=== PATIENT | female | born 1990 | race Caucasian/White ===

== ENCOUNTER 2018-02-09 19:15 | Emergency (ER) | payer OTHER ==
[2018-02-09] MEDS ORDERED: KETOROLAC 30 MG/ML INJ ONE (20:04)
[2018-02-09 20:18] LABS: Urine Specific Gravity 1.015 (1.005-1.030)
[2018-02-09 20:19] LABS: Urine Blood NEGATIVE (NEG); Urine Glucose 2+ (NEG); Urine Protein NEGATIVE (NEG); Urine Specific Gravity 1.015 (1.005-1.030)
--- NOTE | 2018-02-09 20:31 | ER ---
Nurse's Notes [facility] Name: Laureen Schmidt Age: 28 yrs Sex: Female : 1990 Arrival Date: 02/09/2018 Time: 19:16 Bed 15 Private MD: ARLET ALEXANDER Diagnosis: Neck Pain;Urinary tract infection, site not specified Presentation: 02/09 19:29 Presenting complaint: Patient states: She has been having upper neck pain for the past aj1 week, when it gets bad it makes her vision blurry and she feels dizzy. Patient denies any falls or injury to her neck. Reports the pain as a "shooting pressure" that radiates to the right eye and the right upper back. She has been taking tramadol and Motrin at home with no relief. Transition of care: patient was not received from another setting of care. Onset of symptoms was February 02, 2018. Risk Assessment: Do you want to hurt yourself or someone else? Patient reports no desire to harm self or others. Initial Sepsis Screen: Does the patient meet any 2 criteria? No. Patient's initial sepsis screen is negative. Does the patient have a suspected source of infection? No. Patient's initial sepsis screen is negative. Care prior to arrival: None. 19:29 Method Of Arrival: Ambulatory aj1 19:29 Acuity: ELKE 4 aj1 Triage Assessment: 19:34 General: Appears in no apparent distress. uncomfortable, Behavior is calm, cooperative, aj1 appropriate for age. Pain: Complains of pain in right posterior aspect of neck Pain radiates to right eye and thoracic area Pain currently is 7 out of 10 on a pain scale. Quality of pain is described as sharp, shooting, Pain began one week ago Is continuous, Aggravated by repositioning. Neuro: Level of Consciousness is awake, alert, obeys commands, Oriented to person, place, time, situation, Moves all extremities. Full function Gait is steady, Speech is normal. Cardiovascular: Patient's skin is warm and dry. Respiratory: Airway is patent Respiratory effort is even, unlabored, Respiratory pattern is regular, symmetrical. GI: No signs and/or symptoms were reported involving the gastrointestinal system. : No signs and/or symptoms were reported regarding the genitourinary system. Derm: No signs and/or symptoms reported regarding the dermatologic system. Musculoskeletal: Range of motion: limited in neck, patient complains of pain when she moves her neck. 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 - Social history:: Smoking status: Patient/guardian denies using tobacco. - Ebola Screening: : Patient denies travel to an Ebola-affected area in the 21 days before illness onset. Screenin:40 Abuse screen: Denies threats or abuse. Nutritional screening: No deficits noted. jd3 Tuberculosis screening: No symptoms or risk factors identified. Fall Risk Ambulatory Aid- None/Bed Rest/Nurse Assist (0 pts). Gait- Normal/Bed Rest/Wheelchair (0 pts) Mental Status- Oriented to own ability (0 pts). Total Austin Fall Scale indicates No Risk (0-24 pts). Assessment: 19:38 General: see triage assessment. jd3 19:39 Neuro: Level of Consciousness is awake, alert, obeys commands, Oriented to person, jd3 place, time, situation, Appropriate for age Gait is steady, Speech is normal, Pupils are PERRLA, Reports dizziness. 20:45 Reassessment: Patient appears in no apparent distress at this time. Patient and/or jd3 family updated on plan of care and expected duration. Pain level reassessed. Patient is alert, oriented x 3, equal unlabored respirations, skin warm/dry/pink. pt report understanding of discharge instructions, even and steady gait upon discharge. Patient states feeling better. Vital Signs: 19:34 BP 134 / 64; Pulse 85; Resp 18; Temp 98.3(O); Pulse Ox 98% on R/A; Weight 99.79 kg (R); aj1 Height 5 ft. 3 in. (160.02 cm) (R); Pain 7/10; 19:34 Body Mass Index 38.97 (99.79 kg, 160.02 cm) aj1 ED Course: 19:16 Patient arrived in ED. ds1 19:16 ARLET ALEXANDER is Private Physician. ds1 19:31 Triage completed. aj1 19:32 Matt Hamilton PA is PHCP. cp 19:32 Quique Vazquez MD is Attending Physician. cp 19:34 Arm band placed on Patient placed in an exam room. aj1 19:37 Carmine Tsai, OMAR is Primary Nurse. jd3 19:40 Patient has correct armband on for positive identification. Bed in low position. Call jd3 light in reach. Side rails up X 1. 20:44 No provider procedures requiring assistance completed. Patient did not have IV access jd3 during this emergency room visit. Administered Medications: 20:05 Drug: TORadol 60 mg Route: IM; Site: right deltoid; jd3 20:45 Follow up: Response: No adverse reaction jd3 Outcome: 20:30 Discharge ordered by MD. cp 20:44 Discharged to home ambulatory, with family. jd3 20:44 Condition: stable 20:44 Discharge instructions given to patient, family, Instructed on discharge instructions, follow up and referral plans. medication usage, Demonstrated understanding of instructions, follow-up care, medications, Prescriptions given X 3. 20:47 Patient left the ED. jd3 Addendum: 02/12/2018 13:55 Addendum: Culture Results: Positive urine culture. No further action required. Bacteria s s sensitive to prescribed antibiotic. Signatures: Raquel Hudson RN RN aj1 Lilia Manning ds1 Zeny Castillo RN RN ss Page, Corey, PA PA cp Carmine Tsai RN RN jd3 Corrections: (The following items were deleted from the chart) 02/09 20:46 19:39 Neuro: Level of Consciousness is awake, alert, obeys commands, Oriented to jd3 person, place, time, situation, Appropriate for age Gait is steady, Speech is normal, Pupils are PERRLA, Reports dizziness, jd3
--- NOTE | 2018-02-09 20:31 | EDPHYS ---
Physician Documentation [facility] Name: Laureen Schmidt Age: 28 yrs Sex: Female : 1990 Arrival Date: 02/09/2018 Time: 19:16 Bed 15 Private MD: ARLET ALEXANDER ED Physician Quique Vazquez HPI: 02/09 19:39 This 28 yrs old Female presents to ER via Ambulatory with complaints of Neck cp Pain. 19:39 The patient or guardian complains of decreased range of motion, pain, that is acute. cp The symptoms are located at the C2 and C3. Onset: The symptoms/episode began/occurred 1 week(s) ago. Context: The neck injury/problem resulted from from unknown cause. Associated signs and symptoms: Pertinent positives: intermittent headache, Pertinent negatives: numbness, tingling, No neurological symptoms were experienced by the patient prior to arrival in the emergency department. 19:39 The pain does not radiate. Modifying factors: the symptoms are aggravated by movement. cp Severity of symptoms: in the emergency department the symptoms are unchanged, despite home interventions. 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 - Social history:: Smoking status: Patient/guardian denies using tobacco. - Ebola Screening: : Patient denies travel to an Ebola-affected area in the 21 days before illness onset. ROS: 19:45 Constitutional: Negative for body aches, chills, fever, poor PO intake. cp 19:45 Eyes: Negative for injury, pain, redness, and discharge. cp 19:45 ENT: Negative for drainage from ear(s), ear pain, sore throat, difficulty swallowing, difficulty handling secretions. 19:45 Neck: Positive for pain with movement, stiffness, tenderness, bony tenderness, Negative for injury or acute deformity. 19:45 Cardiovascular: Negative for chest pain, edema, palpitations. 19:45 Respiratory: Negative for cough, shortness of breath, wheezing. 19:45 Abdomen/GI: Negative for abdominal pain, nausea, vomiting, and diarrhea, constipation, black/tarry stool, rectal bleeding. 19:45 Back: Negative for injury or acute deformity, radiated pain. 19:45 : Negative for urinary symptoms. 19:45 Skin: Negative for cellulitis, rash. 19:45 Neuro: Negative for altered mental status, dizziness, headache, numbness, weakness. 19:45 All other systems are negative. Exam: 19:50 Constitutional: The patient appears in no acute distress, alert, awake, cp non-diaphoretic, non-toxic, well developed, well nourished, obese. 19:50 Head/Face: Normocephalic, atraumatic. cp 19:50 Eyes: Periorbital structures: appear normal, Pupils: equal, round, and reactive to light and accomodation, Extraocular movements: intact throughout, Conjunctiva: normal, no exudate, no injection, Sclera: no appreciated abnormality, Lids and lashes: appear normal, bilaterally. 19:50 ENT: External ear(s): are unremarkable, Ear canal(s): are normal, clear, TM's: dullness, bilaterally, Nose: is normal, Mouth: Lips: moist, Oral mucosa: pink and intact, moist, Posterior pharynx: is normal, airway is patent, no erythema, no exudate, Voice: is normal. 19:50 Neck: C-spine: vertebral tenderness, that is mild, appreciated at C2 and C3, crepitus, is not appreciated, ROM/movement: pain, that is mild, with rotation to the right, limited range of motion, that is mild, when rotating to the right, Meningeal signs: are not present, nuchal rigidity, is not appreciated, Lymph nodes: no appreciated lymphadenopathy. 19:50 Chest/axilla: Inspection: normal, Palpation: is normal, no crepitus, no tenderness. 19:50 Cardiovascular: Rate: normal, Rhythm: regular. 19:50 Respiratory: the patient does not display signs of respiratory distress, Respirations: normal, no use of accessory muscles, no retractions, no splinting, no tachypnea, Breath sounds: are clear throughout, no decreased breath sounds, no stridor, no wheezing. 19:50 Abdomen/GI: Exam negative for discomfort, distension, guarding, Inspection: obese 19:50 Back: ROM is normal, CVA tenderness, is absent. 19:50 Musculoskeletal/extremity: Exam is negative for bony tenderness, decreased range of motion, deformity, injury. 19:50 Skin: cellulitis, is not appreciated, no rash present. 19:50 Neuro: Orientation: to person, place \T\ time. Mentation: lucid, able to follow commands, Cerebellar function: is grossly normal, Motor: moves all fours, strength is normal, Sensation: is normal. Vital Signs: 19:34 BP 134 / 64; Pulse 85; Resp 18; Temp 98.3(O); Pulse Ox 98% on R/A; Weight 99.79 kg (R); aj1 Height 5 ft. 3 in. (160.02 cm) (R); Pain 7/10; 19:34 Body Mass Index 38.97 (99.79 kg, 160.02 cm) aj1 MDM: 19:32 Patient medically screened. cp 20:00 Differential diagnosis: Cervical Disc Herniation Cervical Raiculopathy Cervical cp Spondylosis cervical strain, Spinal Cord Compression torticollis. 20:28 Data reviewed: vital signs, nurses notes. cp 20:28 Counseling: I had a detailed discussion with the patient and/or guardian regarding: the cp historical points, exam findings, and any diagnostic results supporting the discharge/admit diagnosis, the need for outpatient follow up, a family practitioner, to return to the emergency department if symptoms worsen or persist or if there are any questions or concerns that arise at home. Response to treatment: the patient's symptoms have mildly improved after treatment, and as a result, I will discharge patient. 02/09 20:05 Order name: Urine Dipstick--Ancillary (enter results) [facility] 02/09 20:06 Order name: Urine --Ancillary (enter results) [facility] 02/09 19:39 Order name: Urine Dipstick-Ancillary (obtain specimen); Complete Time: 20:01 02/09 20:12 Order name: Urine Microscopic Only 02/09 20:13 Order name: Urine Culture 02/09 19:39 Order name: Urine Test (obtain specimen); Complete Time: 20:01 cp Administered Medications: 20:05 Drug: TORadol 60 mg Route: IM; Site: right deltoid; jd3 20:45 Follow up: Response: No adverse reaction jd3 Disposition: 02/09/18 20:30 Discharged to Home. Impression: Neck Pain, Urinary tract infection, site not specified. - Condition is Stable. - Discharge Instructions: Musculoskeletal Pain, Urinary Tract Infection, Adult, Neck Exercises. - Prescriptions for Cyclobenzaprine 10 mg Oral Tablet - take 1 tablet by ORAL route every 8 hours As needed no driving while taking medication; 15 tablet. Diclofenac Sodium 75 mg Oral Tablet, Delayed Release (E.C.) - take 1 tablet by ORAL route 2 times per day; 20 tablet. Macrobid 100 mg Oral Capsule - take 1 capsule by ORAL route every 12 hours for 7 days; 14 capsule. - Medication Reconciliation Form, Thank You Letter, Antibiotic Education, Prescription Opioid Use form. - Follow up: Private Physician; When: 2 - 3 days; Reason: Recheck today's complaints. - Problem is new. - Symptoms have improved. Addendum: 02/14/2018 20:21 Co-signature as Attending Physician, Quique Vazquez MD I agree with the assessment and w a plan of care. Signatures: Dispatcher [employer] Raquel Bauman RN RN aj1 Matt Hamilton PA PA cp Appiah, William, MD MD wa Davies, Jonathon, RN RN jd3 Corrections: (The following items were deleted from the chart) 02/09 20:47 20:30 02/09/2018 20:30 Discharged to Home. Impression: Neck Pain; Urinary tract jd3 infection, site not specified. Condition is Stable. Forms are Medication Reconciliation Form, Thank You Letter, Antibiotic Education, Prescription Opioid Use. Follow up: Private Physician; When: 2 - 3 days; Reason: Recheck today's complaints. Problem is new. Symptoms have improved. cp
[2018-02-09 20:51] VITALS: BP 134/64; TEMP 98.3; O2SAT 98
[2018-02-09 21:35] LABS: Urine Bacteria 20-50 /HPF (<20); Urine Culture Reflex Order NOT NEEDED; Urine RBC <5 /HPF (NONE SEEN)
== END 2018-02-09 20:47 | disposition home or self-care (01) ==
LOC: ER 19:15
DX: M54.2 Cervicalgia (principal); N39.0 Urinary tract infection, site not specified; E11.9 Type 2 diabetes mellitus without complications; Z79.4 Long term (current) use of insulin; Z88.6 Allergy status to analgesic agent
CPT/HCPCS: 81003; 81015; 81025; 87077; 87086; 87088; 87186; 96372; 99283

== ENCOUNTER 2019-03-16 16:44 | Emergency (ER) | payer OTHER ==
[2019-03-16] MEDS ORDERED: NA CHLORIDE 0.9% 3,000 ML ONE (17:08)
[2019-03-16] MEDS ORDERED: ACETAMINOPHEN 500 MG TAB ONE (17:14)
[2019-03-16 17:21] LABS: Absolute Lymphocytes (CBC) 2.4 K/uL (0.7-4.9); Basophils % 0.3 % (0-1.3); Hematocrit 44.9 % (36.0-45.0); Lymphocytes % 30.6 % (15.3-44.8); MPV 11.9 fL (7.6-11.3); RBC Red Blood Cell Count 4.95 M/uL (3.86-4.86)
[2019-03-16 17:25] LABS: Protime INR 1.04
[2019-03-16 17:33] LABS: Urine Blood TRACE (NEG); Urine Glucose 2+ (NEG); Urine Protein NEGATIVE (NEG); Urine pH 6.5 (5.0-7.0)
[2019-03-16 17:46] LABS: Urine Bacteria >50 /HPF (<20); Urine Culture Reflex Order REFLEXED; Urine RBC <5 /HPF (NONE SEEN)
[2019-03-16 17:47] LABS: ALT/SGPT 109 U/L (12-78); AST/SGOT 67 U/L (15-37); Albumin 4.1 g/dL (3.4-5.0); Alkaline Phosphatase 105 U/L (45-117); BUN Blood Urea Nitrogen 10 mg/dL (7-18); Bicarbonate 28 mmol/L (21-32); Bilirubin Direct 0.2 mg/dL (0-0.2); Bilirubin Total 0.6 mg/dL (0.2-1.0); Creatine Phosphokinase 52 U/L (26-192); Glucose Level 392 mg/dL (74-106); Lipase 227 U/L (73-393); Potassium 3.9 mmol/L (3.5-5.1); Protein, Total 8.9 g/dL (6.4-8.2); Sodium Level 138 mmol/L (136-145); Troponin (Emerg Dept Use Only) < 0.02 ng/mL (0.0-0.045)
--- NOTE | 2019-03-16 17:57 | RAD REPORT ---
EXAM DESCRIPTION: [place] Single View03/16/2019 5:23 pm CLINICAL HISTORY: Chest pain COMPARISON: 2016 FINDINGS: The lungs appear clear of acute infiltrate. The heart is normal size IMPRESSION: No acute abnormalities displayed
[2019-03-16] MEDS ORDERED: CEFTRIAXONE/SWI 2gm 2 GM/20 ML SYR IVP ONE (19:00)
[2019-03-16] MEDS ORDERED: METOCLOPRAMIDE 10 MG/2mL INJ ONE (19:36)
[2019-03-16] MEDS ORDERED: DIPHENHYDRAMINE 50 MG/ML VIAL ONE (19:36)
--- NOTE | 2019-03-16 19:37 | ER ---
Nurse's Notes [facility] Name: Laureen Schmidt Age: 29 yrs Sex: Female : 1990 Arrival Date: 03/16/2019 Time: 16:47 Bed 26 Private MD: Diagnosis: Acute cystitis;Fever, unspecified Presentation: 03/16 16:49 Presenting complaint: Patient states: left sided chest pain that radiates across the sv chest up into her right neck and right arm tingling started today with a migraine. "My BS have been going up and down and I"m having symptoms of a UTI but I can't see my Dr til next week.". Transition of care: patient was not received from another setting of care. Onset of symptoms was March 16, 2019. Care prior to arrival: None. 16:49 Method Of Arrival: Ambulatory sv 16:49 Acuity: ELKE 2 sv 17:19 Risk Assessment: Do you want to hurt yourself or someone else? Patient reports no ca1 desire to harm self or others. Initial Sepsis Screen: Does the patient meet any 2 criteria? RR > 20 per min. Temp <36.0*C (96.8*F)) or > 38.3*C (100.9*F). Does the patient have a suspected source of infection? Yes: Dysuria/Frequency/Urgency/UTI. 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 - Social history:: Smoking status: Patient/guardian denies using tobacco. - Ebola Screening: : Patient negative for fever greater than or equal to 101.5 degrees Fahrenheit, and additional compatible Ebola Virus Disease symptoms Patient denies exposure to infectious person Patient denies travel to an Ebola-affected area in the 21 days before illness onset No symptoms or risks identified at this time. Screenin:14 Abuse screen: Denies threats or abuse. Denies injuries from another. Nutritional ca1 screening: No deficits noted. Tuberculosis screening: No symptoms or risk factors identified. Fall Risk IV access (20 points). Assessment: 17:14 General: Appears in no apparent distress. comfortable, Behavior is calm, cooperative, ca1 appropriate for age. General: Reports fever for 12-24 hours. Pain: Complains of pain in left chest Pain radiates to back and right arm Pain currently is 7 out of 10 on a pain scale. Pain began 4 hours ago. Neuro: Level of Consciousness is awake, alert, obeys commands, Oriented to person, place, time, situation. Cardiovascular: Heart tones S1 S2 present Capillary refill < 3 seconds Patient's skin is warm and dry. Respiratory: Airway is patent Respiratory effort is even, unlabored, Respiratory pattern is regular, symmetrical, Breath sounds are clear bilaterally. GI: Abdomen is round non-distended, Bowel sounds present X 4 quads. Abd is soft and non tender X 4 quads. : Reports burning with urination, urgency, since a week ago urinary frequency. EENT: No deficits noted. No signs and/or symptoms were reported regarding the EENT system. Derm: Skin is intact, is healthy with good turgor, Skin is pink, warm \\T\\ dry. Musculoskeletal: Circulation, motion, and sensation intact. Capillary refill < 3 seconds, Range of motion: intact in all extremities. 18:00 Reassessment: Patient appears in no apparent distress at this time. Patient and/or ca1 family updated on plan of care and expected duration. Pain level reassessed. Patient is alert, oriented x 3, equal unlabored respirations, skin warm/dry/pink. 18:56 Reassessment: Patient appears in no apparent distress at this time. Patient and/or ca1 family updated on plan of care and expected duration. Pain level reassessed. Patient is alert, oriented x 3, equal unlabored respirations, skin warm/dry/pink. 19:55 Reassessment: Patient appears in no apparent distress at this time. Patient is alert, ca1 oriented x 3, equal unlabored respirations, skin warm/dry/pink. Patient states feeling better. Vital Signs: 16:50 BP 124 / 62; Pulse 128; Resp 22; Temp 100.1; Pulse Ox 97% ; Weight 96.16 kg; Height 5 sv ft. 3 in. (160.02 cm); 18:19 BP 114 / 61; Pulse 111; Resp 17 S; Temp 99.3(O); Pulse Ox 100% on R/A; ca1 18:37 Temp 99.3(O); ca1 18:56 BP 126 / 59; Pulse 102; Resp 17 S; Temp 99(O); Pulse Ox 100% ; ca1 19:55 BP 121 / 61; Pulse 96; Resp 17 S; Temp 99(O); Pulse Ox 98% on R/A; ca1 16:50 Body Mass Index 37.55 (96.16 kg, 160.02 cm) sv ED Course: 16:47 Patient arrived in ED. as 16:50 Triage completed. sv 16:51 Arm band placed on. sv 16:52 Prashant Ugalde PA is PHCP. jr8 16:52 Jw Bear MD is Attending Physician. jr8 16:54 Rupal Rivera, OMAR is Primary Nurse. ca1 17:06 No provider procedures requiring assistance completed. Inserted saline lock: 22 gauge ca1 in right antecubital area, using aseptic technique. Blood collected. 17:14 Patient has correct armband on for positive identification. Placed in gown. Bed in low ca1 position. Call light in reach. Side rails up X 1. bus driver/monitor on. Pulse ox on. NIBP on. 17:24 Chest Single View XRAY In Process Unspecified. EDMS 20:16 IV discontinued, intact, bleeding controlled, No redness/swelling at site. Pressure ca1 dressing applied. Administered Medications: 17:11 Drug: NS 0.9% (30 ml/kg) 30 ml/kg Route: IV; Rate: bolus; Site: right antecubital; ca1 19:00 Follow up: Urine output 300 ml; Response: No adverse reaction; IV Status: Completed ca1 infusion 17:14 Drug: Acetaminophen 1000 mg Route: PO; ca1 18:37 Follow up: Temp 99.3 Oral; Response: No adverse reaction; Temperature is decreased ca1 18:36 Drug: Rocephin 2 grams Route: IV; Rate: calculated rate; Site: right antecubital; ca1 19:00 Follow up: Response: No adverse reaction; IV Status: Completed infusion ca1 19:35 Drug: Reglan 10 mg Route: IVP; Site: right antecubital; ca1 20:15 Follow up: Response: No adverse reaction; Marked relief of symptoms ca1 19:38 Drug: Benadryl 25 mg Route: IVP; Site: right antecubital; ca1 20:15 Follow up: Response: No adverse reaction; Marked relief of symptoms ca1 Point of Care Testing: Blood Glucose: 17:21 Blood Glucose: 406 mg/dL; ca1 18:19 Blood Glucose: 336 mg/dL; ca1 Ranges: Output: 19:00 Urine: 300ml; Total: 300ml. ca1 Outcome: 19:34 Discharge ordered by MD. castorena 20:16 Discharged to home ambulatory, with friend. ca1 20:16 Condition: stable 20:16 Discharge instructions given to patient, Instructed on discharge instructions, follow up and referral plans. medication usage, Demonstrated understanding of instructions, follow-up care, medications, Prescriptions given X 2. 20:18 Patient left the ED. ca1 Addendum: 03/19/2019 08:17 Addendum: Culture Results: Positive urine culture. No further action required. Bacteria m s sensitive to prescribed antibiotic. Signatures: Dispatcher [employer] Viky Harris RN RN sv Martinez, Amelia as Solis, Maria ms Roszak, Josh, KATHRIN PINON jr8 Rupal Rivera RN RN ca1 Corrections: (The following items were deleted from the chart) 03/16 20:18 18:55 Reassessment: Patient appears in no apparent distress at this time. Patient is ca1 alert, oriented x 3, equal unlabored respirations, skin warm/dry/pink. ca1
--- NOTE | 2019-03-16 19:38 | EDPHYS ---
Physician Documentation [facility] Name: Laureen Schmidt Age: 29 yrs Sex: Female : 1990 Arrival Date: 03/16/2019 Time: 16:47 Bed 26 Private MD: ED Physician Jw Bear HPI: 03/16 19:16 This 29 yrs old Female presents to ER via Ambulatory with complaints of jr8 Dizziness, Headache, Nausea. 19:16 The patient presents with dizziness. Onset: The symptoms/episode began/occurred jr8 acutely, today. Context: occurred at home, occurred while the patient was at rest. Modifying factors: The symptoms are alleviated by nothing, the symptoms are aggravated by nothing. Associated signs and symptoms: Pertinent positives: headache, nausea. Severity of symptoms: At their worst the symptoms were moderate in the emergency department the symptoms are unchanged. Patient's baseline: Neuro: alert and fully oriented, Motor: no deficits, Ambulation: walks without assistance, Speech: normal. The patient has not experienced similar symptoms in the past. The patient has not recently seen a physician. 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 - Social history:: Smoking status: Patient/guardian denies using tobacco. - Ebola Screening: : Patient negative for fever greater than or equal to 101.5 degrees Fahrenheit, and additional compatible Ebola Virus Disease symptoms Patient denies exposure to infectious person Patient denies travel to an Ebola-affected area in the 21 days before illness onset No symptoms or risks identified at this time. ROS: 19:16 Eyes: Negative for injury, pain, redness, and discharge, ENT: Negative for injury, jr8 pain, and discharge, Cardiovascular: Negative for chest pain, palpitations, and edema, Respiratory: Negative for shortness of breath, cough, wheezing, and pleuritic chest pain, Back: Negative for injury and pain, MS/Extremity: Negative for injury and deformity, Skin: Negative for injury, rash, and discoloration. 19:16 Constitutional: Positive for fever. 19:16 Neck: Positive for pain with movement, pain at rest, Negative for tenderness. 19:16 Abdomen/GI: Positive for nausea. 19:16 Neuro: Positive for headache. Exam: 19:16 Eyes: Pupils equal round and reactive to light, extra-ocular motions intact. Lids and jr8 lashes normal. Conjunctiva and sclera are non-icteric and not injected. Cornea within normal limits. Periorbital areas with no swelling, redness, or edema. ENT: Nares patent. No nasal discharge, no septal abnormalities noted. Tympanic membranes are normal and external auditory canals are clear. Oropharynx with no redness, swelling, or masses, exudates, or evidence of obstruction, uvula midline. Mucous membranes moist. Neck: Trachea midline, no thyromegaly or masses palpated, and no cervical lymphadenopathy. Supple, full range of motion without nuchal rigidity, or vertebral point tenderness. No Meningismus. Respiratory: Lungs have equal breath sounds bilaterally, clear to auscultation and percussion. No rales, rhonchi or wheezes noted. No increased work of breathing, no retractions or nasal flaring. Abdomen/GI: Soft, non-tender, with normal bowel sounds. No distension or tympany. No guarding or rebound. No evidence of tenderness throughout. Back: No spinal tenderness. No costovertebral tenderness. Full range of motion. Skin: Warm, dry with normal turgor. Normal color with no rashes, no lesions, and no evidence of cellulitis. MS/ Extremity: Pulses equal, no cyanosis. Neurovascular intact. Full, normal range of motion. Neuro: Awake and alert, GCS 15, oriented to person, place, time, and situation. Cranial nerves II-XII grossly intact. Motor strength 5/5 in all extremities. Sensory grossly intact. Cerebellar exam normal. Normal gait. 19:16 Cardiovascular: Rate: tachycardic, Rhythm: regular, Pulses: Pulses are 2+ in bilateral radial, brachial, femoral, popliteal, posterior tibial and and dorsalis pedis arteries.. Heart sounds: normal, Edema: is not appreciated. Vital Signs: 16:50 BP 124 / 62; Pulse 128; Resp 22; Temp 100.1; Pulse Ox 97% ; Weight 96.16 kg; Height 5 sv ft. 3 in. (160.02 cm); 18:19 BP 114 / 61; Pulse 111; Resp 17 S; Temp 99.3(O); Pulse Ox 100% on R/A; ca1 18:37 Temp 99.3(O); ca1 18:56 BP 126 / 59; Pulse 102; Resp 17 S; Temp 99(O); Pulse Ox 100% ; ca1 19:55 BP 121 / 61; Pulse 96; Resp 17 S; Temp 99(O); Pulse Ox 98% on R/A; ca1 16:50 Body Mass Index 37.55 (96.16 kg, 160.02 cm) sv MDM: 16:53 Patient medically screened. 8 19:30 Data reviewed: vital signs, nurses notes, lab test result(s), EKG, radiologic studies, jr8 plain films. Data interpreted: Pulse oximetry: on room air is 100 %. Interpretation: normal. Counseling: I had a detailed discussion with the patient and/or guardian regarding: the historical points, exam findings, and any diagnostic results supporting the discharge/admit diagnosis, lab results, radiology results, the need for outpatient follow up, a family practitioner, to return to the emergency department if symptoms worsen or persist or if there are any questions or concerns that arise at home. Response to treatment: the patient's symptoms have markedly improved after treatment, patient is well hydrated. ED course: Patient feeling much better. UTI present and most likely cause of fever. Explained this to patient. Recommend rest and will continue on home abx. Otherwise no acute findings on labs except elevated glucose. No concern for sepsis at this point . 03/16 16:53 Order name: Urine Culture 03/16 16:53 Order name: Basic Metabolic Panel; Complete Time: 17:59 03/16 16:53 Order name: Blood Culture Adult (2) 03/16 16:53 Order name: CBC with Diff; Complete Time: 17:45 03/16 16:53 Order name: CPK; Complete Time: 17:59 03/16 16:53 Order name: Lactate; Complete Time: 17:45 03/16 16:53 Order name: LFT's; Complete Time: 17:59 03/16 16:53 Order name: Lipase; Complete Time: 17:59 03/16 16:53 Order name: Procalcitonin; Complete Time: 17:59 03/16 16:53 Order name: Protime (+inr); Complete Time: 17:45 03/16 16:53 Order name: Ptt, Activated; Complete Time: 17:45 03/16 16:53 Order name: Troponin (emerg Dept Use Only); Complete Time: 17:59 03/16 16:53 Order name: Urine Microscopic Only; Complete Time: 17:47 03/16 17:30 Order name: Urine Dipstick--Ancillary (enter results); Complete Time: 17:45 03/16 16:53 Order name: Chest Single View XRAY; Complete Time: 19:54 03/16 16:53 Order name: Accucheck; Complete Time: 17:04 03/16 16:53 Order name: Cardiac monitoring; Complete Time: 17:04 03/16 16:53 Order name: EKG - Nurse/Tech; Complete Time: 17:11 03/16 16:53 Order name: IV Saline Lock - Large Bore; Complete Time: 17:04 03/16 16:53 Order name: Labs collected and sent; Complete Time: 17:04 03/16 16:53 Order name: O2 Per Protocol; Complete Time: 17:05 03/16 17:39 Order name: EKG Electrocardiogram; Complete Time: 17:49 EDMS 03/16 18:20 Order name: Glucose, Ancillary Testing; Complete Time: 18:24 EDMS 03/16 18:21 Order name: Glucose, Ancillary Testing; Complete Time: 18:24 EDMS 03/16 16:53 Order name: O2 Sat Monitoring; Complete Time: 17:05 03/16 16:53 Order name: Urine Dipstick-Ancillary (obtain specimen); Complete Time: 17:53 03/16 16:53 Order name: Urine Test (obtain specimen); Complete Time: 17:35 jr8 Administered Medications: 17:11 Drug: NS 0.9% (30 ml/kg) 30 ml/kg Route: IV; Rate: bolus; Site: right antecubital; ca1 19:00 Follow up: Urine output 300 ml; Response: No adverse reaction; IV Status: Completed ca1 infusion 17:14 Drug: Acetaminophen 1000 mg Route: PO; ca1 18:37 Follow up: Temp 99.3 Oral; Response: No adverse reaction; Temperature is decreased ca1 18:36 Drug: Rocephin 2 grams Route: IV; Rate: calculated rate; Site: right antecubital; ca1 19:00 Follow up: Response: No adverse reaction; IV Status: Completed infusion ca1 19:35 Drug: Reglan 10 mg Route: IVP; Site: right antecubital; ca1 20:15 Follow up: Response: No adverse reaction; Marked relief of symptoms ca1 19:38 Drug: Benadryl 25 mg Route: IVP; Site: right antecubital; ca1 20:15 Follow up: Response: No adverse reaction; Marked relief of symptoms ca1 Point of Care Testing: Blood Glucose: 17:21 Blood Glucose: 406 mg/dL; ca1 18:19 Blood Glucose: 336 mg/dL; ca1 Ranges: Critical Glucose Levels:Adult <50 mg/dl or >400 mg/dl <40 mg/dl or >180 mg/dl Disposition: 03/16/19 19:34 Discharged to Home. Impression: Acute cystitis, Fever, unspecified. - Condition is Stable. - Discharge Instructions: Fever, Adult, Urinary Tract Infection, Adult. - Prescriptions for Levaquin 500 mg Oral Tablet - take 1 tablet by ORAL route once daily for 7 days; 7 tablet. promethazine 25 mg Oral Tablet - take 1 tablet by ORAL route every 6 hours As needed; 20 tablet. - Medication Reconciliation Form, Thank You Letter, Antibiotic Education, Prescription Opioid Use form. - Follow up: Private Physician; When: 2 - 3 days; Reason: Recheck today's complaints, Continuance of care, Re-evaluation by your physician. - Problem is new. - Symptoms have improved. Addendum: 03/19/2019 09:31 Co-signature as Attending Physician, Jw Bear MD I agree with the assessment and k dr plan of care. Signatures: Dispatcher [employer] Viky Harris, RN Jw Garcia MD MD kdr Roszak, Josh, PA PA jr8 Rupal Rivera RN RN ca1 Corrections: (The following items were deleted from the chart) 03/16 17:13 16:53 [place] ordered. jr8 ca1 20:18 19:34 03/16/2019 19:34 Discharged to Home. Impression: Acute cystitis; Fever, ca1 unspecified. Condition is Stable. Forms are Medication Reconciliation Form, Thank You Letter, Antibiotic Education, Prescription Opioid Use. Follow up: Private Physician; When: 2 - 3 days; Reason: Recheck today's complaints, Continuance of care, Re-evaluation by your physician. Problem is new. Symptoms have improved. jr8
[2019-03-16 20:36] VITALS: TEMP 99
[2019-03-16 20:37] VITALS: BP 121/61; O2SAT 98
--- NOTE | 2019-03-18 08:10 | EKG ---
Test Date: 2019-03-16 Test Time: 17:15:51 Mathematical Engineering Technician: NEGRA MEASUREMENT RESULTS: Intervals: Rate: 127 DC: 138 QRSD: 68 QT: 304 QTc: 441 [place]: P: 49 DC: 138 QRS: 23 T: 37 INTERPRETIVE STATEMENTS: Sinus tachycardia Otherwise normal ECG Compared to ECG 07/15/2017 02:10:10 Sinus rhythm no longer present Electronically Signed On 03-18-19 08:07:20 CDT by Steven Zaman
== END 2019-03-16 20:18 | disposition home or self-care (01) ==
LOC: ER 16:44
DX: N30.00 Acute cystitis without hematuria (principal); R50.9 Fever, unspecified; Z88.6 Allergy status to analgesic agent
CPT/HCPCS: 96365; 93005; 87040 ×2; 87088; 85025; 87086; 80048; 36415; 82550; 85610; 82962 ×2; 80076; 83605; 85730; 87077; 87186; 84484; 83690; 84145; 71045; 96375; 99284; J2765; J0696; J7030; 81003; 81015

== ENCOUNTER 2019-06-11 05:25 | Emergency (ER) | payer OTHER ==
--- OUTSIDE RECORDS SUMMARY | 2019-06-11 05:27 | XMS REPORT ---
:1990 [facility] [address] [place] [address] Dr. Frank [address] [place] [id number] Care Team Providers Name Role Phone Unavailable Unavailable Unavailable Problems This patient has no known problems. Allergies, Adverse Reactions, Alerts This patient has no known allergies or adverse reactions. Medications This patient has no known medications.
--- NOTE | 2019-06-11 06:40 | ER ---
Nurse's Notes [facility] Name: Laureen Schmidt Age: 29 yrs Sex: Female : 1990 Arrival Date: 06/11/2019 Time: 05:30 Bed 17 Private MD: Diagnosis: Dental caries Presentation: 06/11 05:35 Presenting complaint: Patient states: "I've been having this toothache since a month cc3 and a half now, I already have taken antibiotics like Amoxicillin and Cipro but it's not taking the pain away. Since 3 days now, the pain's not letting me sleep". Transition of care: patient was not received from another setting of care. Onset of symptoms is unknown. Risk Assessment: Do you want to hurt yourself or someone else? Patient reports no desire to harm self or others. Initial Sepsis Screen: Does the patient meet any 2 criteria? No. Patient's initial sepsis screen is negative. Does the patient have a suspected source of infection? No. Patient's initial sepsis screen is negative. Care prior to arrival: Medication(s) given: Ibuprofen 800 mg taken at home at 0400H this morning. 05:35 Method Of Arrival: Ambulatory cc3 05:35 Acuity: ELKE 5 cc3 Triage Assessment: 05:35 General: Appears in no apparent distress. uncomfortable, Behavior is calm, cooperative, cc3 appropriate for age. Pain: Complains of pain in right lower and upper teeth, wisdom tooth Pain currently is 10 out of 10 on a pain scale. Quality of pain is described as aching, Pain began since a month and a half. EENT: Reports pain in right upper and lower teeth, wisdom tooth since a month and a half. Neuro: Level of Consciousness is awake, alert, obeys commands, Oriented to person, place, time, situation, Appropriate for age. Cardiovascular: Denies chest pain, diaphoresis, fatigue, lightheadedness, nausea, palpitations, shortness of breath, syncope, vomiting, Capillary refill < 3 seconds in bilateral fingers Patient's skin is warm and dry. Respiratory: Airway is patent Respiratory effort is even, unlabored, Respiratory pattern is regular, symmetrical. GI: Abdomen is round non-distended, Abd is soft and non tender X 4 quads. : No signs and/or symptoms were reported regarding the genitourinary system. Derm: Skin is intact, is healthy with good turgor, Skin is pink, warm \\T\\ dry. normal. Musculoskeletal: Circulation, motion, and sensation intact. Range of motion: intact in all extremities. 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 - Social history:: Smoking status: Patient/guardian denies using tobacco, never smoked. - Ebola Screening: : No symptoms or risks identified at this time. Screenin:35 Abuse screen: Denies threats or abuse. Denies injuries from another. Nutritional cc3 screening: No deficits noted. Tuberculosis screening: No symptoms or risk factors identified. Fall Risk Ambulatory Aid- None/Bed Rest/Nurse Assist (0 pts). Gait- Normal/Bed Rest/Wheelchair (0 pts) Mental Status- Oriented to own ability (0 pts). Assessment: 05:35 General: see triage assessment. cc3 06:00 Reassessment: Patient appears in no apparent distress at this time. Patient and/or cc3 family updated on plan of care and expected duration. Pain level reassessed. Patient is alert, oriented x 3, equal unlabored respirations, skin warm/dry/pink. Dr. Luo came in to see the patient at bedside. Patient given ice compress to help ease her toothache. 06:40 Reassessment: Patient appears in no apparent distress at this time. Patient and/or cc3 family updated on plan of care and expected duration. Pain level reassessed. Patient is alert, oriented x 3, equal unlabored respirations, skin warm/dry/pink. Dr. Luo discharged the patient home with prescriptions given. No IV cannula in situ. Patient left ER vitally stable and ambulatory. No valuables left in the patient's room. Vital Signs: 05:35 BP 124 / 87; Pulse 80; Resp 17 S; Temp 98.2(O); Pulse Ox 98% on R/A; Weight 97.52 kg cc3 (R); Height 5 ft. 3 in. (160.02 cm) (R); Pain 10/10; 06:34 BP 129 / 80; Pulse 63; Resp 16 S; Pulse Ox 98% on R/A; cc3 05:35 Body Mass Index 38.09 (97.52 kg, 160.02 cm) cc3 ED Course: 05:30 Patient arrived in ED. jg7 05:35 Luana Devlin is Primary Nurse. cc3 05:35 Patient has correct armband on for positive identification. Bed in low position. Call cc3 light in reach. Side rails up X2. Pulse ox on. NIBP on. 05:35 Arm band placed on right wrist. Patient notified of wait time. cc3 05:50 Triage completed. cc3 06:09 Neno Luo MD is Attending Physician. tw4 06:40 No provider procedures requiring assistance completed. Patient did not have IV access cc3 during this emergency room visit. Administered Medications: No medications were administered Outcome: 06:39 Discharge ordered by . tw4 06:40 Discharged to home ambulatory. cc3 06:40 Condition: stable 06:40 Discharge instructions given to patient, Instructed on discharge instructions, follow up and referral plans. medication usage, Demonstrated understanding of instructions, follow-up care, medications, Prescriptions given X 2. 06:48 Patient left the ED. cc3 Signatures: Neno Luo MD MD tw4 Luana Devlin cc3 Alanna Bajwa jg7 Corrections: (The following items were deleted from the chart) 06:47 06:00 Reassessment: Patient appears in no apparent distress at this time. Patient cc3 and/or family updated on plan of care and expected duration. Pain level reassessed. Patient is alert, oriented x 3, equal unlabored respirations, skin warm/dry/pink. Dr. Luo came in to see the patient at bedside. cc3
--- NOTE | 2019-06-11 06:40 | EDPHYS ---
Physician Documentation [facility] Name: Laureen Schmidt Age: 29 yrs Sex: Female : 1990 Arrival Date: 06/11/2019 Time: 05:30 Bed 17 Private MD: ED Physician Neno Luo HPI: 06/11 06:13 This 29 yrs old Female presents to ER via Ambulatory with complaints of tw4 Toothache. 06:13 The patient presents with pain. The problem is located in the lower right third molar. tw4 Onset: The symptoms/episode began/occurred 2 month(s) ago. Duration: The symptoms are continuous, and are steadily getting worse. Modifying factors: The symptoms are alleviated by nothing, the symptoms are aggravated by chewing. Associated signs and symptoms: The patient has no apparent associated signs or symptoms. The patient has not experienced similar symptoms in the past. 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 - Social history:: Smoking status: Patient/guardian denies using tobacco, never smoked. - Ebola Screening: : No symptoms or risks identified at this time. ROS: 06:13 Constitutional: Negative for fever, chills, and weight loss. tw4 06:13 Neck: Negative for injury, pain, and swelling, Cardiovascular: Negative for chest pain, palpitations, and edema, Respiratory: Negative for shortness of breath, cough, wheezing, and pleuritic chest pain, Abdomen/GI: Negative for abdominal pain, nausea, vomiting, diarrhea, and constipation, Back: Negative for injury and pain. 06:13 ENT: Positive for dental pain. Exam: 06:13 Constitutional: This is a well developed, well nourished patient who is awake, alert, tw4 and in no acute distress. Head/Face: Normocephalic, atraumatic. Chest/axilla: Normal chest wall appearance and motion. Nontender with no deformity. No lesions are appreciated. Cardiovascular: Regular rate and rhythm with a normal S1 and S2. No gallops, murmurs, or rubs. Normal PMI, no JVD. No pulse deficits. 06:13 ENT: Dental exam: dental caries, specifically in the upper right third molar (#1), upper right second molar (#2) and lower right third molar (#32). Vital Signs: 05:35 BP 124 / 87; Pulse 80; Resp 17 S; Temp 98.2(O); Pulse Ox 98% on R/A; Weight 97.52 kg cc3 (R); Height 5 ft. 3 in. (160.02 cm) (R); Pain 10/10; 06:34 BP 129 / 80; Pulse 63; Resp 16 S; Pulse Ox 98% on R/A; cc3 05:35 Body Mass Index 38.09 (97.52 kg, 160.02 cm) cc3 MDM: 06:09 Patient medically screened. tw4 06:13 Differential diagnosis: dental caries, gingivitis, dental abscess, acute necrotizing tw4 ulcerative gingivitis, gingivostomatitis. Data reviewed: vital signs, nurses notes. Data interpreted: Pulse oximetry: Interpretation: normal. Medical screen evaluation completed. [facility] Administered Medications: No medications were administered Disposition: 06:19 [facility]. 4 Disposition: 06/11/19 06:39 Discharged to Home. Impression: Dental caries. - Condition is Stable. - Discharge Instructions: Dental Pain. - Prescriptions for Ibuprofen 800 mg Oral Tablet - take 1 tablet by ORAL route every 8 hours As needed take with food; 30 tablet. Tramadol 50 mg Oral Tablet - take 1 tablet by ORAL route every 8 hours as needed; 12 tablet. - Medication Reconciliation Form, Thank You Letter, Antibiotic Education, Prescription Opioid Use form. - Follow up: Private Physician; When: Upon discharge from the Emergency Department; Reason: Recheck today's complaints, Continuance of care. - Problem is new. - Symptoms have improved. Signatures: Neno Luo MD MD tw4 Luana Devlin cc3 Corrections: (The following items were deleted from the chart) 06:48 06:39 06/11/2019 06:39 Discharged to Home. Impression: Dental caries. Condition is cc3 Stable. Forms are Medication Reconciliation Form, Thank You Letter, Antibiotic Education, Prescription Opioid Use. Follow up: Private Physician; When: Upon discharge from the Emergency Department; Reason: Recheck today's complaints, Continuance of care. Problem is new. Symptoms have improved. tw4
== END 2019-06-11 06:48 | disposition home or self-care (01) ==
LOC: ER 05:25
DX: K02.9 Dental caries, unspecified (principal); E11.9 Type 2 diabetes mellitus without complications; F31.9 Bipolar disorder, unspecified; Z79.4 Long term (current) use of insulin
CPT/HCPCS: 99283

== ENCOUNTER 2020-03-11 19:24 | Emergency (ER) | payer OTHER ==
--- OUTSIDE RECORDS SUMMARY | 2020-03-11 19:27 | XMS REPORT | Summary of Care ---
:1990 Author Organization [facility] Primary [facility] Address [address], [address] [place] [address]- Encounter HQ Prerna_cameron(FIN) [phone] Date(s): 01/09/20 - 01/10/20 [facility] Primary Care [facility] [address] [place] [address]- [phone] Vital Signs No data available for this section Problem List Condition Effective Dates Status Health Status Informant Dyslipidemia with low high density Active lipoprotein (HDL) cholesterol with hypertriglyceridemia due to type 2 diabetes mellitus(Confirmed) Type 2 diabetes mellitus with Active hyperglycemia(Confirmed) Class 2 obesity with body mass index Active (BMI) of 38.0 to 38.9 in adult(Confirmed) Allergies, Adverse Reactions, Alerts Substance Reaction Severity Status NKA Active NKDA Active Medications Dexcom G6 Cylinder Machine Operator Pulp Drier Kit 1 ea, MISC, ONCE, Certified Medically Necessar. Change every 90 days., # 1 kit, Insulin dependent, Does not use insulin pump, Last DM eval date 01/09/20, 0 Refill(s), Pharmacy: [id number], 160.02, cm, 01/09/20 11:25:00 CDT, Height, 98.182, kg,... Start Date: 01/09/20 Status: OrderedDexcom G6 Sensor Kit 1 ea, MISC, ONCE, Certified Medically Necessary-change every 10 days., # 1 ea, Insulin dependent, Does not use insulin pump, Last DM eval date 01/09/20, 11 Refill(s), [facility]acy: [id number], 160.02, cm, 01/09/20 11:25:00 CDT, Height, 98.182, kg,... Start Date: 01/09/20 Status: OrderedDexcom G6 Transmitter Kit 1 ea, MISC, ONCE, Certified Medically Necessary:Change every 3 months Dx code E10.65, # 1 ea, Insulin dependent, Does not use insulin pump, Last DM eval date 01/09/20, 3 Refill(s), Pharmacy: [id number], 160.02, cm, 01/09/20 11:25:00 CDT, Sally... Start Date: 01/09/20 Status: Ordered Results No data available for this section Immunizations No data available for this section Procedures Procedure Date Related Diagnosis Body Site Status Bladder cancer 07/18/12 Completed Hysterectomy 07/18/12 Completed Tube feeding 07/18/07 Completed Lipoma of back 07/18/97 Completed Caesarean section 89 Completed Caesarean section 89 Completed Gallbladder Completed Shortening of heel cord Comp leted Social History Social History Type Response Alcohol Past, Type Liquor. Frequenc y: 1-2 times per month. Employment/School Status: DISABLED. . Exercise Exercise frequency: 3-4 time s/week. Substance Abuse Use: None. Smoking Status Never smoker; Exposure to To bacco Smoke None; Cigarette Smoking Last 365 Days No; Reg Smoking Cessation Counseling No entered on: 01/09/20 Assessment and Plan No data available for this section
--- OUTSIDE RECORDS SUMMARY | 2020-03-11 19:27 | XMS REPORT | Summary of Care ---
:1990 Author Organization [facility] Primary [facility] Address [address], [address] [place] [address]- Encounter HQ Viancantr_cameron(FIN) [phone] Date(s): 02/20/20 - 02/21/20 [facility] [address] [place] [address]- [phone] Vital Signs No data available for this [...] Severity Status NKA Active NKDA Active Medications No data available for this section Results No data available for this section [...] Reg Smoking Cessation Counseling No entered on: 02/21/20 Assessment and Plan No data available for this section
--- OUTSIDE RECORDS SUMMARY | 2020-03-11 19:27 | XMS REPORT | Summary of Care ---
:1990 Author Organization [facility] Primary Care [facility] Address [address], [address] [place] [address]- Encounter HQ Prerna_cameron(FIN) [phone] Date(s): 02/21/20 - 02/21/20 [facility] Primary [facility] [address] [place] [address]- [phone] Discharge Disposition: Home or Self Care Attending Physician: Aubrey Man MD Referring Physician: Quique Howard MD Vital Signs No data available for this [...] Severity Status NKA Active NKDA Active Medications pioglitazone 15 mg oral tablet 15 mg = 1 tab, PO, Daily, # 90 tab, 0 Refill(s), Pharmacy: [facility]/pharmacy #[id number], 160.02, cm, 01/09/20 11:25:00 CDT, Height, 98.182, kg, 01/09/20 11:25:00 CDT, Weight Start Date: 02/21/20 Status: Ordered Results No data available for [...]
--- OUTSIDE RECORDS SUMMARY | 2020-03-11 19:27 | XMS REPORT | Summary of Care ---
:1990 Author Organization [facility] Primary [facility] Address [address], [address] [place] [address]- Encounter HQ Nafisa(FIN) [phone] Date(s): 01/11/20 - 01/12/20 [facility] [address] [place], [place] [address]- [phone] Vital Signs No data available for this [...] Severity Status NKA Active NKDA Active Medications OneTouch Delica Extra Fine 33G Lancets See Instructions, FS 4/d, # 400 ea, Insulin dependent, Does not use insulin pump, Last DM eval date 01/11/20, 3 Refill(s), [facility]acy: [id number], 160.02, cm, 01/09/20 11:25:00 CDT, Height, 98.182, kg, 01/09/20 11:25:00 CDT, Weight Start Date: 01/11/20 Status: OrderedOneTouch Ultra Blue Blood Glucose Test Strip See Instructions, 4 FS/d, # 400 ea, Insulin dependent, Does not use insulin pump, Last DM eval date 01/11/20, 3 Refill(s), Pharmacy: [facility] #[id number], 160.02, cm, 01/09/20 11:25:00 CDT, Height, 98.182, kg, 01/09/20 11:25:00 CDT, Weight Start Date: 01/11/20 Status: OrderedOneTouch Ultra2 Blood Glucose Meter 1 ea, MISC, ONCE, Last HBA1c:<> Insulin Dep:Y High freq tests for: Poor control Certified Medically Necessary:<>, # 1 ea, Insulin dependent, Does not use insulin pump, Last DM eval date 01/11/20, 0 Refill(s), Pharmacy: [facility]/pharmacy #[id number], 160.02, cm,... Start Date: 01/11/20 Status: Ordered Results No data available for [...]
--- OUTSIDE RECORDS SUMMARY | 2020-03-11 19:27 | XMS REPORT | Summary of Care ---
:1990 Author Organization [facility] Primary Care [facility] Address [address], [address] [place] [address]- Encounter HQ Nafisa(FIN) [phone] Date(s): 01/31/20 - 01/31/20 [facility] Primary [facility] [address] [place] [address]- [phone] Discharge Disposition: Home or Self Care Attending [...] Severity Status NKA Active NKDA Active Medications canagliflozin 100 mg oral tablet 100 mg = 1 tab, PO, Daily, # 90 tab, 1 Refill(s), Pharmacy: [facility]/pharm[facility] #[id number], 160.02, cm, 01/08/2011:25:00 CDT, Height, 98.182, kg, 01/09/20 11:25:00 CDT, Weight Start Date: 01/31/20 Status: Ordered Results No data available for [...]
--- OUTSIDE RECORDS SUMMARY | 2020-03-11 19:27 | XMS REPORT | Continuity of Care Document ---
:1990 Author Organization [employer] [facility] Care Team Providers Name Role Phone RetiDiag Unavailable Un available Problems Problem Status Onset Classification Date Comments Sourc e Date Reported Dyslipidemia with Active Problem 02/23/2020 [facility] high density Group lipoprotein below reference range and triglyceride above reference range due to type 2 diabetes mellitus (disorder) Hyperglycemia due Active Problem 02/23/2020 [facility] to type 2 Group diabetes mellitus (disorder) Obesity Active Problem 02/23/2020 [facility] Medica l (disorder) Group Medications Medication Details Route Status Patient Ordering Order Source Instructions Provider Date pioglitazone 15 15 mg = 1 Active MH mg oral tablet tab, PO, 020 Medical Daily, # 90 Group tab, 0 Refill(s), Pharmacy: [facility]/pharmacy #[id number], 160.02, cm, 01/09/20 11:25:00 CDT, Height, 98.182, kg, 01/09/20 11:25:00 CDT, Weight canagliflozin 100 mg = 1 Active 100 mg oral tab, PO, 020 Medical tablet Daily, # 90 Group tab, 1 Refill(s), Pharmacy: [facility]/pharmacy #[id number], 160.02, cm, 01/09/20 11:25:00 CDT, Height, 98.182, kg, 01/09/20 11:25:00 CDT, Weight OneTouch Ultra2 , # 1 ea, Active Blood Glucose Insulin 020 Medical Meter dependent, Group Does not use insulin pump, Last DM eval date 01/11/20, 0 Refill(s), Pharmacy: [facility]/pharmacy #[id number], 160.02, cm,... OneTouch Ultra See Active Blue Blood Instructions 020 Medical Glucose Test , 4 FS/d, # Group Strip 400 ea, Insulin dependent, Does not use insulin pump, Last DM eval date 01/11/20, 3 Refill(s), Pharmacy: [facility]/pharmacy #[id number], 160.02, cm, 01/09/20 11:25:00 CDT, Height, 98.182, kg, 01/09/20 11:25:00 CDT, Weight Bridger dAame See Active Extra Fine 33G Instructions 020 Medi keo Lancets , FS 4/d, # Group 400 ea, Insulin dependent, Does not use insulin pump, Last DM eval date 01/11/20, 3 Refill(s), [id number] 160.[facility], cm, 01/09/20 11:25:00 CDT, Height, 98.182, kg, 01/09/20 11:25:00 CDT, Weight Dexcom G6 1 ea, MIS, Active Forgesmith Kit ONCE, 020 Medical Certified Group Medically Necessar. Change every 90 days., # 1 kit, Insulin dependent, Does not use insulin pump, Last DM eval date 01/09/20, 0 Refill(s), [id number], 160.02, cm, 01/09/20 11:25:00 CDT, Height, 98.182, kg,... Dexcom G6 Sensor 1 ea, MISC, Active MH Kit ONCE, 020 Medical Certified Group Medically Necessary-ch mendoza every 10 days., # 1 ea, Insulin dependent, Does not use insulin pump, Last DM eval date 01/09/20, 11 Refill(s), [id number], 160.02, cm, 01/09/20 11:25:00 CDT, Height, 98.182, kg,... Dexcom G6 1 ea, MIS, Active MH Transmitter Kit ONCE, 020 Medical Certified Group Medically Necessary:Ch mendoza every 3 months Dx code E10.65, # 1 ea, Insulin dependent, Does not use insulin pump, Last DM eval date 01/09/20, 3 Refill(s), [id number], 160.02, cm, 01/09/20 11:25:00 CDT, Heigh... FreeStyle Aileen , # 1 ea, Inactive MH [place] Insulin 020 Medical dependent, Group Does not use insulin pump, Last DM eval date 01/09/20, 0 Refill(s), Pharmacy: [facility]/pharmacy #[id number], 160.02, cm,... FreeStyle Aileen See Inactive Sensor Instructions 020 Medical , MISC, Group change every 14 days, # 6 ea, Insulin dependent, Does not use insulin pump, Last DM eval date 01/09/20, 3 Refill(s), [id number], 160.02, cm, 01/09/20 11:25:00 CDT, Height, 98.182, kg, 01/09/20 11:25:00 CDT, We... FreeStyle Aileen , # 1 ea, Inactive [place] Insulin 020 Medical dependent, Group Does not use insulin pump, Last DM eval date 01/09/20, 0 Refill(s), other FreeStyle Aileen See Inactive Sensor Instructions 020 Medical , MISC, Group change every 14 days, # 6 ea, Insulin dependent, Does not use insulin pump, Last DM eval date 01/09/20, 3 Refill(s), other 3 ML Insulin, See Active Aspart, Human Instructions 020 Medic al 100 UNT/ML Pen , 60 units Group Injector SQ at meals, [NovoLog] # 180 mL, 0 Refill(s), other 3 ML Insulin See Active Glargine 100 Instructions 020 Medica l UNT/ML Prefilled , 100 units Evan up Syringe [Lantus] SQ every 12 hours, # 180 mL, 0 Refill(s), other Allergies, Adverse Reactions, Alerts Substance Category Reaction Severity Reaction Status Date Comments S ource type Reported NKA Assertion Drug Active allergy Medical Group Immunizations No Data Provided for This Section Results No Data Provided for This Section Pathology Reports No Data Provided for This Section Diagnostic Reports No Data Provided for This Section Consultation Notes No Data Provided for This Section Discharge Summaries No Data Provided for This Section History and Physicals No Data Provided for This Section Vital Signs Vital Sign Value Date Comments Source Systolic (mm Hg) 100 01/09/2020 Medical Group Diastolic (mm Hg) 60 01/09/2020 Medical Group Heart Rate 80 01/09/2020 [facility] Gr[facility] p Respitory Rate 16 01/09/2020 Medical Gr oup Height 160.02 cm 01/09/2020 [facility] Gr[facility] p Weight 98.182 01/09/2020 Medical Gr[facility] p BMI Calculated 38.34 01/09/2020 [facility]up Encounters Location Location Encounter Encounter Reason Attending ADM [place] Stat Source Details Type Number For Provider Date Date Visit [facility] Ambulatory [id number] Quique 01/06 01/06 Primary [facility] [place] Outpatient [id number] Ed01/08 Active [facility] Aram n [facility] Outpatient [id number] Quique 01/08 01/09 Primary [facility] [place] MG Ambulatory [id number] [facility] 01/08 01/08 Primary [facility] [place] [facility] Phone [id number] 01/08 01/10 Primary Message /2019 [facility] [place] [facility] Phone [id number] 01/10 01/12 Primary Message /2019 [facility] [place] Outpatient [id number] Ed01/30 Active [facility]2020 Aram [facility] Outpatient [id number] [facility] 01/30 01/31 Primary [facility] [place] MG Between [id number] 02/19 02/20 Primary Visit /2019 [facility] [place] Outpatient [id number] Ed02/20 Active [facility]2020 Aram n [facility] Outpatient [id number] [facility] 02/20 02/21 Primary [facility] [place] Outpatient [id number] Ed03/25 Active [facility] /2020 Aram n Procedures Procedure Code Date Perfomer Comments Source Bladder cancer 354276306 07/18/2012 Medical Group Hysterectomy [id number] 07/18/2012 Medical Group Tube feeding 45928568 07/18/2007 Medical Group Lipoma of back 602444354 07/18/1997 Medical Group Caesarean section 25310120 1989 Medi ke[facility] Group Gallbladder 35046701 Medical Group Shortening of heel 8592938 Med ical cord Group Assessment and Plan No Data Provided for This Section Plan of Care No Data Provided for This Section Social History Social History Date Source Social History TypeResponse 01/09/2020 [facility] Alcohol Past, Type Liquor. Frequency: 1-2 times per month. Employment/School Status: DISABLED. . Exercise Exercise frequency: 3-4 times/week. Substance Abuse Use: None. Smoking Status Never smoker; Exposure to Tobacco Smoke None; Cigarette Smoking Last 365 Days No; Reg Smoking Cessation Counseling No entered on: 02/21/20 Family History No Data Provided for This Section Advance Directives No Data Provided for This Section Functional Status No Data Provided for This Section
--- OUTSIDE RECORDS SUMMARY | 2020-03-11 19:28 | XMS REPORT | Summary of Care ---
:1990 Author Organization [facility] Primary Care [facility] Address [address], [address] [place] [address]- Encounter HQ Prerna_cameron(FIN) [id number] Date(s): 01/09/20 - 01/09/20 [facility] Primary Care [facility] [address] [place] [address] [phone] Attending Physician: Aubrey Man MD Referring Physician: [...]
--- OUTSIDE RECORDS SUMMARY | 2020-03-11 19:28 | XMS REPORT | Summary of Care ---
:1990 Author Organization [facility] Primary Care [facility] Address [address], [address] [place] [address]- Encounter HQ Prerna_cameron(FIN) [phone] Date(s): 01/07/20 - 01/07/20 [facility] [address] [place] [address] [phone] Attending Physician: Aubrey Man MD Referring Physician: [...]
--- OUTSIDE RECORDS SUMMARY | 2020-03-11 19:28 | XMS REPORT | Continuity of Care Document ---
:1990 Author Organization [facility] t Address [address] [place] [address] Care Team Providers Name Role Phone Jim Solis II Attending Clinician Eliseo LUZ, K.H. Attending Clinician Doctor Unassigned, Name Attending Clinician Unavailable Ros LUZ, Gene Attending Clinician Problems Condition Condition Condition Status Onset Resolution Last Treating Co mments Source Name Details Category Date Date Treatment Clinician Date Dyslipidem Problem Active 2020-02-23 M emoria ia with 23:36:08 l high [place] density Dyslipidem lipoprotei ia with n below high reference density range and lipoprotei triglyceri n below de above reference reference range and range due triglyceri to type 2 de above diabetes reference mellitus range due (disorder) to type 2 diabetes mellitus (disorder) Active Problem 02/23/2020 [facility] Hyperglyce Problem Active 2020-02-23 M emoria shanna due to 23:36:08 l type 2 Tony diabetes Hyperglyce mellitus shanna due to (disorder) type 2 diabetes mellitus (disorder) Active Problem 02/23/2020 [facility] Obesity Problem Active 2020-02-23 Vick arik (disorder) 23:36:08 l Obesity Tony (disorder) Active Problem 02/23/2020 [facility] Allergies, Adverse Reactions, Alerts Allergy Allergy Status Severity Reaction(s) Onset Inactive Treating Comm ents Source Name Type Date Date Clinician SAGE CAZARES Active Memoria l Tony Social History Social Habit Start Date Stop Date Quantity Comments Source Social History 2020-01-09 2020-01-09 [facility] 16:48:27 16:48:27 Medications Ordered Filled Start Stop Current Ordering Indication Dosage Frequency Signature Comments Components Source Medication Medication Date Date Medication? Clinician (SIG) Name Name pioglitazon Yes 15 mg = 1 Rojelio gao 15 mg 8-06 tab, PO, l oral tablet 14:49: Daily, # He rmann 00 90 tab, 0 Refill(s), Pharmacy: [facility] #[id number], 160.02, cm, 01/09/20 11:25:00 CDT, Height, 98.182, kg, 01/09/20 11:25:00 CDT, Weight canaglifloz Yes 100 mg = 1 Memoria in 100 mg 7-16 tab, PO, l oral tablet 16:23: Daily, # He rmann 00 90 tab, 1 Refill(s), Pharmacy: [facility] #[id number], 160.02, cm, 01/09/20 11:25:00 CDT, Height, 98.182, kg, 01/09/20 11:25:00 CDT, Weight OneTouch Yes , # 1 ea, Vick arik Ultra2 6-26 Insulin l Blood 13:20: dependent, Aram n Glucose 00 Does not Meter use insulin pump, Last DM eval date 01/11/20, 0 Refill(s), Pharmacy: [facility] #[id number], 160.02, cm,... OneTouch Yes See Memoria Ultra Blue 6-26 Instructio l Blood 13:20: ns, 4 [place] Glucose 00 FS/d, # Test Strip 400 ea, Insulin dependent, Does not use insulin pump, Last DM eval date 01/11/20, 3 Refill(s), Pharmacy: [facility] #[id number], 160.02, cm, 01/09/20 11:25:00 CDT, Height, 98.182, kg, 01/09/20 11:25:00 CDT, Weight OneTouch Yes See Memoria Delica 6-26 Instructio l Extra Fine 13:20: ns, FS Yasmine nn 33G Lancets 00 4/d, # 400 ea, Insulin dependent, Does not use insulin pump, Last DM eval date 01/11/20, 3 Refill(s), [facility]acy: [id number], 160.02, cm, 01/09/20 11:25:00 CDT, Height, 98.182, kg, 01/09/20 11:25:00 CDT, Weight Dexcom G6 2020-0 Yes 1 ea, Jessica [employer] Insulation Supervisor 6-24 MISC, l Kit 18:42: ONCE, [place] 00 Certified Medically Necessar. Change every 90 days., # 1 kit, Insulin dependent, Does not use insulin pump, Last DM eval date 01/09/20, 0 Refill(s), Pharmacy: [id number], 160.02, cm, 01/09/20 11:25:00 CDT, Height, 98.182, kg,... Dexcom G6 2020-0 Yes 1 ea, Lidaoria Sensor Kit 6-24 MISC, l 18:42: ONCE, [place] 00 Certified Medically Necessary- change every 10 days., # 1 ea, Insulin dependent, Does not use insulin pump, Last DM eval date 01/09/20, 11 Refill(s), Pharmacy: [id number], 160.02, cm, 01/09/20 11:25:00 CDT, Height, 98.182, kg,... Dexcom G6 2020-0 Yes 1 ea, Lidaoria Transmitter 6-24 MISC, l Kit 18:42: ONCE, [place] 00 Certified Medically Necessary: Change every 3 months Dx code E10.65, # 1 ea, Insulin dependent, Does not use insulin pump, Last DM eval date 01/09/20, 3 Refill(s), Pharmacy: [id number], 160.02, cm, 01/09/20 11:25:00 CDT, Heigh... FreeStyle 2020-0 No , # 1 ea, Mem oria Aileen 6-24 Insulin l Deposit 17:20: dependent, Yasmine nn 00 Does not use insulin pump, Last DM eval date 01/09/20, 0 Refill(s), Pharmacy: [id number], 160.02, cm,... FreeStyle 2020-0 No See Memoria Aileen 6-24 Instructio l Sensor 17:20: ns, MISC, Aram n 00 change every 14 days, # 6 ea, Insulin dependent, Does not use insulin pump, Last DM eval date 01/09/20, 3 Refill(s), Pharmacy: [id number], 160.02, cm, 01/09/20 11:25:00 CDT, Height, 98.182, kg, 01/09/20 11:25:00 CDT, We... FreeStyle 2020-0 No , # 1 ea, Mem oria Aileen -24 Insulin l Deposit 17:18: dependent, Yasmine nn 00 Does not use insulin pump, Last DM eval date 01/09/20, 0 Refill(s), other FreeStyle 2020-0 No See Memoria Aileen 6-24 Instructio l Sensor 17:18: ns, MISC, Aram n 00 change every 14 days, # 6 ea, Insulin dependent, Does not use insulin pump, Last DM eval date 01/09/20, 3 Refill(s), other 3 ML 2020-[address] [facility], 01-08 Instructio l Aspart, 17:10: ns, 60 [place] Human 100 00 units SQ UNT/ML Pen at meals, Injector # 180 mL, [NovoLog] 0 Refill(s), other 3 ML 2020-[address] [facility] -24 Instructio l Glargine 17:09: ns, 100 Aram n 100 UNT/ML 00 units SQ Prefilled every 12 Syringe hours, # [Lantus] 180 mL, 0 Refill(s), other Vital Signs Vital Name Observation Time Observation Value Comments Source Systolic (mm Hg) 2020-01-09 16:25:00 Vickaquilino Jimenez Diastolic (mm Hg) 2020-01-09 16:25:00 [facility] chastity Jimenez Heart Rate 2020-01-09 16:25:00 [facility] Rate 2020-01-09 16:25:00 Jesus Sharp Height 2020-01-09 16:25:00 160.02 cm [facility] Weight 2020-01-09 16:25:00 [facility] BMI Calculated 2020-01-09 16:25:00 Jesus Sharp Procedures Procedure Date / Time Performed Performing [facility] 2012-07-18 06:00:00 [facility] Hysterectomy 2012-07-18 06:00:00 Chitra mtz Tube feeding 2007-07-18 06:00:00 Chitra mtz Lipoma of back 1997-07-18 06:00:00 Chitra mtz Caesarean section 1989 06:00:00 [facility] Dennis ermann Gallbladder Chitra Jimenez Shortening of heel cord Chitra Guerreroann Encounters Start End Encounter Admission Attending Care Care Encounter Source Date/Time Date/Time Type Type Clinicians Facility Department ID 2020-02-21 2020-02-21 Outpatient Irma [facility] [id number] 09:30:00 23:59:59 Edward 62 Jim 2020-02-20 2020-02-21 Outpatient [facility] [id number] 08:37:17 08:37:17 02 2020-01-31 2020-01-31 Outpatient Irma [facility] [id number] 11:00:00 23:59:59 Edward 61 [place] 2020-01-11 2020-01-12 Outpatient [facility] [id number] 08:13:43 23:59:59 2020-01-09 2020-01-10 Outpatient [facility] [id number] 13:39:57 23:59:59 2020-01-09 2020-01-09 Outpatient Irma [facility] [id number] 11:15:00 23:59:59 Edward 60 [place] 2020-01-09 2020-01-09 Outpatient Irma [facility] [id number] 11:15:00 11:15:00 Edward 59 [place] 2020-01-07 2020-01-07 Outpatient Irma [facility] [id number] 13:50:00 13:50:00 Edward 58 [place] 2019-10-11 2019-10-11 Telephone Gomes, [facility] [id number] 00:00:00 00:00:00 Adán Jordan [id number] [place] [id number] Profalex [phone] [facility] 2019-10-11 2019-10-11 Orders Doctor HENRY [id number] 00:00:00 00:00:00 Only Unassigned, ZAY [id number] Azure [facility] [id number] 2019-09-19 2019-09-19 [facility] [id number] 00:00:00 00:00:00 Wilfredo Jordan [id number] [place] [id number] Professio [phone] nal 092 [facility] 2019-03-02 2019-03-02 [place] [id number] 09:18:07 23:59:00 Encounter Wilfredo Hughes [facility] [id number] [facility] [id number] 2019-03-02 2019-03-[address]114 [id number] 09:17:51 09:17:51 Encounter Wilfredo Hughes [facility] [id number] [facility] [id number] 2019-02-28 2019-02-28 Orders Doctor CARL [id number] 00:00:00 00:00:00 Only Unassigned, ZAY [id number] Azure [place] [id number] 2019-02-12 2019-02-12 Office Ros [facility] [id number] 15:33:24 16:52:54 Visit Wilfredo Jordan [id number] [place] [id number] Professio [phone] nal 092 [facility] Results This patient has no known results.
[2020-03-11] MEDS ORDERED: ACETAMINOPHEN 500 MG TAB ONE (20:20)
[2020-03-11] MEDS ORDERED: NA CHLORIDE 0.9% 1,000 ML ONE (20:20)
[2020-03-11 20:59] LABS: Absolute Lymphocytes (CBC) 3.3 K/uL (0.7-4.9); Basophils % 0.3 % (0-1.3); Hematocrit 43.6 % (36.0-45.0); Lymphocytes % 40.1 % (15.3-44.8); MPV 12.3 fL (7.6-11.3); RBC Red Blood Cell Count 4.87 M/uL (3.86-4.86)
--- NOTE | 2020-03-11 21:11 | RAD REPORT ---
EXAM DESCRIPTION: RAD - Chest Single View - 03/11/2020 8:23 pm CLINICAL HISTORY: Chest pain;Congestion COMPARISON: Two view chest May 2019 TECHNIQUE: AP portable chest image was obtained 03/11/2020 8:23 pm . FINDINGS: Lungs are clear. Heart and vasculature are normal. No measurable pleural effusion and no p neumothorax. No acute bony abnormality seen. No acute aortic findings suspected. IMPRESSION: No acute cardiopulmonary process. No significant change from comparison.
[2020-03-11 21:18] LABS: BUN Blood Urea Nitrogen 10 mg/dL (7-18); Bicarbonate 28 mmol/L (21-32); Glucose Level 167 mg/dL (74-106); Potassium 3.9 mmol/L (3.5-5.1); Sodium Level 142 mmol/L (136-145); Troponin (Emerg Dept Use Only) < 0.02 ng/mL (0.0-0.045)
--- NOTE | 2020-03-11 21:20 | RAD REPORT ---
EXAM DESCRIPTION: CT - Head Brain Wo Cont - 03/11/2020 9:15 pm CLINICAL HISTORY: HEADACHE, fever COMPARISON: HEAD BRAIN W O CONTRAST dated 10/29/2014 TECHNIQUE: Axial 5 mm thick images of the head were obtained without IV contrast. All CT scans are performed using dose optimization technique as appropriate and may include automated exposure control or mA/KV adjustment according to patient size. FINDINGS: No intracranial hemorrhage, mass, edema or shift of mid-line structures. No acute infarcti on changes seen. No abnormal extra-axial fluid collections. Ventricles are normal. Mastoid air cells and visualized portions of the paranasal sinuses are clear. No acute bony findings. Physiologic calcifications are present. IMPRESSION: Negative non-contrast CT head examination. No significant change from 2015 study.
--- NOTE | 2020-03-11 21:41 | ER ---
Nurse's Notes [facility] Name: Laureen Schmidt Age: 30 yrs Sex: Female : 1990 Arrival Date: 03/11/2020 Time: 19:27 Bed 25 Private MD: Quique Gutiérrez E Diagnosis: Acute upper respiratory infection, unspecified Presentation: 03/11 19:34 Chief complaint: Patient states: Leg cramps x 4 days. MADSEN for 2 days. Fever, slight ll1 cough, and chest pressure began today. Fever 102 at home today. Coronavirus screen: Client denies travel out of the [place] in the last 14 days. congestion, cough unrelated to allergies, difficulty breathing, fatigue, fever, headache. Ebola Screen: Patient denies travel to an Ebola-affected area in the 21 days before illness onset. Initial Sepsis Screen: Does the patient meet any 2 criteria? Temp <36.0*C (96.8*F)) or > 38.3*C (100.9*F). HR > 90 bpm. Yes. Risk Assessment: Do you want to hurt yourself or someone else? Patient reports no desire to harm self or others. 19:34 Method Of Arrival: Ambulatory ll1 19:34 Acuity: ELEK 3 ll1 21:06 Initial Sepsis Screen: Does the patient have a suspected source of infection? No. ls4 Patient's initial sepsis screen is negative. Onset of symptoms is unknown. Care prior to arrival: None. Triage Assessment: 19:44 Headache History: Denies prior headaches. General: Appears uncomfortable, Behavior is ls4 cooperative. Neuro: Level of Consciousness is awake, alert, obeys commands, Oriented to person, place, time, situation. Respiratory: Reports cough that is Airway is patent Respiratory effort is even, unlabored, Respiratory pattern is regular. 19:44 Pain: Pain currently is 8 out of 10 on a pain scale. Pain began gradually, 2-3 days ls4 ago. Also complains of shortness of breath. 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 - Social history:: Smoking status: Patient denies any tobacco usage or history of. Patient/guardian denies using alcohol, street drugs. Screenin:47 Abuse screen: Denies threats or abuse. Denies injuries from another. Nutritional ls4 screening: No deficits noted. Tuberculosis screening: No symptoms or risk factors identified. Fall Risk None identified. Assessment: 19:39 Reassessment: Patient appears in no apparent distress at this time. Patient and/or ls4 family updated on plan of care and expected duration. Pain level reassessed. Patient is alert, oriented x 3, equal unlabored respirations, skin warm/dry/pink. Pain: Complains of pain in general body aches Pain currently is 8 out of 10 on a pain scale. 19:39 Respiratory: Reports cough that is non-productive, dry, hacking, persistent. ls4 Musculoskeletal: Circulation, motion, and sensation intact. Capillary refill < 3 seconds, Range of motion: intact in all extremities. Vital Signs: 19:34 BP 149 / 58; Pulse 130; Resp 18; Temp 101.6; Pulse Ox 96% ; Height 5 ft. 3 in. (160.02 ll1 cm); Pain 10/10; 21:04 BP 116 / 65; Pulse 113; Resp 20; Pulse Ox 93% on R/A; Pain 8/10; ls4 22:08 BP 122 / 74; Pulse 96; Resp 18; Temp 98.9(O); Pulse Ox 97% ; Pain 3/10; ls4 Vitals: 20:20 Cardiac Rhythm Assessment Regular Sinus rhythm. ls4 ED Course: 19:27 Patient arrived in ED. es 19:28 Quique Gutiérrez MD is Private Physician. es 19:36 Triage completed. ll1 19:37 Arm band placed on Patient placed in an exam room, on a stretcher. ll1 19:43 Mireya Oliveira, OMAR is Primary Nurse. ls4 19:44 Patient has correct armband on for positive identification. Bed in low position. Call ls4 light in reach. Side rails up X 1. galley boy on. Pulse ox on. NIBP on. 19:44 Warm blanket given. ls4 19:57 No provider procedures requiring assistance completed. ls4 19:58 Glenis Goyal FNP-C is [facility]. kb 19:58 Ang Ludwig MD is Attending Physician. kb 20:23 Chest Single View XRAY In Process Unspecified. EDMS 20:24 Inserted saline lock: 20 gauge in right forearm, using aseptic technique. Blood ls4 collected. 20:24 Patient maintains SpO2 saturation greater than 95% on room air. ls4 21:16 CT Head Brain wo Cont In Process Unspecified. EDMS 22:16 IV discontinued, intact, bleeding controlled, No redness/swelling at site. Pressure ls4 dressing applied. Administered Medications: 20:20 Drug: NS 0.9% 1000 ml Route: IV; Rate: 1000 ml; Site: right forearm; ls4 21:20 Follow up: IV Status: Completed infusion; IV Intake: 1000ml ls4 20:20 Drug: Tylenol 1000 mg Route: PO; ls4 20:50 Follow up: Response: No adverse reaction; Marked relief of symptoms ls4 21:38 Drug: Decadron - Dexamethasone 10 mg Route: IVP; Site: right forearm; ls4 22:20 Follow up: Response: No adverse reaction ls4 Intake: 21:20 IV: 1000ml; Total: 1000ml. ls4 Outcome: 21:40 Discharge ordered by . kb 22:07 Discharged to home ambulatory. ls4 22:07 Condition: stable 22:07 Discharge instructions given to patient, Instructed on discharge instructions, follow up and referral plans. medication usage, safety practices, Demonstrated understanding of instructions, follow-up care, medications, Prescriptions given X 1. 22:25 Patient left the ED. ls4 Addendum: 03/14/2020 12:10 Addendum: COVID-19 Result: Negative result given to RN to notify pt. Contacted by: kristen Moura RN. Notified pt of negative COVID 19 swab results. Pt advised that even with a negative test result they should remain in isolation until symptom free for 3 days without medication. Pt also advised to return to the ED for worsening symptoms. Signatures: Dispatcher [employer] EDRI Glenis Goyal FNP-C STONE REPAIRER-Nolvia Odonnell Shelby, RN RN Mireya Oliveira RN RN ls4 Jeet Lockhart RN RN ll1 Corrections: (The following items were deleted from the chart) 03/11 20:50 20:49 Tylenol 1000 mg PO ls4 ls4 22:16 22:08 Inserted ls4 ls4
--- NOTE | 2020-03-11 21:41 | EDPHYS ---
Physician Documentation [facility] Name: Laureen Schmidt Age: 30 yrs Sex: Female : 1990 Arrival Date: 03/11/2020 Time: 19:27 Bed 25 Private MD: Quique Gutiérrez E ED Physician Ang Ludwig HPI: 03/11 21:53 This 30 yrs old Female presents to ER via Ambulatory with complaints of kb Fever, Headache, chest pressure, tongue feel swollen. 21:54 The patient or guardian reports cough, that is intermittent, described as mild, with no kb sputum, difficulty breathing, flu symptoms, arthralgias, low-grade fever, myalgias, no appetite. Onset: The symptoms/episode began/occurred 4 day(s) ago. Severity of symptoms: At their worst the symptoms were moderate, in the emergency department the symptoms are unchanged. Modifying factors: The symptoms are alleviated by nothing, the symptoms are aggravated by nothing. Associated signs and symptoms: Pertinent positives: fever, Pertinent negatives: chest pain, diarrhea, ear ache, nausea, rhinorrhea, sore throat, vomiting. The patient has not experienced similar symptoms in the past. The patient has not recently seen a physician. Pt reports she has had body aches for 4 days with a slight cough, fever, shortness of breath following after that. Today has been feeling like something is sitting on her chest since 0400. . 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 - Social history:: Smoking status: Patient denies any tobacco usage or history of. Patient/guardian denies using alcohol, street drugs. ROS: 21:48 ENT: Negative for injury, pain, and discharge, Neck: Negative for injury, pain, and kb swelling, Cardiovascular: Negative for chest pain, palpitations, and edema, Abdomen/GI: Negative for abdominal pain, nausea, vomiting, diarrhea, and constipation, Back: Negative for injury and pain, MS/Extremity: Negative for injury and deformity, Skin: Negative for injury, rash, and discoloration, Neuro: Negative for headache, weakness, numbness, tingling, and seizure. 21:48 Constitutional: Positive for body aches, chills, fatigue, fever, malaise. 21:48 Respiratory: Positive for cough, with no reported sputum, dyspnea on exertion, shortness of breath, Negative for hemoptysis, orthopnea, pleurisy, sputum production, wheezing. 21:48 Neuro: Positive for headache. Exam: 21:48 Constitutional: This is a well developed, well nourished patient who is awake, alert, kb and in no acute distress. Head/Face: Normocephalic, atraumatic. Neck: Trachea midline, no thyromegaly or masses palpated, and no cervical lymphadenopathy. Supple, full range of motion without nuchal rigidity, or vertebral point tenderness. No Meningismus. Chest/axilla: Normal chest wall appearance and motion. Nontender with no deformity. No lesions are appreciated. Cardiovascular: Regular rate and rhythm with a normal S1 and S2. No gallops, murmurs, or rubs. Normal PMI, no JVD. No pulse deficits. Respiratory: Lungs have equal breath sounds bilaterally, clear to auscultation and percussion. No rales, rhonchi or wheezes noted. No increased work of breathing, no retractions or nasal flaring. Abdomen/GI: Soft, non-tender, with normal bowel sounds. No distension or tympany. No guarding or rebound. No evidence of tenderness throughout. Back: No spinal tenderness. No costovertebral tenderness. Full range of motion. Skin: Warm, dry with normal turgor. Normal color with no rashes, no lesions, and no evidence of cellulitis. MS/ Extremity: Pulses equal, no cyanosis. Neurovascular intact. Full, normal range of motion. Neuro: Awake and alert, GCS 15, oriented to person, place, time, and situation. Cranial nerves II-XII grossly intact. Motor strength 5/5 in all extremities. Sensory grossly intact. Cerebellar exam normal. Normal gait. Vital Signs: 19:34 BP 149 / 58; Pulse 130; Resp 18; Temp 101.6; Pulse Ox 96% ; Height 5 ft. 3 in. (160.02 ll1 cm); Pain 10/10; 21:04 BP 116 / 65; Pulse 113; Resp 20; Pulse Ox 93% on R/A; Pain 8/10; ls4 22:08 BP 122 / 74; Pulse 96; Resp 18; Temp 98.9(O); Pulse Ox 97% ; Pain 3/10; ls4 MDM: 19:58 Patient medically screened. kb 21:42 Data reviewed: vital signs, nurses notes. Data interpreted: Pulse oximetry: on room air kb is 95 %. Interpretation: normal. Counseling: I had a detailed discussion with the patient and/or guardian regarding: the historical points, exam findings, and any diagnostic results supporting the discharge/admit diagnosis, lab results, radiology results, the need for outpatient follow up, a family practitioner, to return to the emergency department if symptoms worsen or persist or if there are any questions or concerns that arise at home. 03/11 19:59 Order name: Basic Metabolic Panel; Complete Time: 21:21 kb 03/11 19:59 Order name: CBC with Diff; Complete Time: 21:14 kb 03/11 19:49 Order name: Chest Single View XRAY; Complete Time: 21:14 [facility] 03/11 19:59 Order name: Troponin (emerg Dept Use Only); Complete Time: 21:21 kb 03/11 20:12 Order name: COVID-19 [facility] 03/11 20:47 Order name: CT Head Brain wo Cont; Complete Time: 21:21 kb 03/11 19:49 Order name: EKG; Complete Time: 19:50 [facility] 03/11 19:49 Order name: EKG - Nurse/Tech; Complete Time: 22:25 [facility] 03/11 19:59 Order name: IV Saline Lock; Complete Time: 21:17 kb 03/11 19:59 Order name: Labs collected and sent; Complete Time: 21:17 kb 03/11 19:59 Order name: O2 Per Protocol; Complete Time: 21:17 kb 03/11 19:59 Order name: O2 Sat Monitoring; Complete Time: 21:17 kb Administered Medications: 20:20 Drug: NS 0.9% 1000 ml Route: IV; Rate: 1000 ml; Site: right forearm; 4 21:20 Follow up: IV Status: Completed infusion; IV Intake: 1000ml ls4 20:20 Drug: Tylenol 1000 mg Route: PO; ls4 20:50 Follow up: Response: No adverse reaction; Marked relief of symptoms ls4 21:38 Drug: Decadron - Dexamethasone 10 mg Route: IVP; Site: right forearm; ls4 22:20 Follow up: Response: No adverse reaction ls4 Disposition: 03/12 01:26 Co-signature as Attending Physician, Ang Ludwig MD. 7 Disposition: 03/11/20 21:40 Discharged to Home. Impression: Acute upper respiratory infection, unspecified. - Condition is Stable. - Discharge Instructions: Viral Respiratory Infection, Lfgy-Iu-Dhai, COVID-19. - Prescriptions for Prednisone 20 mg Oral Tablet - take 1 tablet by ORAL route once daily for 5 days; 5 tablet. Albuterol Sulfate 90 mcg/actuation - inhale 1-2 puff by INHALATION route every 4-6 hours; 1 Inhaler. - Medication Reconciliation Form, Thank You Letter, Antibiotic Education, Prescription Opioid Use form. - Follow up: Emergency Department; When: As needed; Reason: Worsening of condition. Follow up: Private Physician; When: 2 - 3 days; Reason: Recheck today's complaints, Continuance of care, Re-evaluation by your physician. Signatures: Dispatcher [employer] EDGlenis Luna, ILANA-C ROLLER MILL TENDER-Mireya Rowan RN RN ls4 Jeet Lockhart RN RN ll1 Ang Ludwig MD MD 7 Corrections: (The following items were deleted from the chart) 03/11 22:25 21:40 03/11/2020 21:40 Discharged to Home. Impression: Acute upper respiratory ls4 infection, unspecified. Condition is Stable. Forms are Medication Reconciliation Form, Thank You Letter, Antibiotic Education, Prescription Opioid Use. Follow up: Emergency Department; When: As needed; Reason: Worsening of condition. Follow up: Private Physician; When: 2 - 3 days; Reason: Recheck today's complaints, Continuance of care, Re-evaluation by your physician. kb
[2020-03-11] MEDS ORDERED: dexAMETHasone 10 MG/ML VIAL ONE (22:00)
--- NOTE | 2020-03-12 13:48 | EKG ---
Test Date: 2020-03-11 Test Time: 20:24:47 Air Intercept Controller Supervisor: RIK MEASUREMENT RESULTS: Intervals: Rate: 119 MS: 134 QRSD: 76 QT: 326 QTc: 458 Sharon: P: 53 MS: 134 QRS: 29 T: 42 INTERPRETIVE STATEMENTS: Sinus tachycardia Otherwise normal ECG Compared to ECG 03/16/2019 17:15:51 No significant changes Electronically Signed On 03-12-20 13:47:45 CDT by Steven Zaman
[2020-03-15 18:49] VITALS: BP 122/74; TEMP 98.9; O2SAT 97
== END 2020-03-11 22:25 | disposition home or self-care (01) ==
LOC: ER 19:24
DX: J06.9 Acute upper respiratory infection, unspecified (principal); Z88.6 Allergy status to analgesic agent
CPT/HCPCS: 96361; 93005; 85025; 80048; 36415; 84484; 70450; 71045; 96374; 99285; U0002; J1100; J7030

== ENCOUNTER 2020-06-08 16:53 | Emergency (ER) | payer OTHER ==
--- OUTSIDE RECORDS SUMMARY | 2020-06-08 16:55 | XMS REPORT | Continuity of Care Document ---
:1990 Author Organization [employer] [facility] Care Team Providers Name Role Phone [employer] [facility] Unavailable Un available Problems Problem Status Onset Classification Date Comments Sourc e Date Reported Dyslipidemia with Active Problem 04/14/2020 [facility] high density Group lipoprotein below reference range and triglyceride above reference range due to type 2 diabetes mellitus (disorder) Hyperglycemia due Active Problem 04/14/2020 [facility] to type 2 Group diabetes mellitus (disorder) Obesity Active Problem 04/14/2020 [facility] Medica l (disorder) Group Insulin Active Problem 04/14/2020 Medica l resistance Group Medications Medication Details Route Status Patient Ordering Order Source Instructions Provider Date MetFORMIN = 2 tab, PO, Active MH (Eqv-Glucophage BID, # 360 020 Medic al XR) 500 mg oral tab, 3 Group tablet, extended Refill(s), release Pharmacy: [id number], 160.02, cm, 01/09/20 11:25:00 CDT, Height, 98.182, kg, 01/09/20 11:25:00 CDT, Weight pioglitazone 15 15 mg = 1 Active MH mg oral tablet tab, PO, 020 Medical Daily, # 90 Group tab, 0 Refill(s), [id number], 160.02, cm, 01/09/20 11:25:00 CDT, Height, 98.182, kg, 01/09/20 11:25:00 CDT, Weight canagliflozin 100 mg = 1 Active MH 100 mg oral tab, PO, 020 Medical tablet Daily, # 90 Group tab, 1 Refill(s), [id number], 160.02, cm, 01/09/20 11:25:00 CDT, Height, 98.182, kg, 01/09/20 11:25:00 CDT, Weight OneTouch Ultra2 , # 1 ea, Active Blood Glucose Insulin 020 Medical Meter dependent, Group Does not use insulin pump, Last DM eval date 01/11/20, 0 Refill(s), Pharmacy: [facility]/pharmacy #[id number], 160.02, cm,... OneTouch Ultra See Active Blue Blood Instructions 020 Medical Glucose Test , 4 FS/d, # Group Strip 400 ea, Insulin dependent, Does not use insulin pump, Last DM eval date 01/11/20, 3 Refill(s), [id number], 160.02, cm, 01/09/20 11:25:00 CDT, Height, 98.182, kg, 01/09/20 11:25:00 CDT, Weight OneTouch Delica See Active Extra Fine 33G Instructions 020 Medi keo Lancets , FS 4/d, # Group 400 ea, Insulin dependent, Does not use insulin pump, Last DM eval date 01/11/20, 3 Refill(s), Pharmacy: [facility]/pharmacy #[id number], 160.02, cm, 01/09/20 11:25:00 CDT, Height, 98.182, kg, 01/09/20 11:25:00 CDT, Weight Dexcom G6 1 ea, MISC, Active Herb Digger Kit ONCE, 020 Medical Certified Group Medically Necessar. Change every 90 days., # 1 kit, Insulin dependent, Does not use insulin pump, Last DM eval date 01/09/20, 0 Refill(s), Pharmacy: [facility]/pharmacy #[id number], 160.02, cm, 01/09/20 11:25:00 CDT, Height, 98.182, kg,... Dexcom G6 Sensor 1 ea, MISC, Active MH Kit ONCE, 020 Medical Certified Group Medically Necessary-ch mendoza every 10 days., # 1 ea, Insulin dependent, Does not use insulin pump, Last DM eval date 01/09/20, 11 Refill(s), Pharmacy: [facility]/pharmacy #[id number], 160.02, cm, 01/09/20 11:25:00 CDT, Height, 98.182, kg,... Dexcom G6 1 ea, MISC, Active Transmitter Kit ONCE, 020 Medical Certified Group Medically Necessary:Ch mendoza every 3 months Dx code E10.65, # 1 ea, Insulin dependent, Does not use insulin pump, Last DM eval date 01/09/20, 3 Refill(s), [id number], 160.02, cm, 01/09/20 11:25:00 CDT, Heigh... FreeStyle Aileen , # 1 ea, Inactive [facility] [place] Insulin 020 Medical dependent, Group Does not use insulin pump, Last DM eval date 01/09/20, 0 Refill(s), [id number], 160.02, cm,... FreeStyle Aileen See Inactive MH Sensor Instructions 020 Medical , MISC, Group change every 14 days, # 6 ea, Insulin dependent, Does not use insulin pump, Last DM eval date 01/09/20, 3 Refill(s), [id number], 160.02, cm, 01/09/20 11:25:00 CDT, Height, 98.182, kg, 01/09/20 11:25:00 CDT, We... FreeStyle Aileen , # 1 ea, Inactive MH [place] Insulin 020 Medical dependent, Group Does not [...] NKA Assertion Drug Active allergy Medical Group codeine Assertion Blood Drug Active MH pressure allergy Medical drops and Group swell shuts air way Immunizations No Data Provided for This Section [...] Location Location Encounter Encounter Reason Attending ADM NM Stat Source Details Type Number For Provider Date Date Visit [facility] [id number] Quique 01/06 01/06 [facility] [place] [facility] [id number] 01/08 [facility] [id number] 01/08 MH Primary [facility]uti[facility]rez Jr /[facility] [place] [facility] [id number] 01/08 MH Primary Pre-Reg [facility] [place] [facility] Phone [id number] 01/08 01/10 MH Primary Message /2019 [facility] [place] [facility] Phone [id number] 01/10 01/12 MH Primary Message /2019 [facility] [place] [facility] [id number] Ed01/30 Active [facility] [id number] Quique 01/30 01/31 MH Primary Gutiérrez Jr /2019 [facility] [place] [facility] [id number] 02/19 02/20 MH Primary Visit /2019 [facility] [place] [facility] [id number] Ed02/20 Active [facility] [id number] [facility] 02/20 02/21 MH Primary Gutiérrez Jr /2019 [facility] [place] [facility] [id number] 03/25 Active [facility] n [facility] Ambulatory [id number] Quique 03/25 03/25 Primary Pre-Reg [facility] [place] [facility] [id number] 03/26 Active [facility] Outpatient [id number] Quique 03/26 03/27 Primary [facility] [place] [facility] [id number] 03/26 03/27 Primary Visit /2019 [facility] [place] [facility] Phone [id number] 04/11 04/13 Primary Message /2019 [facility] [place] [facility] [id number] 06/24 Active [facility] n Procedures Procedure Code Date Perfomer Comments Source Bladder cancer [id number] 07/18/2012 Medical Group Hysterectomy [id number] 07/18/2012 Medical Group Tube feeding [id number] 07/18/2007 Medical Group Lipoma of back [id number] 07/18/1997 Medical Group Caesarean section [id number] 1990 [facility] Gallbladder [id number] Medical Group Shortening of heel [id number] Med ical cord Group Assessment and Plan [...] Reg Smoking Cessation Counseling No entered on: 03/25/20 Family History No Data Provided for This Section Advance Directives No Data Provided for This Section Functional Status No Data Provided for This Section
--- OUTSIDE RECORDS SUMMARY | 2020-06-08 16:55 | XMS REPORT | Summary of Care ---
:1990 Author Organization [facility] Primary Care [facility] Address [address], [address] [place] [address]- Encounter HQ Prerna_cameron(FIN) [id number] Date(s): 04/11/20 - 04/12/20 [facility] Primary Care [facility] [address] [place] [address]- [phone] Vital Signs No data available for this section Problem List Condition Effective Dates Status Health Status Informant Dyslipidemia with low high density Active lipoprotein (HDL) cholesterol with hypertriglyceridemia due to type 2 diabetes mellitus(Confirmed) Type 2 diabetes mellitus with Active hyperglycemia(Confirmed) Insulin resistance(Confirmed) Active Class 2 obesity with body mass index Active (BMI) of 38.0 to 38.9 in adult(Confirmed) Allergies, Adverse Reactions, Alerts Substance Reaction Severity Status NKA Active codeine Blood pressure drops and swell shuts air way Active NKDA Active Medications MetFORMIN (Eqv-Glucophage XR) 500 mg oral tablet, extended release = 2 tab, PO, BID, # 360 tab, 3 Refill(s), Pharmacy: [id number], 160.02, cm, 01/09/20 11:25:00 CDT, Height, 98.182, kg, 01/09/20 11:25:00 CDT, Weight Start Date: 04/11/20 Status: Ordered Results No data available for [...] Smoking Cessation Counseling No entered on: 03/25/20 Assessment and Plan No data available for this section
--- OUTSIDE RECORDS SUMMARY | 2020-06-08 16:56 | XMS REPORT | Summary of Care ---
:1990 Author Organization [facility] Address [address] [place] [id number] Care Team Providers Name Role Phone Ignacio Jordan Primary Care Provider Reason for Visit Reason Comments New Patient Lipoma on back (Routine) Status Reason Specialty Diagnoses / Referred By Referred To Procedures Contact Contact Closed JOE-SURGERY / Diagnoses Lipomatosis, not elsewhere classified Ignacio Jordan John Surgery Procedures CONSULT GENERAL SURGERY NEW VISIT (FIRST TIME) [address] [place] MD [facility] [address] [place] [address] [place], [place] Phone: [phone] Phone: Fax: Encounter Details Date Type Department Care Team Description 04/18/2020 Office Visit [facility] General Nimesh Collins MD [address] [place] [address] Dr Jordan [place] [phone] Roman syndrome (Primary Dx); Surgery- Mamta Duran MD [address] [facility] [address] [place], [place] [id number] Lipoma of back; [address] [place] [address] iv e Left-sided thoracic back tre n, unspecified chronicity; [address] Scar of back; [place], [place] Amniotic band s yndrome [id number] Allergies Active Allergy Reactions Severity Noted Date Comments Codeine Hives, Shortness of Breath 09/10/2015 documented as of this encounter (statuses as of 04/18/2020) Medications Medication Sig Dispensed Refills Start Date End Date Status lithium carbonate Take 300 mg by 0 Active (LITHOTABS) 300 mg mouth 3 (three) tablet times daily. PAROXETINE HCL (PAXIL Take by mouth. 0 Active ORAL) ibuprofen (MOTRIN) 800 Take 800 mg by 0 Active mg tablet mouth every 6 (six) hours as needed. naproxen (NAPROSYN) 500 Take 500 mg by 0 Active mg tablet mouth 2 (two) times daily with meals. insulin detemir inject 70 Units 0 Active (LEVEMIR) 100 unit/mL under the skin 4 injection (four) times daily. insulin aspart RAPID inject 20 Units 0 Active (NOVOLOG) 100 unit/mL under the skin 3 injection (three) times daily before meals. traMADol 50 mg Take 1 tablet by 30 tablet 0 07/20/2019 Active tabletIndications: Sore mouth every 6 throat, Urinary tract (six) hours as infection with needed for Pain hematuria, site (scale 4-6). unspecified, Hyperglycemia Nitrofurantoin&Nit. Take 1 capsule 10 capsule 0 07/20/2019 Active Macrocryst (MACROBID) by mouth 2 (two) 100 mg times daily. capsuleIndications: Sore throat, Urinary tract infection with hematuria, site unspecified, Hyperglycemia TOPIRAMATE 50 mg TAKE 1 TABLET BY 60 tablet 1 09/19/2019 Active tabletIndications: MOUTH TWICE A Complicated headache DAY syndromes LANTUS U-100 INSULIN inject 100 Units 0 04/02/2020 Active 100 unit/mL solution under the skin 2 (two) times daily. insulin aspart inject 60 Units 0 Active protamine-insulin under the skin 3 aspart (NOVOLOG MIX (three) times 70-30 U-100 INSULN) 100 daily with unit/mL (70-30) meals. injection documented as of this encounter (statuses as of 04/18/2020) Active Problems No known active problemsdocumented as of this encounter (statuses as of 04/18/2020) Social History Tobacco Use Types Packs/Day Years Used Date Never Smoker Smokeless Tobacco: Never Used Alcohol Use Drinks/Week oz/Week Comments Not Currently Sex Assigned at Date Recorded Not on file COVID-19 Exposure Response Date Recorded In the last month, have you been in contact with No / Unsure 04/18/2020 10:47 AM CDT someone who was confirmed or suspected to have Coronavirus / COVID-19? documented as of this encounter Last Filed Vital Signs Vital Sign Reading Time Taken Comments Blood Pressure 124/74 04/18/2020 10:48 AM CDT Pulse 80 04/18/2020 10:48 AM CDT Temperature 36.8 C (98.3 F) 04/18/2020 10:48 AM CDT Respiratory Rate 20 04/18/2020 10:48 AM CDT Oxygen Saturation 98% 04/18/2020 10:48 AM CDT Inhaled Oxygen Concentration - - Weight 99.8 kg (220 lb) 04/18/2020 10:48 AM CDT Height 172.7 cm (5' 8") 04/18/2020 10:48 AM CDT Body Mass Index 33.45 04/18/2020 10:48 AM CDT documented in this encounter Progress Notes Mamta Hearn MD - 04/18/2020 10:45 AM CDT GENERAL SURGERY CLINIC NOTE Reason for Visit / Chief Complaint: Lipoma to back History of Present Illness: Laureen Schmidt is a 30 year old female with PMHx as below who presents for evaluation of a "lipoma" to the left side of her back. She reports left sided back pain and pressure due to possible lipoma. 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 As a child she had liposuction contouring for the increased lipomatous tissue tothe left side of her back. She states the fatty deposition to her left back has increased in size and has become more symptomatic over the years. She had an U/S done at [facility] in [place] and was told she had a "lipoma", she did not bring a report and a report is not available in Care Everywhere. Past Medical History: Past Medical History: Diagnosis Date Anxiety Bipolar 1 disorder Bladder cancer Cancer Club foot of both lower extremities Depression Diabetes mellitus Fatty liver Heart murmur Roman syndrome Scoliosis Webbed neck Past Surgical History: Past Surgical History: Procedure Laterality Date ACHILLES TENDON REPAIR SECTION X2 CHOLECYSTECTOMY ESOPHAGEAL DILATATION DUe to accidental HCL ingestion as a child EXPLORATORY LAPAROTOMY HYSTERECTOMY LIPOSUCTION BACK (SHX) Contouring for amniotic band scars TRANSURETHRAL BLADDER TUMOR RESECTION Allergies: Allergies Allergen Reactions Codeine Hives and Shortness of Breath Medications: Patient's Medications START taking these medications No medications on file CONTINUE taking these medications which have NOT CHANGED IBUPROFEN (MOTRIN) 800 MG TABLET Take 800 mg by mouth every 6 (six) hours as needed. INSULIN ASPART PROTAMINE-INSULIN ASPART (NOVOLOG MIX 70-30 U-100 INSULN) 100 UNIT/ML (70-30) INJECTION inject 60 Units under the skin 3 (three) times daily with meals. INSULIN ASPART RAPID (NOVOLOG) 100 UNIT/ML INJECTION inject 20 Units under the skin 3 (three) times daily before meals. INSULIN DETEMIR (LEVEMIR) 100 UNIT/ML INJECTION inject 70 Units under the skin 4 (four) times daily. LANTUS U-100 INSULIN 100 UNIT/ML SOLUTION inject 100 Units under the skin 2 (two) times daily. LITHIUM CARBONATE (LITHOTABS) 300 MG TABLET Take 300 mg by mouth 3 (three) times daily. NAPROXEN (NAPROSYN) 500 MG TABLET Take 500 mg by mouth 2 (two) times daily with meals. NITROFURANTOIN&NIT. MACROCRYST (MACROBID) 100 MG CAPSULE Take 1 capsule by mouth 2 (two) times daily. PAROXETINE HCL (PAXIL ORAL) Take by mouth. TOPIRAMATE 50 MG TABLET TAKE 1 TABLET BY MOUTH TWICE A DAY TRAMADOL 50 MG TABLET Take 1 tablet by mouth every 6 (six) hours as needed for Pain (scale 4-6). START taking Modified Medications as Prescribed No medications on file STOP taking these medications No medications on file Current Outpatient Medications Medication Sig Dispense Refill insulin aspart protamine-insulin aspart (NOVOLOG MIX 70-30 U-100 INSULN) 100 unit/mL (70-30) injection inject 60 Units under the skin 3 (three) times daily with meals. LANTUS U-100 INSULIN 100 unit/mL solution inject 100 Units under the skin 2 (two) times daily. TOPIRAMATE 50 mg tablet TAKE 1 TABLET BY MOUTH TWICE A DAY 60 tablet 1 Nitrofurantoin&Nit. Macrocryst (MACROBID) 100 mg capsule Take 1 capsule by mouth 2 (two) times daily. 10 capsule 0 traMADol 50 mg tablet Take 1 tablet by mouth every 6 (six) hours as needed for Pain (scale 4-6).30 tablet 0 ibuprofen (MOTRIN) 800 mg tablet Take 800 mg by mouth every 6 (six) hours as needed. insulin aspart RAPID (NOVOLOG) 100 unit/mL injection inject 20 Units under the skin 3 (three) times daily before meals. insulin detemir (LEVEMIR) 100 unit/mL injection inject 70 Units under the skin 4 (four) times daily. lithium carbonate (LITHOTABS) 300 mg tablet Take 300 mg by mouth 3 (three) times daily. naproxen (NAPROSYN) 500 mg tablet Take 500 mg by mouth 2 (two) times daily with meals. PAROXETINE HCL (PAXIL ORAL) Take by mouth. No current facility-administered medications for this visit. Family History: Family History Problem Relation Age of Onset Diabetes Mother Arthritis Mother Hypertension Father Heart Father Diabetes Maternal Grandmother Hypertension Maternal Grandmother Heart Maternal Grandmother Diabetes Maternal Grandfather Hypertension Maternal Grandfather Arthritis Maternal Grandfather Heart Maternal Grandfather Diabetes Paternal Grandmother Hypertension Paternal Grandmother Heart Paternal Grandmother Diabetes Paternal Grandfather Hypertension Paternal Grandfather Heart Paternal Grandfather Social History: Social History Socioeconomic History Marital status: Single Spouse name: Not on file Number of children: Not on file Years of education: Not on file Highest education level: Not on file Occupational History Not on file Social Needs Financial resource strain: Not on file Food insecurity Worry: Not on file Inability: Not on file Transportation needs Medical: Not on file Non-medical: Not on file Tobacco Use Smoking status: Never Smoker Smokeless tobacco: Never Used Substance and Sexual Activity Alcohol use: Not Currently Drug use: Never Sexual activity: Not on file Lifestyle Physical activity Days per week: Not on file Minutes per session: Not on file Stress: Not on file Relationships Social connections Talks on phone: Not on file Gets together: Not on file Attends zoroastrian service: Not on file Active member of club or organization: Not on file Attends meetings of clubs or organizations: Not on file Relationship status: Not on file Intimate partner violence Fear of current or ex partner: Not on file Emotionally abused: Not on file Physically abused: Not on file Forced sexual activity: Not on file Other Topics Concern Not on file Social History Narrative Not on file Review of Systems: A 14 point ROS was obtained, only positive responses are in BOLD Constitutional: Fever, chills, loss of appetite, fatigue, unexplained weight loss, unexplained weight gain, weakness Head/Ears/Nose/Mouth/Throat: Head: Headache, head injury, neck pain, neck stiffness Ears: Ear discharge, hearing loss, ear pain, tinnitus Nose: Nose bleeds, sinus congestion, runny nose, postnasal drip, sneezing, sinus pressure Mouth: Dental problems, mouth sores, sore tongue, dry mouth Throat: Sore throat, trouble swallowing, voice change Eyes: Discharge, itching, pain, redness, pain, vision disturbance, blurred vision, vision loss, cataracts, glaucoma CV: Chest pain, palpitations, arrhythmias, dyspnea on exertion, othopnea, claudication, edema, coronary artery disease/history of [place] Respiratory: Cough, sputum production, hemoptysis, wheezing, shortness of breath, sleep apnea GI: Dysphagia, abdominal pain, abdominal distention, indigestion, nausea, vomiting, diarrhea, constipation, hematemesis, blood in stool or dark stool, rectal bleeding, rectal pain, jaundice : Frequency, urgency, pain or burning with urination, flank pain, hematuria, incontinence, change in urinary stream, discharge, bleeding, pelvic pain, irregular menses Musculoskeletal: Muscle pain, joint pain, joint swelling, back pain, stiffness, weakness, limitationof motion, arthritis, trauma Integumentary/Breast: Integumentary: See HPI Breast: Pain, lumps, nipple discharge, skin changes Neurological: Weakness, sensory changes, syncope, seizures, headache, numbness, tingling, tremor, trauma Hematologic/Lymphatic: Hematologic: Bleeding tendency, easy bruising, history of blood clots, anticoagulation/antiplatelet therapy Lymphatic: Lymphadenopathy Endocrine: Polyuria, polydipsia, polyphagia, heat or cold intolerance, hair loss, appetite changes Allergic/Immunologic: Allergic: Allergic reactions Immunologic: Recurrent infections Psychiatric: Agitation, confusion, decreased concentration, hallucinations, anxiety, self-injury, sleep disturbance, suicidal ideation Physical Exam: BP 124/74 (BP Location: Right arm, Patient Position: Sitting, BP CUFF SIZE: Adult Large) | Pulse 80 | Temp 36.8 C (98.3 F) (Temporal Artery) | Resp 20 | Ht 1.727 m (5' 8") | Wt 99.8 kg (220 lb) | SpO2 98% | BMI 33.45 kg/m Constitutional: Awake, alert, oriented, in no acute distress Head: Normocephalic, atraumatic Eyes: Extraocular movements grossly intact, pupils equal and reactive to light and accomodation, anicteric sclerae Ears: Normal external exam Nose: Normal external exam Mouth: Moist mucous membranes Neck: Supple, no jugular venous distention, webbed neck Cardiovascular: Regular rate and rhythm without murmurs Respiratory: No respiratory distress GI: Soft, nontender, non-distended Musculoskeletal: Normal tone and strength, normal range of motion Neurologic: CN II through XII grossly intact, no focal deficits Skin: Warm and dry, capillary refill <2 seconds, no jaundice, rashes, lesions, or erythema, scar secondary to amniotic band across back with asymmetric distribution of lipomatous subcutaneous tissue, no discreet lesion present Psychiatric: Appropriate mood and affect, no obvious deficits of insight or judgment Assessment: Laureen Schmidt is a 30 year old female with a PMH significant for Roman Syndrome and amniotic bands with asymmetric distribution of lipomatous subcutaneous tissue to the left side of the back causing pain. A discreet mass is not present. I spoke with Dr. Thomson who would be happy to see her in consultation. Plan: 1. Referral to Dr. Thomson 2. Obtain U/S results Mamta Hearn M.D. 04/18/2020 11:18 Malinda Cruz RN - 04/18/2020 10:45 AM CDTMdominic Schmidt is a 30 year old female comes to clinic independent in ambulation for lipoma on back. Pt comes alone . Pt in NAD w/ pain reported 0/10. Pt preferred language is [place]. Pt. denies fall in last 12 months. Allergies and medications reviewed and updated. documented in this encounter Plan of Treatment Date Type Specialty Care Team Description 04/28/2020 Office Visit Plastic Surgery Quique Thomson MD [address] [place] [address] [phone] Health Maintenance Due Date Last Done Comments VARICELLA VACCINES (1 of 2 - 1990 2-dose childhood series) DTaP,Tdap,and Td Vaccines (1 02/09/2008 - Tdap) PAP SMEAR 09/12/2012 09/12/2009, 01/16/2009, 08/28/2007 INFLUENZA VACCINE (#1) 2020 Depression Screening 04/18/2021 04/18/2020 PNEUMOCOCCAL 0-64 YEARS Aged Out No longe r eligible based COMBINED SERIES on patient's age to complete [facility] to [facility] documented as of this encounter Results Not on filedocumented in this encounter Visit Diagnoses Diagnosis [place] syndrome - Primary Other specified congenital anomalies Lipoma of back Lipoma of other specified sites Left-sided thoracic back pain, unspecifi ed chronicity Scar of back Scar condition and fibrosis of skin Amniotic band syndrome Other problem associated with amniotic c avity and membranes, unspecified as to episode of care documented in this encounter Insurance Payer Benefit Plan / Subscriber ID Effective Dates Phone Addre ss Type Group [facility] [id number] 2013-Present Medicaid COMM PLAN - PLUS MANAGED MEDICAID (Work) [id number] documented as of this encounter
--- OUTSIDE RECORDS SUMMARY | 2020-06-08 16:56 | XMS REPORT | Summary of Care ---
:1990 Author [address] [facility] Address [address] [place] [address] Care Team Providers Name Role Phone Ignacio Jordan Primary Care Provider Reason for Referral MRI/CAT Scan (Routine) Status Reason Specialty Diagnoses / Referred By Referred To Procedures Contact Contact New Request Diagnostic Diagnoses Roman syndrome Alix, Radiology Procedures CT THORAX W WO CONTRAST Quique Huitron MD [address] [place] [phone] MRI/CAT Scan (Routine) Status Reason Specialty Diagnoses / Referred By Referred To Procedures Contact Contact New Request Diagnostic Diagnoses Roman syndrome Alix, Radiology Procedures CT ANGIOGRAM CHEST Quique Huitron MD [address] [place] [phone] Reason for Visit Reason Comments New Patient LUMP back Encounter Details Date Type Department Care Team Description 04/28/2020 Office Visit [facility] Surgical Quique Thomson Lip odystrophy (Primary Dx); MD Alice Rowanonan syndrome; [address] Atypical lipomatous tumor; [address] [place] [address] Drive, [address] [phone] [place], [place] [phone] Allergies Active Allergy Reactions Severity Noted Date Comments Codeine Hives, Shortness of Breath 09/10/2015 documented as of this encounter (statuses as of 04/28/2020) Medications Medication Sig Dispensed Refills Start Date [...] as of this encounter (statuses as of 04/28/2020) Active Problems No known active problemsdocumented as of this encounter (statuses as of 04/28/2020) Social History Tobacco Use Types Packs/Day Years Used Date Never Smoker Smokeless Tobacco: Never Used Alcohol Use Drinks/Week oz/Week Comments Not Currently Sex Assigned at Date Recorded Not on file COVID-19 Exposure Response Date Recorded In the last month, have you been in contact with No / Unsure 04/28/2020 4:11 PM CDT someone who was confirmed or suspected to have Coronavirus / COVID-19? documented as of this encounter Last Filed Vital Signs Vital Sign Reading Time Taken Comments Blood Pressure 107/68 04/28/2020 4:11 PM CDT Pulse 93 04/28/2020 4:11 PM CDT Temperature 36.6 C (97.9 F) 04/28/2020 4:11 PM CDT Respiratory Rate 18 04/28/2020 4:11 PM CDT Oxygen Saturation - - Inhaled Oxygen Concentration - - Weight 100.5 kg (221 lb 9.6 oz) 04/28/2020 4:11 PM CDT Height - - Body Mass Index 33.69 04/18/2020 10:48 AM CDT documented in this encounter Progress Notes Scarlett Rollins MD - 04/28/2020 4:00 PM CDT PLASTIC SURGERY CLINIC NOTE 04/28/2020 Visit Type: Clinic Note / History and Physical Chief Complaint: lipomatous back mass HPI: Laureen Schmidt is a 30 year old female with 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 Patient initially had liposuction performed at age 7 to debulk the region and noticed a recurrence of the mass/asymmetry 2 years ago. She currently complains of a heaviness sensation along with "jolts and pain" around the area. Reports weight of the mass exacerbates her back pain. Reports mass has slowly increased in size since onset and is "spreading to her left shoulder region". She is interested in surgical evaluation to debulk the mass to improve back symptoms. Recent ultrasound of the mass shows lipomatous hypertrophy without definitive mass visualized. List of procedures/ medical problems -History of scoliosis with chronic pain and currently takes Tramadol. - uncontrolled DM on insulin and metformin - current A1c 9.3 - weight issues since infancy: she has recently lost 60 lbs with diet and exercise, however she re-gained 20 lbs once starting Metformin - pending cardiology evaluation for palpitations/flutters - exploratory laparotomy at the age 1 due to ingestion of HCL acid and had temporary feeding tube - heel extension with achilles tendon for club foot on the left - hysterectomy and bladder mass removal - cholecystectomy Past Medical History: Diagnosis Date Anxiety Bipolar 1 disorder Bladder cancer Cancer Club foot of both lower extremities Depression Diabetes mellitus Fatty liver Heart murmur [place] syndrome Scoliosis Webbed neck Past Surgical History: Procedure Laterality Date ACHILLES TENDON REPAIR SECTION X2 CHOLECYSTECTOMY ESOPHAGEAL DILATATION DUe to accidental HCL ingestion as a child EXPLORATORY LAPAROTOMY HYSTERECTOMY LIPOSUCTION BACK (SHX) Contouring for amniotic band scars TRANSURETHRAL BLADDER TUMOR RESECTION Family History Problem Relation Age of Onset Diabetes Mother Arthritis Mother Hypertension Father Heart Father Diabetes Maternal Grandmother Hypertension Maternal Grandmother Heart Maternal Grandmother Diabetes Maternal Grandfather Hypertension Maternal Grandfather Arthritis Maternal Grandfather Heart Maternal Grandfather Diabetes Paternal Grandmother Hypertension Paternal Grandmother Heart Paternal Grandmother Diabetes Paternal Grandfather Hypertension Paternal Grandfather Heart Paternal Grandfather Social History Socioeconomic History Marital status: Single [...] file Gets together: Not on file Attends uatsdin service: Not on file Active member of [...] file Social History Narrative Not on file Allergies Allergies Allergen Reactions Codeine Hives and Shortness of Breath Current Medications Current Outpatient Medications Medication Sig Dispense Refill [...] No current facility-administered medications for this visit. REVIEW OF SYSTEMS 12 point review of systems negative except as stated in HPI OBJECTIVE BP 107/68 (BP Location: Right arm, Patient Position: Sitting, BP CUFF SIZE: Adult Large) | Pulse 93 | Temp 36.6 C (97.9 F) (Temporal Artery) | Resp 18 | Wt 100.5 kg (221 lb 9.6 oz) | BMI 33.69kg/m PHYSICAL EXAM General: alert, no apparent distress Skin: no rashes or obvious cutaneous lesions HEENT: webbed neck, atraumatic, moist mucous membranes Respiratory: unlabored, no increased work of breathing Cardio: hemodynamically stable Abdomen: soft, nontender. There is a tethered left subcostal scar. Back: there is a large 15 x 15 cm lipomatous mass of the left scapular region with slight pigment changes of skin overlying region. There are symmetrical cutaneous back rolls of bilateral mid back. 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 Patient may be a candidate for liposuction +/- excision of excessive tissue, however further workupis needed to evaluate mass characteristics and depth of involvement. Patient is also currently weight unstable at this time. - baseline labs and CT thorax with angiogram ordered - continue working with PCP and endocrinology to ensure tight glucose control and weight control - pending cardiology evaluation - RTC 2 weeks or sooner if issues arise; will review CT and labs at that time; will also plan to discuss with Dr. French once imaging is obtained Scarlett Rollins MD Plastic & Reconstructive Surgery Pager: [phone] Yojana Roper - 04/28/2020 4:00 PM CDLeland Schmidt is a 30 year old female comes to clinic independent in ambulation for new patient lumpob back. Pt comes alone . Pt in NAD w/ pain reported 11/24. Pt preferred language is [place] Zealander. Pt. denies fall in last 12 months. Allergies and medications reviewed and updated. [id number] [place], [place] - [address] [place] [address] AT [facility] Yojana Roper 04/28/2020 4:12 PM documented in this encounter Plan of Treatment Date Type Specialty Care Team Description 05/12/2020 Office Visit Plastic Surgery Quique Thomson MD [address] [place], [place] [phone] Name Type Priority Associated Diagnoses Order S chedule CT ANGIOGRAM CHEST IMAGING Routine Roman syndrome Expect ed: 04/28/2020, Expires: 2020 CT THORAX W WO CONTRAST IMAGING Routine Roman syndrome E xpected: 04/28/2020, Expires: 2020 PREALBUMIN LAB Routine [place] syndrome Expected: , Expires: 2020 CBC WITH DIFF LAB Routine Roman syndrome Expected: 1 , Expires: 2020 COMP. METABOLIC PANEL LAB Routine Roman syndrome Exp ected: 04/28/2020, ([id number]) Expires: 2020 GLYCOSYLATED HEMOGLOBIN LAB Routine Roman syndrome E xpected: 04/28/2020, (A1C) Expires: 2020 Health Maintenance Due Date Last Done Comments VARICELLA VACCINES (1 of 2 - 1990 2-dose childhood series) DTaP,Tdap,and Td Vaccines (1 02/09/2008 - Tdap) PAP SMEAR 09/12/2012 09/12/2009, 01/16/2009, 08/28/2007 INFLUENZA VACCINE (#1) 2020 Depression Screening 04/18/2021 04/18/2020 PNEUMOCOCCAL 0-64 YEARS Aged Out No longe r eligible based COMBINED SERIES on patient's age to complete this to [facility] documented as of this encounter Results Not on filedocumented in this encounter Visit Diagnoses Diagnosis Lipodystrophy - Primary [place] syndrome Other specified 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
--- OUTSIDE RECORDS SUMMARY | 2020-06-08 16:56 | XMS REPORT | Summary of Care ---
:1990 Author Organization [facility] Address [address] [place] [address] Care Team Providers Name Role Phone Ignacio Jordan Primary Care Provider Reason for Visit Reason Comments New Patient Lipoma on back (Routine) Status Reason Specialty Diagnoses / Referred By Referred To Procedures Contact Contact Closed JOE-SURGERY / Diagnoses Lipomatosis, not elsewhere classified Ignacio Jordan John Surgery Procedures CONSULT GENERAL SURGERY NEW VISIT (FIRST TIME) [address] Chi Perrin MD [facility] [address] [place] [address] [place], [place] Phone: [phone] Phone: Fax: Encounter Details Date Type Department Care Team Description 04/18/2020 Office Visit [facility] General Nimesh Collins MD [address] [place] [address] Dr Jordan [place] [phone] Roman syndrome (Primary Dx); Surgery- Mamta Duran MD [address] [facility] 2.100 [place], [place] [phone] Lipoma of back; [address] [place] [address] iv e Left-sided thoracic back tre n, unspecified chronicity; [address] Scar of back; [place], [place] Amniotic band s yndrome [phone] Allergies Active Allergy Reactions Severity Noted Date [...] years. She had an U/S done at [facility] in [place] and was told she had a "lipoma", [...] file Gets together: Not on file Attends sikhism service: Not on file Active member of [...] othopnea, claudication, edema, coronary artery disease/history of [facility] Respiratory: Cough, sputum production, hemoptysis, wheezing, shortness [...] in consultation. Plan: 1. Referral to Dr. Thomsno 2. Obtain U/S results Mamta Hearn M.D. 04/18/2020 11:18 Malinda Cruz RN - 04/18/2020 10:45 AM CDTMdominic Schmidt is a 30 year old female comes to clinic independent in ambulation for lipoma on back. Pt comes alone . Pt in NAD w/ pain reported 0/10. Pt preferred language is Angolan. Pt. denies fall in last 12 months. Allergies and medications reviewed and updated. documented in this encounter Plan of Treatment Date Type Specialty Care Team Description 04/28/2020 Office Visit Plastic Surgery Quique Thomson MD [address] [place] [phone] Health Maintenance Due Date Last Done Comments VARICELLA VACCINES (1 of 2 - 1990 2-dose childhood series) DTaP,Tdap,and Td Vaccines (1 02/09/2008 - Tdap) PAP SMEAR 09/12/2012 09/12/2009, 01/16/2009, 08/28/2007 INFLUENZA VACCINE (#1) 2020 Depression Screening 04/18/2021 04/18/2020 PNEUMOCOCCAL 0-64 YEARS Aged Out No longe r eligible based COMBINED SERIES on patient's age to complete this to [facility] documented as of this encounter Results Not on filedocumented in this encounter Visit Diagnoses Diagnosis [place] syndrome - Primary Other specified congenital anomalies [...] Effective Dates Phone Addre ss Type Group [facility] STAR [id number] 2013-Present Medicaid COMM PLAN - PLUS MANAGED MEDICAID (Work) [id number] documented as of this encounter
--- OUTSIDE RECORDS SUMMARY | 2020-06-08 16:56 | XMS REPORT | Continuity of Care Document ---
:1990 Author Organization [facility] t Address [address] [place] [address] Dr. Koenig. [address] [place] [address] Care Team Providers Name Role Phone Susu PT, G Attending Clinician Unavailable Luís NELSON, M Attending Clinician Balwinder PRECIADO, F Attending Clinician Juan C LUZ, S Attending Clinician Kamron LUZ, J Attending Clinician Alix LUZ, B Attending Clinician Jim Solis II Attending Clinician Kamron LUZ, J Admitting Clinician Problems Condition Condition Condition Status Onset Resolution Last Treating Co mments Source Name Details Category Date Date Treatment Clinician Date Dyslipidem Problem Active 2020-04-14 M emoria ia with 22:39:52 l high Tony density Dyslipidem lipoprotei ia with n below high reference density range and lipoprotei triglyceri n below de above reference reference range and range due triglyceri to type 2 de above diabetes reference mellitus range due (disorder) to type 2 diabetes mellitus (disorder) Active Problem 04/14/2020 [facility] Hyperglyce Problem Active 2020-04-14 M emoria shanna due to 22:39:52 l type 2 Mather diabetes Hyperglyce mellitus shanna due to (disorder) type 2 diabetes mellitus (disorder) Active Problem 04/14/2020 [facility] Group Obesity Problem Active 2020-04-14 Vick arik (disorder) 22:39:52 l Obesity Mather (disorder) Active Problem 04/14/2020 [facility] Group Insulin Problem Active 2020-04-14 Vick arik resistance 22:39:52 l Insulin Tony resistance Active Problem 04/14/2020 [facility] Allergies, Adverse Reactions, Alerts Allergy Allergy Status Severity Reaction(s) Onset Inactive Treating Comm ents Source Name Type Date Date Clinician SAGE CAZARES Active Jessica Jimenez codeine codeine Active Jessica Jimenez Social History Social Habit Start Date Stop Date Quantity Comments Source Social History 2020-01-09 2020-01-09 [facility] 16:48:27 16:48:27 Medications Ordered Filled Start Stop Current Ordering Indication Dosage Frequency Signature Comments Components Source Medication Medication Date Date Medication? Clinician (SIG) Name Name MetFORMIN Yes = 2 tab, Vick arik (Eqv-Glucop 9-25 PO, BID, # l arian XR) 13:23: 360 tab, 3 Her mtz 500 mg oral 00 Refill(s), tablet, Pharmacy: [facility] release [id number], 160.02, cm, 01/09/20 11:25:00 CDT, Height, 98.182, kg, 01/09/20 11:25:00 CDT, Weight pioglitazon Yes 15 mg = 1 M emoria e 15 mg 8-06 tab, PO, l oral tablet 14:49: Daily, # He rmann 00 90 tab, 0 Refill(s), Pharmacy: [id number], 160.02, cm, 01/09/20 11:25:00 CDT, Height, 98.182, kg, 01/09/20 11:25:00 CDT, Weight canaglifloz Yes 100 mg = 1 Memoria in 100 mg 7-16 tab, PO, l oral tablet 16:23: Daily, # He rmann 00 90 tab, 1 Refill(s), Pharmacy: [facility] #[id number], 160.02, cm, 01/09/20 11:25:00 CDT, Height, 98.182, kg, 01/09/20 11:25:00 CDT, Weight OneTouch Yes , # 1 ea, Vick arik Ultra2 6-26 Insulin l Blood 13:20: dependent, Aram n Glucose 00 Does not Meter use insulin pump, Last DM eval date 01/11/20, 0 Refill(s), [id number], 160.02, cm,... OneTouch 2020-0 Yes See Lidajesús Ultra Blue 01-10 Instructio l Blood 13:20: ns, 4 Mather Glucose 00 FS/d, # Test Strip 400 ea, Insulin dependent, Does not use insulin pump, Last DM eval date 01/11/20, 3 Refill(s), Pharmacy: [id number], 160.02, cm, 01/09/20 11:25:00 CDT, Height, 98.182, kg, 01/09/20 11:25:00 CDT, Weight OneTouch 2020-0 Yes See Jessica Delica 01-10 Instructio l Extra Fine 13:20: ns, FS Yasmine nn 33G Lancets 00 4/d, # 400 ea, Insulin dependent, Does not use insulin pump, Last DM eval date 01/11/20, 3 Refill(s), Pharmacy: [id number], 160.02, cm, 01/09/20 11:25:00 CDT, Height, 98.182, kg, 01/09/20 11:25:00 CDT, Weight Dexcom G6 2020-0 Yes 1 eaJessica Staff Engineer - MISC, l Kit 18:42: ONCE, [place] [address] Certified Medically Necessar. Change every 90 days., # 1 kit, Insulin dependent, Does not use insulin pump, Last DM eval date 01/09/20, 0 Refill(s), Pharmacy: [id number], 160.02, cm, 01/09/20 11:25:00 CDT, Height, 98.182, kg,... Dexcom G6 2020-0 Yes 1 eaJessica Sensor Kit 01-08 MISC, l 18:42: ONCE, [place] [address] Certified Medically Necessary- change every 10 days., # 1 ea, Insulin dependent, Does not use insulin pump, Last DM eval date 01/09/20, 11 Refill(s), Pharmacy: [id number], 160.02, cm, 01/09/20 11:25:00 CDT, Height, 98.182, kg,... Dexcom G6 2020-0 Yes 1 ea, Memoria Transmitter 6-24 MISC, l Kit 18:42: ONCE, Tony 00 Certified Medically Necessary: Change every 3 months Dx code E10.65, # 1 ea, Insulin dependent, Does not use insulin pump, Last DM eval date 01/09/20, 3 Refill(s), Pharmacy: [id number], 160.02, cm, 01/09/20 11:25:00 CDT, Heigh... FreeStyle 2020-0 No , # 1 ea, Mem oria Aileen 6-24 Insulin l [place] 17:20: dependent, Yasmine nn 00 Does not use insulin pump, Last DM eval date 01/09/20, 0 Refill(s), Pharmacy: [id number], 160.02, cm,... FreeStyle 2020-0 No See Memoria Aileen 6-24 Instructio l Sensor 17:20: ns, MISC, Aram n 00 change every 14 days, # 6 ea, Insulin dependent, Does not use insulin pump, Last DM eval date 01/09/20, 3 Refill(s), Pharmacy: [id number], 160.02, cm, 01/09/20 11:25:00 CDT, Height, 98.182, kg, 01/09/20 11:25:00 CDT, We... FreeStyle 2020-0 No , # 1 ea, Mem oria Alieen 6-24 Insulin l [place] 17:18: dependent, Yasmine nn 00 Does not use insulin pump, Last DM eval date 01/09/20, 0 Refill(s), other FreeStyle 2020-0 No See Memoria Aileen 6-24 Instructio l Sensor 17:18: ns, MISC, Aram n 00 change every 14 days, # 6 ea, Insulin dependent, Does not use insulin pump, Last DM eval date 01/09/20, 3 Refill(s), other 3 ML 2020-0 Yes See Memoria Insulin, 6-24 Instructio l Aspart, 17:10: ns, 60 Tony Human 100 00 units SQ UNT/ML Pen at meals, Injector # 180 mL, [NovoLog] 0 Refill(s), other 3 ML 2020-0 [facility] 24 Instructio l [place] 17:09: ns, 100 Aram n 100 UNT/ML 00 units SQ Prefilled every 12 Syringe hours, # [Lantus] 180 mL, 0 Refill(s), other Vital Signs Vital Name Observation Time Observation Value Comments Source Systolic (mm Hg) 2020-01-09 16:25:00 Vick rial Mather Diastolic (mm Hg) 2020-01-09 16:25:00 [facility] orial Mather Heart Rate 2020-01-09 16:25:00 [facility] Tony Respitory Rate 2020-01-09 16:25:00 [facility] al Tony Height 2020-01-09 16:25:00 160.02 cm [facility] Weight 2020-01-09 16:25:00 [facility] BMI Calculated 2020-01-09 16:25:00 [facility] Procedures Procedure Date / Time Performed Performing Clinician Azeb murray Bladder cancer 2012-07-18 06:00:00 [facility] Her mtz Hysterectomy 2012-07-18 06:00:00 [facility] Her mtz Tube feeding 2007-07-18 06:00:00 [facility] Her mtz Lipoma of back 1997-07-18 06:00:00 [facility] Her mtz Caesarean section 1989 06:00:00 [facility] Dennis ermann Gallbladder [facility] Shortening of heel cord [facility] Encounters Start End Encounter Admission Attending Care Care Encounter Source Date/Time Date/Time Type Type Clinicians Facility Department ID 2020-06-03 2020-06-03 Ancillary Susu [facility] [id number] 09:08:13 10:08:13 Visit Annabelle Jordan [id number] [place] [id number] Profalex [id number] [facility] 179 Building 2020-05-20 2020-05-20 Transition Rhett Staley [id number] 00:00:00 00:00:00 of Care Judi Godoy [id number] Mariel [id number] 2020-05-17 2020-05-19 [facility] Armani Britt [id number] 23:38:00 18:33:00 Encounter Replaced By [facility] [id number] Replaced By [facility] [id number] Amy Lundy [id number] 2020-05-12 2020-05-12 [facility] [id number] 08:59:28 23:59:00 Encounter Quique Jordan [id number] [place] [id number] Albin [id number] 2020-04-28 2020-05-02 Office [facility] [id number] 16:02:33 11:34:28 Visit Quique Huitron Nikki [id number] [place] [id number] [id number] [address] 2020-04-11 2020-04-12 Outpatient [facility] [id number] 08:08:44 23:59:59 02 2020-03-26 2020-03-27 Outpatient [facility] [id number] 10:00:16 10:00:16 03 2020-03-26 2020-03-26 Outpatient Nicklas, [facility] [id number] 08:30:00 23:59:59 Edward [address] [place] 2020-03-25 2020-03-25 Outpatient Nicklas, [facility] [id number] 13:35:00 13:35:00 Edward [address] [place] 2020-02-21 2020-02-21 Outpatient Nicklas, [facility] [id number] 09:30:00 23:59:59 Edward [address] [place] 2020-02-20 2020-02-21 Outpatient [facility] [id number] 08:37:17 08:37:17 02 2020-01-31 2020-01-31 Outpatient Nicklas, [facility] [id number] 11:00:00 23:59:59 Edward 61 [place] 2020-01-11 2020-01-12 Outpatient [facility] [id number] 08:13:43 23:59:59 2020-01-09 2020-01-10 Outpatient [facility] [id number] 13:39:57 23:59:59 2020-01-09 2020-01-09 Outpatient Ericmilagros [facility] [id number] 11:15:00 23:59:59 Edflorian 60 Jim 2020-01-09 2020-01-09 Outpatient Ericmilagros [facility] [id number] 11:15:00 11:15:00 Edflorian 59 Jim 2020-01-07 2020-01-07 Outpatient Ericmilagros [facility] [id number] 13:50:00 13:50:00 Edflorian 58 Jim Results This patient has no known results.
--- OUTSIDE RECORDS SUMMARY | 2020-06-08 16:56 | XMS REPORT | Summary of Care ---
:1990 Author Organization [facility] - Health Address [address] [place] [address] Care Team Providers Name Role Phone Ignacio Jordan Primary Care Provider Encounter Details Date Type Department Care Team Description 04/28/2020 Orders Only [facility] Doctor Unassigned, No 301 [facility] Name [place] [phone] [place] [address] Allergies Active Allergy Reactions Severity Noted Date [...] of this encounter Last Filed Vital Signs Not on filedocumented in this encounter Plan of Treatment Date Type Specialty Care Team Description 04/28/2020 Office Visit Plastic Surgery Quique Thomson MD [address] [place] [address] [phone] Health Maintenance Due Date Last Done Comments VARICELLA VACCINES (1 of 2 - 1990 2-dose childhood series) DTaP,Tdap,and Td Vaccines (1 02/09/2008 - Tdap) PAP SMEAR 09/12/2012 09/12/2009, 01/16/2009, 08/28/2007 INFLUENZA VACCINE (#1) 2020 Depression Screening 04/18/2021 04/18/2020 PNEUMOCOCCAL 0-64 YEARS Aged Out No longe r eligible based COMBINED SERIES on patient's age to complete this to [facility] documented as of this encounter Procedures Procedure Name Priority Date/Time Associated Diagnosis Comme nts EXTERNAL PROVIDER Routine 04/28/2020 12:01 AM CDT RECORDS documented in this encounter Results Not on filedocumented in this encounter Insurance Payer Benefit Plan / Subscriber ID Effective Dates Phone Addre ss Type Group [facility] [id number] 2013-Present Medicaid COMM PLAN - PLUS MANAGED MEDICAID documented as of this encounter
--- OUTSIDE RECORDS SUMMARY | 2020-06-08 16:56 | XMS REPORT | Summary of Care ---
:1990 Author Organization [facility] Address [address] [place] [address] Care Team Providers Name Role Phone Ignacio Jordan Primary Care Provider Reason for Referral MRI/CAT Scan (Routine) Status Reason Specialty Diagnoses / Referred By Referred To Procedures Contact Contact New Request Diagnostic Diagnoses Roman syndrome Alix, Radiology Procedures CT THORAX W WO CONTRAST Quique Huitron MD [address] [place] [phone] MRI/CAT Scan (Routine) Status Reason Specialty Diagnoses / Referred By Referred To Procedures Contact Contact New Request Diagnostic Diagnoses Roman syndrome Alix, Radiology Procedures CT ANGIOGRAM CHEST Quique Huitron MD [address] [place] [phone] Reason for Visit Reason Comments New Patient LUMP back Encounter Details Date Type Department Care Team Description 04/28/2020 Office Visit [facility] Surgical Quique Thomson Lip odystrophy (Primary Dx); MD Alice Rowanonan syndrome; [address] Atypical lipomatous tumor; [address] [place] [address] Drive, [address] [address] [place], [place] [phone] Allergies Active Allergy Reactions Severity Noted [...] 30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 Pt comes alone . Pt in NAD w/ pain reported 11/24. Pt preferred language is Guamanian. Pt. denies fall in last 12 months. Allergies and medications reviewed and updated. [id number] [place], [place] - [address] [place] [address] [facility] Yojana Roper 04/28/2020 4:12 PM documented in this encounter Plan of Treatment Date Type Specialty Care Team Description 05/12/2020 Office Visit Plastic Surgery Quique Thomson MD [address] [place], [place] [phone] Name Type Priority Associated Diagnoses Order S chedule CT ANGIOGRAM CHEST IMAGING Routine Roman syndrome Expect ed: 04/28/2020, Expires: 2020 CT THORAX W WO CONTRAST IMAGING Routine Roman syndrome E xpected: 04/28/2020, Expires: 2020 PREALBUMIN LAB Routine Dalton syndrome Expected: , Expires: 2020 CBC WITH DIFF LAB Routine Roman syndrome Expected: 1 , Expires: 2020 COMP. 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
--- OUTSIDE RECORDS SUMMARY | 2020-06-08 16:56 | XMS REPORT | Summary of Care ---
:1990 Author Organization [facility] - Health Address [address] [place] [address] Care Team Providers Name Role Phone Ignacio Jordan Primary Care Provider Encounter Details Date Type Department Care Team Description 04/18/2020 Orders Only [facility] Doctor Unassigned, No 301 [facility] Name [place] [id number] 301 [place] [address] Allergies Active Allergy Reactions Severity Noted Date [...] MOUTH TWICE A Complicated headache DAY syndromes documented as of this encounter (statuses as of 04/18/2020) Active Problems Not on filedocumented as of this encounter (statuses as of 04/18/2020) Social History Tobacco Use Types Packs/Day Years Used Date Never Smoker Sex Assigned at Date Recorded Not on file documented as of this encounter Last Filed Vital Signs Not on filedocumented in this encounter Plan of Treatment Date Type Specialty Care Team Description 04/18/2020 Office Visit Surgery Nimesh Collins MD [address] [place] [address] [place] [address] [phone] Mamta Hearn MD [address] [facility] [address] [place] [address] [phone] Health Maintenance Due Date Last Done Comments VARICELLA VACCINES (1 of 2 - 1990 2-dose childhood series) DTaP,Tdap,and Td Vaccines (1 02/09/2008 - Tdap) PAP SMEAR 09/12/2012 09/12/2009, 01/16/2009, 08/28/2007 INFLUENZA VACCINE (#1) 2020 Depression Screening 04/27/2020 04/27/2019 PNEUMOCOCCAL 0-64 YEARS Aged Out No longe r eligible based COMBINED SERIES on patient's age to complete this to [facility] documented as of this encounter Procedures Procedure Name Priority Date/Time Associated Diagnosis Comme nts CONSENT/REFUSAL FOR Routine 04/18/2020 10:41 AM DIAGNOSIS AND TREATMENT CDT ASSIGNMENT OF BENEFITS Routine 04/18/2020 10:41 AM CDT documented in this encounter Results Not on filedocumented in this encounter Insurance Payer Benefit Plan / Subscriber ID Effective Dates Phone Addre ss Type Group [facility] STAR [id number] 2013-Present Medicaid COMM PLAN - PLUS MANAGED MEDICAID documented as of this encounter
--- OUTSIDE RECORDS SUMMARY | 2020-06-08 16:56 | XMS REPORT | Summary of Care ---
:1990 Author Organization [facility] Address [address] [place] [address] Care Team Providers Name Role Phone Ignacio Jordan Primary Care Provider Reason for Visit Reason Comments New Patient Lipoma on back (Routine) Status Reason Specialty Diagnoses / Referred By Referred To Procedures Contact Contact Closed JOE-SURGERY / Diagnoses Lipomatosis, not elsewhere classified Ignacio Jordan John Surgery Procedures CONSULT GENERAL SURGERY NEW VISIT (FIRST TIME) [address] [place] MD [facility] [address] [place] [address] [place], [place] Phone: [phone] Phone: Fax: Encounter Details Date Type Department Care Team Description 04/18/2020 Office Visit [facility] General Nimesh Collins MD [address] [place] [address] Dr Jordan [place] [phone] Roman syndrome (Primary Dx); Surgery- Mamta Duran MD [address] [facility] 2.[address] [place], [place] [phone] Lipoma of back; [address] [place] [address] iv e Left-sided thoracic back tre n, unspecified chronicity; [address] Scar of back; [place], [place] Amniotic band s yndrome [phone] Allergies Active Allergy Reactions Severity Noted Date [...] years. She had an U/S done at [facility] in [place] and was told she had a "lipoma", [...] file Gets together: Not on file Attends christianity service: Not on file Active member of [...] othopnea, claudication, edema, coronary artery disease/history of [place] Respiratory: Cough, sputum production, hemoptysis, wheezing, shortness [...] pain reported 0/10. Pt preferred language is Qatari. Pt. denies fall in last 12 months. Allergies and medications reviewed and updated. 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
--- OUTSIDE RECORDS SUMMARY | 2020-06-08 16:57 | XMS REPORT | Summary of Care ---
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 Radiology Procedures CT THORAX W ALISA Huitron MD [address] [place] [address] Encounter Details Date Type Department Care Team Description 05/12/2020 Hospital [facility] am, Arrived [place] [facility] MD Tomography [address] [place] [phone] Allergies Active Allergy Reactions Severity Noted Date Comments Codeine Hives, Shortness of Breath 09/10/2015 documented as of this encounter (statuses as of 05/13/2020) Medications Medication Sig Dispensed Refills Start Date [...] as of this encounter (statuses as of 05/13/2020) Active Problems No known active problemsdocumented as of this encounter (statuses as of 05/13/2020) Social History Tobacco Use Types Packs/Day Years Used Date Never Smoker Smokeless Tobacco: Never Used Alcohol Use Drinks/Week oz/Week Comments Not Currently Sex Assigned at Date Recorded Not on file COVID-19 Exposure Response Date Recorded In the last month, have you been in contact with No / Unsure 05/12/2020 8:59 AM CDT someone who was confirmed or suspected to have Coronavirus / COVID-19? documented as of this encounter Last Filed Vital Signs Not on filedocumented in this encounter Plan of Treatment Date Type Specialty Care Team Description 05/26/2020 Office Visit Plastic Surgery Quique Thomson MD [address] [place] [phone] Health Maintenance Due Date Last Done Comments VARICELLA VACCINES (1 of 2 - 1990 2-dose childhood series) DTaP,Tdap,and Td Vaccines (1 02/09/2008 - Tdap) PAP SMEAR 09/12/2012 09/12/2009, 01/16/2009, 08/28/2007 INFLUENZA VACCINE (#1) 2020 Depression Screening 04/18/2021 04/18/2020 PNEUMOCOCCAL 0-64 YEARS Aged Out No longe r eligible based COMBINED SERIES on patient's age to complete this to pic documented as of this encounter Procedures Procedure Name Priority Date/Time Associated Comments Diagnosis CT THORAX W WO Routine 05/12/2020 9:52 AM Roman syndrome Res ults for this CONTRAST CDT procedure are i n the results section. HB CREATININE BLOOD Routine 05/12/2020 9:37 AM R esults for this CDT procedure are i n the results section. documented in this encounter Results CT THORAX W WO CONTRAST (05/12/2020 9:52 AM CDT) Specimen Impressions Performed At 1. Moderate amount of stranding within the subcutaneous tissues of the PACS/VR/DOSE left upper back extending to the level of the left sca pula (4 cm depth from the skin). Findings may represent scarring (given hist ory) and/or hematoma. 2. Prominent subcutaneous tissues with in the bilateral upper back with mildly lobulated skin contour (especiall y on the left and paramedial regions). However, no discernible or wel l-defined lipoma or lipomatous lesion at the left scapula. 3. Solid left upper lobe 1.4 cm lesion with suggesti on of punctate fat. Findings likely represent a hamartoma. C omparison to priors would be helpful. Consider short-term follow-up in 3-6 months t o document stability. Typically, benign lesions such as hematomas are not fo llowed. However, this lesion only contains punctate amount of fat which is d ifficult to measure. Narrative Performed At CT SCAN OF THE CHEST WITH AND WITHOUT CO NTRAST PACS/VR/DOSE TECHNIQUE: Multidetector helical CT scan of the chest was performed before and following the intravenous administra tion of a total of 99 ml of Omnipaque 350. Coronal and sagittal refo rmats were also submitted for review. CLINICAL INFORMATION: Eval for lipomatou s mass in the region of the left scapula. COMPARISON: Not available FINDINGS: Lungs: Left upper lobe peripheral 1.4 cm lesion with suggestion of punctate fat contents may represent a zapata martoma (25:31). No other focal nodules identified. Airways: Central airways are patent. Pleura: No pleural effusion or pneumot horax. Mediastinum: No mediastinal or hilar lym phadenopathy. Cardiovascular: No pericardial effusion. No discerni ble coronary artery calcifications. Lower neck and chest wall: Within normal limits Upper abdomen: Within normal limits Bones: No acute or aggressive osseous ab normality. Mild to moderate multilevel degenerative changes scattered throughout t he thoracic spine. No scapular lesion identified. No discernible lipomato us lesion seen in the region adjacent to the left scapula. Mod erate amount of subcutaneous stranding versus scarring within this left paramedial back soft tissues at mid depth of approximately 4 cm (25:23). Procedure Note [facility], Radiant Results Inft User - 2019 11:[address] SCAN OF THE CHEST WITH AND WITHOUT CONTRAST TECHNIQUE: Multidetector helical CT scan of the chest was performed before and following the intravenous administra tion of a total of 99 ml of Omnipaque 350. Coronal and sagittal refo rmats were also submitted for review. CLINICAL INFORMATION: Eval for lipomatou s mass in the region of the left scapula. COMPARISON: Not available FINDINGS: Lungs: Left upper lobe peripheral 1.4 c m lesion with suggestion of punctate fat contents may represent a zapata martoma (25:31). No other focal nodules identified. Airways: Central airways are patent. Pleura: No pleural effusion or pneumoth orax. Mediastinum: No mediastinal or hilar lym phadenopathy. Cardiovascular: No pericardial effusion . No discernible coronary artery calcifications. Lower neck and chest wall: Within normal limits Upper abdomen: Within normal limits Bones: No acute or aggressive osseous ab normality. Mild to moderate multilevel degenerative changes scattere d throughout the thoracic spine. No scapular lesion identified. No discer nible lipomatous lesion seen in the region adjacent to the left scapula. Mod erate amount of subcutaneous stranding versus scarring within this le ft paramedial back soft tissues at mid depth of approximately 4 cm (25:23). IMPRESSION 1. Moderate amount of stranding within the subcutaneous tissues of the left upper back extending to the level o f the left scapula (4 cm depth from the skin). Findings may represent scarri ng (given history) and/or hematoma. 2. Prominent subcutaneous tissues withi n the bilateral upper back with mildly lobulated skin contour (especiall y on the left and paramedial regions). However, no discernible or wel l-defined lipoma or lipomatous lesion at the left scapula. 3. Solid left upper lobe 1.4 cm lesion with suggestion of punctate fat. Findings likely represent a hamartoma. C omparison to priors would be helpful. Consider short-term follow-up i n 3-6 months to document stability. Typically, benign lesions such as hemato mas are not followed. However, this lesion only contains punctate amount of fat which is difficult to measure. Performing Organization Address City/State/[facility] Phone Number PACS/VR/DOSE POCT CREATININE (05/12/2020 9:37 AM CDT) Pathologist Sig nature POCT Creatinine 0.6 0.5 - 1.1 mg/dL [facility] Specimen Blood - VENOUS Performing Organization Address City/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
--- OUTSIDE RECORDS SUMMARY | 2020-06-08 16:57 | XMS REPORT | Summary of Care ---
:1990 Author Organization [facility] Address [address] [place] [address] Care Team Providers Name Role Phone Ignacio Jordan Primary Care Provider Reason for Referral MRI/CAT Scan (Routine) Status Reason Specialty Diagnoses / Referred By Referred To Procedures Contact Contact Authorized Diagnostic Diagnoses Roman syndrome Quique Thomson Radiology Procedures CT THORAX W ALISA Huitron MD [address] [place] [phone] MRI/CAT Scan (Routine) Status Reason Specialty Diagnoses / Referred By Referred To Procedures Contact Contact Pending Review Diagnostic Diagnoses Combes syndrome Alix, Radiology Procedures CT ANGIOGRAM CHEST Quique Huitron MD [address] [place] [phone] Reason for Visit Reason Comments New Patient LUMP back Encounter Details Date Type Department Care Team Description 04/28/2020 Office Visit [facility] Surgical Quique Thomson Lip odystrophy (Primary Dx); MD Roman Rowan syndrome; [address] Atypical lipomatous tumor; [address] [place] [address] Drive, [address] [address] [place], [place] [phone] Allergies Active Allergy Reactions Severity Noted Date Comments Codeine Hives, Shortness of Breath 09/10/2015 documented as of this encounter (statuses as of 05/02/2020) Medications Medication Sig Dispensed Refills Start Date [...] as of this encounter (statuses as of 05/02/2020) Active Problems No known active problemsdocumented as of this encounter (statuses as of 05/02/2020) Social History Tobacco Use Types Packs/Day Years [...] 30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 Rollins, I examined this patient. I agree with resident's note as written. Quique Thomson MD Attending Surgeon Plastic, Reconstructive and Burn Surgery Pager# [phone] Doc# [id number] Date: 04/28/2020 Yojana Rodriguez - 04/28/2020 4:00 PM CDLeland Schmidt is a 30 year old female comes to clinic independent in ambulation for new patient lumpob back. Pt comes alone . Pt in NAD w/ pain reported 11/24. Pt preferred language is French. Pt. denies fall in last 12 months. Allergies and medications reviewed and updated. [id number] [address] [facility] Yojana Roper 04/28/2020 4:12 PM documented in this encounter Plan of Treatment Date Type Specialty Care Team Description 05/06/2020 Appointment Radiology Quique Thomson MD [address] [place] [phone] 05/06/2020 Appointment Radiology Quique Thomson MD [address] [place] [phone] 05/12/2020 Office Visit Plastic Surgery Quique Thomson MD [address] [place] [phone] Name Type Priority Associated Diagnoses Order S chedule CT ANGIOGRAM CHEST IMAGING Routine Roman syndrome Expect ed: 04/28/2020, Expires: 2020 CT THORAX W WO CONTRAST IMAGING Routine Combes syndrome E xpected: 04/28/2020, Expires: 2020 PREALBUMIN LAB Routine Roman syndrome Expected: , Expires: 2020 CBC WITH DIFF LAB Routine Combes syndrome Expected: 1 , Expires: 2020 COMP. 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
--- OUTSIDE RECORDS SUMMARY | 2020-06-08 16:58 | XMS REPORT | Summary of Care ---
:1990 Author Organization [facility] - [facility] Address [address] [place] [id number] Care Team Providers Name Role Phone Ignacio Jordan Primary Care Provider Reason for Visit Reason Comments Transition Of Care Encounter Details Date Type Department Care Team Description 05/20/2020 Transition of Care [facility] Judi Ramirez Tr [facility]- RN [address] [id number] Allergies Active Allergy Reactions Severity Noted Date Comments Codeine Hives, Shortness of Breath 09/10/2015 documented as of this encounter (statuses as of 05/20/2020) Medications Medication Sig Dispensed Refills Start Date End Date Status lithium carbonate Take 300 mg by 0 Active (LITHOTABS) 300 mg mouth 3 (three) tablet times daily. PAROXETINE HCL (PAXIL Take by mouth. 0 Active ORAL) ibuprofen (MOTRIN) 800 Take 800 mg by 0 Active mg tablet mouth every 6 (six) hours as needed. traMADol 50 mg Take 1 tablet 30 tablet 0 07/20/2019 Active tabletIndications: by mouth every Sore throat, Urinary 6 (six) hours tract infection with as needed for hematuria, site Pain (scale unspecified, 4-6). Hyperglycemia TOPIRAMATE 50 mg TAKE 1 TABLET 60 tablet 1 09/19/2019 Active tabletIndications: BY MOUTH TWICE Complicated headache A DAY syndromes aspirin 81 mg chewable Take 1 tablet 30 tablet 11 05/20/2020 Active tabletIndications: by mouth daily Weakness for 364 days. atorvastatin 40 mg Take 1 tablet 30 tablet 2 05/19/20202020 Active tabletIndications: by mouth at Weakness bedtime for 90 days. insulin aspart RAPID inject 30 Units 54 mL 3 05/19/2020 Active 100 unit/mL under the skin injectionIndications: 3 (three) times Weakness, Uncontrolled daily with type 2 diabetes meals. mellitus with hyperglycemia insulin glargine inject 80 Units 96 mL 3 05/19/2020 Active (LANTUS U-100 INSULIN) under the skin 100 unit/mL 2 (two) times injectionIndications: daily. Weakness, Uncontrolled type 2 diabetes mellitus with hyperglycemia metFORMIN 1,000 mg Take 1 tablet 120 tablet 4 05/24/2020 Active tabletIndications: by mouth 2 Weakness, Uncontrolled (two) times type 2 diabetes daily with mellitus with meals. hyperglycemia insulin aspart RAPID Extra Novolog insulin If blo od sugar before meal is higher than 140: 15 mL 5 05/19/2020 Active 100 unit/mL Blood sugar 140 to 160, give 1 unit. injectionIndications: Blood sugar 161 to 180, give 2 units. Weakness, Uncontrolled Blood sugar 181 to 200, give 3 units. type 2 diabetes Blood sugar 201 to 220, give 4 units. mellitus with Blood sugar 221 to 240, give 5 units. hyperglycemia Blood sugar 241 to 260, give 6 units. Blood sugar 261 to 280, give 7 units. Blood sugar 281 to 300, give 8 units. Blood sugar > 300, give 9 un its, recheck in 3 hours and cover again with sliding scale again. documented as of this encounter (statuses as of 05/20/2020) Active Problems Problem Noted Date Obesity (BMI 30-39.9) 05/18/2020 Left-sided weakness 05/18/2020 documented as of this encounter (statuses as of 05/20/2020) Social History Tobacco Use Types Packs/Day Years Used Date Never Smoker Smokeless Tobacco: Never Used Alcohol Use Drinks/Week oz/Week Comments Not Currently Sex Assigned at Date Recorded Not on file COVID-19 Exposure Response Date Recorded In the last month, have you been in contact with No / Unsure 05/17/2020 11:37 PM CDT someone who was confirmed or suspected to have Coronavirus / COVID-19? documented as of this encounter Last Filed Vital Signs Not on filedocumented in this encounter Miscellaneous Notes Telephone Encounter - Judi Staley RN - 05/20/2020 2:42 PM CST TRANSITIONAL CARE MANAGEMENT ASSESSMENT 05/20/2020 Laureen Schmidt [id number] Laureen Schmidt is a 30 year old /White female was admitted on 05/17/[address] She was discharged on 05/19/20 with discharge disposition of HR- Routine Discharge. Admitting Physician: Amy Lundy Discharge Diagnosis: MRI negative stroke Linked Episodes Type: Episode: Status: Noted: Resolved: Last update: Updated by: TRANSITION OF CARE TCM Active 05/19/2020 05/20/2020 2:40 PM Judi Staley RN Comments:05/19/2020 TCM [id number] outreach documentation: Discharge Assessment Chart Assessed: 05/20/20 TCM Outreach Completed: 05/20/20 Do you have a few minutes to speak with me about how you are doing at home?: Yes Discharge Instructions Do you understand your at-home instructions?: Yes Medications Have you filled your prescriptions and do you have them in your home? : See comments(They should be ready for warp picker today) Supplies Did you receive applicable home medical supplies/equipment?: N/A Follow Up Appointment Has a follow up appointment been scheduled?: No May I assist with scheduling this appointment?: Patient has outside PCP Do you have any questions about your follow up appointments?: No Are you able to get to your appointment? Who will be taking you?: Yes(self) Home Health Assistance Has the home health nurse contacted you since you've been home?: N/A Survey - Recognition Is there anything you would like to share about your recent hospitalization, or anyone you would like to recognize?: No Do you have any suggestions for improvement?: No Do you have any other questions or concerns at this time?: No Future Appointments: Future Appointments Provider Department Dept Phone 06/09/2020 2:00 PM Quique Thomson MD [facility] [place] [phone] NESS UNIT DIRECTOR documented in this encounter Plan of Treatment Date Type Specialty Care Team Description 06/09/2020 Office Visit Plastic Surgery Quique Thomson MD [address] [place], [place] [address] [phone] Health Maintenance Due Date Last Done Comments VARICELLA VACCINES (1 of 2 - 2-dose 1990 childhood series) PNEUMOCOCCAL 0-64 YEARS COMBINED 1995 SERIES (1 of 3 - PCV13) DTaP,Tdap,and Td Vaccines (1 - Tdap) 02/09/2008 PAP SMEAR 09/12/2012 09/12/2009, 01/16/2009, 08/28/2007 INFLUENZA VACCINE (#1) 2020 Depression Screening 04/18/2021 04/18/2020 documented as of this encounter Implants Implanted Type Area Spice Blender Device Shelf Model / Identifier Expiration Date Ser ial / Lot Screw-07/18/2003 SCREW Bilateral: Implanted: 07/18/2003 (Quantity not on file) Ankle documented as of this encounter Results Not on filedocumented in this encounter Insurance Payer Benefit Plan / Subscriber ID Effective Dates Phone Addre ss Type Group [facility] [id number] 2013-Present Medicaid COMM PLAN - PLUS MANAGED MEDICAID documented as of this encounter
--- OUTSIDE RECORDS SUMMARY | 2020-06-08 16:58 | XMS REPORT | Summary of Care ---
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 History Narrative Not on file Reviewed patient's family, surgical and social hx. HOME MEDICATIONS Medications Prior to Admission Medication Sig Dispense Refill Last Dose insulin aspart protamine-insulin aspart (NOVOLOG MIX 70-30 U-100 INSULN) 100 unit/mL (70-30) injection inject 60 Units under the skin 3 (three) times daily with meals. LANTUS U-100 INSULIN 100 unit/mL solution inject 100 Units under the skin 2 (two) times daily.Taking TOPIRAMATE 50 mg tablet TAKE 1 TABLET BY MOUTH TWICE A DAY 60 tablet 1 Not Taking traMADol 50 mg tablet Take 1 tablet by mouth every 6 (six) hours as needed for Pain (scale 4-6).30 tablet 0 Not Taking [DISCONTINUED] Nitrofurantoin&Nit. Macrocryst (MACROBID) 100 mg capsule Take 1 capsule by mouth 2 (two) times daily. 10 capsule 0 Not Taking ibuprofen (MOTRIN) 800 mg tablet Take 800 mg by mouth every 6 (six) hours as needed. Not Taking insulin aspart RAPID (NOVOLOG) 100 unit/mL injection inject 20 Units under the skin 3 (three) times daily before meals. Not Taking insulin detemir (LEVEMIR) 100 unit/mL injection inject 70 Units under the skin 4 (four) times daily. Not Taking lithium carbonate (LITHOTABS) 300 mg tablet Take 300 mg by mouth 3 (three) times daily. Not Taking PAROXETINE HCL (PAXIL ORAL) Take by mouth. Not Taking [DISCONTINUED] naproxen (NAPROSYN) 500 mg tablet Take 500 mg by mouth 2 (two) times daily with meals. Not Taking HOSPITAL MEDICATIONS Current Facility-Administered Medications Medication Dose Route Frequency Last Rate Last Dose [START ON 05/19/2020] aspirin chewable tablet 81 mg 81 mg Oral DAILY atorvastatin (LIPITOR) tablet 40 mg 40 mg Oral QHS heparin (porcine) injection 5,000 Units 5,000 Units Subcutaneous Q12H ibuprofen (IBU) tablet 800 mg 800 mg Oral BID MEALS insulin aspart RAPID (NOVOLOG U-100 INSULIN ASPART) injection 20 Units 20 Units Subcutaneous TIDAC insulin glargine (LANTUS U-100) injection 100 Units 100 Units Subcutaneous BID NaCl 0.9% (NS) IV infusion 1,000 mL 1,000 mL Intravenous CONTINUOUS 125 mL/hr at 05/18/20 0116 1,000 mL at 05/18/20 0116 traMADoL (ULTRAM) tablet 50 mg 50 mg Oral Q6HPRN NaCl 0.9% (NS) injection 5 mL 5 mL Slow IV Push PRN - SEE INSTRUCTIONS ALLERGY Allergies Allergen Reactions Codeine Hives and Shortness of Breath REVIEW OF SYSTEMS General: (-) fever, (-) chills, (-) weight change, (-) dizziness, (-) fatigue, (-) change in appetite Skin: (-) rash, (-) lesion HEENT: (-) headache, (-) change in hearing, (+) change in vision, (-) nasal discharge, (-) sore throat Neck: (-) pain, (-) difficulty swallowing, (-) mass Heme: (-) bleeding disorder Resp: (-) cough, (-) shortness of breath, (-) dyspnea on exertion Cardio: (-) chest pain, (-) palpitations, (-) syncope GI: (-) abdominal pain, (-) nausea, (-) vomiting, (-) diarrhea, (-) constipation, (-) melena, (-) hematochezia, (-) hematemesis : (-) dysuria, (-) hematuria, (-) increased frequency, (-) difficulty urinating, (-) difficulty initiating Endo: (-) heat intolerance, (-) diabetes, (-) cold intolerance, (-) polyuria, (- ) polydipsia, (-) renal insufficiency, (-) thyroid disease Neuro: per HPI Back: (-) pain, (-) spasms JADYN: (-) muscle pain, (-) joint pain, (-) claudication Psych: (-) anxiety, (-) depression, (-) psychiatric disorder PHYSICAL EXAM Vitals: 05/18/20 0130 05/18/20 0305 05/18/20 0313 05/18/20 0812 BP: 108/70 115/73 120/71 Pulse: 83 77 80 Resp: 17 16 Temp: 36.3 C (97.4 F) 36.3 C (97.4 F) TempSrc: Tympanic Oral SpO2: 97% 97% 97% Weight: 99.8 kg (220 lb) Height: 1.6 m (5' 3") General: Alert and oriented x 4 (time, person, place and situation); no apparent distress. Mental Status: Consciousness, attention, concentration: normal, Stays focused and on task while being questioned. Speech/ Language: intact to comprehension, fluency, repetition and naming. Fund of knowledge: is congruent with level of education. Remote and recent memory: normal, can recall recent and distant memories Cranial Nerves: I. Not tested. II. PERRL. FOV full to confrontation. III. IV., . Extraocular movements intact without nystagmus. V. Normal sensation in V1-3 distributions. VII. No facial droop noted. VIII. Hearing intact. IX., X. Palatal elevation present symmetrically. XI. Normal strength of sternocleidomastoid and trapezius muscles bilaterally. XII. Tongue in midline. Motor: Tone: normal Bulk: normal STRENGTH Right Left Deltoid 5 4 Biceps 5 4 Triceps 5 4 Wrist extensors 5 4 Interossei 5 4 Hip flexors 5 4 Knee flexors (hamstring) 5 4 Knee extensors (quadriceps) 5 4 Ankle dorsiflexors 5 4 Ankle plantar flexors 5 4 DTR's: Right Left Biceps 2+ 2+ Triceps 2+ 2+ Brachioradialis 2+ 2+ Patella 2+ 2+ Achilles 2+ 2+ Pathologic reflexes and signs: Cee: absent Babinski: absent Cerebellar: Nystagmus: neg, FTN: nl, HTS:limb ataxia on L, Tremors: neg, Dysdiadochokinesia: neg Sensory: LT: intact, temperature: intact, PP: intact Gait: unsteady gait, felt like L leg was vamshi to collapse. Lungs: CTAB Cardio: S1, S2 normal Extremities: no cyanosis, clubbing or edema Neck: supple, no carotid bruit, no JVD Abdomen: soft; non-tender; normoactive bowel sounds heard LABS Recent Results (from the past 24 hour(s)) Prothrombin Time / INR - Code Stroke Collection Time: 05/17/20 11:56 PM Result Value Ref Range PROTIME PATIENT 12.7 12.0 - 14.7 Seconds INR 1.0 aPTT - Code Stroke Collection Time: 05/17/20 11:56 PM Result Value Ref Range APTT Patient 27 23 - 38 Seconds CBC without Diff - Code Stroke Collection Time: 05/17/20 11:56 PM Result Value Ref Range WBC 9.34 4.30 - 11.10 10*3/L RBC 4.68 3.93 - 5.25 10*6/L HGB 14.7 11.6 - 15.0 g/dL HCT 41.8 35.7 - 45.2 % MCH 31.4 25.9 - 32.8 pg MCV 89.3 80.6 - 95.5 fL MCHC 35.2 (H) 31.6 - 35.1 g/dL PLT 168 166 - 358 10*3/L MPV 12.8 9.5 - 12.9 fL RDW-CV 11.9 (L) 12.0 - 15.5 % RDW-SD 38.5 (L) 39.0 - 49.9 fL NRBC x10^3 <0.01 10*3/L NRBC/100 WBC 0.0 0.0 - 10.0 /100 WBCs IPF % Troponin I - Code Stroke Collection Time: 05/17/20 11:56 PM Result Value Ref Range TROPONIN I 0.013 <=0.034 ng/mL Basic Metabolic Panel (NA, K, CL, CO2, Glucose, BUN, Creatinine, CA) - Code Stroke Collection Time: 05/17/20 11:56 PM Result Value Ref Range NA 136 135 - 145 mmol/L K 4.2 3.5 - 5.0 mmol/L CL 100 98 - 108 mmol/L CO2 TOTAL 29 23 - 31 mmol/L AGAP 7 2 - 16 BUN 13 7 - 23 mg/dL GLUCOSE 342 (H) 70 - 110 mg/dL CREATININE 0.72 0.50 - 1.04 mg/dL CALCIUM 10.2 8.6 - 10.6 mg/dL eGFR Calculation (Non-) 94.5 mL/min/1.73m2 eGFR Calculation () 114.5 mL/min/1.73m2 ADC / LCC - DRUG SCREEN TRIAGE Collection Time: 05/18/20 1:01 AM Result Value Ref Range BENZO U Negative Negative CAMPOS U Negative Negative AMPHET Negative Negative THC Negative Negative METHADONE Negative Negative Meth U Negative Negative OPIATES Negative Negative Cocaine Metabolite Negative Negative PROPOXY Negative Negative Tric U Negative Negative PCP Negative Negative OXYCOD Negative Negative COVID-19 (ID NOW RAPID TESTING) Collection Time: 05/18/20 1:47 AM Specimen: NASOPHARYNGEAL SWAB Result Value Ref Range SARS-CoV-2 Rapid ID NOW Not Detected Not Detected GLYCOSYLATED HEMOGLOBIN (A1C) Collection Time: 05/18/20 4:59 AM Result Value Ref Range HGB A1C 8.6 (H) 4.0 - 6.0 % FASTING LIPID PANEL (49573)(TOTAL CHOLESTEROL, TRIGLYCERIDES, HDL) Collection Time: 05/18/20 4:59 AM Result Value Ref Range CHOL 151 120 - 200 mg/dL HDL 20 (L) >50 mg/dL HDLC RATIO 7.6 (H) <=4.5 TRIG 254 (H) 30 - 170 mg/dL LDL CHOL 80 <=160 mg/dL VLDL 51 5 - 60 mg/dL POCT GLUCOSE (AUTOMATED) Collection Time: 05/18/20 8:13 AM Result Value Ref Range POCT GLU 191 (H) 70 - 110 mg/dL STROKE LABS HGB A1C (%) Date Value 05/18/2020 8.6 (H) LDL CHOL (mg/dL) Date Value 05/18/2020 80 CHOL (mg/dL) Date Value 05/18/2020 151 TSH (uIU/mL) Date Value 01/16/2009 1.39 Recent Labs 05/17/[address] Stroke Head Wo Contrast Result Date: 05/18/2020 No acute intracranial findings. Preliminary Report Dictated by Resident: Nimesh Rosales MD., have reviewed this study and agree with the above report. Ct Stroke Angiogram Head Result Date: 05/18/2020 No high-grade stenosis, aneurysm or vascular malformation in the intracranial or cervical vessels. Left apical solid nodule with punctate central low attenuation. The central low attenuation is difficult to quantify due to small size. If it were macroscopic fat, it could represent a hamartoma. However, particularly given patient's history of bladder cancer, central necrosis in the context of a metastatic lesion should also be considered. Other cavitary lesions such as tuberculosis can also not be excluded. Consultation and follow-up with Pulmonology are recommended. Preliminary Report Dictated by Resident: Neeta Gaytan The updated differential regarding the left apical nodule was communicated to Dr. Grullon via [employer] message at the time of report finalization Nimesh Cooney MD., have reviewed this study and agree with the above report. Ct Stroke Angiogram Neck Result Date: 05/18/2020 No high-grade stenosis, aneurysm or vascular malformation in the intracranial or cervical vessels. Left apical solid nodule with punctate central low attenuation. The central low attenuation is difficult to quantify due to small size. If it were macroscopic fat, it could represent a hamartoma. However, particularly given patient's history of bladder cancer, central necrosis in the context of a metastatic lesion should also be considered. Other cavitary lesions such as tuberculosis can also not be excluded. Consultation and follow-up with Pulmonology are recommended. Preliminary Report Dictated by Resident: Neeta Gaytan The updated differential regarding the left apical nodule was communicated to Dr. Grullon via [employer] message at the time of report finalization I, Nimesh Saldivar MD., have reviewed this study and agree with the above report. ASSESSMENT AND PLAN 30 year old female left handed with PMHx as below including hx of bladder cancer, IDDM and positive family hx of cancer (father) who presented as a transfer from [facility] for further w/u for left sided-weakness. LSN 1999 on 05/17/2020. CTH and CTA head/neck were unremarkable. Left side weakness Hx of bladder cancer - Admission under Neurology service - Aspirin 325 mg now and Aspirin 81 daily from tomorrow - Lipitor 20mg daily if LDL>70, will adjust according to fasting lipid panel - permissive hypertension for now with gradual normotension tomorrow - Telemetry monitoring - Frequent Neurochecks - Avoid hyperthermia, pain and constipation - POCT for BG and sliding scale insulin - Fall precautions - Consult PT/OT/ Speech pathology - Slat Twister on stroke education, smoking cessation, healthy diet, physical activity, weight loss - MRI brain without contrast - Transthoracic Echo with bubble study For Stroke in Young patients <50: - Thrombophilia workup (including protein S and C, anti-cardiolipin, lupus anticoagulant, anti-thrombin III, factor V leiden mutation, APC resistance, Prothrombin 36366 A mutation), hemoglobin electrophoresis, ESR, CRP, FRANKIE, anti- dsDNA antibodies, vit B12, folate, homocysteine, methylmalonic acid, thiamine, HIV. Incidental Left apical solid nodule with punctate central low attenuation - Consult Pulmonary medicine given hx of bladder cancer - MRI brain w/wo - EEG in AM - GI Prophylaxis: famotidine - DVT Prophylaxis: heparin - Code status: FULL Discussed with Dr. Lundy, Neurology Faculty Tari Grullon MD, PhD Dept of Neurology Doctor#: [id number] Stroke pager: [phone] signed by Amy Lundy MD at 05/18/2020 3:29 PM ANATOMY AND PHYSIOLOGY INSTRUCTOR Associated attestation - Amy Lundy MD - 05/18/2020 3:29 PM CSTAttending note: I personally examined the patient on the date of service as stated above and agree with the residentassessment and plan. I actively participated in the decision-making process. Please see the resident's note for additional details. documented in this encounter Consult Notes Nan Bernstein SLP - 05/19/2020 11:27 AM CSTAssociated Order(s): CONSULT SPEECHSpeech-Language Pathology 05/19/2020 1020 Pt was referred to VIDEO COORDINATOR service as a stroke activation. Pt passed dysphagia screen and no si/sx of dysphagia reported nursing. Patient reports chronic esophageal dysphagia 2/2 esophageal stricture requiring dilation as a result of accidental HCL ingestion as a child. However, patient denies acute worsening of dysphagia or s/sx of aspiration during po intake. No dysarthria, aphasia or cognitive-communication deficits reported or observed by VIDEO COORDINATOR. No further speech pathology services indicated at this time, so service is signing off. Please re- consult if further services are indicated. Thank you. No charge for this visit due to: evaluation deferred/no current needs. Nan Bernstein M.S. [facility]-VIDEO COORDINATOR Speech-Language Pathologist Office: [phone] Pager: [phone] OMY AND PHYSIOLOGY INSTRUCTOR Ramila Noe RD - 05/19/2020 8:55 AM CSTAssociated Order(s): CONSULT FOOD AND NUTRITION Medical Nutrition Therapy- Consult Note: Reason For Consultation: Physician consult: Per Stroke Protocol: Dysphagia Screening Failed History of Present Illness: CHIEF COMPLAINT: L sided weakness Per H&P, Ev Schmidt is a 30 year old female left handed with PMHx as below including hx of bladder cancer, IDDM and positive family hx of cancer (father) who presented as a transfer from [facility] for further w/u for left sided- weakness. LSN 1999 on 05/17/2020. PMH/PSH: Past Medical History: Diagnosis Date Anxiety Bipolar 1 disorder Bladder cancer Cancer Club foot of both lower extremities Depression Diabetes mellitus Fatty liver Heart murmur Marlin syndrome Scoliosis Webbed neck Past Surgical History: Procedure Laterality Date ACHILLES TENDON REPAIR SECTION X2 CHOLECYSTECTOMY ESOPHAGEAL DILATATION DUe to accidental HCL ingestion as a child EXPLORATORY LAPAROTOMY HYSTERECTOMY LIPOSUCTION BACK (SHX) Contouring for amniotic band scars TRANSURETHRAL BLADDER TUMOR RESECTION PSH noted. GI and Nutrition Related Findings: Symptoms: N/A Difficulty: N/A GI tract alteration: N/A Alternative means of nutrition: N/A General: N/A Medications: I have reviewed the medications currently ordered in the EMR located under the medications andMAR tabs. Current medications include: Current Facility-Administered Medications: aspirin chewable tablet 81 mg, 81 mg, Oral, DAILY, Tari Grullon MD, 81 mg at 05/19/20 0821 atorvastatin (LIPITOR) tablet 40 mg, 40 mg, Oral, QHS, Tari Grullon MD, 40 mg at 102 heparin (porcine) injection 5,000 Units, 5,000 Units, Subcutaneous, Q12H, Tari Grullon MD, 5,000 Units at 05/19/20 0821 ibuprofen (IBU) tablet 800 mg, 800 mg, Oral, BID MEALS, Tari Grullon MD, 800 mg at 05/19/20 0821 insulin aspart RAPID (NOVOLOG U-100 INSULIN ASPART) injection 20 Units, 20 Units, Subcutaneous,TIDAC, Tari Grullon MD, 20 Units at 05/18/20 1729 insulin glargine (LANTUS U-100) injection 100 Units, 100 Units, Subcutaneous, BID, Tari Grullon MD, 100 Units at 05/18/20 2106 NaCl 0.9% (NS) IV infusion 1,000 mL, 1,000 mL, Intravenous, CONTINUOUS, Julita Irizarry MD, Last Rate: 125 mL/hr at 05/18/20 0116, 1,000 mL at 05/18/20 0116 traMADoL (ULTRAM) tablet 50 mg, 50 mg, Oral, Q6HPRN, Tari Grullon MD, 50 mg at 05/19/20 0343 NaCl 0.9% (NS) injection 5 mL, 5 mL, Slow IV Push, PRN - SEE INSTRUCTIONS, Julita Irizarry MD Lab and Medical Test Results: NA (mmol/L) Date Value 05/17/2020 136 K (mmol/L) Date Value 05/17/2020 4.2 CALCIUM (mg/dL) Date Value 05/17/2020 10.2 CL (mmol/L) Date Value 05/17/2020 100 BUN (mg/dL) Date Value 05/17/2020 13 CREATININE (mg/dL) Date Value 05/17/2020 0.72 GLUCOSE (mg/dL) Date Value 05/17/2020 342 (H) CO2 TOTAL (mmol/L) Date Value 05/17/2020 29 ALBUMIN (g/dL) Date Value 07/19/2019 4.7 T PROTEIN (g/dL) Date Value 07/19/2019 9.1 (H) TOTAL BILI (mg/dL) Date Value 07/19/2019 0.4 BILI UNCON (mg/dL) Date Value 07/19/2019 0.2 BILI CONJ (mg/dL) Date Value 07/19/2019 0.0 ALTv (U/L) Date Value 07/19/2019 55 (H) AST(SGOT) (U/L) Date Value 07/19/2019 43 (H) ALK PHOS (U/L) Date Value 07/19/2019 101 Nutrition Assessment: Age: [age] year old Sex: female Ht: 160 cm / 5'3" Ht Readings from Last 3 Encounters: 05/18/20 1.6 m (5' 3") 04/18/20 1.727 m (5' 8") 12/17/19 1.6 m (5' 3") Current Wt: 99.8 kg/ 220 lb 0 oz. BMI: Body mass index is 38.97 kg/m. (Obesity (BMI 30-39.9)) IBW for Ht: 52 kg +/- 5.2 kg %IBW: ~192% Weight History: Wt Readings from Last 10 Encounters: 05/18/20 99.8 kg (220 lb) 04/28/20 100.5 kg (221 lb 9.6 oz) 04/18/20 99.8 kg (220 lb) 12/17/19 97.5 kg (215 lb) 07/19/19 93.9 kg (207 lb) 07/04/19 97.5 kg (215 lb) 04/27/19 96.4 kg (212 lb 8 oz) 02/12/19 98 kg (216 lb 2 oz) 01/29/19 98.2 kg (216 lb 8 oz) 11/20/15 108.2 kg (238 lb 8 oz) Inflammatory Markers: Hyperglycemia Current Dietary Order(s): 1800 Calorie Diabetic Consistent Carbohydrates Diet - includes HS Snack; Texture: Regular EMR documented food allergies/intolerance/cultural preferences: Allergies Allergen Reactions Codeine Hives and Shortness of Breath Nutrition & Diet History: 30 year-old female seen for nutrition assessment, per stroke protocol. Patient denied changes in swallowing abilities. Per patient, she reports chronic dysphagia, but states that she manages through chopping food, and chewing food really well. Patient passed dysphagia screening. Patient endorses 1 meal per day when at home. Patient states that it is related to ongoing abdominal pain, which she is planning to visit support assistant soon to get that checked. Patient endorses managing Diabetes with insulin shots and pills and not following disease specific diet at home. RD and patient discussed carbohydrate diet and the importance of consistency of meals. Patient states that she has received prior education for DM management here at [facility] and was agreeable to received handouts and discussed eating habits. Will continue to follow. Estimated Daily Nutritional Needs: Calories: 1800 kcal/day = 18 kcal/kg current wt = 34 kcal/kg IBW Protein: 20 % of kcal need/day = 90 g/day = 0.9 g/kg current wt = 1.7 g/kg IBW Carbohydrate: 45 % of kcal need/day = 203 g/day = 13-14 choices Fluid: 1 mL/kcal/day or per MD; adjust per acute needs Nutrition Diagnosis: Altered zcqntwyhs-hcbmcrl-[id number] values related to inconsistent carbohydrate intake as evidence by A1c of 8.6%. Nutrition Plan of Care: Intervention(s): 1.Recommend to continue with current diet,1800 calorie diabetic diet/consistent carbohydrate, as tolerated by the patient and as medically appropriate 2. Discussed carbohydrate consistent diet (Handout provided) 3. Monitor lab values Goal(s): 1. Patient will complete 50-75 % of provided nutrition 2. Patient will remain at stable weight during this admission D/C Plannin. Limit refined carbohydrates especially sugar, sweets and sugar-sweetened beverages. 2. Recommend patient to follow a 1800 carbohydrate consistent diet Recommend 15 servings of carbohydrates -Suggested servings: 3-5 per meal and 1-2 per snack -Ideally following a consistent intake of meals during the day with a minimum of 3 meals and 1-2 snacks 4. Recommend to practice reading nutrition facts labels and focusing on carbohydrate - Remember: 1 serving of carbohydrate is equal to 15 grams of carbohydrates Nutrition Monitoring and Evaluation: A registered dietitian will f/u as indicated to report nutrition related information and to revise the recommended nutrition intervention(s); please call with questions or concerns, thank-you. Ramila Noe MS, RDN,LD Clinical Dietitian RD Office: [phone] Lisa Salgado RN - 05/18/2020 12:54 PM CSTAssociated Order(s): CONSULT FAILURE ANALYSIS ENGINEER-ADULTConsult completed: assess for d/c needs. See below note for details. Care Management Social Functional Assessment Patient Name: Laureen Schmidt Age: [age] year old Sex: female Previous admit date: N/A Current diagnosis and co-morbidities: WEAKNESS Readmission Questions: Was patient discharged from any acute care hospital within the last 30 days: No Social Functional Assessment: Primary language spoken/preferred: Norwegian Mental Status: Alert & Oriented to Person,Place & Time Information given by: Self Patient's support system: Parent Name and number of support system: Pati Poole (Mom) [phone], Elías Schmidt (Dad) [phone] Primary Health Assistant: Self MPOA: No Living Arrangement: Home: single story Address of living arrangement : [address] [place] [address] Persons living in home: Self;Parent;Child Names & numbers of persons living in home: Mother and patients 2 minor children ages 10 and 12 Barriers to returning home: Declining function Baseline functional status- ambulation: Independent Functional status-baseline personal care: Independent Baseline functional status- driving: Dependent Baseline functional status- grocery shopping: Requires minimal to moderate assistance Functional status-baseline housekeeping: Independent Functional status-baseline meal prep: Independent Current functional status same as prior: Yes Do you have a PCP?: Yes Name of PCP: Dr. Javier Acosta Home Health Care Agency: No Provider Services: No DME Company: No Equipment: None Hemodialysis: No Community resources utilized: SSA/SSI/Medicaid(Receives $704 mo SSDI) Funding Resources: Medicaid HMO Prescription coverage plan: Medicaid unlimited slots Pharmacy where meds are filled: Other Other [facility] [place] Anticipated services prior to disharge: Continue Medical Eval Expected mode of discharge transportation: Friend Name and phone number of the friend or family member picking up the patient: Will try and call friend for ride home, has never used MTM. May need ride home/assistance with setting up Medicaid transport Additional info required for discharge planning: Pending medical evaluation Recommended discharge plan: Home Any issues or concerns with obtaining/affording your medications at home: no. Are you or your support system able to case picker medications at discharge: yes. Describe: Family willhelp. SFA Complete: Social Functional Assessment complete: Yes Alcohol Use Screening (AUDIT-C) How often do you have a drink containing alcohol?: Never SCORE: 0 Did patient elect to have resources provided: No Role of Care Management explained. THIEN Ly, RN Weekend Rn Traveling Available only on Tuesday, Tuesday and Tuesday. [email or web address] O: [phone] Estella Espinoza OT - 05/18/2020 10:11 AM CSTAssociated Order(s): CONSULT ADULT OCCUPATIONAL THERAPY OT GENERAL EVALUATION Consult received via [employer], EMR reviewed and evaluation completed 05/18/20. Patient referred to occupational therapy for evaluation and treatment per stroke protocol. Patient agreeable to participate in occupational therapy. Discharge Recommendations: Therapy Needs and Potential:- Patient would benefit from continued skilled occupational therapy services to address: Decline in basic activities of daily living, Decline in instrumental activities of daily living, Decreased strength and Decreased endurance - Patient demonstrates good potential to improve and meet therapy goals with further skilled occupational therapy services. - Patient appears motivated to improve their B/IADLs and return to their previous level of function. Challenges to Home Transition:- Increased risk of falls Equipment Recommendations:None -patient owns 3n1 bsc currently using as shower chair PLAN OF CARE: At least 2x/week Precautions: Weight bearing status: NA General: PPE Utilized: Gloves and Surgical mask and Fall Bracing: N/A Current Occupational Performance and/or Treatment: Feeding: Independent UB Dressing: SBA/Setup to don gown posteriorly LB Dressing: SBA/Setup to don socks - able to complete figure 4, but usually completes bending at hip per pt Toilet Transfer: SBA/Setup with verbal cues Toileting Hygiene: SBA/Setup Functional Mobility: SBA/Setup for cueing. Pt endorses fatigue after ambulation to/from bathroom Patient/caregiver educated on: Adaptive equipment , Fall prevention, FAST acronym, General strengthening, Role of OT and Safety awareness Patient left sitting upright in bedside chair with call teixeira in reach. Please, see full evaluation below for more detail. OT EVALUATION: 30 year old female Admit date: 05/17/2020 Date of onset: 05/17/2020 Admit Diagnosis: WEAKNESS OT Diagnosis: Impaired BADL independence, Impaired IADL independence, Weakness, Decreased endurance and Pain PMH: Past Medical History: Diagnosis Date Anxiety Bipolar 1 disorder Bladder cancer Cancer Club foot of both lower extremities Depression Diabetes mellitus Fatty liver Heart murmur Marlin syndrome Scoliosis Webbed neck PSH: Past Surgical History: Procedure Laterality Date ACHILLES TENDON REPAIR SECTION X2 CHOLECYSTECTOMY ESOPHAGEAL DILATATION DUe to accidental HCL ingestion as a child EXPLORATORY LAPAROTOMY HYSTERECTOMY LIPOSUCTION BACK (SHX) Contouring for amniotic band scars TRANSURETHRAL BLADDER TUMOR RESECTION PAIN: Before assessment: 11/24 After assessment: 11/24 Location: diffuse/generalized Pain Management: Repositioning Provided OCCUPATIONAL ROLES/HOME ENVIRONMENT: Home environment: Single story home with children age 10 and 12 and mother. Bathroom access: Yes Bathroom setup: Combo Occupation(s): Disabled Function prior to admission: Household ambulation, Community ambulation, Modified independent with BADLs and Modified independent with IADLs Equipment prior to admission: Rolling walker -patient does not typically use, [id number] patient uses asshower chair -educated to use as elevated toilet seat as well. PERFORMANCE SKILLS/FACTORS: UE Muscle Tone: bilateral WNL UE ROM: bilateral AROM WFL UE Strength: R UE 5/5 L UE 4-/5; educated on general strengthening AROM Hand dominance: right Dexterity/Coordination: diadochokinesis, finger to nose intact Endurance - Sitting: Good Standing: Fair+; fatigue after in room ambulation Sitting Balance - Static: Good Dynamic: Good Standing: Balance - Static Good Dynamic: Fair+ Dizziness: No Skin Integrity: No breakdown noted Sensation: originally patient stated only L thumb numb. After ambulation stated L side up to elbow was numb. ROM intact Oral Motor: WFL Communication: Able to verbalize needs Yes Other: N/A Vision: WFL Yes Other: describes tunnel vision from far away Hearing: good; no issues reported COGNITION: Orientation: person, place, date/time and situation Follows Commands: 1-step Yes Multi-step Yes Inconsistencies No Safety Awareness/Judgment: Good PROBLEM LIST: Decreased independence with ADL, Decreased strength/endurance for functional activity and Impaired safety awareness REHAB POTENTIAL/PROGNOSIS: good PATIENT/FAMILY GOALS: none stated TREATMENT/INTERVENTION PLAN: Patient/Caregivier Education, Equipment recommendations, Daily living activities and Therapeutic exercises GOAL(S): By discharge, patient will increase independence in daily living skills as follows: 1 Patient will perform toilet transfer with modified independence. 2 Patient will complete grooming tasks with modified independence while standing at the sink. 3 Patient will complete toileting hygiene, including clothing management, with modified independence. 4 Patient will increase endurance for functional activity as evidenced by ability to sustain 25 minutes of active participation. 6 Patient/caregiver will verbalize/demonstrate understanding/proficiency in the following home programs: Theraband and Towel/dowel PATIENT-FAMILY TEACHING Patient provided with preferred teaching of verbal information on Adaptive equipment , Fall prevention, FAST acronym, General strengthening, Role of OT and Safety awareness Shows readiness to learn. Verbal instruction teaching provided. Individual is able to read and verbalizes understanding of teaching provided. BLAZE [place], [facility] Pager [phone] License # [id number] Total Timed Treatment Codes: 9 Min Total Treatment Time: 17 Min Patient Complexity Level Moderate - An occupational therapy evaluation of moderate complexity was completed using the above tests and measures. The following information was obtained: An occupational profile and medical and therapy history, including an expanded review of medical and/or therapy records and additional review of physical, cognitive, or psychosocial history related to current functional performance, Various standardized and non-standardized assessments were used to identify at least 3-5 performance deficits related to physical, cognitive, or psychosocial skills that result in activity limitations and/or participation restrictions and Clinical decision making of moderate analytic complexity, which includes an analysis of the occupational profile, analysis of data from detailed assessment(s), and consideration of several treatment options. Patient may present with comorbidities thataffect occupational performance. Minimal to moderate modification of tasks or assistance (e.g., physical or verbal) with assessment(s) is necessary to enable patient to complete evaluation component. Adebayo Ring PT - 05/18/2020 9:36 AM ANATOMY AND PHYSIOLOGY INSTRUCTOR Associated Order(s): CONSULT ADULT PHYSICAL THERAPY Patient agreeable to working with physical therapy. Patient met Semi reclined in bed. PHYSICAL THERAPY EVALUATION Consult received, chart reviewed and evaluation complete this date. Patient is referred to PT for evaluation and treatment. Patient is a 30 year old female who presents to hospital for WEAKNESS of the left side of the body. PMHx as below including hx of bladder cancer, IDDM and positive family hx of cancer (father) who presented as a transfer from [facility] for further w/u for left sided-weakness. NIHSS TOTAL: 4 Discharge Recommendations: Therapy Needs and Potential: Patient would benefit from continued physical therapy services to address: decline in gait and/orbalance decreased strength decreased endurance decreased coordination decreased motor planning Patient demonstrates good potential to improve and meet therapy goals with further physical therapy services. Patient appears motivated to improve their functional mobility and return to their previous levelof function. Patient demonstrates ability to tolerate atleast 30-60 minutes of physical therapy with active participation. Challenges to Home Transition: increased risk of falls decreased caregiver availability decreased safety awareness environmental barriers Equipment recommendations: no device Current Functional Status and/or Treatment:Functional mobility training, Transfer training, Gait training, Patient/Family/Caregiver education, Therapeutic exercise and Functional Motor Training Bed Mobility: Rolling: Independent, taking more than usual time to complete task due to diffuse pain on the left LE, pain not rated. Scooting in supine: Independent, taking more than usual time to complete task due to diffuse painon the left LE, pain not rated. Sitting balance Good. Patient was able to get to the side of the bed without assistance from the therapist. Transfers: Sit to stand: CGA using Rolling Walker Stand to sit: Modified independent using Rolling Walker Stand pivot transfer: SBA/Setup Static/dynamic standing balance: Fair Verbal cueing provided for correct hand placement and correct use of AD, rolling walker. Ambulation: Assisted patient with ambulation as follows: 5 feet using Rolling Walker and SBA/Setup, 1st attempt to take steps was unsuccessful, 2nd attempt: patient was able to march in place and took few steps to towards the recliner, taking more than usual time to complete task due to diffuse pain on the left LE, concentrated on the left hip (6-7/10). Patient presenting with Step-through gait pattern. Gait is slow, steady with wide base of support. Therapeutic exercise: patient educated in Deep breathing, Energy conservation, Fall prevention, General strengthening, Joint protection, Positioning and Relaxation/breathing techniques., instructed patient in the following: ankle pumps, toe flexion/extension, patient/caregiver instructed to perform HEP 3 times per day, 10 repetitions., patient/caregiver verbalizes understanding of instructions. After session, patient Up in chair. Call button provided. Patient was educated on the importance of progressive mobilization, as well as fall precautions. Nurse Scarlet was informed of the patient's current level of function. PLAN OF CARE: At least 2 times per week, once or twice a day (while in hospital) per patient's tolerance and medical needs. See below for complete details. Admit Date: 05/17/2020 Hospital Diagnosis:WEAKNESS PT Diagnosis: Difficulty walking, Weakness, Malaise/fatigue, Pain, Abnormality of gait and balance, Joint stiffness. Weight Bearing Precaution: NA General Precautions: PPE used:Gloves and Surgical mask, General, Fall,IV line Bracing/Cast present or required:N/A PMH: Past Medical History: Diagnosis Date Anxiety Bipolar 1 disorder Bladder cancer Cancer Club foot of both lower extremities Depression Diabetes mellitus Fatty liver Heart murmur Marlin syndrome Scoliosis Webbed neck PSH: Past Surgical History: Procedure Laterality Date ACHILLES TENDON REPAIR SECTION X2 CHOLECYSTECTOMY ESOPHAGEAL DILATATION DUe to accidental HCL ingestion as a child EXPLORATORY LAPAROTOMY HYSTERECTOMY LIPOSUCTION BACK (SHX) Contouring for amniotic band scars TRANSURETHRAL BLADDER TUMOR RESECTION Prior Living Situation: lives with their family and house, [address] DME: No device Prior level of Mobility: community ambulation, house hold ambulation Subjective: Patient was seen in the room and agreed to evaluation. Patient/Family Goals: patient wants to go home. Patient/Family verbalizes understanding of condition: Yes PAIN: -Pain Description: aching and dull -Pain Location: left lower extremity and the left hip -Pain rating before treatment: 7, After treatment: 3 -Pain Management: Pain Meds given and Repositioning Provided COMMUNICATION Primary Language: Norwegian Able to Verbalize needs: Yes Vision:good; no issues reported Hearing:good; no issues reported ORIENTATION/COGNITION: Oriented to: person, place, date/time and situation Awake: Yes Alert: Yes Dizzy: Yes very mild, per patient. Follows Commands: Yes 1-Step Yes Multi-Step Yes Inconsistent: No NEUROLOGICAL Light Touch: within functional limits bilateral LE. Heel to daniel: within functional limits bilateral LE. Tone: intact BALANCE: Sitting: Static: Excellent Dynamic: Excellent Standing: Static: Fair+ Dynamic: Fair RANGE OF MOTION: within functional limits bilateral LE STRENGTH: 4/5 (Good), bilateral LE grossly graded. ENDURANCE: Fair, Room air SKIN INTEGRITY: intact PROBLEM LIST: Decline in bed mobility, Decline in gait, Decline in transfers, Decreased strength, Decreased endurance, Decreased balance, Pain, Decreased Coordination and Decreased Motor Planning ASSESSMENT: Patient is a 30 year old female seen secondary to the above listed diagnosis. Patient would benefit from continued PT to address the above listed deficits to maximize independence and safety with functional mobility. Rehabilitation Potential: guarded Goals: The following goals are to maximize independence and safety with functional mobility to eventually return to prior living situation and prior functional status. Upon discharge, patient and/or family will demonstrate the followin. Rolling: Independent Supine-sit: Independent Sitting balance Excellent 2. Sit to stand: Independent using no device Stand to sit: Independent using no device Stand pivot transfer: Independent 3. Independent with ambulation, Feet: 50 using least assistive device. 4. Demonstrate or verbalize understanding of home exercise program in order to continue with their rehab on their own. Treatment Plan: Gait training, Therapeutic exercise, Transfer training, Balance training, Bed mobility training, Safety education, patient/caregiver education, Pain management and Functional Motor Training PATIENT EDUCATION: Patient provided with preferred teaching of verbal information on role of PT, plan of care. Shows readiness to learn. Verbal instruction teaching provided. Individual is able to readand verbalizes understanding of teaching provided. Total Time Tx Codes in Minutes: 12 min Total Treatment Time in Minutes: 31 min Adebayo Simpson PT, DPT Pager: [phone] documented in this encounter ED Notes Tanisha Bell RN - 05/17/2020 11:44 PM CDTPt states that she began to feel weird about an hour ago, she was driving and swerving, and her speech was slurred. She currently feels "tired and slow". 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 Pt reportsthat she has felt fatigued all day beginning yesterday June 16, 2020 when patient felt generalized fatigue. Fatigue persisted throughout the day and never resolved. Last HS about 8:30 PM, patient while getting into the vehicle patient felt as if she was in a "tunnel" and while while she continued driving, she felt as if her entire body was swaying from side to side. Pt then felt twitching on leftside of face and felt as if her tongue was swollen and she had slurring of speech. Pt the got out ofthe car and felt she had minimal strength in her left arm and left leg. Pt was then driven to [employer] and symptoms appeared to have persisted. After having a [employer] dinner, patient decided to come to the ED for evaluation Pt is currently"exhausted and tired and exahuasted" with left upper and lower extremity weakness Past Medical History/Immunizations: Past Medical History: Diagnosis Date Anxiety Bipolar 1 disorder Bladder cancer Cancer Club foot of both lower extremities Depression Diabetes mellitus Fatty liver Heart murmur Roman syndrome Scoliosis Webbed neck Teixeira's Palsy 2007 and 2009 Tetanus received in last 5 years: No Allergies: Allergies Allergen Reactions Codeine Hives and Shortness of Breath Past Social History: Tobacco Use Never smoked or used smokeless tobacco. Alcohol Use Not Currently. Drug Use Never. Past Surgical History: Past Surgical History: Procedure Laterality Date ACHILLES TENDON REPAIR SECTION X2 CHOLECYSTECTOMY ESOPHAGEAL DILATATION DUe to accidental HCL ingestion as a child EXPLORATORY LAPAROTOMY HYSTERECTOMY LIPOSUCTION BACK (SHX) Contouring for amniotic band scars TRANSURETHRAL BLADDER TUMOR RESECTION Review of Systems: Review of Systems Constitutional: Positive for fatigue. Negative for chills and fever. HENT: Negative. Negative for trouble swallowing and voice change. Eyes: Negative. Respiratory: Negative. Negative for chest tightness and shortness of breath. Breasts: Negative. Cardiovascular: Negative. Gastrointestinal: Negative. Genitourinary: Negative. Musculoskeletal: Positive for gait problem. Negative for neck pain and neck stiffness. Skin: Negative. Neurological: Positive for speech difficulty, weakness and numbness. Psychiatric/Behavioral: Negative. Endocrine: Endocrine negative Physical Exam: ED Triage Vitals [05/17/20 2346] Weight 100.2 kg (221 lb) Actual or estimated Estimated by patient/family report Height 1.6 m (5' 3") BP (!) 158/113 Pulse 86 Resp 18 Temp 36.2 C (97.1 F) Temp source Oral SpO2 99 % Measured on Room air Physical Exam Vitals signs and nursing note reviewed. Constitutional: General: She is not in acute distress. Appearance: She is well-developed. She is obese. She is not ill-appearing, toxic-appearing or diaphoretic. HENT: Head: Normocephalic and atraumatic. Right Ear: Tympanic membrane, ear canal and external ear normal. There is no impacted cerumen. Left Ear: Tympanic membrane, ear canal and external ear normal. There is no impacted cerumen. Nose: Nose normal. No congestion or rhinorrhea. Mouth/Throat: Mouth: Mucous membranes are moist. Pharynx: Oropharynx is clear. No oropharyngeal exudate or posterior oropharyngeal erythema. Eyes: General: No scleral icterus. Right eye: No discharge. Left eye: No discharge. Conjunctiva/sclera: Conjunctivae normal. Pupils: Pupils are equal, round, and reactive to light. Neck: Musculoskeletal: Normal range of motion and neck supple. No neck rigidity or muscular tenderness. Thyroid: No thyromegaly. Cardiovascular: Rate and Rhythm: Normal rate and regular rhythm. Pulses: Normal pulses. Heart sounds: Normal heart sounds. No murmur. Pulmonary: Effort: Pulmonary effort is normal. No respiratory distress. Breath sounds: Normal breath sounds. No stridor. No wheezing or rales. Chest: Chest wall: No tenderness. Abdominal: General: Bowel sounds are normal. There is no distension. Palpations: Abdomen is soft. There is no mass. Tenderness: There is no abdominal tenderness. There is right CVA tenderness. There is no left CVAtenderness, guarding or rebound. Hernia: No hernia is present. Musculoskeletal: Normal range of motion. General: No tenderness, deformity or signs of injury. Right lower leg: No edema. Left lower leg: No edema. Lymphadenopathy: Cervical: No cervical adenopathy. Skin: General: Skin is warm and dry. Capillary Refill: Capillary refill takes less than 2 seconds. Coloration: Skin is not jaundiced or pale. Findings: No bruising, erythema, lesion or rash. Neurological: Mental Status: She is alert and oriented to person, place, and time. Cranial Nerves: No cranial nerve deficit. Sensory: No sensory deficit. Motor: No weakness or abnormal muscle tone. Coordination: Coordination normal. Gait: Gait normal. Deep Tendon Reflexes: Reflexes normal. Psychiatric: Behavior: Behavior normal. Thought Content: Thought content normal. Judgment: Judgment normal. Radiology: Hospital Encounter on 05/17/[address] CT STROKE ANGIOGRAM NECK Narrative CT STROKE ANGIOGRAM HEAD, CT STROKE ANGIOGRAM NECK HISTORY: 30 years-old; Female; Acute Stroke SAH suspected, initial exam Rad TECHNIQUE: CT imaging of the [place] from the skull base to the superior mediastinum was obtained during arterial phase after administration of IV contrast. Coronal, sagittal, and MIPs were reconstructed. COMPARISON: None. FINDINGS: HEAD: The PICA origin is visualized bilaterally. The basilar artery is normal in caliber. The superior cerebellar arteries are patent. 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 The right P2 segment and entire left [employer] are otherwise patent. The distal cervical, petrous, cavernous and supraclinoid internal carotid arteries are patent. The anterior and middle cerebral arteries are patent. An anterior communicating artery is not visualized. NECK: Aortic arch and arch vessel origins: The normal three-vessel branching pattern is identified off the aortic arch. Innominate and subclavian arteries: The innominate and subclavian arteries are widely patent. Common carotids: The common carotid and the cervical segments of the internal carotid arteries are patent bilaterally without flow-limiting stenosis. Vertebral arteries: The vertebral arteries are patent without flow-limiting stenosis from their origin off the subclavian artery through their vertebral and intradural segments. Cervical soft tissues: Unremarkable Lung apices: A solid nodule in the left lung apex measures 1.2 cm in diameter with a central punctate low-attenuation (8:188), unchanged from most recent chest CT. Cervical spine: Unremarkable. Impression Unremarkable CTA Head and Neck angiograms without high-grade stenosis, aneurysm or vascular malformation. Left apical solid nodule with punctate central low attenuation, unchanged from most recent CT chest. The findings are suggestive of hamartoma given the central macroscopic fat. Preliminary Report Dictated by Resident: Neeta Gaytan CT STROKE ANGIOGRAM HEAD Narrative CT STROKE ANGIOGRAM HEAD, CT STROKE ANGIOGRAM NECK HISTORY: 30 years-old; Female; Acute Stroke SAH suspected, initial exam Rad TECHNIQUE: CT imaging of the [place] from the skull base to the superior mediastinum was obtained during arterial phase after administration of IV contrast. Coronal, sagittal, and MIPs were reconstructed. COMPARISON: None. FINDINGS: HEAD: The PICA origin is visualized bilaterally. The basilar artery is normal in caliber. The superior cerebellar arteries are patent. 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 The right P2 segment and entire left [employer] are otherwise patent. The distal cervical, petrous, cavernous and supraclinoid internal carotid arteries are patent. The anterior and middle cerebral arteries are patent. An anterior communicating artery is not visualized. NECK: Aortic arch and arch vessel origins: The normal three-vessel branching pattern is identified off the aortic arch. Innominate and subclavian arteries: The innominate and subclavian arteries are widely patent. Common carotids: The common carotid and the cervical segments of the internal carotid arteries are patent bilaterally without flow-limiting stenosis. Vertebral arteries: The vertebral arteries are patent without flow-limiting stenosis from their origin off the subclavian artery through their vertebral and intradural segments. Cervical soft tissues: Unremarkable Lung apices: A solid nodule in the left lung apex measures 1.2 cm in diameter with a central punctate low-attenuation (8:188), unchanged from most recent chest CT. Cervical spine: Unremarkable. Impression Unremarkable CTA Head and Neck angiograms without high-grade stenosis, aneurysm or vascular malformation. Left apical solid nodule with punctate central low attenuation, unchanged from most recent CT chest. The findings are suggestive of hamartoma given the central macroscopic fat. Preliminary Report Dictated by Resident: Neeta Gaytan CT STROKE HEAD WO CONTRAST Narrative CT STROKE HEAD WO CONTRAST HISTORY: 30 years-old; Female; Stroke suspected, focal neuro deficit, < 6 hrs COMPARISON: Brain MRI 02/07/2019 TECHNIQUE: Axial CT of the head was performed and reconstructed at 2.5 mm intervals. Coronal and sagittal reformatted images were generated. FINDINGS: The ventricles and cerebral sulci are normal in caliber and configuration. No hydrocephalus, midline shift or pathological extra-axial fluid collection is present. The basal cisterns are unremarkable. There is no acute intracranial hemorrhage or significant mass effect. No parenchymal attenuation abnormality. The hdz-white matter differentiation is preserved. The mastoid air cells and paranasal air sinuses are clear. The calvarium and central skull base are unremarkable. Impression No acute intracranial findings. Preliminary Report Dictated by Resident: Neeta Gaytan Lab Results (24h): Recent Results (from the past 24 hour(s)) Prothrombin Time / INR - Code Stroke Collection Time: 05/17/20 11:56 PM Result Value Ref Range PROTIME PATIENT 12.7 12.0 - 14.7 Seconds INR 1.0 aPTT - Code Stroke Collection Time: 05/17/20 11:56 PM Result Value Ref Range APTT Patient 27 23 - 38 Seconds CBC without Diff - Code Stroke Collection Time: 05/17/20 11:56 PM Result Value Ref Range WBC 9.34 4.30 - 11.10 10*3/L RBC 4.68 3.93 - 5.25 10*6/L HGB 14.7 11.6 - 15.0 g/dL HCT 41.8 35.7 - 45.2 % MCH 31.4 25.9 - 32.8 pg MCV 89.3 80.6 - 95.5 fL MCHC 35.2 (H) 31.6 - 35.1 g/dL PLT 168 166 - 358 10*3/L MPV 12.8 9.5 - 12.9 fL RDW-CV 11.9 (L) 12.0 - 15.5 % RDW-SD 38.5 (L) 39.0 - 49.9 fL NRBC x10^3 <0.01 10*3/L NRBC/100 WBC 0.0 0.0 - 10.0 /100 WBCs IPF % Troponin I - Code Stroke Collection Time: 05/17/20 11:56 PM Result Value Ref Range TROPONIN I 0.013 <=0.034 ng/mL Basic Metabolic Panel (NA, K, CL, CO2, Glucose, BUN, Creatinine, CA) - Code Stroke Collection Time: 05/17/20 11:56 PM Result Value Ref Range NA 136 135 - 145 mmol/L K 4.2 3.5 - 5.0 mmol/L CL 100 98 - 108 mmol/L CO2 TOTAL 29 23 - 31 mmol/L AGAP 7 2 - 16 BUN 13 7 - 23 mg/dL GLUCOSE 342 (H) 70 - 110 mg/dL CREATININE 0.72 0.50 - 1.04 mg/dL CALCIUM 10.2 8.6 - 10.6 mg/dL eGFR Calculation (Non-) 94.5 mL/min/1.73m2 eGFR Calculation () 114.5 mL/min/1.73m2 ADC / LCC - DRUG SCREEN TRIAGE Collection Time: 05/18/20 1:01 AM Result Value Ref Range BENZO U Negative Negative CAMPOS U Negative Negative AMPHET Negative Negative THC Negative Negative METHADONE Negative Negative Meth U Negative Negative OPIATES Negative Negative Cocaine Metabolite Negative Negative PROPOXY Negative Negative Tric U Negative Negative PCP Negative Negative OXYCOD Negative Negative COVID-19 (ID NOW RAPID TESTING) Collection Time: 05/18/20 1:47 AM Specimen: NASOPHARYNGEAL SWAB Result Value Ref Range SARS-CoV-2 Rapid ID NOW Not Detected Not Detected GLYCOSYLATED HEMOGLOBIN (A1C) Collection Time: 05/18/20 4:59 AM Result Value Ref Range HGB A1C 8.6 (H) 4.0 - 6.0 % FASTING LIPID PANEL (47894)(TOTAL CHOLESTEROL, TRIGLYCERIDES, HDL) Collection Time: 05/18/20 4:59 AM Result Value Ref Range CHOL 151 120 - 200 mg/dL HDL 20 (L) >50 mg/dL HDLC RATIO 7.6 (H) <=4.5 TRIG 254 (H) 30 - 170 mg/dL LDL CHOL 80 <=160 mg/dL VLDL 51 5 - 60 mg/dL EKG: interpreted by me Sinus Rhythm, Sinus Arrythmia Rate 77 Comparison with prior EKG: none available Orders and Treatments: Orders Placed This Encounter Procedures CT STROKE HEAD WO CONTRAST CT STROKE ANGIOGRAM HEAD CT STROKE ANGIOGRAM NECK STROKE Protocol - MRI Brain with Contrast Prothrombin Time / INR - Code Stroke aPTT - Code Stroke CBC without Diff - Code Stroke Troponin I - Code Stroke Basic Metabolic Panel (NA, K, CL, CO2, Glucose, BUN, Creatinine, CA) - Code Stroke ADC / LCC - DRUG SCREEN TRIAGE COVID-19 (ID NOW RAPID TESTING) LAB ONLY COVID INTERPRETATION GLYCOSYLATED HEMOGLOBIN (A1C) FASTING LIPID PANEL (60693)(TOTAL CHOLESTEROL, TRIGLYCERIDES, HDL) Consult Adult Physical Therapy - STROKE Patient Consult Adult Occupational Therapy - STROKE Patient Consult Speech Pathology - STROKE Patient Consult Property Controller - STROKE Patient Consult Food and Nutrition - STROKE Patient O2 Nasal Cannula Smoking Cessation / Tobacco Avoidance Education STROKE Protocol - Echocardiogram Routine with Doppler Color Orders Placed This Encounter Medications NaCl 0.9% (NS) injection 5 mL iohexol (OMNIPAQUE 350 BULK-100 mL) injection 100 mL NaCl 0.9% (NS) IV infusion 1,000 mL insulin regular human (HUMULIN R) injection 6 Units insulin aspart RAPID (NOVOLOG U-100 INSULIN ASPART) injection 20 Units insulin glargine (LANTUS U-100) injection 100 Units ibuprofen (IBU) tablet 800 mg traMADoL (ULTRAM) tablet 50 mg heparin (porcine) injection 5,000 Units DISCONTD: aspirin (COMPOUNDED) powder packet 325 mg DISCONTD: atorvastatin (LIPITOR) tablet 20 mg aspirin chewable tablet 81 mg DISCONTD: aspirin tablet 325 mg aspirin tablet 325 mg atorvastatin (LIPITOR) tablet 40 mg ED COURSE MDM: Laureen Schmidt is a 30 year old female with numerous medical conditions as listed below who presentedto the ED for evaluation of weakness, numbness/tingling that began about two days ago Differentials considered but not limited to: 1. CVA 2. Anxiety 3. Hyperglycemia 4. Electrolyte derangements Will transfer patient to [facility] for further evaluation Scoring Tools: No data recorded NIH Stroke Scale: 2 Diagnosis/Impression: ICD-10-CM ICD-9-CM 1. Weakness R53.1 780.79 2. Screening for viral disease Z11.59 V73.99 3. Uncontrolled type 2 diabetes mellitus with hyperglycemia E11.65 250.02 Disposition/Condition: ED Disposition ED Disposition Condition Comment Transfer - [facility] to IP/Obs Discharge Medications: Current Discharge Medication List STOP taking these medications insulin aspart protamine-insulin aspart (NOVOLOG MIX 70-30 U-100 INSULN) 100 unit/mL (70-30) injection Comments: Reason for Stopping: LANTUS U-100 INSULIN 100 unit/mL solution Comments: Reason for Stopping: TOPIRAMATE 50 mg tablet Comments: Reason for Stopping: traMADol 50 mg tablet Comments: Reason for Stopping: ibuprofen (MOTRIN) 800 mg tablet Comments: Reason for Stopping: insulin aspart RAPID (NOVOLOG) 100 unit/mL injection Comments: Reason for Stopping: insulin detemir (LEVEMIR) 100 unit/mL injection Comments: Reason for Stopping: lithium carbonate (LITHOTABS) 300 mg tablet Comments: Reason for Stopping: PAROXETINE HCL (PAXIL ORAL) Comments: Reason for Stopping: Follow-up: Electronically signed by: Julita Irizarry MD 05/18/2020 1:15 AM OMY AND PHYSIOLOGY INSTRUCTOR documented in this encounter Miscellaneous Notes Care Plan - Scarlet Mendez RN - 05/19/2020 6:31 PM ANATOMY AND PHYSIOLOGY INSTRUCTOR Problem: Discharge Planning Goal: Able to perform ADL 05/19/20201830 by Scarlet Mendez RN Outcome: Adequate for discharge 05/19/20208 by Scarlet Mendez RN Outcome: Progressing as expected Goal: Absence of venous thromboembolism 05/19/20201830 by Scarlet Mendez RN Outcome: Adequate for discharge 05/19/20201117 by Scarlet Mendez RN Outcome: Progressing as expected Goal: Knowledge of medication management 05/19/20201830 by Scarlet Mendez RN Outcome: Adequate for discharge 05/19/20201117 by Scarlet Mendez RN Outcome: Progressing as expected Goal: Knowledge of need for follow-up care 05/19/20201830 by Scarlet Mendez RN Outcome: Adequate for discharge 05/19/20201117 by Scarlet Mendez RN Outcome: Progressing as expected Goal: Knowledge of personal stroke risk factors 05/19/20201830 by Scarlet Mendez RN Outcome: Adequate for discharge 05/19/20201117 by Scarlet Mendez RN Outcome: Progressing as expected Goal: Knowledge of stroke warning signs 05/19/20201830 by Scarlet Mendez RN Outcome: Adequate for discharge 05/19/20201117 by Scarlet Mendez RN Outcome: Progressing as expected Problem: Aspiration, Risk of Goal: Absence of aspiration 05/19/20201830 by Scarlet Mendez RN Outcome: Adequate for discharge 05/19/20201117 by Scarlet Mendez RN Outcome: Progressing as expected Problem: Falls, Risk of Goal: Absence of falls 05/19/20201830 by Scarlet Mendez RN Outcome: Adequate for discharge 05/19/20201117 by Scarlet Mendez RN Outcome: Progressing as expected Problem: Pain Goal: Control of pain at or below patient's documented comfort goal 05/19/20201830 by Scarlet Mendez RN Outcome: Adequate for discharge 05/19/20201117 by Scarlet Mendez RN Outcome: Progressing as expected Goal: Reduction in pain sensation 05/19/20201830 by Scarlet Mendez RN Outcome: Adequate for discharge 05/19/20201117 by Scarlet Mendez RN Outcome: Progressing as expected Problem: Tissue Perfusion, Cerebral - Altered Goal: Absence of continued neurologic deterioration signs and symptoms 05/19/20201830 by Scarlet Mendze RN Outcome: Adequate for discharge 05/19/20201117 by Scarlet Mendez RN Outcome: Progressing as expected are Plan - Scarlet Mendez RN - 05/19/2020 11:18 AM ANATOMY AND PHYSIOLOGY INSTRUCTOR Problem: Discharge Planning Goal: Able to perform ADL Outcome: Progressing as expected Goal: Absence of venous thromboembolism Outcome: Progressing as expected Goal: Knowledge of medication management Outcome: Progressing as expected Goal: Knowledge of need for follow-up care Outcome: Progressing as expected Goal: Knowledge of personal stroke risk factors Outcome: Progressing as expected Goal: Knowledge of stroke warning signs Outcome: Progressing as expected Problem: Aspiration, Risk of Goal: Absence of aspiration Outcome: Progressing as expected Problem: Falls, Risk of Goal: Absence of falls Outcome: Progressing as expected Problem: Pain Goal: Control of pain at or below patient's documented comfort goal Outcome: Progressing as expected Goal: Reduction in pain sensation Outcome: Progressing as expected Problem: Tissue Perfusion, Cerebral - Altered Goal: Absence of continued neurologic deterioration signs and symptoms Outcome: Progressing as expected are Plan - Jose Raul Kenney RN - 05/18/2020 9:32 PM CSTProgressing as expected. are Plan - Scarlet Mendez RN - 05/18/2020 9:24 AM ANATOMY AND PHYSIOLOGY INSTRUCTOR Problem: Discharge Planning Goal: Able to perform ADL Outcome: Progressing as expected Goal: Absence of venous thromboembolism Outcome: Progressing as expected Goal: Knowledge of medication management Outcome: Progressing as expected Goal: Knowledge of need for follow-up care Outcome: Progressing as expected Goal: Knowledge of personal stroke risk factors Outcome: Progressing as expected Goal: Knowledge of stroke warning signs Outcome: Progressing as expected Problem: Aspiration, Risk of Goal: Absence of aspiration Outcome: Progressing as expected Problem: Falls, Risk of Goal: Absence of falls Outcome: Progressing as expected Problem: Pain Goal: Control of pain at or below patient's documented comfort goal Outcome: Progressing as expected Goal: Reduction in pain sensation Outcome: Progressing as expected Problem: Tissue Perfusion, Cerebral - Altered Goal: Absence of continued neurologic deterioration signs and symptoms Outcome: Progressing as expected are Plan - Jose Raul Kenney RN - 05/18/2020 3:46 AM CSTProgressing as expected D Nurse Note - Tanisha Bell RN - 05/18/2020 2:25 AM CSTReport called to JOSHUA Reynolds reviewed, history discussed, medications and interventions disclosed. Denies further questions at this time. D Nurse Note - Tanisha Bell RN - 05/18/2020 1:42 AM CDTPT left via EMS stretcher. Alert and oriented D Nurse Note - Ella Goodman RN - 05/18/2020 1:22 AM CDTPt condition unchanged, transfer pending. D Nurse Note - Ella Goodman RN - 05/18/2020 1:03 AM [facility]TCity [facility] ETA 15-20 min D Nurse Note - Ella Goodman RN - 05/17/2020 11:54 PM CDTStoke activation at 2350 Staff arrived to Stroke activation: HS, [place] industrial engineering technician Ari Velasco RN B Ray NELSON W Jordan Goodman M/S and ICU staff dismissed documented in this encounter Plan of Treatment Date Type Specialty Care Team Description 06/09/2020 Office Visit Plastic Surgery Quique Thomson MD [address] [place] [address] [phone] Name Type Priority Associated Diagnoses Date/Ti me LAB ONLY COVID LAB Routine Weakness 05/18/2020 1 :47 AM INTERPRETATION CDT PROTEIN C ACTIVITY LAB Routine 0 11:17 AM ANATOMY AND PHYSIOLOGY INSTRUCTOR PROTEIN S ACTIVITY LAB Routine 0 11:17 AM ANATOMY AND PHYSIOLOGY INSTRUCTOR ANTICARDIOLIPIN ANTIBODIES LAB Routine 1 07/18/2019 11:17 AM ANATOMY AND PHYSIOLOGY INSTRUCTOR LUPUS ANTICOAGULANT LAB Routine 05/18/20 20 11:17 AM EVALUATION ANATOMY AND PHYSIOLOGY INSTRUCTOR ANTITHROMBIN ACTIVITY LAB Routine 2019 11:17 AM ANATOMY AND PHYSIOLOGY INSTRUCTOR VITAMIN B1 (THIAMINE), LAB Routine 05/18 11:17 AM WHOLE BLOOD ANATOMY AND PHYSIOLOGY INSTRUCTOR LUPUS ANTICOAGULANT LAB ONLY Routine 05/18/20 20 11:17 AM EVALUATION ANATOMY AND PHYSIOLOGY INSTRUCTOR ANTI-NUCLEAR LAB Routine 05/18/2020 11:1 7 AM ANTIBODY-PATHOLOGIST ANATOMY AND PHYSIOLOGY INSTRUCTOR INTERPRETATION Name Type Priority Associated Diagnoses Order S chedule LAB ONLY COVID LAB Routine Weakness ONCE for 1 INTERPRETATION Occurrences s tarting 05/18/2020 unti l 05/18/2020 PROTEIN C ACTIVITY LAB Routine ONCE for 1 Occurrences sta rting 05/18/2020 unti l 05/18/2020 PROTEIN S ACTIVITY LAB Routine ONCE for 1 Occurrences sta rting 05/18/2020 unti l 05/18/2020 ANTICARDIOLIPIN ANTIBODIES LAB Routine O NCE for 1 Occurrences sta rting 05/18/2020 unti l 05/18/2020 LUPUS ANTICOAGULANT LAB Routine ONCE for 1 EVALUATION Occurrences sta rting 05/18/2020 unti l 05/18/2020 ANTITHROMBIN ACTIVITY LAB Routine ONCE f or 1 Occurrences sta rting 05/18/2020 unti l 05/18/2020 VITAMIN B1 (THIAMINE), LAB Routine ONCE for 1 WHOLE BLOOD Occurrences sta rting 05/18/2020 unti l 05/18/2020 LUPUS ANTICOAGULANT LAB ONLY Routine Once for 1 EVALUATION Occurrences sta rting 05/18/2020 unti l 05/18/2020, [address] THORAX W WO CONTRAST IMAGING Routine Weakness Expe cted: 05/19/2020, Expires: 2020 ANTI-NUCLEAR LAB Routine ONCE for 1 ANTIBODY-PATHOLOGIST Occurre nces starting INTERPRETATION 05/19/2020 un til 05/19/2020 Health Maintenance Due Date Last Done Comments VARICELLA VACCINES (1 of 2 - 2-dose 1990 childhood series) PNEUMOCOCCAL 0-64 YEARS COMBINED 1995 SERIES (1 of 3 - PCV13) DTaP,Tdap,and Td Vaccines (1 - Tdap) 02/09/2008 PAP SMEAR 09/12/2012 09/12/2009, 01/16/2009, 08/28/2007 INFLUENZA VACCINE (#1) 2020 Depression Screening 04/18/2021 04/18/2020 documented as of this encounter Implants Implanted Type Area Oil [employer] 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 POCT GLUCOSE (AUTOMATED) Routine 05/19/2020 1:09 Results for this PM ANATOMY AND PHYSIOLOGY INSTRUCTOR procedure are i n the results section. ECHO ROUTINE W/DOPPLER Routine 05/19/2020 10:23 Weakness COLOR AM ANATOMY AND PHYSIOLOGY INSTRUCTOR POCT GLUCOSE (AUTOMATED) Routine 05/19/2020 8:54 Results for this AM ANATOMY AND PHYSIOLOGY INSTRUCTOR procedure are i n the results section. ELECTROENCEPHALOGRAM Routine 05/19/2020 Weakness Results for this procedure are i n the results section. POCT GLUCOSE (AUTOMATED) Routine 05/18/2020 9:05 Results for this PM ANATOMY AND PHYSIOLOGY INSTRUCTOR procedure are i n the results section. MR BRAIN W WO CONTRAST WITH Routine 05/18/2020 8:38 Wea kness Results for this NEUROQUANT PM ANATOMY AND PHYSIOLOGY INSTRUCTOR Left-sided procedure are i n weakness the results section. POCT GLUCOSE (AUTOMATED) Routine 05/18/2020 5:02 Results for this PM ANATOMY AND PHYSIOLOGY INSTRUCTOR procedure are i n the results section. POCT GLUCOSE (AUTOMATED) Routine 05/18/2020 12:29 Results for this PM ANATOMY AND PHYSIOLOGY INSTRUCTOR procedure are i n the results section. FACTOR 2 [id number] MUTATION Add-on 05/18/2020 11:17 Results for this AM ANATOMY AND PHYSIOLOGY INSTRUCTOR procedure are i n the results section. FACTOR 2 [id number] MUTATION Routine 05/18/2020 11:17 Results for this AM ANATOMY AND PHYSIOLOGY INSTRUCTOR procedure are i n the results section. FACTOR 5 LEIDEN Routine 05/18/2020 11:17 Results for this AM ANATOMY AND PHYSIOLOGY INSTRUCTOR procedure are i n the results section. ANTI-DOUBLE STRANDED DNA Routine 05/18/2020 11:17 Results for this AM ANATOMY AND PHYSIOLOGY INSTRUCTOR procedure are i n the results section. ANTI-NUCLEAR ANTIBODY Routine 05/18/2020 11:17 Re sults for this SCREEN AM ANATOMY AND PHYSIOLOGY INSTRUCTOR procedure are i n the results section. SEDIMENTATION RATE Routine 05/18/2020 11:17 Resul ts for this AM ANATOMY AND PHYSIOLOGY INSTRUCTOR procedure are i n the results section. POCT GLUCOSE (AUTOMATED) Routine 05/18/2020 8:13 Results for this AM ANATOMY AND PHYSIOLOGY INSTRUCTOR procedure are i n the results section. HOMOCYSTEINE Add-on 05/18/2020 4:59 Results for this AM ANATOMY AND PHYSIOLOGY INSTRUCTOR procedure are i n the results section. GLYCOSYLATED HEMOGLOBIN Routine 05/18/2020 4:59 Results for this (A1C) AM ANATOMY AND PHYSIOLOGY INSTRUCTOR procedure are i n the results section. LIPID PANEL (88463)(TOTAL Routine 05/18/2020 4:59 Results for this CHOLESTEROL, TRIGLYCERIDES, AM ANATOMY AND PHYSIOLOGY INSTRUCTOR procedure are in HDL) the results section. C-REACTIVE PROTEIN Add-on 05/18/2020 4:59 Resul ts for this AM ANATOMY AND PHYSIOLOGY INSTRUCTOR procedure are i n the results section. FOLATE Add-on 05/18/2020 4:59 Results for this AM ANATOMY AND PHYSIOLOGY INSTRUCTOR procedure are i n the results section. VITAMIN B12, LEVEL Add-on 05/18/2020 4:59 Resul ts for this AM ANATOMY AND PHYSIOLOGY INSTRUCTOR procedure are i n the results section. COVID-19 (ID NOW RAPID STAT 05/18/2020 1:47 Weakness R esults for this TESTING) AM CDT procedure are i n the results section. ADC / LCC - DRUG SCREEN STAT 05/18/2020 1:01 Weakness Results for this TRIAGE AM CDT procedure are i n the results section. CT STROKE ANGIOGRAM NECK STAT 05/18/2020 12:27 Weakness Results for this AM CDT procedure are i n the results section. CT STROKE ANGIOGRAM HEAD STAT 05/18/2020 12:27 Weakness Results for this AM CDT procedure are i n the results section. CT STROKE HEAD WO CONTRAST STAT 05/18/2020 12:22 Weakness Results for this AM CDT procedure are i n the results section. HB CREATININE BLOOD Routine 05/18/2020 12:02 Resu lts for this AM CDT procedure are i n the results section. EXTRA TUBE SST STAT 05/18/2020 12:00 AM CDT ACTIVATED PARTIAL THRMPLAS STAT 05/17/2020 11:56 Weakness Results for this ROHINI PM CDT procedure are i n the results section. PROTHROMBIN TIME / INR STAT 05/17/2020 11:56 Weakness R esults for this PM CDT procedure are i n the results section. CBC WITHOUT DIFF STAT 05/17/2020 11:56 Weakness Results for this PM CDT procedure are i n the results section. BASIC METABOLIC PANEL (NA, STAT 05/17/2020 11:56 Weakness Results for this K, CL, CO2, GLUCOSE, BUN, PM CDT pr ocedure are in CREATININE, CA) the results section. TROPONIN I STAT 05/17/2020 11:56 Weakness Results for this PM CDT procedure are i n the results section. HB ECG ROUTINE & RHYTHM STAT 05/17/2020 11:55 Weakness STRIP PM CDT documented in this encounter Results POCT GLUCOSE (AUTOMATED) (05/19/2020 4:51 PM ANATOMY AND PHYSIOLOGY INSTRUCTOR) Pathologist Sig nature POCT GLU 186 (H) 70 - 110 mg/dL [facility] Specimen Blood Performing Organization Address City/State/Zipcode Phone Number [facility] CLIA: [id number] [place], [place] [address] [address] [place] [address] POCT GLUCOSE (AUTOMATED) (05/19/2020 1:09 PM ANATOMY AND PHYSIOLOGY INSTRUCTOR) Pathologist Sig nature POCT GLU 208 (H) 70 - 110 mg/dL [facility] Specimen Blood Performing Organization Address [facility] [place] Phone Number [facility] CLIA: [id number] [place] [address] [place] [address] POCT GLUCOSE (AUTOMATED) (05/19/2020 8:54 AM ANATOMY AND PHYSIOLOGY INSTRUCTOR) Pathologist Sig nature POCT GLU 160 (H) 70 - 110 mg/dL [facility] Specimen Blood Performing Organization Address [facility] [place] Phone Number [facility] CLIA: [id number] [place] [address] [place] [address] Electroencephalogram (EEG) - Duration of test: 20-60 mins (05/19/2020) Narrative Performed At Date and Time of Procedure: 05/19/2020, 9:19:33- 9:40:59 REPORT TECHNICAL SUMMARY: The EEG was recorded digitally. Electrodes were applie d using the International 10/20 System of electrode placement. Eye movements and rhythm strip ECG were monitored on separate channels o f the ongoing EEG recording. The occipital dominant rhythm consists of moderate amp litude 8.5-9.5 Hz activity. More anteriorly, similar as well as faster f requencies are present, including low amplitude 18-22 Hz activities i n the anterior leads. Drowsiness does not reveal any abnormali ties. Sleep is not seen. Photic stimulation does not elicit any a bnormalities. IMPRESSION: This EEG is normal in wakefulness and dr isha. Sleep is not seen. __ SANJAY Loyd I personally interpreted the entirety of this test and agree with the above report written by Dr. Ame Street Rai, MD Date of interpretation: 05/19/2020 POCT GLUCOSE (AUTOMATED) (05/18/2020 9:05 PM ANATOMY AND PHYSIOLOGY INSTRUCTOR) Pathologist Sig nature POCT GLU 232 (H) 70 - 110 mg/dL [facility] Specimen Blood Performing Organization Address [facility]/Zipcode Phone Number [facility] CLIA: [id number] [place] [address] [place] [address] MR BRAIN W WO CONTRAST WITH NEUROQUANT (05/18/2020 8:38 PM ANATOMY AND PHYSIOLOGY INSTRUCTOR) Specimen Impressions Performed At PACS/VR/DOSE No acute intracranial abnormality, in pa rticular no evidence of demyelination disease. The neuro Quant multi structure atrophy report demonst rates normal values which do not support brain volume loss. No T1 white ma tter hypointensities Narrative Performed At EXAM: MR BRAIN W WO CONTRAST WITH NEUROQ UANT PACS/VR/DOSE HISTORY: Stroke, r/o possible demylinati on TECHNIQUE: MRI of the brain was performed on 1.5 Divya before and after 20 mL of ProHance. Quantitative volumetry o f the brain was performed using NeuroQuant ([place], [place], [place] [facility]) software package. The NeuroQuant analysis was based on a sagit chica 3D volumetric MPRAGE pulse sequence. Sequence-checking was performe d to ensure appropriate high-resolution and contrast image maite eters. Correction for field/gradient inhomogeneities, removal of the overlying calvaria, alignment to the probabilistic atlas of stereotypical anatomy and segmented volumetry of predetermined anatomic areas derived from multiple subjects of multiple age groups was performed. Two automated repor ts were generated. COMPARISON: CT head dated 05/18/2020. FINDINGS: The ventricles and sulci are normal in c aliber and configuration. No hydrocephalus. The basal cisterns are wi thin normal limits. There is no diffusion restriction sugges t acute/subacute infarction. No intracranial hemorrhage, extra-axial col lection, mass effect, midline shift, or herniation. No abnormal signal Blooming on gradient sequences. 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 No abnormal intracranial enhancement. Neuro Quant multi structure atrophy repo rt demonstrates: Whole brain volume: 1165.14 cc, 87 reuben tive percentile, normal Superior lateral ventricle: 11.43 cc, 57 normative percentile, normal Thalamus: 14.12 cc, 84th normative perce ntile, normal Cortical hdz matter: 526.50 cc, 68 perc entile, normal Cerebral white matter : 442.28 cc, 83rd percentile, normal Cerebral white matter hypointensities : None. Third ventricle volume : 0.90 cc, 68 nor mative percentile, normal. Hippocampi : 7.95 cc, 75 percentile, nor mal Inferior lateral ventricles : 1.10cc, 72 percentile, normal The values listed above are within 2 standard deviatio n from the mean for matched age population. The T2 signal void of intracranial vesse ls is within normal limits. No abnormal signal in the paranasal sinu ses or mastoid air cells. Procedure Note [facility], Radiant Results Inft User - 2019 10:16 AM ANATOMY AND PHYSIOLOGY INSTRUCTOR EXAM: MR BRAIN W WO CONTRAST WITH NEUROQUANT HISTORY: Stroke, r/o possible demylinati on TECHNIQUE: MRI of the brain was performe d on 1.5 Divya before and after 20 mL of ProHance. Quantitative volumetry o f the brain was performed using NeuroQuant ([place], [place], [place] [facility]) software package. The NeuroQuant analysis was based on a sagit chica 3D volumetric MPRAGE pulse sequence. Sequence-checking was performe d to ensure appropriate high-resolution and contrast image maite eters. Correction for field/gradient inhomogeneities, removal of the overlying calvaria, alignment to the probabilistic atlas of stereotypical anatomy and segmented volumetry of predetermined anatomic area s derived from multiple subjects of multiple age groups was performed. Two a utomated reports were generated. COMPARISON: CT head dated 05/18/2020. FINDINGS: The ventricles and sulci are normal in c aliber and configuration. No hydrocephalus. The basal cisterns are wi thin normal limits. There is no diffusion restriction sugges t acute/subacute infarction. No intracranial hemorrhage, extra-axial col lection, mass effect, midline shift, or herniation. No abnormal signal Blooming on gradient sequences. 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 No abnormal intracranial enhancement. Neuro Quant multi structure atrophy repo rt demonstrates: Whole brain volume: 1165.14 cc, 87 reuben tive percentile, normal Superior lateral ventricle: 11.43 cc, 57 normative percentile, normal Thalamus: 14.12 cc, 84th normative perce ntile, normal Cortical hdz matter: 526.50 cc, 68 perc entile, normal Cerebral white matter : 442.28 cc, 83rd percentile, normal Cerebral white matter hypointensities : None. Third ventricle volume : 0.90 cc, 68 nor mative percentile, normal. Hippocampi : 7.95 cc, 75 percentile, nor mal Inferior lateral ventricles : 1.10cc, 72 percentile, normal The values listed above are within 2 sta ndard deviation from the mean for matched age population. The T2 signal void of intracranial vesse ls is within normal limits. No abnormal signal in the paranasal sinu ses or mastoid air cells. IMPRESSION No acute intracranial abnormality, in pa rticular no evidence of demyelination disease. The neuro Quant multi structure atrophy report demonstrates normal values which do not support brain volume loss. No T1 white matter hypointensities Performing Organization Address City/[facility] Phone Number PACS/VR/DOSE POCT GLUCOSE (AUTOMATED) (05/18/2020 5:02 PM ANATOMY AND PHYSIOLOGY INSTRUCTOR) Pathologist [facility] POCT GLU 163 (H) 70 - 110 mg/dL [facility] Specimen Blood Performing Organization Address [facility] Phone Number [facility] CLIA: [id number] [place] [address] [facility] POCT GLUCOSE (AUTOMATED) (05/18/2020 12:29 PM ANATOMY AND PHYSIOLOGY INSTRUCTOR) Pathologist [facility] POCT GLU 222 (H) 70 - 110 mg/dL [facility] Specimen Blood Performing Organization Address [facility] Phone Number [facility] CLIA: [id number] [place] [address] 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 Incidence: Between 3 and 8 percent of people with Euro pean ancestry are heterozygous and about 1 in 5000 individu als are homozygous with two copies of the mutation. The mu tation is less common in other population. Inheritance: Autosomal dominant. Penetrance: Lifetime risk of thrombosis is 10 percent for heterozygotes and 80 percent for homozyg otes. 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 Note: Standardized nomenclature for the Factor 5 Leide n mutation is c.1601G>A ([id number]). Methodology: Polymerase chain reaction and fluorescenc e monitoring. Limitations: Rare Factor V mutations ([id number], K5914V, and E1169M) and any additional SNPs in the probe binding r egion may interfere with the target detection and yield an I NVALID result. The performance of this assay has not been livier luated with samples from pediatric patients. Counseling and informed consent are recommended for ge netic testing. References: OMIM: [id number] https://ghr.nlm.nih.gov/condition/hzyttz-m-epnctu-thro mbophi rere Performing Organization Address City/[facility]/Zipcode Phone Number [facility] CLIA: [id number] [place] [address] [place] [address] FACTOR 2 [id number] MUTATION (05/18/2020 11:17 AM ANATOMY AND PHYSIOLOGY INSTRUCTOR) Pathologist Sig nature Factor 2 [id number] Normal Normal [facility] Mutation SERVICES Specimen Blood - ARM, LEFT Narrative Performed At Phenotype Characteristics: Thrombophilia due to produc tion [facility] of too much coagulation factor 2 (F2, also called prothrombin). Incidence: Approximately 2-5 percent of Caucasians and 0.3 percent of Americans are heterozygous; about 1 in 10,000 individuals are homozygous with two copies of t he mutation. Inheritance: Autosomal dominant. Penetrance: The risk of thrombosis is increased 2-4 fo ld for heterozygotes and further increased for homozygotes. Mutation Tested: F2 c.79242F>A (S29801C) . Clinical Sensitivity for Venous Thrombosis: Approximat nicole 10%. Methodology: Polymerase chain reaction and fluorescenc e monitoring Limitations: The performance of this assay has not bee n evaluated with samples from pediatric pa tients. Counseling and informed consent are recommended for ge netic testing. References: OMIM: [id number] https://ghr.nlm.nih.gov/condition/prothr ombin-thrombophilia Performing Organization Address City/[facility]/Zipcode Phone Number [facility] CLIA: [id number] [place] [address] [place] [address] ANTI-DOUBLE STRANDED DNA (05/18/2020 11:17 AM ANATOMY AND PHYSIOLOGY INSTRUCTOR) Pathologist [facility] ANTI-DSDNA 2.0 0.0 - 4.0 IU/mL [facility] Specimen Blood - ARM, LEFT Narrative Performed At Negative < or = 4 IU/mL [facility] Positive > or = 10 IU/mL Indeterminate 5-9 IU/mL Performing Organization Address [facility] Phone Number [facility] CLIA: [id number] [place] [address] [place] [address] SEDIMENTATION RATE (05/18/2020 11:17 AM ANATOMY AND PHYSIOLOGY INSTRUCTOR) Pathologist [facility] ESR 28 (H) 0 - 20 mm/HR [facility] Specimen Blood - ARM, LEFT Performing Organization Address [facility] Phone Number [facility] CLIA: [id number] [place] [address] [place] [address] ANTI-NUCLEAR ANTIBODY SCREEN (05/18/2020 11:17 AM ANATOMY AND PHYSIOLOGY INSTRUCTOR) Pathologist [facility] FRANKIE Negative Negative [facility] Specimen Blood - ARM, LEFT Narrative Performed At Negative - No Anti-Nuclear Antibodies de tected by IFA. [facility] Positive - FRANKIE IFA screen performed with a 1:80 diluti on in adults and a 1:40 dilution in pediatrics. Any FRANKIE "Pos itive" will have titer performed and reported s eparately. Negative - No Anti-Nuclear Antibodies de tected by IFA. Positive - FRANKIE IFA screen performed with a 1:80 diluti on in adults and a 1:40 dilution in pediatrics. Any FRANKIE "Pos itive" will have titer performed and reported separately. Performing Organization Address City/[facility] Phone Number [facility] CLIA: [id number] [place] [address] [phone] [address] [facility] POCT GLUCOSE (AUTOMATED) (05/18/2020 8:13 AM ANATOMY AND PHYSIOLOGY INSTRUCTOR) Pathologist [facility] POCT GLU 191 (H) 70 - 110 mg/dL [facility] Specimen Blood Performing Organization Address [facility] Phone Number [facility] CLIA: [id number] [place] [address] [phone] [address] [place] HOMOCYSTEINE (05/18/2020 4:59 AM ANATOMY AND PHYSIOLOGY INSTRUCTOR) Pathologist [facility] Homocysteine 5.7 4.7 - 12.6 umol/L [facility] Specimen Blood - LINE, VENOUS Performing Organization Address [facility] Phone Number [facility] CLIA: [id number] [place] [address] [place] [address] FOLATE (05/18/2020 4:59 AM ANATOMY AND PHYSIOLOGY INSTRUCTOR) Pathologist [facility] FOLATE SER 15.9 3.0 - 20.0 ng/mL [facility] Specimen Blood - LINE, VENOUS Performing Organization Address City/[facility] Phone Number [facility] CLIA: [id number] [place] [address] [place] [address] VITAMIN B12, LEVEL (05/18/2020 4:59 AM ANATOMY AND PHYSIOLOGY INSTRUCTOR) Pathologist [facility] VIT B12 355 240 - 930 pg/mL [facility] Specimen Blood - LINE, VENOUS Narrative Performed At Biotin has been reported to cause a positive bias, int erpret [facility] results relative to patient's use of biotin. Performing Organization Address City/[facility] Phone Number [facility] CLIA: [id number] [place] [address] [place] [address] C-REACTIVE PROTEIN (05/18/2020 4:59 AM ANATOMY AND PHYSIOLOGY INSTRUCTOR) Pathologist [facility] CRP 0.4 <0.8 mg/dL [facility] Specimen Blood - LINE, VENOUS Performing Organization Address [facility] Phone Number [facility] CLIA: [id number] [place] [address] [place] [address] FASTING LIPID PANEL (46361)(TOTAL CHOLESTEROL, TRIGLYCERIDES, HDL) (05/18/2020 4:59 AM ANATOMY AND PHYSIOLOGY INSTRUCTOR) Pathologist Sig nature CHOL 151 120 - 200 mg/dL [facility] HDL 20 (L) >50 mg/dL [facility] HDLC RATIO 7.6 (H) <=4.5 [facility] TRIG 254 (H) 30 - 170 mg/dL [facility] LDL CHOL 80 <=160 mg/dL [facility] VLDL 51 5 - 60 mg/dL [facility] Specimen Blood - LINE, VENOUS Performing Organization Address City/[facility]/Zipcode Phone Number [facility] CLIA: [id number] [place] [address] [place] [address] GLYCOSYLATED HEMOGLOBIN (A1C) (05/18/2020 4:59 AM ANATOMY AND PHYSIOLOGY INSTRUCTOR) Pathologist Sig nature HGB A1C 8.6 (H) 4.0 - 6.0 % [facility] Specimen Blood - LINE, VENOUS Performing Organization Address [facility] Phone Number [facility] CLIA: [id number] [place] [address] [place] [address] COVID-19 (ID NOW RAPID TESTING) (05/18/2020 1:47 AM CDT) SARS-CoV-2 Rapid ID Not Detected Not Detected [facility] Specimen Swab - NASOPHARYNGEAL SWAB Narrative Performed At [place] [facility] COVID-19 Assay is an isothermal nucleic [facility] acid amplification test intended for the qualitative detection of nucleic acid from SARS-CoV-2 viral RNA in nasopharyngeal ([employer] TEACHER) specimens. It is used under Emergency Use Authorization (EUA) by FDA. The limit of detection (LOD) of the assay is 125 Genome Equivalents/mL. A positive result is indicative of the presence of SARS-CoV-2 RNA. Clinical correlation with patient history and other diagnostic information is necessary to determine patient infection status. A negative (Not Detected) result does not preclude SARS-CoV-2 infection. In patients with clinical symptoms and other tests that are consistent with SARS-CoV-2 infection, negative results should be treated as presumptive negative and a new specimen should be tested with alternative PCR molecular test. Invalid: Please collect a new specimen for repeat patient testing if clinically indicated. Performing Organization Address [facility] Phone Number [facility] CLIA: [id number] [place] [address] ADC / LCC - DRUG SCREEN TRIAGE (05/18/2020 1:01 AM CDT) Pathologist Sig nature BENZO U Negative Negative [facility] CAMPOS U Negative Negative [facility] AMPHET Negative Negative [facility] THC Negative Negative [facility] METHADONE Negative Negative [facility] Meth U Negative Negative [facility] OPIATES Negative Negative [facility] Cocaine Metabolite Negative Negative [facility] PROPOXY Negative Negative [facility] Tric U Negative Negative [facility] PCP Negative Negative [facility] OXYCOD Negative Negative [facility] Specimen Urine - URINE, CLEAN CATCH Narrative Performed At Urine Drug Cutoff Ranges [facility] Benzodiazepines: 150 ng/mL Barbiturates: 200 ng/mL Amphetamine: 500 ng/mL Cannabinoids: 50 ng/mL Methadone: 200 ng/mL Methamphetamine: 500 ng/mL Opiates: 100 ng/mL or 2000 ng/mL Cocaine: 150 ng/mL Propoxyphene: 300 ng/mL Tricyclics: 300 ng/mL Oxycodone: 100 ng/mL PCP: 25 ng/mL The results are to be used only for medical (i.e., treatment) purposes. Unconfirmed screening results must not be used for non-medical purposes (e.g., employment testing, legal testing). Performing Organization Address City/State/Zipcode Phone Number [facility] CLIA: [id number] [place] [address] STROKE ANGIOGRAM NECK (05/18/2020 12:27 AM CDT) Specimen Impressions Performed At PACS/VR/DOSE No high-grade stenosis, aneurysm or vasc ular malformation in the intracranial or cervical vessels. Left apical solid nodule with punctate central low att enuation. The central low attenuation is difficult to quantify due to small size. If it were macroscopic fat, it could represent a zapata martoma. However, particularly given patient's history of bladder cancer, central nec rosis in the context of a metastatic lesion should also be co nsidered. Other cavitary lesions such as tuberculosis can also not be excluded. Consult ation and follow-up with Pulmonology are recommended. Preliminary Report Dictated by Resident: Neeta Gaytan The updated differential regarding the left apical nod ule was communicated to Dr. Grullon via [employer] message at the time of report finalization I, Nimesh Saldivar MD., have reviewe d this study and agree with the above report. Narrative Performed At CT STROKE ANGIOGRAM HEAD, PACS/VR/DOSE CT STROKE ANGIOGRAM NECK HISTORY: 30 years-old; Female; Acute Stroke SAH suspec param, initial exam Rad TECHNIQUE: CT imaging of the [place] of [place] illis from the skull base to the superior mediastinum was obtained during arterial phase after administration of IV contrast. Coronal, sagittal, and MIPs were reconstructed. COMPARISON: None. FINDINGS: HEAD: The PICA origin is visualized bilaterally. The basilar artery is normal in caliber. The superior cerebellar arterie s are patent. The posterior cerebral arteries are patent. orig in of the right [employer] is noted. No sizable left posterior communicating art sandra is visualized. The distal cervical, petrous, cavernous and supraclino id internal carotid artery segments are patent. The anterior and middle cerebral arterie s are patent. An anterior communicating artery is not visualized. NECK: Aortic arch and arch vessel origins: The normal three-vessel branching pattern is identified off the aortic arc h. Innominate and subclavian arteries: The innominate a nd subclavian arteries are widely patent. Common carotids: The common carotid and the cervical segments of the internal carotid arteries are patent ryan aterally without flow-limiting stenosis. Vertebral arteries: The vertebral arteries are patent without flow-limiting stenosis from their origin off the subcl kamran artery through their vertebral and intradural segments. Cervical soft tissues: Unremarkable Lung apices: A solid nodule in the left lung apex measures 1.2 cm in diameter with a central punctate low-att enuation (8:188), unchanged from most recent chest CT. Cervical spine: Unremarkable. Procedure Note [facility], Radiant Results Inft User - 2019 8:09 AM ANATOMY AND PHYSIOLOGY INSTRUCTOR CT STROKE ANGIOGRAM HEAD, CT STROKE ANGIOGRAM NECK HISTORY: 30 years-old; Female; Acute Str remington SAH suspected, initial exam Rad TECHNIQUE: CT imaging of the [place] of [place] illis from the skull base to the superior mediastinum was obtained during arterial phase after administration of IV contrast. Coronal, sagittal, and MIPs were reconstructed. COMPARISON: None. FINDINGS: HEAD: The PICA origin is visualized bilaterall y. The basilar artery is normal in caliber. The superior cerebellar arterie s are patent. The posterior cerebral arteries are patent. orig in of the right [employer] is noted. No sizable left posterior communicating art sandra is visualized. The distal cervical, petrous, cavernous and supraclinoid internal carotid artery segments are patent. The anterior and middle cerebral arterie s are patent. An anterior communicating artery is not visualized. NECK: Aortic arch and arch vessel origins: The normal three-vessel branching pattern is identified off the aortic arc h. Innominate and subclavian arteries: The innominate and subclavian arteries are widely patent. Common carotids: The common carotid and the cervical segments of the internal carotid arteries are patent ryan aterally without flow-limiting stenosis. Vertebral arteries: The vertebral arteri es are patent without flow-limiting stenosis from their origin off the subcl kamran artery through their vertebral and intradural segments. Cervical soft tissues: Unremarkable Lung apices: A solid nodule in the left lung apex measures 1.2 cm in diameter with a central punctate low-att enuation (8:188), unchanged from most recent chest CT. Cervical spine: Unremarkable. IMPRESSION No high-grade stenosis, aneurysm or vasc ular malformation in the intracranial or cervical vessels. Left apical solid nodule with punctate c entral low attenuation. The central low attenuation is difficult to quantify due to small size. If it were macroscopic fat, it could represent a zapata martoma. However, particularly given patient's history of bladder cance r, central necrosis in the context of a metastatic lesion should also be co nsidered. Other cavitary lesions such as tuberculosis can also not be exc luded. Consultation and follow-up with Pulmonology are recommended. Preliminary Report Dictated by Resident: Neeta Gaytan The updated differential regarding the l eft apical nodule was communicated to Dr. Grullon via [employer] message at the time of report finalization I, Nimesh Saldivar MD., have reviewe d this study and agree with the above report. Performing Organization Address City/State/Zipcode Phone Number PACS/VR/DOSE CT STROKE ANGIOGRAM HEAD (05/18/2020 12:27 AM CDT) Specimen Impressions Performed At PACS/VR/DOSE No high-grade stenosis, aneurysm or vasc ular malformation in the intracranial or cervical vessels. Left apical solid nodule with punctate central low att enuation. The central low attenuation is difficult to quantify due to small size. If it were macroscopic fat, it could represent a zapata martoma. However, particularly given patient's history of bladder cancer, central nec rosis in the context of a metastatic lesion should also be co nsidered. Other cavitary lesions such as tuberculosis can also not be excluded. Consult ation and follow-up with Pulmonology are recommended. Preliminary Report Dictated by Resident: Neeta Gaytan The updated differential regarding the left apical nod ule was communicated to Dr. Grullon via [employer] message at the time of report finalization I, Nimesh Saldivar MD., have reviewe d this study and agree with the above report. Narrative Performed At CT STROKE ANGIOGRAM HEAD, PACS/VR/DOSE CT STROKE ANGIOGRAM NECK HISTORY: 30 years-old; Female; Acute Stroke SAH suspec param, initial exam Rad TECHNIQUE: CT imaging of the [place] of [place] illis from the skull base to the superior mediastinum was obtained during arterial phase after administration of IV contrast. Coronal, sagittal, and MIPs were reconstructed. COMPARISON: None. FINDINGS: HEAD: The PICA origin is visualized bilaterally. The basilar artery is normal in caliber. The superior cerebellar arterie s are patent. The posterior cerebral arteries are patent. orig in of the right [employer] is noted. No sizable left posterior communicating art sandra is visualized. The distal cervical, petrous, cavernous and supraclino id internal carotid artery segments are patent. The anterior and middle cerebral arterie s are patent. An anterior communicating artery is not visualized. NECK: Aortic arch and arch vessel origins: The normal three-vessel branching pattern is identified off the aortic arc h. Innominate and subclavian arteries: The innominate a nd subclavian arteries are widely patent. Common carotids: The common carotid and the cervical segments of the internal carotid arteries are patent ryan aterally without flow-limiting stenosis. Vertebral arteries: The vertebral arteries are patent without flow-limiting stenosis from their origin off the subcl kamran artery through their vertebral and intradural segments. Cervical soft tissues: Unremarkable Lung apices: A solid nodule in the left lung apex measures 1.2 cm in diameter with a central punctate low-att enuation (8:188), unchanged from most recent chest CT. Cervical spine: Unremarkable. Procedure Note [facility], Radiant Results Inft User - 2019 8:09 AM ANATOMY AND PHYSIOLOGY INSTRUCTOR CT STROKE ANGIOGRAM HEAD, CT STROKE ANGIOGRAM NECK HISTORY: 30 years-old; Female; Acute Str remington SAH suspected, initial exam Rad TECHNIQUE: CT imaging of the [place] illis from the skull base to the superior mediastinum was obtained during arterial phase after administration of IV contrast. Coronal, sagittal, and MIPs were reconstructed. COMPARISON: None. FINDINGS: HEAD: The PICA origin is visualized bilaterall y. The basilar artery is normal in caliber. The superior cerebellar arterie s are patent. The posterior cerebral arteries are patent. orig in of the right [employer] is noted. No sizable left posterior communicating art sandra is visualized. The distal cervical, petrous, cavernous and supraclinoid internal carotid artery segments are patent. The anterior and middle cerebral arterie s are patent. An anterior communicating artery is not visualized. NECK: Aortic arch and arch vessel origins: The normal three-vessel branching pattern is identified off the aortic arc h. Innominate and subclavian arteries: The innominate and subclavian arteries are widely patent. Common carotids: The common carotid and the cervical segments of the internal carotid arteries are patent ryan aterally without flow-limiting stenosis. Vertebral arteries: The vertebral arteri es are patent without flow-limiting stenosis from their origin off the subcl kamran artery through their vertebral and intradural segments. Cervical soft tissues: Unremarkable Lung apices: A solid nodule in the left lung apex measures 1.2 cm in diameter with a central punctate low-att enuation (8:188), unchanged from most recent chest CT. Cervical spine: Unremarkable. IMPRESSION No high-grade stenosis, aneurysm or vasc ular malformation in the intracranial or cervical vessels. Left apical solid nodule with punctate c entral low attenuation. The central low attenuation is difficult to quantify due to small size. If it were macroscopic fat, it could represent a zaptaa martoma. However, particularly given patient's history of bladder cance r, central necrosis in the context of a metastatic lesion should also be co nsidered. Other cavitary lesions such as tuberculosis can also not be exc luded. Consultation and follow-up with Pulmonology are recommended. Preliminary Report Dictated by Resident: Neeta Gaytan The updated differential regarding the l eft apical nodule was communicated to Dr. Grullon via [employer] Inbox message at the time of report finalization I, Nimesh Saldivar MD., have reviewe d this study and agree with the above report. Performing Organization Address City/State/Zipcode Phone Number PACS/VR/DOSE CT STROKE HEAD WO CONTRAST (05/18/2020 12:22 AM CDT) Specimen Impressions Performed At PACS/VR/DOSE No acute intracranial findings. Preliminary Report Dictated by Resident: Nimesh Rosales MD., have reviewe d this study and agree with the above report. Narrative Performed At CT STROKE HEAD WO CONTRAST PACS/VR/DOSE HISTORY: 30 years-old; Female; Stroke suspected, focal neuro deficit, < 6 hrs COMPARISON: Brain MRI 02/07/2019 TECHNIQUE: Axial CT of the head was performed and belkys nstructed at 2.5 mm intervals. Coronal and sagittal reformat param images were generated. FINDINGS: The ventricles and cerebral sulci are normal in calibe r and configuration. No hydrocephalus, midline shift or patho logical extra-axial fluid collection is present. The basal cistern s are unremarkable. There is no acute intracranial hemorrhag e or significant mass effect. No parenchymal attenuation abnormality. The hdz-white ma tter differentiation is preserved. The mastoid air cells and paranasal air sinuses are clear. The calvarium and central skull base are unremarkable. Procedure Note [facility], Radiant Results Inft User - 2019 7:48 AM ANATOMY AND PHYSIOLOGY INSTRUCTOR CT STROKE HEAD WO CONTRAST HISTORY: 30 years-old; Female; Stroke [place] spected, focal neuro deficit, < 6 hrs COMPARISON: Brain MRI 02/07/2019 TECHNIQUE: Axial CT of the head was perf ormed and reconstructed at 2.5 mm intervals. Coronal and sagittal reformat param images were generated. FINDINGS: The ventricles and cerebral sulci are no rmal in caliber and configuration. No hydrocephalus, midline shift or patho logical extra-axial fluid collection is present. The basal cistern s are unremarkable. There is no acute intracranial hemorrhag e or significant mass effect. No parenchymal attenuation abnormality. The hdz-white matter differentiation is preserved. The mastoid air cells and paranasal air sinuses are clear. The calvarium and central skull base are unremarkable. IMPRESSION No acute intracranial findings. Preliminary Report Dictated by Resident: Nimesh Rosales MD., have reviewe d this study and agree with the above report. Performing Organization Address City/State/Zipcode Phone Number PACS/VR/DOSE POCT CREATININE (05/18/2020 12:02 AM CDT) Pathologist Sig nature POCT Creatinine 0.9 0.5 - 1.1 mg/dL [facility] Specimen Blood - VENOUS Performing Organization Address City/[facility]/Zipcode Phone Number [facility] CLIA: [id number] [place] [address] LABORATORY [address] [facility] EXTRA TUBE SST (05/18/2020 12:00 AM CDT) Specimen Blood - VENOUS Performing Organization Address City/[facility] Phone Number [facility] CLIA: [id number] [place] [address] LABORATORY [address] [facility] Basic Metabolic Panel (NA, K, CL, CO2, Glucose, BUN, Creatinine, CA) - Code Stroke (05/17/2020 11:56PM CDT) [facility] NA 136 135 - 145 [facility] mmol/L [facility] K 4.2 3.5 - 5.0 [facility] mmol/L [facility] CL 100 98 - 108 mmol/L [facility] CO2 TOTAL 29 23 - 31 mmol/L [facility] AGAP 7 2 - 16 [facility] BUN 13 7 - 23 mg/dL [facility] GLUCOSE 342 (H) 70 - 110 mg/dL [facility] CREATININE 0.72 0.50 - 1.04 [facility] mg/dL [facility] LAB[facility] CALCIUM 10.2 8.6 - 10.6 [facility] mg/dL [facility] LAB[facility]ORY eGFR Calculation 94.5 mL/min/1.73m2 [facility] ([facility] LABORATORY Croatian) eGFR Calculation 114.5 mL/min/1.73m2 [facility] () [facility] LABOR[facility] Specimen Blood - VENOUS Narrative Performed At Association of Glomerular Filtration Rate (GFR) [facility] LAB[facility] and Staging of Kidney Disease* + + +- + | GFR (mL/min/1.73 m2) | With Kidney Damage | Without Kidney Damage + + +- + | >90 | Stage one | Normal + + +- + | 60-89 | Stage two | Decreased GFR + + +- + | 30-59 | Stage three | Stage three + + +- + | 15-29 | Stage four | Stage four + + +- + | <15 (or dialysis) | Stage five | Stage five + + +- + *Each stage assumes the associated GFR level has been in effect for at least three months. Stages 1 to 5, with or without kidney disease, indicate chronic kidney disease. Notes: Determination of stages one and two (with eGFR >59mL/min/1.73 m2) requires estimation of kidney damage for at least three months as defined by structural or functional abnormalities of the kidney, manifested by either: Pathological abnormalities or Markers of kidney damage (including abnormalities in the composition of the blood or urine or abnormalities in imaging tests). Performing Organization Address [facility] Phone Number [facility] CLIA: [id number] [place] [address] Troponin I - Code Stroke (05/17/2020 11:56 PM CDT) Pathologist Sig nature TROPONIN I 0.013 <=0.034 ng/mL [facility] Specimen Blood - VENOUS Narrative Performed At Equal or Less than 0.034 ng/ml---Normal [facility] Note: Cardiac troponin begins to rise 3-4 hours after the onset of ischemia. Repeat in 4-6 hours if the sample was drawn within 3-4 hours of the onset of the symptom and found normal. Between 0.035 and 0.120 ng/mL--- Borderline. Questionable myocardial injury or necros is Note: Serial measurement may be necessary to confirm or exclude the diagnosis of myocardial injury or necrosis; Clinical correlation (symptoms, EKGs, imaging studies, and others) required; Repeat in 4-6 hours if clinically indicated. Equal or Higher than 0.121 ng/mL---Abnormal. Myocardial Injury or Necrosis Likely Biotin has been reported to cause a negative bias, interpret results relative to patient's use of biotin. Performing Organization Address [facility] Phone Number [facility] CLIA: [id number] [place] [address] CBC without Diff - Code Stroke (05/17/2020 11:56 PM CDT) Pathologist Sig [employer] WBC 9.34 4.30 - 11.10 [facility] 10*3/L HOSPITAL LABORATORY RBC 4.68 3.93 - 5.25 [facility] 10*6/L HOSPITAL LABORATORY HGB 14.7 11.6 - 15.0 g/dL [facility] HCT 41.8 35.7 - 45.2 % [facility] MCH 31.4 25.9 - 32.8 pg [facility] MCV 89.3 80.6 - 95.5 fL [facility] MCHC 35.2 (H) 31.6 - 35.1 g/dL [facility] LAB[facility] PLT 168 166 - 358 10*3/L [facility] MPV 12.8 9.5 - 12.9 fL [facility] RDW-CV 11.9 (L) 12.0 - 15.5 % [facility] RDW-SD 38.5 (L) 39.0 - 49.9 fL [facility] LAB[facility] NRBC x10^3 <0.01 10*3/L [facility] LAB[facility] NRBC/100 WBC 0.0 0.0 - 10.0 /100 [facility] WBCs [facility] LABORATORY IPF % [facility] Specimen Blood - VENOUS Performing Organization Address [facility] Phone Number [facility] CLIA: [id number] [place], [place] [address] LABORATORY [address] aPTT - Code Stroke (05/17/2020 11:56 PM CDT) Pathologist Sig nature APTT Patient 27 23 - 38 Seconds [facility] LABOR[facility] Specimen Blood - VENOUS Narrative Performed At [facility] patient population mean normal value [facility] LAB[facility] for aPTT is 30 seconds. Performing Organization Address [facility] Phone Number [facility] CLIA: [id number] [place] [address] Prothrombin Time / INR - Code Stroke (05/17/2020 11:56 PM CDT) PROTIME PATIENT 12.7 12.0 - 14.7 [facility] LABORATORY INR 1.0Comment: Normal [facility] INR <1.1; Warfarin [facility] Therapeutic range LABORATORY 2.0 to 3.0 or 2.5 to 3.5, depending upon the indications. Specimen Blood - VENOUS Performing Organization Address [facility] Phone Number [facility] CLIA: [id number] [place] [address] documented in this encounter Visit Diagnoses Diagnosis Weakness - Primary Other malaise and fatigue Screening for viral disease Special screening examination for unspec ified viral disease Uncontrolled type 2 diabetes mellitus wi th hyperglycemia Left-sided weakness Muscle weakness (generalized) Obesity (BMI 30-39.9) Obesity, unspecified documented in this encounter Administered Medications Medication Order MAR Action Action Date Dose Rate Site aspirin chewable tablet 81 mg Given 05/19/2020 8:21 AM ANATOMY AND PHYSIOLOGY INSTRUCTOR 81 mg 81 mg, Oral, DAILY, First dose on [facility] 05/19/20 at 0900, Until Discontinued, Routine atorvastatin (LIPITOR) tablet 40 mg Given 05/18/2020 9:02 PM ANATOMY AND PHYSIOLOGY INSTRUCTOR 40 mg 40 mg, Oral, QHS, First dose (after last modification) on [place] 05/18/20 at 2100, Until Discontinued, Routine heparin (porcine) injection Given 05/19/2020 8:21 AM ANATOMY AND PHYSIOLOGY INSTRUCTOR 5,000 Units Abdomen-SC 5,000 Units 5,000 Units, Subcutaneous, Q12H, First dose on [place] 05/18/20 at 0800, Until Discontinued, Routine Given 05/18/2020 9:02 PM ANATOMY AND PHYSIOLOGY INSTRUCTOR 5,000 Units Abdo men-SC Given 05/18/2020 8:29 AM ANATOMY AND PHYSIOLOGY INSTRUCTOR 5,000 Units Abdo men-SC ibuprofen (IBU) tablet 800 mg Given 05/19/2020 5:06 PM ANATOMY AND PHYSIOLOGY INSTRUCTOR 800 mg 800 mg, Oral, BID MEALS, First dose on [place] 05/18/20 at 0800, Until Discontinued, Routine Given 05/19/2020 8:21 AM ANATOMY AND PHYSIOLOGY INSTRUCTOR 800 mg Given 05/18/2020 5:31 PM ANATOMY AND PHYSIOLOGY INSTRUCTOR 800 mg insulin aspart RAPID (NOVOLOG Given 05/19/2020 5:03 PM ANATOMY AND PHYSIOLOGY INSTRUCTOR 38 U nits Abdomen-SC U-100 INSULIN ASPART) injection 38 Units 38 Units, Subcutaneous, TIDAC, First dose (after last modification) on Tue05/19/20 at 1630, Until Discontinued, Routine insulin glargine (LANTUS U-100) injectio n 86 Units 86 Units, Subcutaneous, BID, First dose (after last modification) on Tue05/19/20 at 2000, Until Discontinued, Routine NaCl 0.9% (NS) injection 5 mL 5 mL, Slow IV Push, PRN - SEE INSTRUCTIO NS, Starting 05/17/20 at 2350, Until Discontinued, 10 mL NaCl 0.9% (NS) IV infusion 1,000 New Bag 05/18/2020 1:16 AM C DT 1,000 mL 125 mL/hr mL at 125 mL/hr, Intravenous, CONTINUOUS, Starting 05/18/20 at 0215, Until Discontinued, Routine Saline Bubble Study Given 05/19/2020 11:00 AM ANATOMY AND PHYSIOLOGY INSTRUCTOR 6 mL 6 mL, Injection, SEE-INSTRUCTIONS, Starting 05/19/20 at 1114, Until Discontinued, Routine Saline Bubble Study Given 05/19/2020 11:00 AM ANATOMY AND PHYSIOLOGY INSTRUCTOR 6 mL 6 mL, Injection, SEE-INSTRUCTIONS, Starting [facility] 05/19/20 at 1114, Until Discontinued, Routine Sliding Scale Insulin - Lispro Given 05/19/2020 5:05 PM ANATOMY AND PHYSIOLOGY INSTRUCTOR 3 U nits Abdomen-SC (HumaLOG) + Fsbg Testing Subcutaneous, TID MEALS+HS, First dose on Tue05/19/20 at 1700, Until Discontinued, Routine traMADoL (ULTRAM) tablet 50 mg Given 05/19/2020 3:43 AM ANATOMY AND PHYSIOLOGY INSTRUCTOR 50 mg 50 mg, Oral, Q6HPRN, Starting [place] 05/18/20 at 0342, Until Discontinued, Routine, Pain (scale 4-6) Given 05/18/2020 4:13 PM ANATOMY AND PHYSIOLOGY INSTRUCTOR 50 mg Medication Order MAR Action Action Date Dose Rate Site aspirin tablet 325 mg Given 05/18/2020 4:46 AM ANATOMY AND PHYSIOLOGY INSTRUCTOR 325 mg 325 mg, Oral, ONCE, 1 dose, [place] 05/18/20 at 0445, Routine gadoteridol (PROHANCE-20 mL) injection 19.96 Given 07/2019 8:35 PM ANATOMY AND PHYSIOLOGY INSTRUCTOR 20 mL mL 19.96 mL (0.2 mL/kg 99.8 kg), Intravenous, ONCE, 1 dose, [place] 05/18/20 at 2115, Routine insulin aspart RAPID (NOVOLOG Given 05/19/2020 1:08 PM ANATOMY AND PHYSIOLOGY INSTRUCTOR 20 U nits Abdomen-SC U-100 INSULIN ASPART) injection 20 Units 20 Units, Subcutaneous, TIDAC, First dose on 05/18/20 at 0730, Until Discontinued, Routine Given 05/19/2020 8:59 AM ANATOMY AND PHYSIOLOGY INSTRUCTOR 20 Units Abdo men-SC Given 05/18/2020 5:29 PM ANATOMY AND PHYSIOLOGY INSTRUCTOR 20 Units Abdo men-SC insulin glargine (LANTUS U-100) Given 05/19/2020 8:59 AM ANATOMY AND PHYSIOLOGY INSTRUCTOR 10 0 Units Abdomen-SC injection 100 Units 100 Units, Subcutaneous, BID, First dose on 05/18/20 at 0800, Until Discontinued, Routine Given 05/18/2020 9:06 PM ANATOMY AND PHYSIOLOGY INSTRUCTOR 100 Units Abdo men-SC Given 05/18/2020 8:29 AM ANATOMY AND PHYSIOLOGY INSTRUCTOR 100 Units Abdo men-SC insulin regular human (HUMULIN R) Given 05/18/2020 1:17 AM CDT 6 Units Abdomen-SC injection 6 Units 6 Units, Subcutaneous, ONCE, 1 dose, 05/18/20 at 0215, Routine iohexol (OMNIPAQUE 350 BULK-100 mL) Given 05/18/2020 12:14 AM CD T 100 mL injection 100 mL 100 mL, Intravenous, ONCE, 1 dose, 05/18/20 at 0030, Routine documented in this encounter Additional Health Concerns Infection Onset Date Last Indicated Resolved Time COVID-19 Rule Out 05/18/2020 05/18/2020 05/18/2020 1: 10 AM ANATOMY AND PHYSIOLOGY INSTRUCTOR documented as of this encounter Insurance Payer Benefit Plan / Subscriber ID Effective Dates Phone Addre ss Type Group [facility] STAR [id number] 2013-Present Medicaid COMM PLAN - PLUS MANAGED MEDICAID documented as of this encounter
--- OUTSIDE RECORDS SUMMARY | 2020-06-08 16:58 | XMS REPORT | Summary of Care ---
:1990 Author Organization [facility] Address [address] [place] [id number] Care Team Providers Name Role Phone Ignacio Jordan Primary Care Provider Reason for Visit Reason Comments New Evaluation (Routine) Status Reason Specialty Diagnoses / Referred By Referred To Procedures Contact Contact New Request Physical Therapy Diagnoses Weakness Flo Briones Physical Procedures CONSULT/REFERRAL PHYSICAL THERAPY MD [facility] [id number] [facility] Office [address] Phone: [address] [place], [place] Fax: [phone] Encounter Details Date Type Department Care Team Description 06/03/2020 Ancillary Visit [facility] Sánchez Barlow MD [address] [place] [address] [place] [address] Muscle weakness (generalized) (Primary D x); Physical Therapy- Annabelle Cristobal, PT [address] [place] [address] Pain in both lower legs; [facility] [address] [place] [address] Allergies Active Allergy Reactions Severity Noted Date Comments Codeine Hives, Shortness of Breath 09/10/2015 documented as of this encounter (statuses as of 06/03/2020) Medications Medication Sig Dispensed Refills Start Date [...] as of this encounter (statuses as of 06/03/2020) Active Problems Problem Noted Date Obesity (BMI 30-39.9) 05/18/2020 Left-sided weakness 05/18/2020 documented as of this encounter (statuses as of 06/03/2020) Social History Tobacco Use Types Packs/Day Years [...] Signs Not on filedocumented in this encounter Patient Instructions Patient InstructionsAnnabelle Cristobal, PT - 06/03/2020 9:00 AM CSTHome Exercises Program: Gastroc Stretch on Wall - 10 reps - 5 hold - 2x daily Supine Single Knee to Chest Stretch - 10 reps - 5 hold - 2x daily Supine Active Straight Leg Raise - 10 reps - 5 hold - 2x daily ICAL PRODUCT SALES CONSULTANT documented in this encounter Progress Notes Annabelle Cristobal, PT - 06/03/2020 9:00 AM CST Initial Evaluation Date: June 03, 2020 Visit Number: Visit count could not be calculated. Make sure you are using a visit which is associated with an episode. Diagnosis: 1. Muscle weakness (generalized) 2. Pain in both lower legs 3. Weakness History of Condition:Last 2019 patient stated that she started having dizzy spells and theneverything went in slow motion. Face started tensing up that at some point she thinks she had slurred speech,had felt like having loss of strength on L leg and arm. Patient was taken to ER and transferred to [facility] for further evaluation. Patient reported that she was told that she didn't havestroke but weakness persist on legs and arm. Patient was referred to PT. 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 Patient reported that her L leg is shorter than the R leg and doesn't use any shoe lift. Per patient she had L achilles extension last 2002. Currently, patient feels that her L side leg is wobbly and melissa often and have pain on both leg. Patient reports that she has weakness on L arm patient for sometimes she has difficulty lifting a cup. Knowledge of condition: Fair Quality of life: Fair Prior physical therapy: No Patient Goals: Goals To minimize pain and gain strength. (pt-stated) Past Medical History: Diagnosis Date Anxiety Bipolar 1 disorder Bladder cancer Cancer Club foot of both lower extremities Depression Diabetes mellitus Fatty liver Heart murmur Sarah Ann syndrome Scoliosis Webbed neck Past Surgical History: Procedure Laterality Date ACHILLES TENDON REPAIR SECTION X2 CHOLECYSTECTOMY ESOPHAGEAL DILATATION DUe to accidental HCL ingestion as a child EXPLORATORY LAPAROTOMY HYSTERECTOMY LIPOSUCTION BACK (SHX) Contouring for amniotic band scars TRANSURETHRAL BLADDER TUMOR RESECTION Objective: Outpatient PT Evaluation Row Name 06/03/20 0900 General Visit Number 1 Chart Reviewed Yes Family/Caregiver Present No General Comments 1 of 10 Pain Assessment Pain Score 6 Pain Location Leg Pain Orientation Left Pain Descriptors Burning;Sharp constant Multiple Pain Sites Two Pain 2 Pain Score 2 4 Pain Location 2 Leg Pain Orientation 2 Right Pain Descriptors 2 Throbbing Home Living Type of Home House Lives With Family Prior Function Level of [place] Independent with ADLs and functional transfers Vocational On disability Right Upper Extremity Overall AROM Within Functional Limits Overall Strength Within Functional Limits Cota strength: 43 Left Upper Extremity Overall AROM Within Functional Limits Overall Strength Deficits 3+/5, Cota strength: 19 Overall Tone WFL Right Lower Extremity Overall AROM WFL Overall Strength Deficits 3+/5 Overall Tone WFL Left Lower Extremity Overall AROM WFL Overall Strength Deficits 3/5 Overall Tone WFL Treatment: See Outpatient PT Treatment Flowsheet Assessment: Patient presents signs and symptoms of pain on both LE,muscle weakness. Recommend Physical Therapy to address above functional mobility deficit to return patient to prior level of function Rehab potential: good Facilitators to goal achievement: High motivation Barriers to goal achievement: Medical complexity and Pain Short Term Goals: To be met in 5 visits: 1. Decrease pain on both LE to patient comfort level 2. Become independent with home exercise program 3. Improve strength to 1/2 -1 grade on BUE and BLE Chcf Goals: To be met in 10 visits: 1.Return to most functional activities, good body mechanics. Plan of Care Physical Therapy with emphasis on Functional mobility training, Gait training, Patient/Family/Caregiver education, Therapeutic exercise, Manual Therapy (PRN),Neuromuscular Re-Education Frequency: 2x/week Duration: 10 visits I have discussed the risks and benefits of the above plan with Laureen Schmidt. She is aware of the diagnosis and potential to improve. She participated in the setting of the goals and understands the importance of complying with the treatment plan, including home instruction. She agreed to the abovefrequency and duration of rehab services. Patient- Family Teaching: Patient provided with preferred teaching of verbal information on POC. Shows readiness to learn. Verbal instruction teaching provided. Individual is able to read and verbalizes understanding of teaching provided. Annabelle Cristobal,PT [place] License: [id number] Required Components in Determining Evaluation Level History: No personal factors or comorbidities: No (96731) 1-2 personal factors and/or comorbidities: No (51837) 3 or more personal factors and/ or comorbidities: Yes (93134) Examination of Body System(s) Addressing 1-2 elements: Yes (79618) Addressing a total of 3 or more elements: No (47360) Addressing a total of 4 or more elements: No (57383) Clinical Presentation Stable: Yes (92117) Evolving: No (80770) Unstable: No (60692) Clinical Decision Making (Complexity) Low: No (58074) Moderate: Yes (84288) High: No (61170) ICAL PRODUCT SALES CONSULTANT documented in this encounter Plan of Treatment Date Type Specialty Care Team Description 06/09/2020 Office Visit Plastic Surgery Quique Thomson MD [address] [place], [place] [phone] 06/10/2020 Office [place] [address] [place] [id number] 06/11/2020 Ancillary Visit Physical Therapy Yolanda Perdue [address] [address] 06/17/2020 Ancillary Visit Physical Therapy Yolanda Perdue, INSTRUMENTATION INSTRUCTOR [address] [place] [address] 06/19/2020 Ancillary Visit Physical Therapy Yolanda Perdue, INSTRUMENTATION INSTRUCTOR [address] [place] [address] 07/29/2020 Office Visit Pulmonary Disease Azucena Ron, MANAGER SEARCH [address] [place] [address] [phone] 08/05/2020 Appointment Radiology Emma Briones MD [address] [place] [address] [phone] Health Maintenance Due Date Last Done Comments VARICELLA VACCINES (1 of 2 - 2-dose 1990 childhood series) PNEUMOCOCCAL 0-64 YEARS COMBINED 1995 SERIES (1 of 3 - PCV13) DTaP,Tdap,and Td Vaccines (1 - Tdap) 02/09/2008 PAP SMEAR 09/12/2012 09/12/2009, 01/16/2009, 08/28/2007 INFLUENZA VACCINE (#1) 2020 Depression Screening 04/18/2021 04/18/2020 documented as of this encounter Goals Goal Patient Goal Associated Recent Patient-Stated? Author Type Problems Progress To minimize General Yes Cristobal, pain and gain [facility], PT strength. documented as of this encounter Implants Implanted Type Area Pbx Technician Device Shelf Model / Identifier Expiration Date Ser ial / Lot Screw-07/18/2003 SCREW Bilateral: Implanted: 07/18/2003 (Quantity not on file) Ankle documented as of this encounter Results Not on filedocumented in this encounter Visit Diagnoses Diagnosis Muscle weakness (generalized) - Primary Pain in both lower legs Weakness Other malaise and fatigue documented in this encounter Insurance Payer Benefit Plan / Subscriber ID Effective Dates Phone Addre ss Type Group [facility] STAR [id number] 2013-Present Medicaid COMM PLAN - PLUS MANAGED MEDICAID documented as of this encounter
[2020-06-08] MEDS ORDERED: NA CHLORIDE 0.9% 1,000 ML ONE ×2 (17:34→20:22)
[2020-06-08] MEDS ORDERED: METOCLOPRAMIDE 10 MG/2mL INJ ONE (17:56)
[2020-06-08] MEDS ORDERED: MEPERIDINE HCL 25 MG/ML SYR ONE (17:56)
[2020-06-08] MEDS ORDERED: NA CHLORIDE 0.9% 100 ML ONE (17:57)
[2020-06-08 18:21] LABS: Absolute Lymphocytes (CBC) 1.8 K/uL (0.7-4.9); Basophils % 0.3 % (0-1.3); Hematocrit 39.1 % (36.0-45.0); Lymphocytes % 16.3 % (15.3-44.8); MPV 11.6 fL (7.6-11.3); RBC Red Blood Cell Count 4.33 M/uL (3.86-4.86)
[2020-06-08] MEDS ORDERED: ACETAMINOPHEN 500 MG TAB ONE (18:26)
[2020-06-08 18:45] LABS: Albumin 3.7 g/dL (3.4-5.0); Bilirubin Direct 0.2 mg/dL (0-0.2); Bilirubin Total 0.8 mg/dL (0.2-1.0); Potassium 3.9 mmol/L (3.5-5.1); Protein, Total 8.3 g/dL (6.4-8.2)
--- NOTE | 2020-06-08 19:34 | RAD REPORT ---
EXAM DESCRIPTION: CT - Head Brain Wo Cont - 06/08/2020 7:24 pm CLINICAL HISTORY: HEADACHE Headache, drowsiness COMPARISON: Head Brain Wo Cont dated 03/11/2020; HEAD BRAIN W O CONTRAST dated 10/29/2014 TECHNIQUE: All CT scans are performed using dose optimization technique as appropriate and may inclu de automated exposure control or mA/KV adjustment according to patient size. FINDINGS: No intracranial hemorrhage, hydrocephalus or extra-axial fluid collection.No areas of brai n edema or evidence of midline shift. The paranasal sinuses and mastoids are clear. The calvarium is intact. IMPRESSION: No acute intracranial abnormality.
--- NOTE | 2020-06-08 19:36 | RAD REPORT ---
EXAM DESCRIPTION: CTAbdomen Pelvis W Contrast - 06/08/2020 7:24 pm CLINICAL HISTORY: Abdominal pain. ABD PAIN COMPARISON: CT ABD PELVIS W CONTRAST dated 03/05/2015; CT ABD PELVIS W CONTRAST dated 10/29/2014; CT A BD PELVIS W CONTRAST dated 07/27/2014; CT ABD PELVIS W CONTRAST dated 07/12/2013 TECHNIQUE: Biphasic CT imaging of the abdomen and pelvis was performed with 100 ml non-ionic IV cont rast. All CT scans are performed using dose optimization technique as appropriate and may include automated exposure control or mA/KV adjustment according to patient size. FINDINGS: The lung bases are clear.Cholecystectomy. The liver, spleen, pancreas, adrenal glands are within normal limits. Punctate calculi in the calices of the right kidney noted without hydronephrosis. Small cyst is present, benign in appearance superi or anterior left kidney. No bowel obstruction, free air, free fluid or abscess. Small fat containing umbilical hernia. The michael endix is normal. No evidence of significant lymphadenopathy. No suspicious bony findings. IMPRESSION: No acute intra-abdominal or pelvic finding. Punctate right nephrolithiasis suspected.
[2020-06-08 19:53] LABS: Urine Blood 2+ (NEG); Urine Glucose NEGATIVE (NEG); Urine Protein 2+ (NEG); Urine pH 5.5 (5.0-7.0)
[2020-06-08] MEDS ORDERED: CEFTRIAXONE/SWI 1gm 1 GM/10 ML SYR ONE (20:00)
[2020-06-08 20:10] LABS: Urine Bacteria >50 /HPF (<20); Urine Culture Reflex Order REFLEXED
--- NOTE | 2020-06-08 22:21 | EDPHYS ---
Physician Documentation [facility] Name: Laureen Schmidt Age: 30 yrs Sex: Female : 1990 Arrival Date: 06/08/2020 Time: 16:55 Bed 16 Private MD: ED Physician Ang Ludwig HPI: 06/08 17:17 This 30 yrs old Female presents to ER via Ambulatory with complaints of rn Fever, Dizziness, headache, abdominal pain. 17:17 The patient reports fever, not measured (subjective). Onset: The symptoms/episode rn began/occurred 3 day(s) ago. Modifying factors: there are no obvious modifying factors. Associated signs and symptoms: Pertinent positives: abdominal pain, headache, nausea, runny nose, vomiting. Severity of symptoms: At their worst the symptoms were mild in the emergency department the symptoms are unchanged. The patient has not experienced similar symptoms in the past. The patient has not recently seen a physician. Pt reports subjective fever, assoc with headache, abdominal pain, vomiting, generalized weakness, and nasal congestion. Reports headache in back of head and throbbing. States abd pain is upper abdomen, no blood in stool or emesis. Reports glucose was high, took her medicine, and came down to low 120s. . 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 - Family history:: not pertinent. - Social history:: Smoking status: unknown. - Hospitalizations: : No recent hospitalization is reported. ROS: 17:17 Constitutional: + fever and chills Eyes: Negative for injury, pain, redness, and rn post partum, ENT: + nasal congestion Neck: Negative for injury, pain, and swelling, Cardiovascular: Negative for chest pain, palpitations, and edema, Respiratory: Negative for shortness of breath, wheezing, and pleuritic chest pain, Abdomen/GI: + abd pain and vomiting, no blood in stool Back: Negative for injury and pain, : Negative for injury, bleeding, discharge, and swelling, MS/Extremity: Negative for injury and deformity, Skin: Negative for injury, rash, and discoloration, Neuro: Negative for numbness, tingling, and seizure. Exam: 17:17 Constitutional: This is a well developed, well nourished patient who is awake, alert, rn and in no acute distress. Head/Face: Normocephalic, atraumatic. ENT: dry MM Neck: Trachea midline, no masses palpated, and no cervical lymphadenopathy. Supple, full range of motion without nuchal rigidity, or vertebral point tenderness. No Meningismus. Cardiovascular: Tachycardic, regular Respiratory: No increased work of breathing, no retractions or nasal flaring. Abdomen/GI: soft, + tender RUQ/epigastric/LUQ Skin: Warm, dry MS/ Extremity: Pulses equal, no cyanosis. Neuro: Awake and alert, GCS 15, oriented to person, place, time, and situation. Cranial nerves II-XII grossly intact. Motor strength 5/5 in all extremities. Sensory grossly intact. Cerebellar exam normal. Vital Signs: 17:11 BP 126 / 67; Pulse 20; Resp 16; Temp 103; Pulse Ox 99% ; Weight 99.7 kg; zb 18:44 BP 120 / 68; Pulse 102; Resp 18; Pulse Ox 97% on R/A; zb 19:15 BP 103 / 62; Pulse 105; Resp 17; Temp 98.1; Pulse Ox 99% ; rr5 20:15 BP 110 / 62; Pulse 99; Resp 17; Pulse Ox 100% ; rr5 21:30 BP 115 / 70; Pulse 95; Resp 16; Temp 99; Pulse Ox 99% ; rr5 22:20 BP 113 / 76; Pulse 85; Resp 17; Temp 98.5; Pulse Ox 99% ; rr5 MDM: 17:07 Patient medically screened. rn 18:56 Differential diagnosis: viral Infection, bacterial infection, URI, pneumonia UTI, rn gastroenteritis, COVID. Transition of care: After a detail discussion of the patient's case, care is transferred to Ang Ludwig MD. ED course: CT here to take patient to CT, states IV in hand does not seem to be adequate, nurse to place another IV. Labs thus far unremarkable, TMP and vitals improved. Signed out to Dr. Ludwig pending rest of w/u. . 22:18 Data reviewed: vital signs, nurses notes, old medical records, lab test result(s), CBC, mh7 electrolytes, urinalysis, radiologic studies, CT scan. Data interpreted: Pulse oximetry: on room air is 99 %. Interpretation: normal. Counseling: I had a detailed discussion with the patient and/or guardian regarding: the historical points, exam findings, and any diagnostic results supporting the discharge/admit diagnosis, lab results, radiology results, the need for outpatient follow up, to return to the emergency department if symptoms worsen or persist or if there are any questions or concerns that arise at home. Response to treatment: the patient's symptoms have resolved after treatment, the patient's blood pressure is in an acceptable range, mental status has returned to baseline, the patient no longer shows bradycardia, the patient is not short of breath, the patient is not tachycardic, the patient's pain is gone, the patient's temperature has normalized, the patient's condition has returned to base line, the patient is now symptom free. Refusal of service: The patient/guardian displays adequate decision making capability and despite a detailed discussion of alternatives, benefits, risks, and consequences refuses: Admission to the hospital for further work-up and treatment. 06/08 17:13 Order name: Basic Metabolic Panel rn 06/08 17:13 Order name: CBC with Diff rn 06/08 17:13 Order name: Hepatic Function rn 06/08 17:13 Order name: Lipase; Complete Time: 18:47 rn 06/08 17:13 Order name: Urine Microscopic Only rn 06/08 17:13 Order name: Flu; Complete Time: 18:57 rn 06/08 17:13 Order name: COVID-19 rn 06/08 17:13 Order name: Strep; Complete Time: 18:51 rn 06/08 17:13 Order name: Dade Screen Profile; Complete Time: 18:31 rn 06/08 17:13 Order name: Procalcitonin; Complete Time: 19:08 rn 06/08 17:14 Order name: Basic Metabolic Panel; Complete Time: 18:47 EDMS 06/08 17:14 Order name: CBC with Automated Diff; Complete Time: 18:23 [facility] 06/08 17:14 Order name: Liver (Hepatic) Function; Complete Time: 18:47 [facility] 06/08 18:52 Order name: Throat Culture [facility] 06/08 17:13 Order name: IV Saline Lock; Complete Time: 18:22 rn 06/08 17:13 Order name: Labs collected and sent; Complete Time: 18:22 rn 06/08 17:13 Order name: Urine Dipstick-Ancillary (obtain specimen); Complete Time: 20:07 rn 06/08 17:25 Order name: CT Head Brain wo Cont; Complete Time: 19:36 rn 06/08 17:25 Order name: CT Abd/Pelvis - IV Contrast Only; Complete Time: 19:46 rn 06/08 19:47 Order name: Urine Dipstick--Ancillary (enter results); Complete Time: 20:06 [facility] 06/08 20:11 Order name: Urine Culture [facility] Administered Medications: 17:45 Drug: NS 0.9% 1000 ml Route: IV; Rate: 1000 ml; Site: left hand; zb 18:10 Drug: Reglan 10 mg Route: IVP; Site: left hand; zb 18:35 Follow up: Response: No adverse reaction; Nausea is decreased zb 18:10 Drug: Demerol 25 mg Route: IVP; Site: left hand; zb 18:35 Follow up: Response: No adverse reaction; Pain is decreased zb 18:19 Drug: Tylenol 1000 mg Route: PO; zb 18:47 Follow up: Response: No adverse reaction zb 20:10 Drug: Rocephin - (cefTRIAXone) 1 grams Route: IVPB; Infused Over: 30 mins; Site: right rr5 forearm; 20:10 Drug: NS 0.9% 1000 ml Route: IV; Rate: 1000 ml; Site: right forearm; rr5 22:30 Follow up: Response: No adverse reaction; IV Status: Completed infusion; IV Intake: rr5 1000ml Disposition: 06/08/20 22:20 Discharged to Home. Impression: Urinary tract infection, site not specified, Generalized abdominal pain, Vomiting, unspecified, Dehydration. - Condition is Stable. - Discharge Instructions: Abdominal Pain, Adult, Dehydration, Adult, Nausea and Vomiting, Adult, [id number], Urinary Tract Infection, Adult, [id number]. - Prescriptions for Zofran ODT 4 mg Oral tablet,disintegrating - place 1 tablet by TRANSLINGUAL route every 8 hours As needed; 6 tablet. Levaquin 500 mg Oral Tablet - take 1 tablet by ORAL route once daily for 10 days; 10 tablet. - Medication Reconciliation Form, Thank You Letter, Antibiotic Education, Prescription Opioid Use form. - Follow up: Private Physician; When: 1 - 2 days; Reason: Worsening of condition, Recheck today's complaints, Continuance of care, Re-evaluation by your physician. - Problem is an acute exacerbation. - Symptoms have improved. Signatures: Dispatcher [employer] EDMS Viky Corrigan RN RN Lupillo Macias MD MD rn Attema, Lee, AFTER SCHOOL COORDINATOR-C AFTER SCHOOL COORDINATOR-Cla1 Stiven Peterson RN RN rr5 Ang Ludwig MD MD 7 Nimco Perdue RN RN zb Corrections: (The following items were deleted from the chart) 17:17 17:13 Urine Test ordered. rn rn 22:44 22:20 06/08/2020 22:20 Discharged to Home. Impression: Urinary tract infection, site rr5 not specified; Generalized abdominal pain; Vomiting, unspecified; Dehydration. Condition is Stable. Forms are Medication Reconciliation Form, Thank You Letter, Antibiotic Education, Prescription Opioid Use. Follow up: Private Physician; When: 1 - 2 days; Reason: Worsening of condition, Recheck today's complaints, Continuance of care, Re-evaluation by your physician. Problem is an acute exacerbation. Symptoms have improved. 7
--- NOTE | 2020-06-08 22:21 | ER ---
Nurse's Notes [facility] Name: Laureen Schmidt Age: 30 yrs Sex: Female : 1990 Arrival Date: 06/08/2020 Time: 16:55 Bed 16 Private MD: Diagnosis: Urinary tract infection, site not specified;Generalized abdominal pain;Vomiting, unspecified;Dehydration Presentation: 06/08 17:11 Chief complaint: Patient states: abd pain, fever Tmax 103.9, and headache since Tuesday. sv Vomiting and dizziness started today. Motrin taken 3 hours ago. Coronavirus screen: Client denies travel out of the [place] in the last 14 days. Client presents with at least one sign or symptom that may indicate coronavirus-19. Standard/surgical mask placed on the client. Provider contacted for isolation considerations. Ebola Screen: No symptoms or risks identified at this time. Risk Assessment: Do you want to hurt yourself or someone else? Patient reports no desire to harm self or others. Onset of symptoms was June 06, 2020. 17:11 Method Of Arrival: Ambulatory sv 17:11 Acuity: ELKE 2 sv 17:45 Initial Sepsis Screen: Does the patient meet any 2 criteria? No. Patient's initial zb sepsis screen is negative. Does the patient have a suspected source of infection? No. Patient's initial sepsis screen is negative. 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 - Family history:: not pertinent. - Social history:: Smoking status: unknown. - Hospitalizations: : No recent hospitalization is reported. Screenin:30 Abuse screen: Denies threats or abuse. Denies injuries from another. Nutritional zb screening: No deficits noted. Tuberculosis screening: No symptoms or risk factors identified. Fall Risk No fall in past 12 months (0 pts). No secondary diagnosis (0 pts). IV access (20 points). Ambulatory Aid- None/Bed Rest/Nurse Assist (0 pts). Gait- Normal/Bed Rest/Wheelchair (0 pts) Mental Status- Oriented to own ability (0 pts). Total Austin Fall Scale indicates No Risk (0-24 pts). Assessment: 17:30 General: Appears uncomfortable, ill, Behavior is cooperative, anxious, Reports chills zb for fever for feeling ill for fatigue for. Pain: Complains of pain in occipital area. Neuro: Level of Consciousness is awake, alert, obeys commands, Oriented to person, place, time, situation. Cardiovascular: Reports fatigue, nausea, vomiting, Capillary refill < 3 seconds in bilateral fingers Patient's skin is warm and dry. Respiratory: Airway is patent Respiratory effort is even, unlabored. GI: Pt is actively vomiting bile, clear fluid, Reports nausea, vomiting. : No signs and/or symptoms were reported regarding the genitourinary system. EENT: No signs and/or symptoms were reported regarding the EENT system. Derm: Skin is intact, is healthy with good turgor, Skin is normal. Musculoskeletal: Circulation, motion, and sensation intact. 18:42 Reassessment: Patient appears in no apparent distress at this time. Patient and/or zb family updated on plan of care and expected duration. Pain level reassessed. Patient is alert, oriented x 3, equal unlabored respirations, skin warm/dry/pink. states headache is going away. 19:25 Reassessment: Patient appears in no apparent distress at this time. Patient is alert, rr5 oriented x 3, equal unlabored respirations, skin warm/dry/pink. back from CT scan. 20:15 Reassessment: Patient appears in no apparent distress at this time. Patient is alert, rr5 oriented x 3, equal unlabored respirations, skin warm/dry/pink. reassess by ED provider explained the result with additional order made and carried out\E\. 21:30 Reassessment: Patient appears in no apparent distress at this time. Patient is alert, rr5 oriented x 3, equal unlabored respirations, skin warm/dry/pink. ongoing IV fluid infusion. 22:40 Reassessment: Patient appears in no apparent distress at this time. Patient is alert, rr5 oriented x 3, equal unlabored respirations, skin warm/dry/pink. discharge instruction given and explained without complaints made Patient states feeling better. Patient states symptoms have improved. Vital Signs: 17:11 BP 126 / 67; Pulse 20; Resp 16; Temp 103; Pulse Ox 99% ; Weight 99.7 kg; zb 18:44 BP 120 / 68; Pulse 102; Resp 18; Pulse Ox 97% on R/A; zb 19:15 BP 103 / 62; Pulse 105; Resp 17; Temp 98.1; Pulse Ox 99% ; rr5 20:15 BP 110 / 62; Pulse 99; Resp 17; Pulse Ox 100% ; rr5 21:30 BP 115 / 70; Pulse 95; Resp 16; Temp 99; Pulse Ox 99% ; rr5 22:20 BP 113 / 76; Pulse 85; Resp 17; Temp 98.5; Pulse Ox 99% ; rr5 ED Course: 16:55 Patient arrived in ED. ds1 17:05 Nimco Perdue RN is Primary Nurse. zb 17:06 Lupillo Sanchez MD is Attending Physician. rn 17:15 ED physician to see patient. sv 17:15 Arm band placed on. sv 17:16 Triage completed. sv 17:45 Patient has correct armband on for positive identification. zb 17:45 Missed attempt(s): 20 gauge in right. Missed attempt(s): 22 gauge in left forearm. zb Inserted saline lock: 22 gauge in left hand, using aseptic technique. 19:02 Attending Physician role handed off by Lupillo Sanchez MD [facility] 19:02 Ang Ludwig MD is Attending Physician. [facility] 19:05 Radiology exam delayed due to IV insertion attempt and/or patient not having mw3 appropriate IV at this time. 19:12 Inserted saline lock: 20 gauge in right forearm, using aseptic technique. rr5 19:24 CT Head Brain wo Cont In Process Unspecified. EDMS 19:25 CT Abd/Pelvis - IV Contrast Only In Process Unspecified. EDMS 22:35 No provider procedures requiring assistance completed. IV discontinued, intact, rr5 bleeding controlled, No redness/swelling at site. Pressure dressing applied. Administered Medications: 17:45 Drug: NS 0.9% 1000 ml Route: IV; Rate: 1000 ml; Site: left hand; zb 18:10 Drug: Reglan 10 mg Route: IVP; Site: left hand; zb 18:35 Follow up: Response: No adverse reaction; Nausea is decreased zb 18:10 Drug: Demerol 25 mg Route: IVP; Site: left hand; zb 18:35 Follow up: Response: No adverse reaction; Pain is decreased zb 18:19 Drug: Tylenol 1000 mg Route: PO; zb 18:47 Follow up: Response: No adverse reaction zb 20:10 Drug: Rocephin - (cefTRIAXone) 1 grams Route: IVPB; Infused Over: 30 mins; Site: right rr5 forearm; 20:10 Drug: NS 0.9% 1000 ml Route: IV; Rate: 1000 ml; Site: right forearm; rr5 22:30 Follow up: Response: No adverse reaction; IV Status: Completed infusion; IV Intake: rr5 1000ml Intake: 22:30 IV: 1000ml; Total: 1000ml. rr5 Outcome: 22:20 Discharge ordered by . 7 22:40 Discharged to home ambulatory. rr5 22:40 Condition: stable 22:40 Discharge instructions given to patient, Instructed on discharge instructions, follow rr5 up and referral plans. medication usage, Demonstrated understanding of instructions, follow-up care, medications, Prescriptions given X 2. 22:44 Patient left the ED. rr5 Addendum: 06/10/2020 16:32 Addendum: COVID-19 Result: Negative result given to RN to notify pt. Notified pt of i w negative COVID 19 swab results. Pt advised that even with a negative test result they should remain in isolation until symptom free for 3 days without medication. Pt also advised to return to the ED for worsening symptoms. Signatures: Dispatcher [employer] EDMS Viky Corrigan RN RN sv Sanford, Demi ds1 Ofelia Giles RN RN iw Nieto, Roman, MD MD rn Willis, Michelle mw3 Stiven Peterson RN RN rr5 Ang Ludwig MD MD mh7 Brown, Zipporah, RN RN zb Corrections: (The following items were deleted from the chart) 06/08 17:16 17:11 99.79 kg; Height 5 ft. 3 in.; BMI: 38.9; Pain 04/26; sv sv 18:37 17:11 BP 126 / 67; Pulse 134bpm; Resp 20bpm; Pulse Ox 99%; 99.79 kg; Height 5 ft. 3 zb in.; BMI: 38.9; Pain 04/26; sv
[2020-06-09 03:53] VITALS: BP 115/70; TEMP 99; O2SAT 99
== END 2020-06-08 22:44 | disposition home or self-care (01) ==
LOC: ER 16:53
DX: N39.0 Urinary tract infection, site not specified (principal); E86.0 Dehydration; R11.10 Vomiting, unspecified; R10.84 Generalized abdominal pain; E11.9 Type 2 diabetes mellitus without complications; Z79.4 Long term (current) use of insulin; Z88.5 Allergy status to narcotic agent; Z20.828 Contact with and (suspected) exposure to other viral communicable diseases
CPT/HCPCS: 87070; 87088; 85025; 87086; 80048; 36415; 86308; 80076; 87081; 83690; 84145; 87804 ×2; 70450; 74177; 99284; U0002; Q9967; J2765; J2175; J0696; J7030 ×2; 81003; 81015; 87077; 87186

== ENCOUNTER 2020-08-16 18:22 | Emergency (ER) | payer OTHER ==
--- OUTSIDE RECORDS SUMMARY | 2020-08-16 18:24 | XMS REPORT | Continuity of Care Document ---
:1990 Author Organization [facility] Care Team Providers Name Role Phone [facility] [facility] Unavailable Un available Problems Problem Status Onset [...] 3 Group tablet, extended Refill(s), release Pharmacy: [facility] ST[id number], 160.02, cm, 01/09/20 11:25:00 CDT, Height, 98.182, kg, 01/09/20 11:25:00 CDT, Weight pioglitazone 15 15 mg = 1 Active MH mg oral tablet tab, PO, 020 Medical Daily, # 90 Group tab, 0 Refill(s), [id number], 160.02, cm, 01/09/20 11:25:00 CDT, Height, 98.182, kg, 01/09/20 11:25:00 CDT, Weight canagliflozin 100 mg = 1 Active MH 100 mg oral tab, PO, 020 Medical tablet Daily, # 90 Group tab, 1 Refill(s), [id number], 160.02, cm, 01/09/20 11:25:00 CDT, Height, 98.182, kg, 01/09/20 11:25:00 CDT, Weight OneTouch Ultra2 , # 1 ea, Active Blood Glucose Insulin 020 Medical Meter dependent, Group Does not use insulin pump, Last DM eval date 01/11/20, 0 Refill(s), Pharmacy: [facility]/pharmacy #[id number], 160.02, cm,... OneTouch Ultra See Active Blue Blood Instructions 020 Medical Glucose Test , 4 FS/d, # Group Strip 400 ea, Insulin dependent, Does not use insulin pump, Last DM eval date 01/11/20, 3 Refill(s), [id number], 160.02, cm, 01/09/20 11:25:00 CDT, Height, 98.182, kg, 01/09/20 11:25:00 CDT, Weight OneTouch Delica See Active Extra Fine 33G Instructions 020 Medi keo Lancets , FS 4/d, # Group 400 ea, Insulin dependent, Does not use insulin pump, Last DM eval date 01/11/20, 3 Refill(s), [id number], 160.02, cm, 01/09/20 11:25:00 CDT, Height, 98.182, kg, 01/09/20 11:25:00 CDT, Weight Dexcom G6 1 ea, MISC, Active [employer] [facility] Kit ONCE, 020 Medical Certified Group Medically Necessar. Change every 90 days., # 1 kit, Insulin dependent, Does not use insulin pump, Last DM eval date 01/09/20, 0 Refill(s), Pharmacy: [facility]/pharmacy #[id number], 160.02, cm, 01/09/20 11:25:00 CDT, Height, 98.182, kg,... Dexcom G6 Sensor 1 ea, MISC, Active MH Kit ONCE, 020 Medical Certified Group Medically Necessary-ch mendoza every 10 days., # 1 ea, Insulin dependent, Does not use insulin pump, Last DM eval date 01/09/20, 11 Refill(s), Pharmacy: [facility]/pharmacy #[id number], 160.02, cm, 01/09/20 11:25:00 CDT, Height, 98.182, kg,... Dexcom G6 1 ea, MISC, Active Transmitter Kit ONCE, 020 Medical Certified Group Medically Necessary:Ch mendoza every 3 months Dx code E10.65, # 1 ea, Insulin dependent, Does not use insulin pump, Last DM eval date 01/09/20, 3 Refill(s), [id number], 160.02, cm, 01/09/20 11:25:00 CDT, Heigh... FreeStyle Aileen , # 1 ea, Inactive MH [place] Insulin 020 Medical dependent, Group Does not use insulin pump, Last DM eval date 01/09/20, 0 Refill(s), [id number], 160.02, cm,... FreeStyle Aileen See Inactive Sensor Instructions 020 Medical , MISC, Group change every 14 days, # 6 ea, Insulin dependent, Does not use insulin pump, Last DM eval date 01/09/20, 3 Refill(s), [id number], 160.02, cm, 01/09/20 11:25:00 CDT, Height, 98.182, kg, 01/09/20 11:25:00 CDT, We... FreeStyle Aileen , # 1 ea, Inactive MH [place] Insulin 020 Medical dependent, Group Does not [...] Location Location Encounter Encounter Reason Attending ADM [place] Stat Source Details Type Number For Provider Date Date Visit [facility] Amb[facility] [id number] Quique 01/06 01/06 MH Primary [facility] [place] [facility] [id number] 01/08 [facility] Out[facility] [id number] Quique 01/08 01/09 MH Primary [facility] [place] [facility] Ambulatory [id number] 01/08 MH Primary Pre-Reg [facility] [place] [facility] Phone [id number] 01/08 01/10 MH Primary Message /2019 [facility] [place] [facility] Phone [id number] 01/10 01/12 MH Primary Message /2019 [facility] [place] Outpatient [id number] Ed01/30 Active [facility] Outpatient [id number] Quique 01/30 01/31 MH Primary [facility]rez Jr /2019 [facility] [place] [facility] Between [id number] 02/19 02/20 MH Primary Visit /2019 [facility] [place] Outpatient [id number] Ed02/20 Active [facility] n [facility] [id number] [facility] 02/20 02/21 MH Primary [facility]rez Jr /2019 [facility] [place] Outpatient [id number] 03/25 Active [facility] Aram n [facility]ulatory [id number] Quique 03/25 03/25 Primary Pre-Reg [facility] [place] Outpatient [id number] 03/26 Active [facility] Aram n [facility] Outpatient [id number] Quique 03/26 03/27 Primary [facility] [id number] 03/26 03/27 Primary Visit /2019 [facility] Phone [id number] 04/11 04/13 Primary Message /2019 [facility] [place] [facility]patient [id number] 06/24 Active [facility] Aram n Outpatient [id number] 06/25 Active [facility] Aram n Procedures Procedure Code Date Perfomer Comments Source Bladder cancer [id number] 07/18/2012 Medical Group Hysterectomy [id number] 07/18/2012 Medical Group Tube feeding [id number] 07/18/2007 Medical Group Lipoma of back [id number] 07/18/1997 Medical Group Caesarean section [id number] 1990 [facility] Gallbladder [id number] Medical Group Shortening of heel [id number] Med ical cord Group Assessment and Plan [...]
--- OUTSIDE RECORDS SUMMARY | 2020-08-16 18:25 | XMS REPORT | Continuity of Care Document ---
:1990 Author Organization [facility] t Address [address] [place] [address] Care Team Providers Name Role Phone Zuleika LUZ Attending Clinician Jim Solis II Attending Clinician Problems Condition Condition Condition Status [...] shanna due to 22:39:52 l type 2 Tony diabetes Hyperglyce mellitus shanna due to (disorder) type 2 diabetes mellitus (disorder) Active Problem 04/14/2020 [facility] Group Obesity Problem Active 2020-04-14 Ivck arik (disorder) 22:39:52 l Obesity Tony (disorder) Active Problem 04/14/2020 [facility] Group Insulin Problem Active 2020-04-14 Vick arik resistance 22:39:52 l Insulin [place] resistance Active Problem 04/14/2020 [facility] Allergies, Adverse Reactions, Alerts Allergy Allergy Status Severity Reaction(s) Onset Inactive Treating Comm ents Source Name Type Date Date Clinician NKA NKA Active Memoria l Tony codeine codeine Active Memoria l Tony Social History Social Habit Start Date Stop Date Quantity Comments Source Social History 2020-01-09 2020-01-09 [facility] 16:48:27 16:48:27 Medications Ordered Filled Start Stop Current Ordering Indication Dosage Frequency Signature Comments Components Source Medication Medication Date Date Medication? Clinician (SIG) Name Name MetFORMIN Yes = 2 tab, Vick arik (Eqv-Glucop 9-25 PO, BID, # l arian XR) 13:23: 360 tab, 3 Her mtz 500 mg oral 00 Refill(s), tablet, Pharmacy: [facility] release [id number], 160.02, cm, 01/09/20 11:25:00 CDT, Height, 98.182, kg, 01/09/20 11:25:00 CDT, Weight pioglitazon Yes 15 mg = 1 M emoria e 15 mg 8-06 tab, PO, l oral tablet 14:49: Daily, # He rmann 00 90 tab, 0 Refill(s), Pharmacy: [facility] #[id number], 160.02, cm, 01/09/20 11:25:00 CDT, Height, 98.182, kg, 01/09/20 11:25:00 CDT, Weight canaglifloz Yes 100 mg = 1 Memoria in 100 mg 7-16 tab, PO, l oral tablet 16:23: Daily, # He rmann 00 90 tab, 1 Refill(s), Pharmacy: [facility] #[id number], 160.02, cm, 01/09/20 11:25:00 CDT, Height, 98.182, kg, 01/09/20 11:25:00 CDT, Weight OneTouch Yes , # 1 ea, Vick arik Ultra2 6-26 Insulin l Blood 13:20: dependent, Aram n Glucose 00 Does not Meter use insulin pump, Last DM eval date 01/11/20, 0 Refill(s), Pharmacy: [facility] #[id number], 160.02, cm,... OneTouch Yes See Memoria Ultra Blue 6-26 Instructio l Blood 13:20: ns, 4 Tony Glucose 00 FS/d, # Test Strip 400 ea, Insulin dependent, Does not use insulin pump, Last DM eval date 01/11/20, 3 Refill(s), [id number], 160.02, cm, 01/09/20 11:25:00 CDT, Height, 98.182, kg, 01/09/20 11:25:00 CDT, Weight OneTouch 2019-0 Yes See Jessica Delica 01-10 Instructio l Extra Fine 13:20: ns, FS Yasmine nn 33G Lancets 00 4/d, # 400 ea, Insulin dependent, Does not use insulin pump, Last DM eval date 01/11/20, 3 Refill(s), Pharmacy: [id number], 160.02, cm, 01/09/20 11:25:00 CDT, Height, 98.182, kg, 01/09/20 11:25:00 CDT, Weight Dexcom G6 2019-0 Yes 1 ea, Jessica Rice Drier 01-08 MISC, l Kit 18:42: ONCE, [place] [address] Certified Medically Necessar. Change every 90 days., # 1 kit, Insulin dependent, Does not use insulin pump, Last DM eval date 01/09/20, 0 Refill(s), Pharmacy: [id number], 160.02, cm, 01/09/20 11:25:00 CDT, Height, 98.182, kg,... Dexcom G6 2019-0 Yes 1 ea, Jessica Sensor Kit 01-08 MISC, l 18:42: ONCE, Tony 00 Certified Medically Necessary- change every 10 days., # 1 ea, Insulin dependent, Does not use insulin pump, Last DM eval date 01/09/20, 11 Refill(s), [facility]acy: [id number], 160.02, cm, 01/09/20 11:25:00 CDT, Height, 98.182, kg,... Dexcom G6 2019-0 Yes 1 ea, Lidaoria Transmitter 01-08 MISC, l Kit 18:42: ONCE, [place] Certified Medically Necessary: Change every 3 months Dx code E10.65, # 1 ea, Insulin dependent, Does not use insulin pump, Last DM eval date 01/09/20, 3 Refill(s), [facility]: [id number], 160.02, cm, 01/09/20 11:25:00 CDT, Heigh... FreeStyle 2020-0 No , # 1 ea, Lida oria Aileen 6-24 Insulin l Mize 17:20: dependent, Yasmine nn 00 Does not use insulin pump, Last DM eval date 01/09/20, 0 Refill(s), Pharmacy: [facility] #[id number], 160.02, cm,... FreeStyle 2020-0 No See Memoria Aileen 6-24 Instructio l Sensor 17:20: ns, MISC, Aram n 00 change every 14 days, # 6 ea, Insulin dependent, Does not use insulin pump, Last DM eval date 01/09/20, 3 Refill(s), Pharmacy: [facility] #[id number], 160.02, cm, 01/09/20 11:25:00 CDT, Height, 98.182, kg, 01/09/20 11:25:00 CDT, We... FreeStyle 2020-0 No , # 1 ea, Mem oria Aileen 6-24 Insulin l Mize 17:18: dependent, Yasmine nn 00 Does not use insulin pump, Last DM eval date 01/09/20, 0 Refill(s), other FreeStyle 2020-0 No See Memoria Aileen 6-24 Instructio l Sensor 17:18: ns, MISC, Aram n 00 change every 14 days, # 6 ea, Insulin dependent, Does not use insulin pump, Last DM eval date 01/09/20, 3 Refill(s), other 3 ML 2020-0 Yes See Memoria Insulin, 01-08 Instructio l Aspart, 17:10: ns, 60 Tony Human 100 00 units SQ UNT/ML Pen at meals, Injector # 180 mL, [NovoLog] 0 Refill(s), other 3 ML 2020-0 Yes See Memoria Insulin 6-24 Instructio l Glargine 17:09: ns, 100 Aram n 100 UNT/ML 00 units SQ Prefilled every 12 Syringe hours, # [Lantus] 180 mL, 0 Refill(s), other Vital Signs Vital Name Observation Time Observation Value Comments Source Systolic (mm Hg) 2020-01-09 16:25:00 Vick Jimenez Diastolic (mm Hg) 2020-01-09 16:25:00 Lida chastity Guerreroann Heart Rate 2020-01-09 16:25:00 Chitra Jimenez Respitory Rate 2020-01-09 16:25:00 Jesus kathleen Guerreroann Height 2020-01-09 16:25:00 160.02 cm Chitra Jimenez Weight 2020-01-09 16:25:00 Chitra Jimenez BMI Calculated 2020-01-09 16:25:00 Jesus Sharp Procedures Procedure Date / Time Performed Performing Clinician Stephani gao Bladder cancer 2012-07-18 06:00:00 [facility] Her mtz Hysterectomy 2012-07-18 06:00:00 Chitra mtz Tube feeding 2007-07-18 06:00:00 [facility] Her mtz Lipoma of back 1997-07-18 06:00:00 [facility] Her mtz Caesarean section 1989 06:00:00 [facility] Dennis ermann Gallbladder [facility] [place] Shortening of heel cord [facility] [place] Encounters Start End Encounter Admission Attending Care Care Encounter Source Date/Time Date/Time Type Type Clinicians Facility Department ID 2020-08-12 2020-08-12 Office KRISTYN To [id number] 11:54:43 12:25:42 Visit [place] [facility] [id number] [place] [id number] Jesus [id number] nal 059 [facility] 2020-04-11 2020-04-12 Outpatient [facility] [id number] 08:08:44 23:59:59 02 2020-03-26 2020-03-27 Outpatient [facility] [id number] 10:00:16 10:00:16 03 2020-03-26 2020-03-26 Outpatient Irma [facility] [id number] 08:30:00 23:59:59 Edward 64 Jim 2020-03-25 2020-03-25 Outpatient Irma [facility] [id number] 13:35:00 13:35:00 Edward 63 Jim 2020-02-21 2020-02-21 Outpatient Irma [facility] [id number] 09:30:00 23:59:59 Edward 62 Jim 2020-02-20 2020-02-21 Outpatient [facility] [id number] 08:37:17 08:37:17 02 2020-01-31 2020-01-31 Outpatient [facility] [id number] 11:00:00 23:59:59 Edward 61 Jim 2020-01-11 2020-01-12 Outpatient [facility] [id number] 08:13:43 23:59:59 01 2020-01-09 2020-01-10 Outpatient [facility] [id number] 13:39:57 23:59:59 00 2020-01-09 2020-01-09 Outpatient Irma MG MG [id number] 11:15:00 23:59:59 Edward 60 Jim 2020-01-09 2020-01-09 Outpatient Irma MG MG [id number] 11:15:00 11:15:00 Edflorian 59 Jim 2020-01-07 2020-01-07 Outpatient Irma MG MG [id number] 13:50:00 13:50:00 Edflorian 58 Jim Results This patient has no known results.
--- OUTSIDE RECORDS SUMMARY | 2020-08-16 18:26 | XMS REPORT | Summary of Care ---
:1990 Author Organization [facility] Address [address] [place] [address] Care Team Providers Name Role Phone Ignacio Jordan Primary Care Provider Reason for Visit Reason Comments Follow-up Encounter Details Date Type Department Care Team Description 06/23/2020 Office Visit [facility] Surgical Quique Thomson Loc alized adiposity Alonso - Harjinder Huitron MD (Primary Dx) [address] [place] [address], [address] [place], [place] [address] [address] [place] [phone] Allergies Active Allergy Reactions Severity Noted Date Comments Codeine Hives, Shortness of Breath 09/10/2015 documented as of this encounter (statuses as of 06/23/2020) Medications Medication Sig Dispensed Refills Start Date End Date Status lithium carbonate Take 300 mg 0 Active (LITHOTABS) 300 mg by mouth 3 tablet (three) times daily. PAROXETINE HCL Take by 0 Activ e (PAXIL ORAL) mouth. traMADol 50 mg Take 1 30 tablet [...] and cover again with sliding scale again. gabapentin 300 mg 0 06/20/2020 A ctive capsule ibuprofen 600 mg TAKE 1 0 06/06/2020 Ac tive tablet TABLET BY MOUTH WITH FOOD OR MILK NEEDED THREE TIMES A DAY FOR 5 DAYS ibuprofen (MOTRIN) Take 800 mg 0 Discontinued 800 mg tablet by mouth 0 (Thera py every 6 completed) (six) hours as needed. documented as of this encounter (statuses as of 06/23/2020) Active Problems Problem Noted Date Obesity (BMI 30-39.9) 05/18/2020 Left-sided weakness 05/18/2020 documented as of this encounter (statuses as of 06/23/2020) Social History Tobacco Use Types Packs/Day Years Used Date Never Smoker Smokeless Tobacco: Never Used Alcohol Use Drinks/Week oz/Week Comments Not Currently Sex Assigned at Date Recorded Not on file COVID-19 Exposure Response Date Recorded In the last month, have you been in contact with No / Unsure 06/23/2020 1:21 PM LASTEX OPERATOR someone who was confirmed or suspected to have Coronavirus / COVID-19? documented as of this encounter Last Filed Vital Signs Vital Sign Reading Time Taken Comments Blood Pressure 118/71 06/23/2020 1:29 PM LASTEX OPERATOR Pulse 99 06/23/2020 1:29 PM LASTEX OPERATOR Temperature 36.7 C (98 F) 06/23/2020 1:29 PM LASTEX OPERATOR Respiratory Rate 20 06/23/2020 1:29 PM LASTEX OPERATOR Oxygen Saturation - - Inhaled Oxygen Concentration - - Weight 97.9 kg (215 lb 12.8 oz) 06/23/2020 1:29 PM LASTEX OPERATOR Height 160 cm (5' 3") 06/23/2020 1:29 PM LASTEX OPERATOR Body Mass Index 38.23 06/23/2020 1:29 PM LASTEX OPERATOR documented in this encounter Progress Notes Bipin Luke MD - 06/23/2020 1:15 PM CST PLASTIC SURGERY CLINIC NOTE 06/23/2020 Visit Type: follow up Chief Complaint: excess back adiposity / back mass HPI: Laureen Schmidt is a 30 year old female with history of Catlin syndrome, 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 Interval history 06/23/2020: Continuing to have pain in back at area of perceived mass. Making progress on weight loss and diabetes control. No new complaints. Recently hospitalized for stroke-like symptoms but workup negative forCVA. List of procedures/ medical problems -History of scoliosis with chronic pain and currently takes Tramadol. - uncontrolled DM on insulin and metformin - current A1c 8.6 (05/18/2020) - weight issues since infancy: she has [...] Depression Diabetes mellitus Fatty liver Heart murmur Catlin syndrome Scoliosis Webbed neck Past Surgical History: [...] file Gets together: Not on file Attends shinto service: Not on file Active member of [...] Current Outpatient Medications Medication Sig Dispense Refill aspirin 81 mg chewable tablet Take 1 tablet by mouth daily for 364 days. 30 tablet 11 atorvastatin 40 mg tablet Take 1 tablet by mouth at bedtime for 90 days. 30 tablet 2 insulin aspart RAPID 100 unit/mL injection inject 30 Units under the skin 3 (three) times daily with meals. 54 mL 3 insulin aspart RAPID 100 unit/mL injection Extra Novolog insulin If blood sugar before [...] and cover again with sliding scale again. 15 mL 5 insulin glargine (LANTUS U-100 INSULIN) 100 unit/mL injection inject 80 Units under the skin 2 (two) times daily. 96 mL 3 metFORMIN 1,000 mg tablet Take 1 tablet by mouth 2 (two) times daily with meals. 120 tablet 4 TOPIRAMATE 50 mg tablet TAKE 1 TABLET BY MOUTH TWICE A DAY 60 tablet 1 traMADol 50 mg tablet Take 1 tablet by mouth every 6 (six) hours as needed for Pain (scale 4-6).30 tablet 0 ibuprofen (MOTRIN) 800 mg tablet Take 800 mg by mouth every 6 (six) hours as needed. lithium carbonate (LITHOTABS) 300 mg tablet Take 300 mg by mouth 3 (three) times daily. PAROXETINE HCL (PAXIL ORAL) Take by mouth. No current facility-administered medications for this visit. REVIEW OF SYSTEMS 12 point review of systems negative except as stated in HPI OBJECTIVE There were no vitals taken for this visit. PHYSICAL EXAM General: alert, no apparent distress Skin: no rashes or obvious cutaneous lesions HEENT: webbed neck, atraumatic, moist mucous membranes Respiratory: unlabored, no increased work of breathing Cardio: hemodynamically stable Abdomen: nondistended Back: there is a large 15 x 15 cm lipomatous mass of the left scapular region, There are symmetricalcutaneous back rolls of bilateral mid back Neuro: unremarkable without focal findings Extremities/Musculoskeletal: moves all extremities equally Radiology CT thorax w wo contrast 05/12/2020 personally interpreted by me - no discrete lipomatous lesion at left scapula, diffuse prominent bilateral upper back adiposity, scarring consistent with previous liposuction at back Assessment/Plan 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 CT demonstrates no well-circumscribed lipomatous mass, but patient does have diffuse abnormal adiposity amenable to surgical treatment, so will refer patient to Dr. French, who is more expert in body contouring-type procedures - Follow up with Dr. French in [facility] - patient to obtain prealbumin lab prior to that appointment - continue working with PCP and endocrinology to ensure tight glucose control and weight control - no nicotine (patient already does not partake) - pending cardiology evaluation Bipin Luke M.D. 10:28 AM 06/23/2020 PGY-1, [facility] Department of Orthopaedic Surgery and Rehabilitation EX OPERATOR documented in this encounter Plan of Treatment Date Type Specialty Care Team Description 07/22/2020 Office Visit Plastic Surgery Lovely French MD [address] [place] [address] [address] [place] [address] 08/05/2020 Appointment Radiology Emma Briones MD [facility] [place] [address] [phone] 08/12/2020 Office Visit Cardiology Cleveland To MD [address] [place], [place] [address]d. [place], [place] [phone] 08/19/2020 Office Visit Pulmonary Disease Azucena Ron, MICROGRINDER OPERATOR [address] [place], [place] [address] Name Type Priority Associated Diagnoses Order S chedule PREALBUMIN LAB Routine Localized adiposity Expected : 06/23/2020, Expires: 06/23/2021 Health Maintenance Due Date Last Done Comments VARICELLA VACCINES (1 of 2 - 2-dose 1990 childhood series) PNEUMOCOCCAL 0-64 YEARS COMBINED 1995 SERIES (1 of 3 - PCV13) EYE EXAM 1999 URINE MICROALBUMIN 1999 FOOT EXAM 2007 DTaP,Tdap,and Td Vaccines (1 - Tdap) 02/09/2008 PAP SMEAR 09/12/2012 09/12/2009, 01/16/2009, 08/28/2007 INFLUENZA VACCINE (#1) 2020 HgA1C 11/15/2020 05/18/2020 Depression Screening 04/18/2021 04/18/2020 CREATININE (SERUM) 05/17/2021 05/17/2020, 12/18/2019, 07/19/2019 LDL-C 05/18/2021 05/18/2020 documented as of this encounter Goals Goal Patient Goal Associated Recent Patient-Stated? Author Type Problems Progress To minimize General Yes Cristobal, pain and gain Mercy G, PT strength. documented as of this encounter Implants Implanted Type Area Placement Assistant Device Shelf Model / Identifier Expiration Date Ser ial / Lot Screw-07/18/2003 SCREW Bilateral: Implanted: 07/18/2003 (Quantity not on file) Ankle documented as of this encounter Results Not on filedocumented in this encounter Visit Diagnoses Diagnosis Localized adiposity - Primary documented in this encounter Insurance Payer Benefit Plan / Subscriber ID Effective Dates Phone Addre ss Type Group [facility] STAR [id number] 2013-Present Medicaid COMM PLAN - PLUS MANAGED MEDICAID documented as of this encounter
--- OUTSIDE RECORDS SUMMARY | 2020-08-16 18:26 | XMS REPORT | Summary of Care ---
:1990 Author Organization [facility] Address [address] [place] [address] Care Team Providers Name Role Phone Ignacio Jordan Primary Care Provider Reason for Visit Reason Comments Follow-up Encounter Details Date Type Department Care Team Description 06/23/2020 Office Visit [facility] Surgical Quique Thomson Loc alized adiposity Alonso - Harjinder Huitron MD (Primary Dx) [address] [place] [address], [address] [place], [place] [address] [address] [place] [phone] Allergies Active Allergy Reactions [...] with No / Unsure 06/23/2020 1:21 PM DIP UNIT OPERATOR someone who was confirmed or suspected to have Coronavirus / COVID-19? documented as of this encounter Last Filed Vital Signs Vital Sign Reading Time Taken Comments Blood Pressure 118/71 06/23/2020 1:29 PM DIP UNIT OPERATOR Pulse 99 06/23/2020 1:29 PM DIP UNIT OPERATOR Temperature 36.7 C (98 F) 06/23/2020 1:29 PM DIP UNIT OPERATOR Respiratory Rate 20 06/23/2020 1:29 PM DIP UNIT OPERATOR Oxygen Saturation - - Inhaled Oxygen Concentration - - Weight 97.9 kg (215 lb 12.8 oz) 06/23/2020 1:29 PM DIP UNIT OPERATOR Height 160 cm (5' 3") 06/23/2020 1:29 PM DIP UNIT OPERATOR Body Mass Index 38.23 06/23/2020 1:29 PM DIP UNIT OPERATOR documented in this encounter Progress Notes Bipin Luke MD - 06/23/2020 1:15 PM CST PLASTIC SURGERY CLINIC NOTE 06/23/2020 Visit Type: follow up Chief Complaint: excess back adiposity / back mass HPI: Larueen Schmidt is a 30 year old female with history of Pomona syndrome, 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 French in [facility] - patient to obtain prealbumin lab prior to that appointment - continue working with PCP and endocrinology to ensure tight glucose control and weight control - no nicotine (patient already does not partake) - pending cardiology evaluation Bipin Luke M.D. 10:28 AM 06/23/2020 PGY-1, [facility] Department of Orthopaedic Surgery and Rehabilitation UNIT OPERATOR documented in this encounter Plan of Treatment Date Type Specialty Care Team Description 07/22/2020 Office Visit Plastic Surgery Lovely French MD [address] [place] [address] [address] [place] [address] 08/05/2020 Appointment Radiology Emma Briones MD [facility] [place] [address] [phone] 08/12/2020 Office Visit Cardiology Cleveland To MD [address] [place], [place] [address]. [place], [place] [phone] 08/19/2020 Office Visit Pulmonary Disease Azucena Ron, ORCHESTRA MUSICIAN [address] [place], [place] [address] Name Type Priority Associated [...] of this encounter Implants Implanted Type Area Sparmaker Device Shelf Model / Identifier Expiration Date Ser ial / Lot Screw-07/18/2003 SCREW Bilateral: Implanted: 07/18/2003 (Quantity not on file) Ankle documented as of this encounter Results Not on filedocumented in this encounter Visit Diagnoses Diagnosis Localized adiposity - Primary documented in this encounter Insurance Payer Benefit Plan / Subscriber ID Effective Dates Phone Addre ss Type Group [facility] STAR [id number] 2013-Present Medicaid COMM PLAN - PLUS MANAGED MEDICAID documented as of this encounter
--- OUTSIDE RECORDS SUMMARY | 2020-08-16 18:26 | XMS REPORT | Summary of Care ---
:1990 Author Organization [facility] Address [address] [place] [address] Care Team Providers Name Role Phone Ignacio Jordan Primary Care Provider Reason for Visit Reason Comments Follow-up Encounter Details Date Type Department Care Team Description 06/23/2020 Office Visit [facility] Surgical Quique Thomson Loc alized adiposity Alonso - Harjinder Huitron MD (Primary Dx) [address] [place] [address], [address] [place], [place] [address] [address] [place] [phone] Allergies Active Allergy Reactions [...] with No / Unsure 06/23/2020 1:21 PM IMAGE SCIENTIST someone who was confirmed or suspected to have Coronavirus / COVID-19? documented as of this encounter Last Filed Vital Signs Vital Sign Reading Time Taken Comments Blood Pressure 118/71 06/23/2020 1:29 PM IMAGE SCIENTIST Pulse 99 06/23/2020 1:29 PM IMAGE SCIENTIST Temperature 36.7 C (98 F) 06/23/2020 1:29 PM IMAGE SCIENTIST Respiratory Rate 20 06/23/2020 1:29 PM IMAGE SCIENTIST Oxygen Saturation - - Inhaled Oxygen Concentration - - Weight 97.9 kg (215 lb 12.8 oz) 06/23/2020 1:29 PM IMAGE SCIENTIST Height 160 cm (5' 3") 06/23/2020 1:29 PM IMAGE SCIENTIST Body Mass Index 38.23 06/23/2020 1:29 PM IMAGE SCIENTIST documented in this encounter Progress Notes Bipin Luke MD - 06/23/2020 1:15 PM CST PLASTIC SURGERY CLINIC NOTE 06/23/2020 Visit Type: follow up Chief Complaint: excess back adiposity / back mass HPI: Laureen Schmidt is a 30 year old female with history of Garrison syndrome, 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 French in [facility] - patient to obtain prealbumin lab prior to that appointment - continue working with PCP and endocrinology to ensure tight glucose control and weight control - no nicotine (patient already does not partake) - pending cardiology evaluation Bipin Luke M.D. 10:28 AM 06/23/2020 PGY-1, [facility] Department of Orthopaedic Surgery and Rehabilitation E SCIENTIST documented in this encounter Plan of Treatment Date Type Specialty Care Team Description 07/22/2020 Office Visit Plastic Surgery Lovely French MD [address] [place] [address] [address] [place] [address] 08/05/2020 Appointment Radiology Emma Briones MD [facility] [place] [address] [phone] 08/12/2020 Office Visit Cardiology Cleveland To MD [address] [place], [place] [address]. [place], [place] [phone] 08/19/2020 Office Visit Pulmonary Disease Azucena Ron, WEB ADMINISTRATOR [address] [place], [place] [address] Name Type Priority Associated [...] of this encounter Implants Implanted Type Area Brim And Crown Presser Device Shelf Model / Identifier Expiration Date Ser ial / Lot Screw-07/18/2003 SCREW Bilateral: Implanted: 07/18/2003 (Quantity not on file) Ankle documented as of this encounter Results Not on filedocumented in this encounter Visit Diagnoses Diagnosis Localized adiposity - Primary documented in this encounter Insurance Payer Benefit Plan / Subscriber ID Effective Dates Phone Addre ss Type Group [facility] STAR [id number] 2013-Present Medicaid COMM PLAN - PLUS MANAGED MEDICAID documented as of this encounter
--- OUTSIDE RECORDS SUMMARY | 2020-08-16 18:26 | XMS REPORT | Summary of Care ---
:1990 Author Organization [facility] - Health Address [address] [place] [address] Care Team Providers Name Role Phone Ignacio Jordan Primary Care Provider Encounter Details Date Type Department Care Team Description 06/03/2020 Orders Only [facility] Doctor Unassigned, No [address] [facility] [place] [address] 301 [place] [address] Allergies Active Allergy Reactions Severity Noted Date Comments Codeine Hives, Shortness of Breath 09/10/2015 documented as of this encounter (statuses as of 06/18/2020) Medications Medication Sig Dispensed Refills Start Date [...] as of this encounter (statuses as of 06/18/2020) Active Problems Problem Noted Date Obesity (BMI 30-39.9) 05/18/2020 Left-sided weakness 05/18/2020 documented as of this encounter (statuses as of 06/18/2020) Social History Tobacco Use Types Packs/Day Years [...] Treatment Date Type Specialty Care Team Description 06/19/2020 Ancillary Visit Physical Therapy Jerrica Bradley, PT [address] [facility] [place] [address] 06/23/2020 Office Visit Plastic Surgery Quique Thomson MD [address] [place], [place] [phone] 08/05/2020 Appointment Radiology Emma Briones MD [address] [place], [place] [phone] 08/12/2020 Office Visit Cardiology Cleveland To MD [address] [facility] [address] [place] [phone] 08/19/2020 Office Visit Pulmonary Disease Azucena Ron, POSTULANT 146 [facility] [place], [place] [address] Health Maintenance Due Date Last Done Comments [...] minimize General Yes Cristobal, pain and gain Elianey G, PT strength. documented as of this encounter Implants Implanted Type Area Adobe Architect Device Shelf Model / Identifier Expiration Date Ser ial / Lot Screw-07/18/2003 SCREW Bilateral: Implanted: 07/18/2003 (Quantity not on file) Ankle documented as of this encounter Procedures Procedure Name Priority Date/Time Associated Diagnosis Comme nts EXTERNAL PROVIDER - ADC Routine 06/03/2020 12:01 AM BASIN TENDER REFERRAL documented in this encounter Results Not on filedocumented in this encounter Insurance Payer Benefit Plan / Subscriber ID Effective Dates Phone Addre ss Type Group [facility] [id number] 2013-Present Medicaid COMM PLAN - PLUS MANAGED MEDICAID documented as of this encounter
--- OUTSIDE RECORDS SUMMARY | 2020-08-16 18:27 | XMS REPORT | Summary of Care ---
:1990 Author Organization [facility] Address [address] [place] [address] Care Team Providers Name Role Phone Ignacio Jordan Primary Care Provider Reason for Visit Reason Comments LAB WORK Encounter Details Date Type Department Care Team Description 07/22/2020 Vascular Physician Visit [facility] Marilyn French MD [address] [facility] [address] [place] [address] Obesity (BMI 30-39.9) PHLEBOTOMY/LAB Vls-Lab [address] [facility] [address] [place] [phone] Allergies Active Allergy Reactions Severity Noted Date Comments Codeine Hives, Shortness of Breath 09/10/2015 documented as of this encounter (statuses as of 07/22/2020) Medications Medication Sig Dispensed Refills Start Date End Date Status traMADol 50 mg Take 1 tablet 30 tablet 0 07/20/2019 Active tabletIndications: by mouth every Sore throat, Urinary 6 (six) hours tract infection with as needed for hematuria, site Pain (scale unspecified, 4-6). Hyperglycemia aspirin 81 mg chewable Take 1 tablet [...] ctive capsule ibuprofen 600 mg TAKE 1 TABLET 0 06/06/2020 Active tablet BY MOUTH WITH FOOD OR MILK NEEDED THREE TIMES A DAY FOR 5 DAYS BD INSULIN PEN NEEDLE Take 10 mg by 0 06/02/2020 Active UF 31 gauge x 5/16" mouth. NdleIndications: Obesity (BMI 30-39.9) documented as of this encounter (statuses as of 07/22/2020) Active Problems Problem Noted Date Obesity (BMI 30-39.9) 05/18/2020 Left-sided weakness 05/18/2020 documented as of this encounter (statuses as of 07/22/2020) Social History Tobacco Use Types Packs/Day Years Used Date Never Smoker Smokeless Tobacco: Never Used Alcohol Use Drinks/Week oz/Week Comments Not Currently Sex Assigned at Date Recorded Not on file COVID-19 Exposure Response Date Recorded In the last month, have you been in contact with No / Unsure 07/22/2020 1:16 PM GOLD BEATER someone who was confirmed or suspected to have Coronavirus / COVID-19? documented as of this encounter Last Filed Vital Signs Not on filedocumented in this encounter Nursing Notes Azucena Little - 07/22/2020 2:45 PM CST Venipuncture collection performed by clean technique on the left anticubitus. Total of 1 attempts were made. Slight pressure and a bandage/dressing were applied to the site(s). The patient experienced no complications. The following specimens were processed according to instructions and sent to [facility] laboratories per lab order on 07/22/20: LT BLUE SST 1 RED LAV 2 PPT DK GREEN (LiHep) DK GREEN (SodH) LOVING DK BLUE (K2) DK BLUE (S) ACD Blood Culture NIPT/NTD documented in this encounter Plan of Treatment Date Type Specialty Care Team Description 08/05/2020 Appointment Radiology Lovely French MD [address] [place] [address] [address] [place], [place] [address] 08/05/2020 Appointment Radiology Emma Briones MD [address] [place], [place] [phone] 08/12/2020 Office Visit Cardiology Cleveland To MD [address] [place] [address]. [place], [place] [phone] 08/19/2020 Office Visit Pulmonary Disease Azucena Ron, GRAIN MIXER [address] [place], [place] [address] Health Maintenance Due Date [...] of this encounter Implants Implanted Type Area Car Cooper Device Shelf Model / Identifier Expiration Date Ser ial / Lot Screw-07/18/2003 SCREW Bilateral: Implanted: 07/18/2003 (Quantity not on file) Ankle documented as of this encounter Results Not on filedocumented in this encounter Visit Diagnoses Diagnosis Obesity (BMI 30-39.9) Obesity, unspecified documented in this encounter Insurance Payer Benefit Plan / Subscriber ID Effective Dates Phone Addre ss Type Group [facility] STAR [id number] 2013-Present Medicaid COMM PLAN - PLUS MANAGED MEDICAID documented as of this encounter
--- OUTSIDE RECORDS SUMMARY | 2020-08-16 18:27 | XMS REPORT | Summary of Care ---
:1990 Author Organization [facility] Address [address] [place] [address] Care Team Providers Name Role Phone Ignacio Jordan Primary Care Provider Reason for Visit Reason Comments Follow-up Encounter Details Date Type Department Care Team Description 06/23/2020 Office Visit [facility] Surgical Quique Thomson Loc alized adiposity Alonso - Harjinder Huitron MD (Primary Dx) [address] [place] [address], [address] [place], [place] [address]D [address] [place] [phone] Allergies Active Allergy Reactions Severity Noted Date Comments Codeine Hives, Shortness of Breath 09/10/2015 documented as of this encounter (statuses as of 06/24/2020) Medications Medication Sig Dispensed Refills Start Date [...] as of this encounter (statuses as of 06/24/2020) Active Problems Problem Noted Date Obesity (BMI 30-39.9) 05/18/2020 Left-sided weakness 05/18/2020 documented as of this encounter (statuses as of 06/24/2020) Social History Tobacco Use Types Packs/Day Years Used Date Never Smoker Smokeless Tobacco: Never Used Alcohol Use Drinks/Week oz/Week Comments Not Currently Sex Assigned at Date Recorded Not on file COVID-19 Exposure Response Date Recorded In the last month, have you been in contact with No / Unsure 06/23/2020 1:21 PM SASH MAKER someone who was confirmed or suspected to have Coronavirus / COVID-19? documented as of this encounter Last Filed Vital Signs Vital Sign Reading Time Taken Comments Blood Pressure 118/71 06/23/2020 1:29 PM SASH MAKER Pulse 99 06/23/2020 1:29 PM SASH MAKER Temperature 36.7 C (98 F) 06/23/2020 1:29 PM SASH MAKER Respiratory Rate 20 06/23/2020 1:29 PM SASH MAKER Oxygen Saturation - - Inhaled Oxygen Concentration - - Weight 97.9 kg (215 lb 12.8 oz) 06/23/2020 1:29 PM SASH MAKER Height 160 cm (5' 3") 06/23/2020 1:29 PM SASH MAKER Body Mass Index 38.23 06/23/2020 1:29 PM SASH MAKER documented in this encounter Progress Notes Bipin Luke MD - 06/23/2020 1:15 PM CST PLASTIC SURGERY CLINIC NOTE 06/23/2020 Visit Type: follow up Chief Complaint: excess back adiposity / back mass HPI: Laureen Schmidt is a 30 year old female with history of Aspen syndrome, 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 French in [facility] - patient to obtain prealbumin lab prior to that appointment - continue working with PCP and endocrinology to ensure tight glucose control and weight control - no nicotine (patient already does not partake) - pending cardiology evaluation Bipin Luke M.D. 10:28 AM 06/23/2020 PGY-1, [facility] Department of Orthopaedic Surgery and Rehabilitation After discussion with Dr. Luke, I examined this patient. I agree with resident's note as written. Quique Thomson MD Attending Surgeon Plastic, Reconstructive and Burn Surgery Pager# [phone] Doc# [id number] Date: 06/23/2020 documented in this encounter Plan of Treatment Date Type Specialty Care Team Description 07/22/2020 Office Visit Plastic Surgery Lovely French MD [address] [place] [address] [address] [place] [phone] 08/05/2020 Appointment Radiology Emma Briones MD [facility] [place], [place] [address] 08/12/2020 Office Visit Cardiology Cleveland To MD [address] [place] [address]. [place], [place] [phone] 08/19/2020 Office Visit Pulmonary Disease Azucena Ron, ILANA [address] [place] [address] Dr Jordan [place] [address] [phone] Name Type Priority Associated Diagnoses Order S [...] of this encounter Implants Implanted Type Area Parts Salesperson Device Shelf Model / Identifier Expiration Date Ser ial / Lot Screw-07/18/2003 SCREW Bilateral: Implanted: 07/18/2003 (Quantity not on file) Ankle documented as of this encounter Results Not on filedocumented in this encounter Visit Diagnoses Diagnosis Localized adiposity - Primary documented in this encounter Insurance Payer Benefit Plan / Subscriber ID Effective Dates Phone Addre ss Type Group [facility] STAR [id number] 2013-Present Medicaid COMM PLAN - PLUS MANAGED MEDICAID documented as of this encounter
--- OUTSIDE RECORDS SUMMARY | 2020-08-16 18:28 | XMS REPORT | Summary of Care ---
:1990 Author Organization [facility] Address [address] [place] [address] Care Team Providers Name Role Phone Patricklaura Ignacio Primary Care Provider Reason for Referral (Routine) Status Reason Specialty Diagnoses / Referred By Referred To Procedures Contact Contact New Request Orthopedic Surgery Diagnoses Obesity (BMI 30-39.9) Lovely French Procedures CONSULT/REFERRAL ORTHOPAEDIC SURGERY MD Alexander [address] [facility] [address] [address] (Routine) Status Reason Specialty Diagnoses / Referred By Referred To Procedures Contact Contact New Request Pain Medicine Diagnoses Obesity (BMI 30-39.9) Lovely French Procedures CONSULT/REFERRAL PAIN CLINIC MD Alexander [address] [place] [address] [address] (Routine) Status Reason Specialty Diagnoses / Referred By Referred To Procedures Contact Contact New Request Neurology Diagnoses Obesity (BMI 30-39.9) Lovely French, Procedures CONSULT NEUROLOGY [address] [place] [address] [address] (Routine) Status Reason Specialty Diagnoses / Referred By Referred To Procedures Contact Contact New Request Cardiology Diagnoses Obesity (BMI 30-39.9) Lovely French, Procedures CONSULT/REFERRAL CARDIOLOGY [address] [place] [address] [address] MRI/CAT Scan (Routine) Status Reason Specialty Diagnoses / Referred By Referred To Procedures Contact Contact New Request Diagnostic Diagnoses Obesity (BMI 30-39.9) Astrid Frencha Radiology Procedures CT ABDOMEN PELVIS W CONTRAST MD Alexander [address] [address] Reason for Visit Reason Comments Follow-up localized adiposity Encounter Details Date Type Department Care Team Description 07/22/2020 Office Visit [facility] Health Plastic Lovely French ty (BMI 30- 39.9) (Primary Dx); [facility] Alexander Weakness; Martin [address] RT Roman syndrome; [address] [facility] G2 Localized adiposity; [place] [phone] Allergies Active Allergy Reactions Severity Noted Date Comments Codeine Hives, Shortness of Breath 09/10/2015 documented as of this encounter (statuses as of 07/22/2020) Medications Medication Sig Dispensed Refills Start Date End Date Status traMADol 50 mg Take 1 30 tablet 0 07/20/2019 Acti ve tabletIndications: tablet by Sore throat, mouth every Urinary tract 6 (six) infection with hours as hematuria, site needed for unspecified, Pain (scale Hyperglycemia 4-6). aspirin 81 mg Take 1 30 tablet [...] DAY FOR 5 DAYS BD INSULIN PEN Take 10 mg 0 06/02/2020 Act michelle NEEDLE UF 31 gauge by mouth. x 11/30" NdleIndications: Obesity (BMI 30-39.9) terbinafine HCL Apply to 1 Tube 2 07/22/2020 Act michelle (LAMISIL AT) 1 % area(s) 2 creamIndications: (two) times Intertrigo daily. lithium carbonate Take 300 mg 0 Discontinued (LITHOTABS) 300 mg by mouth 3 1 (Patient tablet (three) Reported) times daily. PAROXETINE HCL Take by 0 Disco ntinued (PAXIL ORAL) mouth. 1 (Patien t Reported) TOPIRAMATE 50 mg TAKE 1 60 tablet 1 09/19/2019 Di scontinued tabletIndications: TABLET BY 1 ( Patient Complicated MOUTH TWICE Report ed) headache syndromes A DAY INVOKANA 100 mg Take 1 0 05/02/2020 Dis continued tablet tablet by 1 (Patient mouth daily. Reporte d) documented as of this encounter (statuses as [...] with No / Unsure 07/22/2020 1:16 PM AUTOMATIC QUILLING MACHINE OPERATOR someone who was confirmed or suspected to have Coronavirus / COVID-19? documented as of this encounter Last Filed Vital Signs Vital Sign Reading Time Taken Comments Blood Pressure 125/82 07/22/2020 1:19 PM AUTOMATIC QUILLING MACHINE OPERATOR Pulse 78 07/22/2020 1:19 PM AUTOMATIC QUILLING MACHINE OPERATOR Temperature 36.8 C (98.2 F) 07/22/2020 1:19 PM AUTOMATIC QUILLING MACHINE OPERATOR Respiratory Rate 18 07/22/2020 1:19 PM AUTOMATIC QUILLING MACHINE OPERATOR Oxygen Saturation 97% 07/22/2020 1:19 PM AUTOMATIC QUILLING MACHINE OPERATOR Inhaled Oxygen Concentration - - Weight 99 kg (218 lb 3.2 oz) 07/22/2020 1:19 PM AUTOMATIC QUILLING MACHINE OPERATOR Height 160 cm (5' 3") 07/22/2020 1:19 PM AUTOMATIC QUILLING MACHINE OPERATOR Body Mass Index 38.65 07/22/2020 1:19 PM AUTOMATIC QUILLING MACHINE OPERATOR documented in this encounter Progress Notes Vanessa Hensley MD - 07/22/2020 1:15 PM CST PLASTIC SURGERY CLINIC NOTE 07/22/2020 Visit Type: Clinic Note / History and Physical Chief Complaint: Back and abdominal lipodystrophy DUYEN Schmidt is a 30 year old female presenting for evaluation of left upper back mass, referred byDr. Thomson for evaluation for possible body contouring. She has not had her pre-albumin labs. She does not have cardiac clearance as of yet. 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 She would like to have her left back mass removed. She has had this mass her entire life. Prior CTevaluation did not identify discrete lipoma. She has had liposuction in that area in the past. She is presently on tramadol, ibuprofen and gabapentin for pain control. She has hyperesthesia located along her back mass. She reports only eating a piece of toast for lunch and chicken with vegetables for dinner with no other meals or snacks. Patient has not undergone bariatric surgery at least 18 months prior. The patient has lost 50 lbs overall and Her weight has been stable for at least the past 6 months. Body mass index is 38.65 kg/m.. Patient complains that due to the excess skin, she has the following symptoms: She complains her pannus is very heavy, causes pain on her bilateral hips and causes difficulty walking. She has mild rashes on her umbilicus and underneath her pannus. Symptom Rashes/intertrigo in skin folds Yes Pain associated with rashes/intertrigo/skin breakdown in skin folds Yes Excess skin causing limitations in physical activity Yes Inability to fit properly in clothes Yes Chaffing of skin due to clothing improperly fitting Yes In addition to the above symptoms, the patient has undergone the following conservative measures with no relief: Treatment Medically supervised weight loss program for at least 3 months No Dietary modifications and aerobic exercise for at least 6 months No Used dermatologic therapy for ulcers or refractory skin infections No Use of antibiotics for recurrent panniculitis Yes Used NSAIDs for pain relief Yes Participated in physical therapy No Histories Past Medical History: Diagnosis Date Anxiety Bipolar 1 disorder Bladder 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 Social History Socioeconomic History Marital status: Single [...] file Gets together: Not on file Attends restorationism service: Not on file Active member of [...] History Narrative Not on file Review of Systems Constitutional: negative Eyes: negative Ears: negative Nose/Sinuses: negative Mouth/Throat: negative Cardiovascular: negative Respiratory: negative Gastrointestinal: negative Genitourinary: negative Musculoskeletal: (+)back pain Integumentary: (+)Intertrigo, (-)ulceration Neuro: negative Psych: negative Endocrine: negative Hem/Lymph: negative Allergy/Immunology: negative Physical Exam BP 125/82 | Pulse 78 | Temp 36.8 C (98.2 F) | Resp 18 | Ht 1.6 m (5' 3") | Wt 99 kg (218 lb3.2 oz) | SpO2 97% | BMI 38.65 kg/m General: alert, oriented times three, no apparent distress, appearing age appropriate Skin: excess skin in areas of abdomen, active intertrigo in the following areas: abdominal pannus, no hyperpigmentation indicative of chronic intertrigo; no palpable hernias, palpable rectus diastasis Pannus hangs at below the level of the pubic symphysis, pannus overhang measurements: Left: 9cm Right: 10cm Head: normocephalic Eyes: anicteric sclera Neck: neck supple Neuro: unremarkable without focal findings Extremities/Musculoskeletal: no cyanosis, no edema. Left back mass with hyperesthesia along upper back. Visible amniotic band syndrome. Laboratory No new labs Procedure Note Not applicable. Caprini Score: VTE: General Info VTE Age: less than 40 yrs VTE BMI: >25 (obesity) AGE/BMI TOTAL: 1 VTE History Prior Major Surgery <1 Month: Yes Inflammatory Bowel Disease: No Acute Myocardial Infarction : No Congestive Heart Failure Less Than 1 Mo Ago: No Sepsis Less Than 1 Mo Ago: No Present or Past Malignancy: Yes History of DVT/PE: No Family History of Thrombosis: Yes Hip Pelvis Or Leg Fracture Less Than 1 Mo Ago: No Stroke Less Than 1 Mo Ago: No Multiple Trauma Less Than 1 Mo Ago: No Acute Spinal Cord Injury Paralysis Less Than 1 Mo Ago: No Serious lung disease including pneumonia (<1 month): No VTE HISTORY TOTAL: 6 VTE Current Status Abnormal Pulmonary Function (i.e.COPD): No Central Venous Access: No Varicose Veins: No Swollen Legs (Current): No Medical Patient Currently At Bed Rest: No Immobilizing plaster cast (< 1 month): No Minor Surgery Planned: No Elective Major Lower Extremity Arthroplasty: No Arthroscopic surgery: No Laparoscopic surgery (>45 minutes): No Major surgery (>45 mintues): Yes Patient confined to bed (> 72 hours): Yes VTE CURRENT STATUS TOTAL: 4 VTE Current Labs/Test Results Positive Factor V Leiden: No Positive Prothrombin 49584F: No Elevated Serum Homocysteine: No Positive Lupus Anticoagulant: No Elevated Anticardiolipin Antibodies: No HIT heparin induced thrombocytopenia: No Other Thrombophilia: No VTE For Women Only (if male, select n/a) Oral Contraceptives Or Hormone Replacement Therapy: No Oral Contraceptives Or Hormone Replacement Therapy (Male): (not recorded) Or Less Than 1 Mo : No Or Less Than 1 Mo (Male): (not recorded) History Of Unexplained Stillborn Recurrent Spontaneous Greater Than Or Equal To 3 Premature With Toxemia Or Growth-restricted Infant: No History Of Unexplained Stillborn Recurrent Spontaneous Greater Than Or Equal To 3 Premature With Toxemia Or Growth-restricted (Male): (not recorded) VTE Risk Factor: Totals Current Labs/Tests Subtotal: 0 Women Score Subtotal: 0 Male Score Subtotal: (not recorded) TOTAL CAPRINI SCORE CAPRINI TOTAL SCORE: 11 CAPRINI TOTAL SCORE: (not recorded) Assessment/Plan Laureen Schmidt is a 30 year old female with symptomatic excess skin in the areas of the abdominal pannus and left upper back lipodystrophy who has failed conservative management after 6 months of non-operative therapeutic measures. There is a reasonable likelihood that her symptoms are primarily due to excess skin and that panniculectomy and back lift will likely result in improvement of chronic painand symptoms. -Plan for preop optimization prior to work up for surgery -Neurology clearance to evaluate hamartoma and clearance for an elective surgery -Cardiology clearance to evaluate underlying cardiac issues and history of cardiac defects -Reviewed optimal hemoglobin A1C of 7 and under is required for elective surgery. Reviewed strategies for dietary optimization and protein suppelementation -Pain consult to evaluate patients chronic back pain now managed on multiple medications including gabapentin, tramadol and ibuprofen -Follow up CT abdomen/pelvis with contrast to evaluate for possible umbilical hernia/rectus diastasis -Follow up CBC, CMP, prealbumin, PT/INR labs - Risks/benefits and complications including but not limited to: pain, bleeding, infection, scarring, wound breakdown, poor cosmesis, need for repeat/additional procedures, damage to adjacent/surrounding structures, hematoma, seroma, failure to improve symptoms, umbilicus necrosis, as well as alternatives to procedure were discussed with the patient who verbalized understanding. - Educated on procedure in detail including location of scars and anticipated postoperative recoverytimeframe - Informed consent discussed with the patient, including: condition, proposed care, treatments and services, alternative forms of treatment, and risks of no treatment. Details discussed around the procedures to be used, and the risks and hazards involved, potential benefits, and side effects of the patients proposed care, treatment, and services; the likelihood of the patient achieving his or hergoals; and any potential problems that might occur during recuperation. Reasonable alternative also discussed with the patients proposed care, treatment, and services. The discussion encompasses risks, benefits, and side effects related to the alternative and risks related to not receiving the proposed care, treatment, and services. -Informed consent signed and documented - All questions were answered to patient satisfaction - Instructional packet provided for self-education - Body mass index is 38.65 kg/m. - RTC upon clearance by neurology, cardiology, diabetes optimization and pain consult. Follow up with CT abdomen pelvis and lab results upon next clinic appointment - Patient's Caprini score is: [address] Tani Hensley MD 07/22/2020 2:56 PM Plastic Surgery PGY 1 documented in this encounter Miscellaneous Notes Addendum Note - Fredy Freire MD - 07/22/2020 1:15 PM AUTOMATIC QUILLING MACHINE OPERATOR Addended by: TANI LUZ, FREDY Serrato on: 07/22/2020 05:43 PM Modules accepted: Orders MATIC QUILLING MACHINE OPERATOR documented in this encounter Plan of Treatment Date Type Specialty Care Team Description 08/05/2020 Appointment Radiology Lovely French [facility] [address] [facility] [address] [place], [place] [address] 08/05/2020 Appointment Radiology Emma Briones MD [address] [place] [address] 08/12/2020 Office Visit Cardiology Cleveland To MD [address] [facility] [place]. [place], [place] [phone] 08/19/2020 Office Visit Pulmonary Disease Azucena Ron, ILANA [address] [place], [place] [address] Name Type Priority Associated Diagnoses Order S chedule CT ABDOMEN PELVIS W IMAGING Routine Obesity (BMI 30-39.9) Expected: 07/22/2020, CONTRAST Expires: 2021 CBC WITHOUT DIFF LAB Routine Obesity (BMI 30-39.9) Ex pected: 07/22/2020, Expires: 2021 COMP. METABOLIC PANEL LAB Routine Obesity (BMI 30-39. 9) Expected: 07/22/2020, ([id number]) Expires: 2021 PROTHROMBIN TIME / INR LAB Routine Obesity (BMI 30-39 .9) Expected: 07/22/2020, Expires: 2021 Health Maintenance Due Date Last Done Comments [...] minimize General Yes Cristobal, pain and gain Annabelle G, PT strength. documented as of this encounter Implants Implanted Type Area Scales Inspector Device Shelf Model / Identifier Expiration Date Ser ial / Lot Screw-07/18/2003 SCREW Bilateral: Implanted: 07/18/2003 (Quantity not on file) Ankle documented as of this encounter Results GLYCOSYLATED HEMOGLOBIN (A1C) (07/22/2020 2:55 PM AUTOMATIC QUILLING MACHINE OPERATOR) Pathologist Sig nature HGB A1C 9.0 (H) 4.0 - 6.0 % [facility] Specimen Blood Performing Organization Address City/State/Zipcode Phone Number [facility] CLIA: [id number] [place] [address] SERVICES[address] documented in this encounter Visit Diagnoses Diagnosis Obesity (BMI 30-39.9) - Primary Obesity, unspecified Weakness Other malaise and fatigue [place] syndrome Other specified congenital anomalies Localized adiposity Intertrigo Other specified erythematous condition documented in this encounter Insurance Payer Benefit Plan / Subscriber ID Effective Dates Phone Addre ss Type Group [facility] STAR [id number] 2013-Present Medicaid COMM PLAN - PLUS MANAGED MEDICAID documented as of this encounter
--- OUTSIDE RECORDS SUMMARY | 2020-08-16 18:28 | XMS REPORT | Summary of Care ---
:1990 Author Organization [facility] Address [address] [place] [address] Care Team Providers Name Role Phone Patricklaura Ignacio Primary Care Provider Reason for Referral (Routine) Status Reason Specialty Diagnoses / Referred By Referred To Procedures Contact Contact New Request Orthopedic Surgery Diagnoses Obesity (BMI 30-39.9) Lovely French Procedures CONSULT/REFERRAL ORTHOPAEDIC SURGERY MD Alexander [address] [facility] [address] [address] (Routine) Status Reason Specialty Diagnoses / Referred By Referred To Procedures Contact Contact New Request Pain Medicine Diagnoses Obesity (BMI 30-39.9) Lovely French Procedures CONSULT/REFERRAL PAIN CLINIC MD Alexander [address] [place] [address] [address] (Routine) Status Reason Specialty Diagnoses / Referred By Referred To Procedures Contact Contact New Request Neurology Diagnoses Obesity (BMI 30-39.9) Lovely French, Procedures CONSULT NEUROLOGY [address] [place] [address] [address] (Routine) Status Reason Specialty Diagnoses / Referred By Referred To Procedures Contact Contact New Request Cardiology Diagnoses Obesity (BMI 30-39.9) Lovely French, Procedures CONSULT/REFERRAL CARDIOLOGY [address] [place] [address] [address] MRI/CAT Scan (Routine) Status Reason Specialty Diagnoses / Referred By Referred To Procedures Contact Contact New Request Diagnostic Diagnoses Obesity (BMI 30-39.9) Astrid Frencha Radiology Procedures CT ABDOMEN PELVIS W CONTRAST MD Alexander [address] [place] [address] Reason for Visit Reason Comments Follow-up localized adiposity Encounter Details Date Type Department Care Team Description 07/22/2020 Office Visit [facility] Health Plastic Lovely French ty (BMI 30- 39.9) (Primary Dx); Surgery- [place] MD Alexander Weakness; [place] [address] Roman syndrome; [address] [facility] G2 [place] [phone] Allergies Active Allergy Reactions Severity Noted Date [...] mouth. x 11/30" NdleIndications: Obesity (BMI 30-39.9) lithium carbonate Take 300 mg 0 Discontinued [...] with No / Unsure 07/22/2020 1:16 PM SENIOR CONTRACTS ADMINISTRATOR someone who was confirmed or suspected to have Coronavirus / COVID-19? documented as of this encounter Last Filed Vital Signs Vital Sign Reading Time Taken Comments Blood Pressure 125/82 07/22/2020 1:19 PM SENIOR CONTRACTS ADMINISTRATOR Pulse 78 07/22/2020 1:19 PM SENIOR CONTRACTS ADMINISTRATOR Temperature 36.8 C (98.2 F) 07/22/2020 1:19 PM SENIOR CONTRACTS ADMINISTRATOR Respiratory Rate 18 07/22/2020 1:19 PM SENIOR CONTRACTS ADMINISTRATOR Oxygen Saturation 97% 07/22/2020 1:19 PM SENIOR CONTRACTS ADMINISTRATOR Inhaled Oxygen Concentration - - Weight 99 kg (218 lb 3.2 oz) 07/22/2020 1:19 PM SENIOR CONTRACTS ADMINISTRATOR Height 160 cm (5' 3") 07/22/2020 1:19 PM SENIOR CONTRACTS ADMINISTRATOR Body Mass Index 38.65 07/22/2020 1:19 PM SENIOR CONTRACTS ADMINISTRATOR documented in this encounter Progress Notes Vanessa [...] is scheduled for an appointment with her military pay technician later this month 08/12/20 for cardiac clearance [...] file Gets together: Not on file Attends zoroastrianism service: Not on file Active member of [...] Positive Factor V Leiden: No Positive Prothrombin 19400Z: No Elevated Serum Homocysteine: No Positive Lupus [...] (Male): (not recorded) History Of Unexplained Stillborn Infant Recurrent Spontaneous Greater Than Or Equal To 3 Premature With Toxemia Or Growth-restricted : No History Of Unexplained Stillborn Recurrent Spontaneous [...] Surgery PGY 1 documented in this encounter Plan of Treatment Date Type Specialty Care Team Description 08/05/2020 Appointment Radiology Lovely French MD [address] [place] [address] 08/05/2020 Appointment Radiology Emma Briones MD [address] [place], [place] [id number] 08/12/2020 Office Visit Cardiology [place] To MD [address] [place], [place] [address]d. [place], [place] [phone] 08/19/2020 Office Visit Pulmonary Disease Azucena Ron, FIRER POWERHOUSE [address] [place], [place] [address] Name Type Priority Associated Diagnoses Date/Ti me GLYCOSYLATED HEMOGLOBIN LAB Routine Obesity (BMI 30-3 9.9) 07/22/2020 2:55 PM SENIOR CONTRACTS ADMINISTRATOR (A1C) Name Type Priority Associated Diagnoses Order S chedule GLYCOSYLATED HEMOGLOBIN LAB Routine Obesity (BMI 30-3 9.9) Expected: 07/22/2020, (A1C) Expires: 2021 CT ABDOMEN PELVIS W IMAGING Routine Obesity (BMI 30-39.9) Expected: 07/22/2020, CONTRAST Expires: 2021 CBC WITHOUT DIFF LAB Routine Obesity (BMI 30-39.9) Ex pected: 07/22/2020, Expires: 2021 COMP. METABOLIC PANEL LAB Routine Obesity (BMI 30-39. 9) Expected: 07/22/2020, (30143) Expires: 2021 PROTHROMBIN TIME / INR LAB [...] of this encounter Implants Implanted Type Area Bark Scaler Device Shelf Model / Identifier Expiration Date Ser ial / Lot Screw-07/18/2003 SCREW Bilateral: Implanted: 07/18/2003 (Quantity not on file) Ankle documented as of this encounter Results Not on filedocumented in this encounter Visit Diagnoses Diagnosis Obesity (BMI 30-39.9) - Primary Obesity, unspecified Weakness Other malaise and fatigue Roman syndrome Other specified congenital anomalies Localized adiposity documented in this encounter Insurance Payer Benefit Plan / Subscriber ID Effective Dates Phone Addre ss Type Group [facility] STAR [id number] 2013-Present Medicaid COMM PLAN - PLUS MANAGED MEDICAID documented as of this encounter
--- OUTSIDE RECORDS SUMMARY | 2020-08-16 18:28 | XMS REPORT | Summary of Care ---
:1990 Author Organization [facility] Address [address] [place] [phone] Care Team Providers Name Role Phone Patricklaura Ignacio Primary Care Provider Reason for Referral (Routine) Status Reason Specialty Diagnoses / Referred By Referred To Procedures Contact Contact New Request Orthopedic Surgery Diagnoses Obesity (BMI 30-39.9) Lovely French Procedures CONSULT/REFERRAL ORTHOPAEDIC SURGERY MD Alexander [address] [facility] [address] [address] (Routine) Status Reason Specialty Diagnoses / Referred By Referred To Procedures Contact Contact New Request Pain Medicine Diagnoses Obesity (BMI 30-39.9) Lovely French Procedures CONSULT/REFERRAL PAIN CLINIC MD Alexander [address] [place] [address] [address] (Routine) Status Reason Specialty Diagnoses / Referred By Referred To Procedures Contact Contact New Request Neurology Diagnoses Obesity (BMI 30-39.9) Lovely French, Procedures CONSULT NEUROLOGY [address] [place] [address] [address] (Routine) Status Reason Specialty Diagnoses / Referred By Referred To Procedures Contact Contact New Request Cardiology Diagnoses Obesity (BMI 30-39.9) Lovely French, Procedures CONSULT/REFERRAL CARDIOLOGY [address] [place] [address] [address] MRI/CAT Scan (Routine) Status Reason Specialty Diagnoses / Referred By Referred To Procedures Contact Contact New Request Diagnostic Diagnoses Obesity (BMI 30-39.9) Astrid Frencha Radiology Procedures CT ABDOMEN PELVIS W CONTRAST MD Alexander [address] [place] [address] Reason for Visit Reason Comments Follow-up localized adiposity Encounter Details Date Type Department Care Team Description 07/22/2020 Office Visit [facility] Health Plastic Lovely French ty (BMI 30- 39.9) (Primary Dx); Surgery- [place] MD Alexander Weakness; [place] [address] Roman syndrome; [address] [facility] G2 [place] [phone] Allergies Active Allergy Reactions Severity Noted Date [...] with No / Unsure 07/22/2020 1:16 PM CATH LABORATORY TECHNICIAN someone who was confirmed or suspected to have Coronavirus / COVID-19? documented as of this encounter Last Filed Vital Signs Vital Sign Reading Time Taken Comments Blood Pressure 125/82 07/22/2020 1:19 PM CATH LABORATORY TECHNICIAN Pulse 78 07/22/2020 1:19 PM CATH LABORATORY TECHNICIAN Temperature 36.8 C (98.2 F) 07/22/2020 1:19 PM CATH LABORATORY TECHNICIAN Respiratory Rate 18 07/22/2020 1:19 PM CATH LABORATORY TECHNICIAN Oxygen Saturation 97% 07/22/2020 1:19 PM CATH LABORATORY TECHNICIAN Inhaled Oxygen Concentration - - Weight 99 kg (218 lb 3.2 oz) 07/22/2020 1:19 PM CATH LABORATORY TECHNICIAN Height 160 cm (5' 3") 07/22/2020 1:19 PM CATH LABORATORY TECHNICIAN Body Mass Index 38.65 07/22/2020 1:19 PM CATH LABORATORY TECHNICIAN documented in this encounter Progress Notes Vanessa Hensley MD - 07/22/2020 1:15 PM CST PLASTIC SURGERY CLINIC NOTE 07/22/2020 Visit Type: Clinic Note / History and Physical Chief Complaint: Back and abdominal lipodystrophy DUEYN Schmidt is a 30 year old female presenting for evaluation of left upper back mass, referred byDr. Thomson for evaluation for possible body contouring. She has not had her pre-albumin labs. She does not have cardiac clearance as of yet. She is scheduled for an appointment with her boil off machine operator cloth later this month 08/12/20 for cardiac clearance [...] file Gets together: Not on file Attends adventism service: Not on file Active member of [...] Positive Factor V Leiden: No Positive Prothrombin 39733B: No Elevated Serum Homocysteine: No Positive Lupus [...] Description 08/05/2020 Appointment Radiology Lovely French MD [address] [place] [address] 08/05/2020 Appointment Radiology Emma Briones MD [address] [place], [place] [address] 08/12/2020 Office Visit Cardiology [place] To MD [address] [place], [place] [address]d. [place], [place] [phone] 08/19/2020 Office Visit Pulmonary Disease Azucena Ron, TILE MECHANIC HELPER [address] [place], [place] [address] Name Type Priority Associated Diagnoses Date/Ti me GLYCOSYLATED HEMOGLOBIN LAB Routine Obesity (BMI 30-3 9.9) 07/22/2020 2:55 PM CATH LABORATORY TECHNICIAN (A1C) Name Type Priority Associated Diagnoses Order S chedule GLYCOSYLATED HEMOGLOBIN LAB Routine Obesity (BMI 30-3 9.9) Expected: 07/22/2020, (A1C) Expires: 2021 CT ABDOMEN PELVIS W IMAGING Routine Obesity (BMI 30-39.9) Expected: 07/22/2020, CONTRAST Expires: 2021 CBC WITHOUT DIFF LAB Routine Obesity (BMI 30-39.9) Ex pected: 07/22/2020, Expires: 2021 COMP. METABOLIC PANEL LAB Routine Obesity (BMI 30-39. 9) Expected: 07/22/2020, ([address]97) Expires: 2021 PROTHROMBIN TIME / INR LAB [...] of this encounter Implants Implanted Type Area Hydrostatic Tubing Tester Device Shelf Model / Identifier Expiration Date [...] Effective Dates Phone Addre ss Type Group [facility] STAR [id number] 2013-Present Medicaid COMM PLAN - PLUS MANAGED MEDICAID documented as of this encounter
--- OUTSIDE RECORDS SUMMARY | 2020-08-16 18:29 | XMS REPORT | Summary of Care ---
:1990 Author Organization [facility] Address [address] [place] [address] Care Team Providers Name Role Phone Ignacio Jordan Primary Care Provider Reason for Referral MRI/CAT Scan (Routine) Status Reason Specialty Diagnoses / Referred By Referred To Procedures Contact Contact New Request Diagnostic Diagnoses Obesity (BMI 30-39.9) Lovely French Radiology Procedures CT ANGIOGRAM CHEST MD Alexander [address] [place] [address] [address] (Routine) Status Reason Specialty Diagnoses / Referred By Referred To Procedures Contact Contact New Request Orthopedic Surgery Diagnoses Obesity (BMI 30-39.9) Lovely French Procedures CONSULT/REFERRAL ORTHOPAEDIC SURGERY MD Alexander [address] [place] [address] (Routine) Status Reason Specialty Diagnoses / Referred By Referred To Procedures Contact Contact New Request Pain Medicine Diagnoses Obesity (BMI 30-39.9) Lovely French Procedures CONSULT/REFERRAL PAIN CLINIC MD Alexander [address] [place] [address] [address] (Routine) Status Reason Specialty Diagnoses / Referred By Referred To Procedures Contact Contact New Request Neurology Diagnoses Obesity (BMI 30-39.9) Lovely French, Procedures CONSULT NEUROLOGY [address] [place] [address] [address] (Routine) Status Reason Specialty Diagnoses / Referred By Referred To Procedures Contact Contact New Request Cardiology Diagnoses Obesity (BMI 30-39.9) Lovely French, Procedures CONSULT/REFERRAL CARDIOLOGY [address] [place] [address] [address] MRI/CAT Scan (Routine) Status Reason Specialty Diagnoses / Referred By Referred To Procedures Contact Contact New Request Diagnostic Diagnoses Obesity (BMI 30-39.9) Lovely French Radiology Procedures CT ABDOMEN PELVIS W CONTRAST MD Alexander [address] [place] [address] [address] Reason for Visit Reason Comments Follow-up localized adiposity Encounter Details Date Type Department Care Team Description 07/22/2020 Office Visit [facility] Plastic Lovely French Obesi ty (BMI 30- 39.9) (Primary Dx); Surgery- [place] MD Alexander Weakness; [address] RT Roman syndrome; [address] [place] [address] Localized adiposity; [place] [phone] Allergies Active Allergy Reactions Severity Noted Date [...] with No / Unsure 07/22/2020 1:16 PM DIETARY MANAGER someone who was confirmed or suspected to have Coronavirus / COVID-19? documented as of this encounter Last Filed Vital Signs Vital Sign Reading Time Taken Comments Blood Pressure 125/82 07/22/2020 1:19 PM DIETARY MANAGER Pulse 78 07/22/2020 1:19 PM DIETARY MANAGER Temperature 36.8 C (98.2 F) 07/22/2020 1:19 PM DIETARY MANAGER Respiratory Rate 18 07/22/2020 1:19 PM DIETARY MANAGER Oxygen Saturation 97% 07/22/2020 1:19 PM DIETARY MANAGER Inhaled Oxygen Concentration - - Weight 99 kg (218 lb 3.2 oz) 07/22/2020 1:19 PM DIETARY MANAGER Height 160 cm (5' 3") 07/22/2020 1:19 PM DIETARY MANAGER Body Mass Index 38.65 07/22/2020 1:19 PM DIETARY MANAGER documented in this encounter Progress Notes Pallavi Guillaume MD - 07/22/2020 1:15 PM CST PLASTIC SURGERY CLINIC NOTE 07/22/2020 Visit Type: Clinic Note / History and Physical Chief Complaint: Back and abdominal lipodystrophy DUYEN Schmidt is a 30 year old female s/p massive weight loss presenting for evaluation of left upper back mass and abdominal deflation referred by Dr. Thomson for evaluation for possible body contouring. She complains of a left upper back mass with associated pain to light touch. She has had this mass her entire life. Prior CT evaluation did not identify discrete lipoma. She has had liposuction in [facility] in the past. 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 She has very poor diet. She does not have her pre-albumin labs. She does not have cardiac clearance for surgery. She is scheduled for an appointment with her senior javascript developer later this month 08/12/20. She has chronic pain control issues and is on tramadol, ibuprofen and gabapentin for pain control. She reports a total weight loss of 60 lbs and has been weight stable for the last 6 months. Body mass index is 38.65 kg/m. Patient complains that due to the excess [...] band scars TRANSURETHRAL BLADDER TUMOR RESECTION Family History: Noncontributory except grandfather and cousin with multiple DVTs and PE. Social History: Nonsmoker. Other social history reviewed and noncontributory Review of Systems Constitutional: negative Eyes: negative [...] 97% | BMI 38.65 kg/m General: alert, obese, oriented times three, no apparent distress Skin: excess skin in areas of abdomen, active intertrigo in the following areas: abdominal pannus, no hyperpigmentation indicative of chronic intertrigo; no palpable hernias, palpable rectus diastasis Abdomen: obese, soft, nontender, nondistended Pannus hangs at below the level of the pubic symphysis, pannus overhang measurements: Left: 9cm Right: 10cm Extremities/Musculoskeletal: moves extremities well Posterior trunk: left upper back with non-discrete palpable mass with associated pain with light touch. Patient has multiple tethered cords throughout her posterior trunk and diffuse tenderness to palpation. Laboratory No new labs Procedure Note Not [...] Positive Factor V Leiden: No Positive Prothrombin 10543S: No Elevated Serum Homocysteine: No Positive Lupus [...] To 3 Premature With Toxemia Or Growth-restricted Infant (Male): (not recorded) VTE Risk Factor: Totals [...] likelihood that her symptoms are primarily due toexcess skin and that panniculectomy and back lift will likely result in improvement of chronic pain and symptoms. -Plan for preop optimization of patients various comorbidities before proceeding with panniculectomyand upper back lift -Follow up with cardiology regarding patients cardiac defects and obtain clearance -Follow up with neurology regarding patients brain hamartoma, need for neurologic intervention, and clearance for elective surgery -Reviewed optimal hemoglobin A1C of 7 and under is required for elective surgery. Reviewed strategies for dietary optimization and protein suppelementation -Pain consult to evaluate patients chronic back pain now managed on multiple medications including gabapentin, tramadol and ibuprofen -Follow up CT abdomen/pelvis with contrast to evaluate for possible umbilical hernia/rectus diastasis -Follow up CBC, CMP, prealbumin, PT/INR labs -Informed consent signed and documented for panniculectomy and upper back lift - RTC upon clearance by neurology, cardiology, diabetes optimization and pain consult. Follow up with CT abdomen pelvis and lab results upon next clinic appointment - Patient's Caprini score is: [address] Tani Guillaume MD 07/22/2020 2:56 PM Plastic Surgery PGY 1 documented in this encounter Miscellaneous Notes Addendum Note - Pallavi Guillaume MD - 07/22/2020 1:15 PM DIETARY MANAGER Addended by: PALLAVI GUILLAUME on: 07/22/2020 06:04 PM Modules accepted: Orders ddendum Note - Fredy Villanueva MD - 07/22/2020 1:15 PM DIETARY MANAGER Addended by: FREDY VILLANUEVA MD on: 07/22/2020 05:43 PM Modules accepted: Orders ARY MANAGER documented in this encounter Plan of Treatment Date Type Specialty Care Team Description 08/05/2020 Appointment Radiology Lovely French MD [address] [place] [address] [address] [place], [place] [address] 08/05/2020 Appointment Radiology Emma Briones MD [facility] [place], [place] [address] 08/12/2020 Office Visit Cardiology [place] To MD [address] [place] [address]. [place], [place] [phone] 08/19/2020 Office Visit Pulmonary Disease Azucena Ron, ILANA [address] [facility] [address] [place] [address] Name Type Priority Associated Diagnoses Order S chedule CT ABDOMEN PELVIS W IMAGING Routine Obesity (BMI 30-39.9) Expected: 07/22/2020, CONTRAST Expires: 2021 COMP. METABOLIC PANEL LAB Routine Obesity (BMI 30-39. 9) Expected: 07/22/2020, ([address]) Expires: 2021 PROTHROMBIN TIME / INR LAB Routine Obesity (BMI 30-39 .9) Expected: 07/22/2020, Expires: 2021 CT ANGIOGRAM CHEST IMAGING Routine Obesity (BMI 30-39.9) Expected: 07/22/2020, Expires: 2021 Health Maintenance Due [...] of this encounter Implants Implanted Type Area Canine Service Instructor Trainer Device Shelf Model / Identifier Expiration Date Ser ial / Lot Screw-07/18/2003 SCREW Bilateral: Implanted: 07/18/2003 (Quantity not on file) Ankle documented as of this encounter Results GLYCOSYLATED HEMOGLOBIN (A1C) (07/22/2020 2:55 PM DIETARY MANAGER) Pathologist Sig nature HGB A1C 9.0 (H) 4.0 - 6.0 % [facility] Specimen Blood Performing Organization Address City/State/Zipcode Phone Number [facility] CLIA: [id number] [place] [address] SERVICES-[address] documented in this encounter Visit Diagnoses Diagnosis Obesity (BMI 30-39.9) - Primary Obesity, unspecified Weakness Other malaise and fatigue [place] syndrome Other specified congenital anomalies Localized adiposity Intertrigo Other specified erythematous condition documented in this encounter Insurance Payer Benefit Plan / Subscriber ID Effective Dates Phone Addre ss Type Group [facility] [id number] 2013-Present Medicaid COMM PLAN - PLUS MANAGED MEDICAID documented as of this encounter
--- OUTSIDE RECORDS SUMMARY | 2020-08-16 18:29 | XMS REPORT | Summary of Care ---
:1990 Author Organization [facility] Address [address] [place] [address] Care Team Providers Name Role Phone Patricklaura Ignacio Primary Care Provider Reason for Referral (Routine) Status Reason Specialty Diagnoses / Referred By Referred To Procedures Contact Contact New Request Orthopedic Surgery Diagnoses Obesity (BMI 30-39.9) Lovely French Procedures CONSULT/REFERRAL ORTHOPAEDIC SURGERY MD Alexander [address] [facility] [address] [address] (Routine) Status Reason Specialty Diagnoses / Referred By Referred To Procedures Contact Contact New Request Pain Medicine Diagnoses Obesity (BMI 30-39.9) Lovely French Procedures CONSULT/REFERRAL PAIN CLINIC MD Alexander [address] [place] [address] [address] (Routine) Status Reason Specialty Diagnoses / Referred By Referred To Procedures Contact Contact New Request Neurology Diagnoses Obesity (BMI 30-39.9) Lovely French, Procedures CONSULT NEUROLOGY [address] [place] [address] [address] (Routine) Status Reason Specialty Diagnoses / Referred By Referred To Procedures Contact Contact New Request Cardiology Diagnoses Obesity (BMI 30-39.9) Lovely French, Procedures CONSULT/REFERRAL CARDIOLOGY [address] [place] [address] [address] MRI/CAT Scan (Routine) Status Reason Specialty Diagnoses / Referred By Referred To Procedures Contact Contact New Request Diagnostic Diagnoses Obesity (BMI 30-39.9) Astrid Frencha Radiology Procedures CT ABDOMEN PELVIS W CONTRAST MD Alexander [address] [address] Reason for Visit Reason Comments Follow-up localized adiposity Encounter Details Date Type Department Care Team Description 07/22/2020 Office Visit [facility] Health Plastic Lovely French ty (BMI 30- 39.9) (Primary Dx); [facility] Alexander Weakness; [place] [address] Roman syndrome; [address] [facility] G2 Localized adiposity; [place] [phone] Allergies Active Allergy Reactions Severity Noted Date [...] with No / Unsure 07/22/2020 1:16 PM STEM CRUSHER someone who was confirmed or suspected to have Coronavirus / COVID-19? documented as of this encounter Last Filed Vital Signs Vital Sign Reading Time Taken Comments Blood Pressure 125/82 07/22/2020 1:19 PM STEM CRUSHER Pulse 78 07/22/2020 1:19 PM STEM CRUSHER Temperature 36.8 C (98.2 F) 07/22/2020 1:19 PM STEM CRUSHER Respiratory Rate 18 07/22/2020 1:19 PM STEM CRUSHER Oxygen Saturation 97% 07/22/2020 1:19 PM STEM CRUSHER Inhaled Oxygen Concentration - - Weight 99 kg (218 lb 3.2 oz) 07/22/2020 1:19 PM STEM CRUSHER Height 160 cm (5' 3") 07/22/2020 1:19 PM STEM CRUSHER Body Mass Index 38.65 07/22/2020 1:19 PM STEM CRUSHER documented in this encounter Progress Notes Vanessa [...] discrete lipoma. She has had liposuction in thatarea in the past. 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 She has very poor diet. She does not have her pre-albumin labs. She does not have cardiac clearance for surgery. She is scheduled for an appointment with her pattern stamper later this month 08/12/20. She has chronic [...] Positive Factor V Leiden: No Positive Prothrombin [id number]: No Elevated Serum Homocysteine: No Positive Lupus [...] encounter Miscellaneous Notes Addendum Note - Fredy Villanueva MD - 07/22/2020 1:15 PM STEM CRUSHER Addended by: FREDY VILLANUEVA MD on: 07/22/2020 05:43 PM Modules accepted: Orders CRUSHER documented in this encounter Plan of Treatment Date Type Specialty Care Team Description 08/05/2020 Appointment Radiology Lovely French MD [address] [facility] [address] [place], [place] [address] 08/05/2020 Appointment Radiology Emma Briones MD [address] [place] [address] 08/12/2020 Office Visit Cardiology [place] To MD [address] [place] [address]. [place], [place] [phone] 08/19/2020 Office Visit Pulmonary Disease Azucena Ron, ASSOCIATE ARTISTIC DIRECTOR [address] [place], [place] [address] Name Type Priority Associated Diagnoses Order S chedule CT ABDOMEN PELVIS W IMAGING Routine Obesity (BMI 30-39.9) Expected: 07/22/2020, CONTRAST Expires: 2021 CBC WITHOUT DIFF LAB Routine Obesity (BMI 30-39.9) Ex pected: 07/22/2020, Expires: 2021 COMP. METABOLIC PANEL LAB Routine Obesity (BMI 30-39. 9) Expected: 07/22/2020, ([id number]) Expires: 2021 PROTHROMBIN TIME / INR LAB [...] minimize General Yes Cristobal, pain and gain Merckhadra G, PT strength. documented as of this encounter Implants Implanted Type Area Cement Tester Assistant Device Shelf Model / Identifier Expiration Date Ser ial / Lot Screw-07/18/2003 SCREW Bilateral: Implanted: 07/18/2003 (Quantity not on file) Ankle documented as of this encounter Results GLYCOSYLATED HEMOGLOBIN (A1C) (07/22/2020 2:55 PM STEM CRUSHER) Pathologist Sig nature HGB A1C 9.0 (H) 4.0 - 6.0 % [facility] LABORATORY SERVICES-[facility] Specimen Blood Performing Organization Address City/State/Zipcode Phone Number [facility] CLIA: [id number] [place] [address] SERVICES-[address] documented in this encounter Visit Diagnoses Diagnosis Obesity (BMI 30-39.9) - Primary Obesity, unspecified Weakness Other malaise and fatigue Rodessa syndrome Other specified congenital anomalies Localized adiposity Intertrigo Other specified erythematous condition documented in this encounter Insurance Payer Benefit Plan / Subscriber ID Effective Dates Phone Addre ss Type Group [facility] STAR [id number] 2013-Present Medicaid COMM PLAN - PLUS MANAGED MEDICAID documented as of this encounter
--- OUTSIDE RECORDS SUMMARY | 2020-08-16 18:29 | XMS REPORT | Summary of Care ---
:1990 Author Organization [facility] Address [address] [place] [address] Care Team Providers Name Role Phone Patricklaura Ignacio Primary Care Provider Reason for Referral (Routine) Status Reason Specialty Diagnoses / Referred By Referred To Procedures Contact Contact New Request Orthopedic Surgery Diagnoses Obesity (BMI 30-39.9) Lovely French Procedures CONSULT/REFERRAL ORTHOPAEDIC SURGERY MD Alexander [address] [facility] [address] [address] (Routine) Status Reason Specialty Diagnoses / Referred By Referred To Procedures Contact Contact New Request Pain Medicine Diagnoses Obesity (BMI 30-39.9) Lovely French Procedures CONSULT/REFERRAL PAIN CLINIC MD Alexander [address] [place] [address] [address] (Routine) Status Reason Specialty Diagnoses / Referred By Referred To Procedures Contact Contact New Request Neurology Diagnoses Obesity (BMI 30-39.9) Lovely French, Procedures CONSULT NEUROLOGY [address] [place] [address] [address] (Routine) Status Reason Specialty Diagnoses / Referred By Referred To Procedures Contact Contact New Request Cardiology Diagnoses Obesity (BMI 30-39.9) Lovely French, Procedures CONSULT/REFERRAL CARDIOLOGY [address] [place] [address] [address] MRI/CAT Scan (Routine) Status Reason Specialty Diagnoses / Referred By Referred To Procedures Contact Contact New Request Diagnostic Diagnoses Obesity (BMI 30-39.9) Astrid Frencha Radiology Procedures CT ABDOMEN PELVIS W CONTRAST MD Alexander [address] [address] Reason for Visit Reason Comments Follow-up localized adiposity Encounter Details Date Type Department Care Team Description 07/22/2020 Office Visit [facility] Health Plastic Lovely French ty (BMI 30- 39.9) (Primary Dx); [facility] Alexander Weakness; [place] [address] Roman syndrome; [address] [facility] G2 Localized adiposity; [place] [phone] Allergies Active Allergy Reactions Severity Noted Date [...] with No / Unsure 07/22/2020 1:16 PM 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 documented as of this encounter Last Filed Vital Signs Vital Sign Reading Time Taken Comments Blood Pressure 125/82 07/22/2020 1:19 PM PRECISION GRINDER Pulse 78 07/22/2020 1:19 PM PRECISION GRINDER Temperature 36.8 C (98.2 F) 07/22/2020 1:19 PM PRECISION GRINDER Respiratory Rate 18 07/22/2020 1:19 PM PRECISION GRINDER Oxygen Saturation 97% 07/22/2020 1:19 PM PRECISION GRINDER Inhaled Oxygen Concentration - - Weight 99 kg (218 lb 3.2 oz) 07/22/2020 1:19 PM PRECISION GRINDER Height 160 cm (5' 3") 07/22/2020 1:19 PM PRECISION GRINDER Body Mass Index 38.65 07/22/2020 1:19 PM PRECISION GRINDER documented in this encounter Progress Notes Pallavi [...] in the past. 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 She has very poor diet. She does not have her pre-albumin labs. She does not have cardiac clearance for surgery. She is scheduled for an appointment with her material planning analyst later this month 08/12/20. She has chronic [...] Positive Factor V Leiden: No Positive Prothrombin [id number]: No Elevated Serum Homocysteine: No Positive Lupus [...] Pallavi Guillaume MD - 07/22/2020 1:15 PM PRECISION GRINDER Addended by: PALLAVI GUILLAUME on: 07/22/2020 06:10 PM Modules accepted: Orders ddendum Note - Pallavi Guillaume MD - 07/22/2020 1:15 PM PRECISION GRINDER Addended by: PALLAVI GUILLAUME on: 07/22/2020 06:04 PM Modules accepted: Orders ddendum Note - Fredy Villanueva MD - 07/22/2020 1:15 PM PRECISION GRINDER Addended by: FREDY VILLANUEVA MD on: 07/22/2020 05:43 PM Modules accepted: Orders ISION GRINDER documented in this encounter Plan of Treatment Date Type Specialty Care Team Description 08/05/2020 Appointment Radiology Lovely French MD [address] [place] [address] [address] [place], [place] [address] 08/05/2020 Appointment Radiology Emma Briones MD [facility] [place] [address] [phone] 08/12/2020 Office Visit Cardiology [place] To MD [address] [place] [phone] 08/19/2020 Office Visit Pulmonary Disease Azucena Ron, ILANA [address] [place], [place] [phone] 15 Name Type Priority Associated Diagnoses Order S chedule CT ABDOMEN PELVIS W IMAGING Routine Obesity (BMI 30-39.9) Expected: 07/22/2020, CONTRAST Expires: 2021 PROTHROMBIN TIME / INR LAB [...] of this encounter Implants Implanted Type Area Manager Park Device Shelf Model / Identifier Expiration Date Ser ial / Lot Screw-07/18/2003 SCREW Bilateral: Implanted: 07/18/2003 (Quantity not on file) Ankle documented as of this encounter Results GLYCOSYLATED HEMOGLOBIN (A1C) (07/22/2020 2:55 PM PRECISION GRINDER) Pathologist Sig nature HGB A1C 9.0 (H) 4.0 - 6.0 % [facility]AT[facility] SERVICES-[facility] Specimen Blood Performing Organization Address City/State/Zipcode Phone Number [facility] CLIA: [id number] [place] [address] SERVICES-[address] documented in this encounter Visit Diagnoses Diagnosis Obesity (BMI 30-39.9) - Primary Obesity, unspecified Weakness Other malaise and fatigue [place] syndrome Other specified congenital anomalies Localized adiposity Intertrigo Other specified erythematous condition documented in this encounter Insurance Payer Benefit Plan / Subscriber ID Effective Dates Phone Addre ss Type Group [facility] STAR [id number] 2013-Present Medicaid COMM PLAN - PLUS MANAGED MEDICAID documented as of this encounter
--- OUTSIDE RECORDS SUMMARY | 2020-08-16 18:30 | XMS REPORT | Summary of Care ---
:1990 Author Organization [facility] Address [address] [place] [address] Care Team Providers Name Role Phone PatrickIgnacio sanchez Primary Care Provider Reason for Visit MRI/CAT Scan (Routine) Status Reason Specialty Diagnoses / Referred By Referred To Procedures Contact Contact Closed Diagnostic Diagnoses Obesity (BMI 30-39.9) Lovely French Radiology Procedures CT ABDOMEN PELVIS W SHAMA Munoz MD [address] [facility] [address] [place] [address] Encounter Details Date Type Department Care Team Description 08/05/2020 Hospital Encounter [facility] Astrid French Arrived [place] Computed MD Tomography [address] [facility] [address]24 [address] [facility] [place] [address] [place] [address] [phone] Allergies Active Allergy Reactions Severity Noted Date Comments Codeine Hives, Shortness of Breath 09/10/2015 documented as of this encounter (statuses as of 08/06/2020) Medications Medication Sig Dispensed Refills Start Date [...] 0 06/02/2020 Active UF 31 gauge x 11/30" mouth. NdleIndications: Obesity (BMI 30-39.9) terbinafine HCL Apply to 1 Tube 2 07/22/2020 Act michelle (LAMISIL AT) 1 % area(s) 2 (two) creamIndications: times daily. 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 documented as of this encounter Last Filed Vital Signs Not on filedocumented in this encounter Plan of Treatment Date Type Specialty Care Team Description 08/12/2020 Office Visit Cardiology Cleveland To MD [address] [place] [address]. [place], [place] [phone] 08/19/2020 Office Visit Pulmonary Disease Azucena Ron, ILANA [address] [place] [phone] 08/19/2020 Office Visit Pain Medicine Gianfranco Archer M D [address] [place] [phone] Roverto Dwyer DO [address] [place] [phone] 08/26/2020 Office Visit Orthopedic Surgery Effie Sorto MD [address] [place] [address] [address]0 [address] [place], [place] [address] Health Maintenance Due Date Last Done Comments VARICELLA VACCINES (1 of 2 - 1990 2-dose childhood series) PNEUMOCOCCAL 0-64 YEARS COMBINED 1995 SERIES (1 of 3 - PCV13) EYE EXAM 1999 URINE MICROALBUMIN 1999 FOOT EXAM 2007 DTaP,Tdap,and Td Vaccines (1 - 02/09/2008 Tdap) PAP SMEAR 09/12/2012 09/12/2009, 01/16/2009, 08/28/2007 INFLUENZA VACCINE (#1) 2020 HgA1C 01/19/2021 07/22/2020, 05/18/2020 Depression Screening 04/18/2021 04/18/2020 LDL-C 05/18/2021 05/18/2020 CREATININE (SERUM) 07/22/2021 07/22/2020, 05/17/2020, 12/18/2019, Additional history exists documented as of this encounter Goals Goal Patient Goal Associated Recent Patient-Stated? Author Type Problems Progress To minimize General Yes Cristobal, pain and gain Mercy G, PT strength. documented as of this encounter Implants Implanted Type Area Card Checker Device Shelf Model / Identifier Expiration Date Ser ial / Lot Screw-07/18/2003 SCREW Bilateral: Implanted: 07/18/2003 (Quantity not on file) Ankle documented as of this encounter Procedures Procedure Name Priority Date/Time Associated Diagnosis Comme nts CT ABDOMEN PELVIS W Routine 08/05/2020 10:30 AM Obesity (BMI R esults for this CONTRAST BEAD FORMING MACHINE OPERATOR 30-39.9) procedure are i n the results section. documented in this encounter Results CT ABDOMEN PELVIS W CONTRAST (08/05/2020 10:30 AM BEAD FORMING MACHINE OPERATOR) Specimen Narrative Performed At CT Abdomen and Pelvis with intravenous c ontrast. PACS/VR/DOSE CLINICAL HISTORY: Abdominal pain. DOSE: Up-to-date CT equipment and radiation dose reduc tion techniques were employed. CTDIvol: 9.2 to +9.94+11.6 mGy. DLP: 327 +327+ 615 mGy-cm. TECHNIQUE : Contiguous axial imaging fro m the level of the lung bases through the pubic symphysis were perform ed after the uncomplicated administration of Omnipaque contrast mat erial. Coronal and sagittal reconstructions were obtained. Auto mA and/or iterativ e reconstruction were used to reduce radiation dose. FINDINGS: Lower lungs: Clear. No pleural effusion or pericardial effusion. No evidence of hiatal hernia. Liver, Gallbladder and Spleen: S/P savage cystectomy. Liver is enlarged measuring 20 cm in length with mild diffuse hepatic st eatosis is suspected. Spleen measures 11.2 x 5.4 cm. Biliary d ucts and the pancreatic duct are not dilated. Peritoneum: No free air or free fluid. No lymphadenopathy. Pancreas and Adrenals: Unremarkable pa ncreas and adrenal glands. Kidneys and Ureters: No visible calculi in the renal collecting systems. No hydroureter or hydronephrosis. No enhancing kidney lesions visualized. Vessels: Unremarkable. Retroperitoneum: No abnormal fluid. 1 cm or smaller size scattered lymph nodes noted in the retroperitoneum begin monica near the right crura of the diaphragm and uncinate process region of the head of the pancreas. Normal appendix is visualized. Small bowel gas pattern is normal. No gross pathology in large bowel visualized. [place] el: Bladder and Reproductive Organs: S/P hys terectomy. No gross pathology in the unopacified urinary bladder. Bones: Prominent Schmorl's nodes in lowe r thoracic and upper lumbar vertebral bodies. Old compression deformity suspected involving T11, T10, T9, T8 and T7 vertebral bodies. No aggressive bone les ions. No signs of AVN in the femoral heads. Soft tissues: Focal congestion of anteri or right subcutaneous fat at the level of umbilicus could be site of subcutaneous injec tion of medication. Irregular shaped 4 cm size fat-containin g umbilical hernia noted. CONCLUSION: 1. No acute intra-abdominal or pelvic ab normalities detected. 2. S/P cholecystectomy and hysterectomy. 3. Hepatomegaly with mild diffuse hepati c steatosis. 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 CLINICAL HISTORY: Abdominal pain. DOSE: Up-to-date CT equipment and radiat ion dose reduction techniques were employed. CTDIvol: 9.2 to +9.94+11.6 mGy. DLP: 327 +327+ 615 mGy-cm. TECHNIQUE : Contiguous axial imaging fro m the level of the lung bases through the pubic symphysis were perform ed after the uncomplicated administration of Omnipaque contrast mat erial. Coronal and sagittal reconstructions were obtained. Auto mA a nd/or iterative reconstruction were used to reduce radiation dose. FINDINGS: Lower lungs: Clear. No pleural effusion or pericardial effusion. No evidence of hiatal hernia. Liver, Gallbladder and Spleen: S/P savage cystectomy. Liver is enlarged measuring 20 cm in length with mild diff use hepatic steatosis is suspected. Spleen measures 11.2 x 5.4 cm. Biliary d ucts and the pancreatic duct are not dilated. Peritoneum: No free air or free fluid. No lymphadenopathy. Pancreas and Adrenals: Unremarkable peterson creas and adrenal glands. Kidneys and Ureters: No visible calculi in the renal collecting systems. No hydroureter or hydronephrosis. No enh ancing kidney lesions visualized. Vessels: Unremarkable. Retroperitoneum: No abnormal fluid. 1 cm or smaller size scattered lymph nodes noted in the retroperitoneum begin monica near the right crura of the diaphragm and uncinate process region of the head of the pancreas. Normal appendix is visualized. Small bow el gas pattern is normal. No gross pathology in large bowel visualized. [place] el: Bladder and Reproductive Organs: S/P hys terectomy. No gross pathology in the unopacified urinary bladder. Bones: Prominent Schmorl's nodes in lowe r thoracic and upper lumbar vertebral bodies. Old compression deform ity suspected involving T11, T10, T9, T8 and T7 vertebral bodies. No aggre ssive bone lesions. No signs of AVN in the femoral heads. Soft tissues: Focal congestion of anteri or right subcutaneous fat at the level of umbilicus could be site of subc utaneous injection of medication. Irregular shaped 4 cm size fat-containin g umbilical hernia noted. CONCLUSION: 1. No acute intra-abdominal or pelvic ab normalities detected. 2. S/P cholecystectomy and hysterectomy. 3. Hepatomegaly with mild diffuse hepati c steatosis. Performing Organization Address City/State/Zipcode Phone Number PACS/VR/DOSE documented in this encounter Insurance Payer Benefit Plan / Subscriber ID Effective Dates Phone Addre ss Type Group [facility] STAR [id number] 2013-Present Medicaid COMM PLAN - PLUS MANAGED MEDICAID documented as of this encounter
--- OUTSIDE RECORDS SUMMARY | 2020-08-16 18:30 | XMS REPORT | Summary of Care ---
:1990 Author Organization [facility] Address [address] [place] [address] Care Team Providers Name Role Phone Ignacio Jordan Primary Care Provider Reason for Referral MRI/CAT Scan (Routine) Status Reason Specialty Diagnoses / Referred By Referred To Procedures Contact Contact New Request Diagnostic Diagnoses Precordial pain Palpitations [place] To MD Radiology Procedures CT ANGIOGRAPHY CORONARIES WITH CARDIAC CALCIUM SCORE CT ANGIOGRAPHY CORONARIES WITH CARDIAC CALCIUM SCORE [address] [place] [address] (Routine) Status Reason Specialty Diagnoses / Referred By Contact Refe rred To Procedures Contact New Request Cardiology Diagnoses Precordial pain Palpitations [place] To MD Procedures Cardiac Monitoring 24 hours Cardiac Monitoring 24 hours [address] [place] [address] Phone: Reason for Visit Reason Comments New Patient Establish Care/Clearance (Routine) Status Reason Specialty Diagnoses / Referred By Contact Refe rred To Contact Procedures Closed Cardiology Diagnoses Syncope and collapse Ignacio Jordan [facility] Cardiology Procedures CONSULT/REFERRAL CARDIOLOGY [address] Mireles [facility] [address] [place] [address], [address] [address] [place], [place] Phone: [phone] Fax: Encounter Details Date Type Department Care Team Description 08/12/2020 Office Visit [facility] [place] To MD Precordial pain (Primary Dx); Cardiology- [address] Palpitations [address] [place] [address], [address] [address] [place], [place] [phone] [address] [phone] Allergies Active Allergy Reactions Severity Noted Date Comments Codeine Hives, Shortness of Breath 09/10/2015 documented as of this encounter (statuses as of 08/12/2020) Medications Medication Sig Dispensed Refills Start Date [...] x 5/16" mouth. NdleIndications: Obesity (BMI 30-39.9) terbinafine HCL Apply to 1 Tube 2 07/22/2020 Act michelle (LAMISIL AT) 1 % area(s) 2 (two) creamIndications: times daily. Intertrigo documented as of this encounter (statuses as of 08/12/2020) Active Problems Problem Noted Date Obesity (BMI 30-39.9) 05/18/2020 Left-sided weakness 05/18/2020 documented as of this encounter (statuses as of 08/12/2020) Social History Tobacco Use Types Packs/Day Years Used Date Never Smoker Smokeless Tobacco: Never Used Alcohol Use Drinks/Week oz/Week Comments Not Currently Sex Assigned at Date Recorded Not on file COVID-19 Exposure Response Date Recorded In the last month, have you been in contact with No / Unsure 08/12/2020 11:54 AM GARMENT MANUFACTURING SUPERVISOR someone who was confirmed or suspected to have Coronavirus / COVID-19? documented as of this encounter Last Filed Vital Signs Vital Sign Reading Time Taken Comments Blood Pressure 111/70 08/12/2020 11:59 AM GARMENT MANUFACTURING SUPERVISOR Pulse 82 08/12/2020 11:59 AM GARMENT MANUFACTURING SUPERVISOR Temperature - - Respiratory Rate 19 08/12/2020 11:59 AM GARMENT MANUFACTURING SUPERVISOR Oxygen Saturation 97% 08/12/2020 11:59 AM GARMENT MANUFACTURING SUPERVISOR Inhaled Oxygen Concentration - - Weight 97.7 kg (215 lb 4.8 oz) 08/12/2020 11:59 AM GARMENT MANUFACTURING SUPERVISOR Height 160 cm (5' 3") 08/12/2020 11:59 AM GARMENT MANUFACTURING SUPERVISOR Body Mass Index 38.14 08/12/2020 11:59 AM GARMENT MANUFACTURING SUPERVISOR documented in this encounter Progress Notes [place] To MD - 08/12/2020 11:40 AM CST Cardiac EP [facility] Note Reason for Evaluation / Chief Complaint: Pre op risk stratifucation Referring Provider: Dr. Jordan HPI: Laureen Schmidt is a 30 year old female with a history of Sunnyvale's syndrome, palpitations, chest tightness on exertion, she was in the hospital couple months ago and had a negative work up for CVA, her echo shows a thickened MV, no stenosis, she was also found to have a inter atrial shunt, normal atrial size. She continues to have exertional chest tightness that subsides with rest along with palpitations especially after exercise. EKG have shown normal sinus rhythm PMH: Past Medical History: Diagnosis Date Anxiety Bipolar 1 disorder Bladder cancer [employer] foot of both lower extremities Depression Diabetes mellitus Fatty liver Heart murmur Sunnyvale syndrome Scoliosis Webbed neck Social History: Social History Socioeconomic History Marital [...] file Gets together: Not on file Attends druze service: Not on file Active member of [...] file Social History Narrative Not on file Family History: Family History Problem Relation Age of Onset Diabetes Mother Arthritis Mother Hypertension Father Heart Father Diabetes Maternal Grandmother Hypertension Maternal Grandmother Heart Maternal Grandmother Diabetes Maternal Grandfather Hypertension Maternal Grandfather Arthritis Maternal Grandfather Heart Maternal Grandfather Diabetes Paternal Grandmother Hypertension Paternal Grandmother Heart Paternal Grandmother Diabetes Paternal Grandfather Hypertension Paternal Grandfather Heart Paternal Grandfather Allergies: Allergies Allergen Reactions Codeine Hives and Shortness of Breath Medications: Current Outpatient Medications Medication Sig Dispense Refill BD INSULIN PEN NEEDLE UF 31 gauge x 5/16" Ndle Take 10 mg by mouth. terbinafine HCL (LAMISIL AT) 1 % cream Apply to area(s) 2 (two) times daily. 1 Tube 2 gabapentin 300 mg capsule ibuprofen 600 mg tablet TAKE 1 TABLET BY MOUTH WITH FOOD OR MILK NEEDED THREE TIMES A DAY FOR5 DAYS aspirin 81 mg chewable tablet Take 1 [...] times daily with meals. 120 tablet 4 traMADol 50 mg tablet Take 1 tablet by mouth every 6 (six) hours as needed for Pain (scale 4-6).30 tablet 0 No current facility-administered medications for this visit. Review of Systems: General: fatigue Eyes: denies complaint Ears/Nose/Mouth/Throat: denies complaint Cardiovascular: as per hpi Respiratory: dyspnea on exertion Musculoskeletal: back pain Skin: denies complaint Neurologic: denies complaint Psychiatric: denies complaint Endocrine: diabetes Hematologic: denies complaint Allergy/Immunology: denies complaint Physical Exam: Vitals: Vitals: 08/12/20 1159 BP: 111/70 BP Location: Right arm Patient Position: Sitting BP CUFF SIZE: Adult Large Pulse: 82 Resp: 19 SpO2: 97% Weight: 215 lb 4.8 oz (97.7 kg) Height: 5' 3" (1.6 m) General: well developed and well nourished female. No acute distress. Eyes: No icterus Ears/Nose/Mouth: Clear Heart: regular rate and regular rhythm; no rubs or gallops. Soft diastolic murmur. Lungs: clear to auscultation Extremities: Normal bilateral Musculoskeletal: full range of motion. Ambulates without limitation. Neurologic: alert and oriented x 4; without gross abnormalities. Psychiatric: pleasant with no SI or HI. LABS / DATA: CBC WBC x10^3 (/CMM) Date Value 09/12/2009 9.3 WBC (10*3/L) Date Value 07/22/2020 10.46 RBC x10^6 (/CMM) Date Value 09/12/2009 4.37 RBC (10*6/L) Date Value 07/22/2020 4.79 PLT x10^3 (/CMM) Date Value 09/12/2009 213 PLT (10*3/L) Date Value 07/22/2020 181 HGB Date Value 07/22/2020 14.9 g/dL 09/12/2009 13.5 G/DL HCT (%) Date Value 07/22/2020 43.3 09/12/2009 40.6 CMP NA (mmol/L) Date Value 07/22/2020 136 K (mmol/L) Date Value 07/22/2020 4.5 CALCIUM (mg/dL) Date Value 07/22/2020 9.9 CL (mmol/L) Date Value 07/22/2020 98 BUN (mg/dL) Date Value 07/22/2020 16 CREATININE (mg/dL) Date Value 07/22/2020 0.59 GLUCOSE (mg/dL) Date Value 07/22/2020 328 (H) CO2 TOTAL (mmol/L) Date Value 07/22/2020 28 ALBUMIN (g/dL) Date Value 07/22/2020 4.5 T PROTEIN (g/dL) Date Value 07/22/2020 8.1 TOTAL BILI (mg/dL) Date Value 07/22/2020 0.4 BILI UNCON (mg/dL) Date Value 07/19/2019 0.2 BILI CONJ (mg/dL) Date Value 07/19/2019 0.0 ALTv (U/L) Date Value 07/22/2020 71 (H) AST(SGOT) (U/L) Date Value 07/22/2020 66 (H) ALK PHOS (U/L) Date Value 07/22/2020 109 TSH: There are no current results on file for these tests and/or test for 1 year. BNP No results found for: NTBNP Troponins Recent Labs 05/17/20 2356 TROPNI 0.013 Impression: 30 year old with Sunnyvale syndrome, chest tightness, palpitations Recommendation(s): Will proceed with a 24 hour holter for palpitations Cardiac CTA for chest tightness with exertion Will have follow up with Dr. Gomes with results Continue periodic echo monitoring of MV thickening and small atrial shunt Lifestyle changes Thank you for allowing us to participate in the care of your patient. Please feel free to contact us for any questions or if we can be of further assistance. [place] To MD 08/12/2020 12:25 PM documented in this encounter Plan of Treatment Date Type Specialty Care Team Description 08/19/2020 Office Visit Pulmonary Disease Azucena Ron FNP [address] [facility] [address] Jordan [facility] 15 [phone] 08/19/2020 Office Visit Pain Medicine Gianfranco Archer M D [address] [place] [phone] Roverto Dwyer DO [address] [place] [phone] 08/26/2020 Office Visit Orthopedic Surgery Effie Sorto MD [address] [place] [address] [address] [place] [phone] 09/18/2020 Office Visit Cardiology Adán Gomes MD [address] [place] [address] [address] [place] [phone] Name Type Priority Associated Diagnoses Order S chedule Cardiac Monitoring 24 HEART STATION Routine Precordial pain Ordered: 08/12/[address] ANGIOGRAPHY IMAGING Routine Precordial pain Expected: CORONARIES WITH Palpitations 08/12/2020, CARDIAC CALCIUM SCORE s: 08/12/2021 Health Maintenance Due Date Last Done Comments VARICELLA VACCINES (1 of 2 1990 - 2-dose childhood series) PNEUMOCOCCAL 0-64 YEARS 1995 COMBINED SERIES (1 of 3 - PCV13) EYE EXAM 1999 URINE MICROALBUMIN 1999 SARS-CoV-2 (COVID-19) 2005 Vaccine (1 of 2) FOOT EXAM 2007 DTaP,Tdap,and Td Vaccines 02/09/2008 (1 - Tdap) PAP SMEAR 09/12/2012 09/12/2009, 01/16/2009, 08/28/2007 INFLUENZA VACCINE (#1) 2021 Postponed from 03/18/2020 (Refu sed) HgA1C 01/19/2021 07/22/2020, 05/18/2020 Depression Screening 04/18/2021 04/18/2020 LDL-C 05/18/2021 05/18/2020 CREATININE (SERUM) 07/22/2021 07/22/2020, 05/17/2020, 12/18/2019, Additional history exists documented as of this encounter Goals Goal Patient Goal Associated Recent Patient-Stated? Author Type Problems Progress To minimize General Yes Cristobal, pain and gain [facility], PT strength. documented as of this encounter Implants Implanted Type Area Flooring Sales Manager Device Shelf Model / Identifier Expiration Date Ser ial / Lot Screw-07/18/2003 SCREW Bilateral: Implanted: 07/18/2003 (Quantity not on file) Ankle documented as of this encounter Results Not on filedocumented in this encounter Visit Diagnoses Diagnosis Precordial pain - Primary Palpitations documented in this encounter Insurance Payer Benefit Plan / Subscriber ID Effective Dates Phone Addre ss Type Group [facility] STAR [id number] 2013-Present Medicaid COMM PLAN - PLUS MANAGED MEDICAID documented as of this encounter
--- OUTSIDE RECORDS SUMMARY | 2020-08-16 18:30 | XMS REPORT | Summary of Care ---
:1990 Author Organization [facility] Address [address] [place] [address] Care Team Providers Name Role Phone Ignacio Jordan Primary Care Provider Reason for Visit MRI/CAT Scan (Routine) Status Reason Specialty Diagnoses / Referred By Referred To Procedures Contact Contact Closed Diagnostic Diagnoses Weakness Emma Briones, Radiology Procedures CT THORAX W WO CONTRAST [address] [place] [address] Encounter Details Date Type Department Care Team Description 08/05/2020 Hospital Encounter [facility] Emma Briones MD Arrived [place] Computed [address] [facility] Tomography [address] [place] [address] [phone] Allergies Active Allergy Reactions Severity Noted Date [...] with No / Unsure 08/05/2020 9:40 AM CARDIAC CATH RN someone who was confirmed or suspected to have Coronavirus / COVID-19? documented as of this encounter Last Filed Vital Signs Not on filedocumented in this encounter Plan of Treatment Date Type Specialty Care Team Description 08/12/2020 Office Visit Cardiology [place] To MD [address] [place] [address]. [place], [place] [phone] 08/19/2020 Office Visit Pulmonary Disease Azucena Ron, KILN TESTER [address] [place] [phone] 08/19/2020 Office Visit Pain Medicine Gianfranco Archer M D [address] [place] [phone] Roverto Dwyer DO [address] [place] [phone] 08/26/2020 Office Visit Orthopedic Surgery Effie Sorto MD [address] [place] [address] [address] [place], [place] [address] Health Maintenance Due Date [...] of this encounter Implants Implanted Type Area Pipe Production Worker Device Shelf Model / Identifier Expiration Date Ser ial / Lot Screw-07/18/2003 SCREW Bilateral: Implanted: 07/18/2003 (Quantity not on file) Ankle documented as of this encounter Procedures Procedure Name Priority Date/Time Associated Comments Diagnosis CT THORAX W WO Routine 08/05/2020 10:30 AM Weakness Result s for this CONTRAST CARDIAC CATH RN procedure are i n the results section. CONSENT/REFUSAL FOR Routine 08/05/2020 9:39 AM DIAGNOSIS AND CARDIAC CATH RN TREATMENT ASSIGNMENT OF Routine 08/05/2020 9:39 AM BENEFITS CARDIAC CATH RN documented in this encounter Results Not on filedocumented in this encounter Administered Medications Medication Order MAR Action Action Date Dose Rate Site iohexol (OMNIPAQUE 350 BULK-150 Given 08/05/2020 10:20 AM CARDIAC CATH RN 12 0 mL mL) injection 120 mL 120 mL, Intravenous, ONCE, 1 dose, 08/05/20 at 1030, Routine documented in this encounter Insurance Payer Benefit Plan / Subscriber ID Effective Dates Phone Addre ss Type Group [facility] STAR [id number] 2013-Present Medicaid COMM PLAN - PLUS MANAGED MEDICAID documented as of this encounter
--- OUTSIDE RECORDS SUMMARY | 2020-08-16 18:30 | XMS REPORT | Summary of Care ---
:1990 Author Organization [facility] Address [address] [place] [address] Care Team Providers Name Role Phone Patricklaura Ignacio Primary Care Provider Reason for Referral (Routine) Status Reason Specialty Diagnoses / Referred By Referred To Procedures Contact Contact New Request Orthopedic Surgery Diagnoses Obesity (BMI 30-39.9) Lovely French Procedures CONSULT/REFERRAL ORTHOPAEDIC SURGERY MD Alexander [address] [facility] [address] [address] (Routine) Status Reason Specialty Diagnoses / Referred By Referred To Procedures Contact Contact New Request Pain Medicine Diagnoses Obesity (BMI 30-39.9) Lovely French Procedures CONSULT/REFERRAL PAIN CLINIC MD Alexander [address] [place] [address] [address] (Routine) Status Reason Specialty Diagnoses / Referred By Referred To Procedures Contact Contact New Request Neurology Diagnoses Obesity (BMI 30-39.9) Lovely French, Procedures CONSULT NEUROLOGY [address] [place] [address] [address] (Routine) Status Reason Specialty Diagnoses / Referred By Referred To Procedures Contact Contact New Request Cardiology Diagnoses Obesity (BMI 30-39.9) Lovely French, Procedures CONSULT/REFERRAL CARDIOLOGY [address] [place] [address] [address] MRI/CAT Scan (Routine) Status Reason Specialty Diagnoses / Referred By Referred To Procedures Contact Contact New Request Diagnostic Diagnoses Obesity (BMI 30-39.9) Astrid Frencha Radiology Procedures CT ABDOMEN PELVIS W CONTRAST MD Alexander [address] [address] Reason for Visit Reason Comments Follow-up localized adiposity Encounter Details Date Type Department Care Team Description 07/22/2020 Office Visit [facility] Health Plastic Lovely French ty (BMI 30- 39.9) (Primary Dx); Surgery- [place] MD Alexander Weakness; [place] [address] Roman syndrome; [facility] G24 Localized adiposity; [place], [place] Intertrigo; [place] [address] Klippel-Feil deformity [phone] Allergies Active Allergy Reactions Severity Noted Date [...] with No / Unsure 07/22/2020 1:16 PM FAMILY PROTECTION SPECIALIST someone who was confirmed or suspected to have Coronavirus / COVID-19? documented as of this encounter Last Filed Vital Signs Vital Sign Reading Time Taken Comments Blood Pressure 125/82 07/22/2020 1:19 PM FAMILY PROTECTION SPECIALIST Pulse 78 07/22/2020 1:19 PM FAMILY PROTECTION SPECIALIST Temperature 36.8 C (98.2 F) 07/22/2020 1:19 PM FAMILY PROTECTION SPECIALIST Respiratory Rate 18 07/22/2020 1:19 PM FAMILY PROTECTION SPECIALIST Oxygen Saturation 97% 07/22/2020 1:19 PM FAMILY PROTECTION SPECIALIST Inhaled Oxygen Concentration - - Weight 99 kg (218 lb 3.2 oz) 07/22/2020 1:19 PM FAMILY PROTECTION SPECIALIST Height 160 cm (5' 3") 07/22/2020 1:19 PM FAMILY PROTECTION SPECIALIST Body Mass Index 38.65 07/22/2020 1:19 PM FAMILY PROTECTION SPECIALIST documented in this encounter Progress Notes Lovely French MD - 07/22/2020 1:[address] Guillaume, I examined this patient. She has sustained a 60 pound weight loss and reports a stable weight of at least 6 months duration. She has erythema intertrigo under her very heavy pannus which hangs 10 cm maximum over her pubic bone. She complains of discomfort which causes difficulty with activities of daily living such as hygiene, toileting and even climbing stairs. He would benefit from a panniculectomy/abdominoplasty with plication. She has as well a large soft tissue mass in the left this inferior thoracic region which has been previously liposuction and continues to grow. She would benefit from excision of this directly similarly to an upper body lift but to excise this soft tissue mass which is extremely large and demonstrated and photographed. The excision would b e more than 50 cm in greatest diameter. However, she has multiple medical problems which have not been optimized including diabetes with a hemoglobin A1c of 9.0 today and a serum glucose of more than 300. 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 she has not had any recent labs to evaluate her general status toinclude nutritional assessment and screening for anemia or evaluation of her coagulation status. Shehas chronic back pain which is currently managed on multiple medications by her primary care physician and would benefit from and is excepting of a pain consult. She also would benefit from a consultation with the spine service. A CT scan with oral contrast is ordered to evaluate the integrity of her abdominal wall.I agree with resident's note as written. Pallavi Licona MD - 07/22/2020 1:15 PM CST PLASTIC SURGERY CLINIC NOTE 07/22/2020 Visit Type: Clinic Note / History and Physical Chief Complaint: Back and abdominal lipodystrophy HPI Laureen Schmidt is a 30 year old [...] in the past. 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 She has very poor diet. She does not have her pre-albumin labs. She does not have cardiac clearance for surgery. She is scheduled for an appointment with her case manager specialist later this month 08/12/20. She has chronic [...] Positive Factor V Leiden: No Positive Prothrombin 90041M: No Elevated Serum Homocysteine: No Positive Lupus [...] Pallavi Guillaume MD - 07/22/2020 1:15 PM FAMILY PROTECTION SPECIALIST Addended by: PALLAVI GUILLAUME on: 07/22/2020 06:10 PM Modules accepted: Orders ddendum Note - Pallavi Guillaume MD - 07/22/2020 1:15 PM FAMILY PROTECTION SPECIALIST Addended by: PALLAVI GUILLAUME on: 07/22/2020 06:04 PM Modules accepted: Orders ddendum Note - Fredy Villanueva MD - 07/22/2020 1:15 PM FAMILY PROTECTION SPECIALIST Addended by: FREDY VILLANUEVA MD on: 07/22/2020 05:43 PM Modules accepted: Orders LY PROTECTION SPECIALIST documented in this encounter Plan of Treatment Date Type Specialty Care Team Description 08/05/2020 Appointment Radiology Lovely French MD [address] [place] [address] [address] [place] [phone] 08/05/2020 Appointment Radiology Emma Briones MD [address] [place] [address] [phone] 08/12/2020 Office Visit Cardiology [place] To MD [address] [place], [place] [address]d. [place], [place] [phone] 08/19/2020 Office Visit Pulmonary Disease Azucena Ron, ILANA [address] [phone] Name Type Priority Associated Diagnoses Order [...] of this encounter Implants Implanted Type Area Poultry Hatchery Manager Device Shelf Model / Identifier Expiration Date Ser ial / Lot Screw-07/18/2003 SCREW Bilateral: Implanted: 07/18/2003 (Quantity not on file) Ankle documented as of this encounter Results GLYCOSYLATED HEMOGLOBIN (A1C) (07/22/2020 2:55 PM FAMILY PROTECTION SPECIALIST) Pathologist Sig nature HGB A1C 9.0 (H) 4.0 - 6.0 % [facility] Specimen Blood Performing Organization Address City/State/Zipcode Phone Number [facility] CLIA: [id number] [place] [address] SERVICES-[address] documented in this encounter Visit Diagnoses Diagnosis Obesity (BMI 30-39.9) - Primary Obesity, unspecified Weakness Other malaise and fatigue [place]atesville syndrome Other specified congenital anomalies Localized adiposity Intertrigo Other specified erythematous condition Klippel-Feil deformity Klippel-Feil syndrome documented in this encounter Insurance Payer Benefit Plan / Subscriber ID Effective Dates Phone Addre ss Type Group [facility] STAR [id number] 2013-Present Medicaid COMM PLAN - PLUS MANAGED MEDICAID documented as of this encounter
--- OUTSIDE RECORDS SUMMARY | 2020-08-16 18:31 | XMS REPORT | Summary of Care ---
:1990 Author Organization [facility] Address [address] [place] [address] Care Team Providers Name Role Phone Ignacio Jordan Primary Care Provider Reason for Referral MRI/CAT Scan (Routine) Status Reason Specialty Diagnoses / Referred By Referred To Procedures Contact Contact New Request Diagnostic Diagnoses Precordial pain Palpitations [place] To MD Radiology Procedures CT ANGIOGRAPHY CORONARIES WITH CARDIAC CALCIUM SCORE CT ANGIOGRAPHY CORONARIES WITH CARDIAC CALCIUM SCORE [address] [place] [address] (Routine) Status Reason Specialty Diagnoses / Referred By Contact Refe rred To Procedures Contact New Request Cardiology Diagnoses Precordial pain Palpitations [place] To MD Procedures Cardiac Monitoring 24 hours Cardiac Monitoring 24 hours [address] [place] [address] Phone: Reason for Visit Reason Comments New Patient Establish Care/Clearance (Routine) Status Reason Specialty Diagnoses / Referred By Contact Refe rred To Contact Procedures Closed Cardiology Diagnoses Syncope and collapse Ignacio Jordan [facility] Cardiology Procedures CONSULT/REFERRAL CARDIOLOGY [address] [facility] [address] [place] [address], [address] [address] [place], [place] Phone: [phone] Fax: Encounter Details Date Type Department Care Team Description 08/12/[address] [facility] [place] To MD Precordial pain (Primary Dx); Cardiology- [address] Palpitations 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 documented as of this encounter Last Filed Vital Signs Vital Sign Reading Time Taken Comments Blood Pressure 111/70 08/12/2020 11:59 AM SUPERINTENDENT PIER Pulse 82 08/12/2020 11:59 AM SUPERINTENDENT PIER Temperature - - Respiratory Rate 19 08/12/2020 11:59 AM SUPERINTENDENT PIER Oxygen Saturation 97% 08/12/2020 11:59 AM SUPERINTENDENT PIER Inhaled Oxygen Concentration - - Weight 97.7 kg (215 lb 4.8 oz) 08/12/2020 11:59 AM SUPERINTENDENT PIER Height 160 cm (5' 3") 08/12/2020 11:59 AM SUPERINTENDENT PIER Body Mass Index 38.14 08/12/2020 11:59 AM SUPERINTENDENT PIER documented in this encounter Progress Notes [place] To MD - 08/12/2020 11:40 AM CST Cardiac EP [facility] Note Reason for Evaluation / Chief Complaint: Pre op risk stratifucation Referring Provider: Dr. 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, chest tightness, palpitations Recommendation(s): Will proceed [...] Visit Pulmonary Disease Azucena Ron FNP [address] [facility] [address] Jordan [facility]5 [phone] 08/19/2020 Office Visit Pain Medicine Gianfranco Archer M D [address] [place] [phone] Roverto Dwyer DO [address] [place] [phone] 08/26/2020 Office Visit Orthopedic Surgery Effie Sorto MD [address] [place] [address] RT0 [address] [place] [phone] 09/18/2020 Office Visit Cardiology Adán Gomes MD [address] [place] [address] [address] [place] [phone] Name Type Priority Associated Diagnoses Order [...] of this encounter Implants Implanted Type Area [employer] Consultant Device Shelf Model / Identifier Expiration Date Ser ial / Lot Screw-07/18/2003 SCREW Bilateral: Implanted: 07/18/2003 (Quantity not on file) Ankle documented as of this encounter Results Not on filedocumented in this encounter Visit Diagnoses Diagnosis Precordial pain - Primary Palpitations documented in this encounter Insurance Payer Benefit Plan / Subscriber ID Effective Dates Phone Addre ss Type Group [facility] STAR [id number] 2013-Present Medicaid COMM PLAN - PLUS MANAGED MEDICAID documented as of this encounter
--- NOTE | 2020-08-16 19:33 | RAD REPORT ---
EXAM DESCRIPTION: RAD - Chest Single View - 08/16/2020 7:20 pm CLINICAL HISTORY: Chest pain;Dyspnea, recent COVID exposure COMPARISON: February 2020 TECHNIQUE: AP portable chest image was obtained 08/16/2020 7:20 pm . FINDINGS: Lungs are clear. Heart and vasculature are normal. No measurable pleural effusion and no p neumothorax. No acute bony abnormality seen. No acute aortic findings suspected. IMPRESSION: No acute cardiopulmonary process. No significant change from comparison study.
[2020-08-16 21:13] LABS: SARS-COV-2 RT PCR POSITIVE (NEGATIVE)
--- NOTE | 2020-08-16 21:14 | ER ---
Nurse's Notes [facility] Name: Laureen Schmidt Age: 30 yrs Sex: Female : 1990 Arrival Date: 08/16/2020 Time: 18:25 Bed 4 Private MD: Diagnosis: Coronavirus infection, unspecified Presentation: 08/16 18:32 Ebola Screen: No symptoms or risks identified at this time. Risk Assessment: Do you hb want to hurt yourself or someone else? Patient reports no desire to harm self or others. 18:32 Method Of Arrival: Ambulatory hb 18:34 Chief complaint: Patient states: fever, chills, sore throat, dizziness and SOB that ss began yesterday. recently exposed to COVID. Coronavirus screen: Client presents with at least one sign or symptom that may indicate coronavirus-19. Standard/surgical mask placed on the client. Provider contacted for isolation considerations. Initial Sepsis Screen: Does the patient meet any 2 criteria? No. Patient's initial sepsis screen is negative. Does the patient have a suspected source of infection? No. Patient's initial sepsis screen is negative. Onset of symptoms was August 15, 2020. 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 - Social history:: Smoking status: Patient denies any tobacco usage or history of. Screenin:32 Abuse screen: Denies threats or abuse. Denies injuries from another. Nutritional hb screening: No deficits noted. Tuberculosis screening: No symptoms or risk factors identified. Fall Risk None identified. Assessment: 18:37 General: Appears in no apparent distress. Behavior is calm, cooperative. Pain: Pain hb currently is 8 out of 10 on a pain scale. Neuro: Level of Consciousness is awake, alert, obeys commands, Oriented to person, place, time, situation. Cardiovascular: Capillary refill < 3 seconds Patient's skin is warm and dry. Respiratory: Reports shortness of breath on exertion cough that is non-productive, Respiratory effort is even, unlabored, Respiratory pattern is regular, symmetrical. GI: Reports nausea. : No signs and/or symptoms were reported regarding the genitourinary system. EENT: Reports sore throat. Derm: Skin is pink, warm \T\ dry. Musculoskeletal: Reports body aches. 20:00 Reassessment: Patient appears in no apparent distress at this time. Patient and/or wh family updated on plan of care and expected duration. Pain level reassessed. Patient is alert, oriented x 3, equal unlabored respirations, skin warm/dry/pink. 21:30 Reassessment: Patient appears in no apparent distress at this time. Patient and/or wh family updated on plan of care and expected duration. Pain level reassessed. Patient is alert, oriented x 3, equal unlabored respirations, skin warm/dry/pink. Vital Signs: 18:34 BP 126 / 83; Pulse 123; Resp 20; Temp 99.2(O); Pulse Ox 98% on R/A; Weight 113.4 kg; ss Height 5 ft. 3 in. (160.02 cm); Pain 8/10; 18:58 Pulse 110; sv 19:30 BP 106 / 56; Pulse 106; Resp 18; Pulse Ox 97% on R/A; wh 21:00 BP 118 / 58; Pulse 105; Resp 18; Pulse Ox 96% on R/A; wh 18:34 Body Mass Index 44.29 (113.40 kg, 160.02 cm) ED Course: 18:25 Patient arrived in ED. mr 18:29 Glenis Goyal FNP-C is [facility] kb 18:29 Heather Luong MD is Attending Physician. kb 18:30 Viky Corrigan RN is Primary Nurse. sv 18:31 Arm band placed on Patient placed in an exam room, on a stretcher. sv 18:32 Patient has correct armband on for positive identification. Placed in gown. Bed in low hb position. Call light in reach. Side rails up X 1. 18:36 Triage completed. ss 18:37 COVID swab sent to lab. Flu and/or RSV swab sent to lab. Strep swab sent to lab. sv 18:48 Awaiting lab results. 18:57 Awaiting for x-ray. 19:02 Report given to Ray NELSON and Charlette RN. 19:03 Primary Nurse role handed off by Viky Corrigan, OMAR 19:29 Charlette Christianson, RN is Primary Nurse. 21:36 No provider procedures requiring assistance completed. Patient did not have IV access during this emergency room visit. Administered Medications: No medications were administered Outcome: 21:13 Discharge ordered by MD. kb 21:36 Discharged to home ambulatory. 21:36 Condition: stable 21:36 Discharge instructions given to patient, Instructed on discharge instructions, follow up and referral plans. POC Demonstrated understanding of instructions, follow-up care, POC 21:36 Patient left the ED. Signatures: Glenis Goyal, CARTON MAKING MACHINE OPERATOR-C CARTON MAKING MACHINE OPERATOR-Ckb Viky Corrigan, RN OMAR Yanelis Church Shelby, RN RN ss Baxter, Heather, OMAR NELSON Charlette Christianson RN RN
--- NOTE | 2020-08-16 21:14 | EDPHYS ---
Physician Documentation [facility] Name: Laureen Schmidt Age: 30 yrs Sex: Female : 1990 Arrival Date: 08/16/2020 Time: 18:25 Bed 4 Private MD: ED Physician Heather Luong HPI: 08/16 21:39 This 30 yrs old Female presents to ER via Ambulatory with complaints of kb Dizziness, Fever, Abdominal Pain. 21:40 The patient or guardian reports cough, that is intermittent, described as mild, with no kb sputum, difficulty breathing, flu symptoms, low-grade fever, myalgias. Onset: The symptoms/episode began/occurred yesterday. Severity of symptoms: At their worst the symptoms were moderate, in the emergency department the symptoms are unchanged. Modifying factors: The symptoms are alleviated by nothing, the symptoms are aggravated by nothing. Associated signs and symptoms: Pertinent positives: fever. The patient has not experienced similar symptoms in the past. The patient has not recently seen a physician. 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 - Social history:: Smoking status: Patient denies any tobacco usage or history of. ROS: 21:38 Neck: Negative for injury, pain, and swelling, Cardiovascular: Negative for chest pain, kb palpitations, and edema, Back: Negative for injury and pain, MS/Extremity: Negative for injury and deformity, Skin: Negative for injury, rash, and discoloration. 21:38 Constitutional: Positive for body aches, chills, fatigue, fever, malaise. 21:38 Respiratory: Positive for cough, Negative for dyspnea on exertion, hemoptysis, orthopnea, pleurisy, shortness of breath, sputum production, wheezing. 21:38 Abdomen/GI: Positive for abdominal pain, Negative for nausea, vomiting, and diarrhea. 21:38 Neuro: Positive for dizziness, headache. Exam: 21:39 Constitutional: This is a well developed, well nourished patient who is awake, alert, kb and in no acute distress. Head/Face: Normocephalic, atraumatic. Chest/axilla: Normal chest wall appearance and motion. Nontender with no deformity. No lesions are appreciated. Cardiovascular: Regular rate and rhythm with a normal S1 and S2. No gallops, murmurs, or rubs. Normal PMI, no JVD. No pulse deficits. Respiratory: Lungs have equal breath sounds bilaterally, clear to auscultation and percussion. No rales, rhonchi or wheezes noted. No increased work of breathing, no retractions or nasal flaring. Abdomen/GI: Soft, non-tender, with normal bowel sounds. No distension or tympany. No guarding or rebound. No evidence of tenderness throughout. Skin: Warm, dry with normal turgor. Normal color with no rashes, no lesions, and no evidence of cellulitis. MS/ Extremity: Pulses equal, no cyanosis. Neurovascular intact. Full, normal range of motion. Neuro: Awake and alert, GCS 15, oriented to person, place, time, and situation. Cranial nerves II-XII grossly intact. Motor strength 5/5 in all extremities. Sensory grossly intact. Cerebellar exam normal. Normal gait. Vital Signs: 18:34 BP 126 / 83; Pulse 123; Resp 20; Temp 99.2(O); Pulse Ox 98% on R/A; Weight 113.4 kg; ss Height 5 ft. 3 in. (160.02 cm); Pain 8/10; 18:58 Pulse 110; sv 19:30 BP 106 / 56; Pulse 106; Resp 18; Pulse Ox 97% on R/A; wh 21:00 BP 118 / 58; Pulse 105; Resp 18; Pulse Ox 96% on R/A; wh 18:34 Body Mass Index 44.29 (113.40 kg, 160.02 cm) ss MDM: 18:29 Patient medically screened. kb 21:36 Data reviewed: vital signs, nurses notes. Data interpreted: Pulse oximetry: on room air kb is 96 %. Interpretation: normal. Counseling: I had a detailed discussion with the patient and/or guardian regarding: the historical points, exam findings, and any diagnostic results supporting the discharge/admit diagnosis, lab results, radiology results, the need for outpatient follow up, a family practitioner, to return to the emergency department if symptoms worsen or persist or if there are any questions or concerns that arise at home. 08/16 18:34 Order name: Strep; Complete Time: 21:08 kb 08/16 18:58 Order name: Glucose, Ancillary Testing; Complete Time: 19:03 EDMS 08/16 20:37 Order name: Throat Culture EDMS 08/16 21:13 Order name: COVID-19/FLU A+B; Complete Time: 21:14 EDMS 08/16 18:34 Order name: Chest Single View XRAY kb 08/16 19:33 Order name: RAD; Complete Time: 19:34 EDMS Administered Medications: No medications were administered Disposition: 08/16/20 21:13 Discharged to Home. Impression: Coronavirus infection, unspecified. - Condition is Stable. - Discharge Instructions: Viral Respiratory Infection, Cbly-Vw-Wcni, COVID-19. - Medication Reconciliation Form, Thank You Letter, Antibiotic Education, Prescription Opioid Use form. - Follow up: Emergency Department; When: As needed; Reason: Worsening of condition. Follow up: Private Physician; When: 2 - 3 days; Reason: Recheck today's complaints, Continuance of care, Re-evaluation by your physician. Addendum: 08/18/2020 18:26 Co-signature as Attending Physician, Heather Luong MD. m a2 Signatures: Dispatcher [employer] [facility] Glenis Goyal, ILANA-Loren PRECIADO-Viky Marrero RN RN sv Baxter, Heather, RN RN hb Habalo, Winsy, RN RN Heather Luong MD MD ma2 Corrections: (The following items were deleted from the chart) 08/16 20:14 18:35 CORONAVIRUS+MR.LAB.BRZ ordered. EDMO EDMO 20:14 18:35 Influenza Screen (A \T\ B)+BA.LAB.BRZ ordered. [facility] EDMO 21:36 21:13 08/16/2020 21:13 Discharged to Home. Impression: Coronavirus infection, wh unspecified. Condition is Stable. Forms are Medication Reconciliation Form, Thank You Letter, Antibiotic Education, Prescription Opioid Use. Follow up: Emergency Department; When: As needed; Reason: Worsening of condition. Follow up: Private Physician; When: 2 - 3 days; Reason: Recheck today's complaints, Continuance of care, Re-evaluation by your physician. kb
[2020-08-16 21:41] VITALS: TEMP 99.2
[2020-08-16 21:44] VITALS: BP 118/58; O2SAT 96
== END 2020-08-16 21:36 | disposition home or self-care (01) ==
LOC: ER 18:22
DX: U07.1 COVID-19 (principal); F31.9 Bipolar disorder, unspecified; E11.43 Type 2 diabetes mellitus with diabetic autonomic (poly)neuropathy; Z79.4 Long term (current) use of insulin; K76.0 Fatty (change of) liver, not elsewhere classified; Q96.9 Turner's syndrome, unspecified
CPT/HCPCS: 87070; 82947; 87081; 0240U; 71045; 99283

== ENCOUNTER 2021-01-15 17:59 | Emergency (ER) | payer OTHER ==
--- OUTSIDE RECORDS SUMMARY | 2021-01-15 18:19 | XMS REPORT | Continuity of Care Document ---
:1990 Author Organization [facility] t Address [address] [place] [address] Dr. Ko[address] [place] [address] Care Team Providers Name Role Phone Zuleika LUZ Attending Clinician Neurology Attending Clinician Unavailable Red Cooley DO Attending Clinician Jim Solis II Attending Clinician [...] shanna due to 22:39:52 l type 2 [place] diabetes Hyperglyce mellitus shanna due to (disorder) type 2 diabetes mellitus (disorder) Active Problem 04/14/2020 [facility] Group Insulin Problem Active 2020-04-14 Vick arik resistance 22:39:52 l Insulin Tony resistance Active Problem 04/14/2020 Medical Group Obesity Problem Active 2020-04-14 Vick arik (disorder) 22:39:52 l Obesity Tony (disorder) Active Problem 04/14/2020 Medical Group Allergies, Adverse Reactions, Alerts Allergy Allergy Status Severity Reaction(s) Onset Inactive Treating Comm ents Source Name Type Date Date Clinician NKA NKA Active Jessica wadsworthine Active Jessica Jimeenz Social History Social Habit Start Date Stop Date Quantity Comments Source Social History 2020-01-09 2020-01-09 [facility] 16:48:27 16:48:27 Medications Ordered Filled Start Stop Current Ordering Indication Dosage Frequency Signature Comments Components Source Medication Medication Date Date Medication? Clinician (SIG) Name Name MetFORMIN Yes = 2 tab, Vick arik (Eqv-Glucop 9-25 PO, BID, # l arian XR) 13:23: 360 tab, 3 Her mtz 500 mg oral 00 Refill(s), tablet, Pharmacy: [facility] release [id number], 160.02, cm, 01/09/20 11:25:00 CDT, Height, 98.182, kg, 01/09/20 11:25:00 CDT, Weight pioglitazon Yes 15 mg = 1 M emoria e 15 mg 8-06 tab, PO, l oral tablet 14:49: Daily, # He rmann 00 90 tab, 0 Refill(s), Pharmacy: [facility] #[id number], 160.02, cm, 01/09/20 11:25:00 CDT, Height, 98.182, kg, 01/09/20 11:25:00 CDT, Weight canaglifloz Yes 100 mg = 1 Memoria in 100 mg 7-16 tab, PO, l oral tablet 16:23: Daily, # He rmann 00 90 tab, 1 Refill(s), Pharmacy: [facility] #[id number], 160.02, cm, 01/09/20 11:25:00 CDT, Height, 98.182, kg, 01/09/20 11:25:00 CDT, Weight OneTouch Yes , # 1 ea, Vick arik Ultra2 6-26 Insulin l Blood 13:20: dependent, Aram n Glucose 00 Does not Meter use insulin pump, Last DM eval date 01/11/20, 0 Refill(s), Pharmacy: [facility] #[id number], 160.02, cm,... OneTouch Yes See Memoria Ultra Blue 6-26 Instructio l Blood 13:20: ns, 4 Tony Glucose 00 FS/d, # Test Strip 400 ea, Insulin dependent, Does not use insulin pump, Last DM eval date 01/11/20, 3 Refill(s), Pharmacy: [facility] #[id number], 160.02, cm, 01/09/20 11:25:00 CDT, Height, 98.182, kg, 01/09/20 11:25:00 CDT, Weight OneTouch 2019-0 Yes See Jessica Delica 01-10 Instructio l Extra Fine 13:20: ns, FS Yasmine nn 33G Lancets 00 4/d, # 400 ea, Insulin dependent, Does not use insulin pump, Last DM eval date 01/11/20, 3 Refill(s), Pharmacy: [facility] #[id number], 160.02, cm, 01/09/20 11:25:00 CDT, Height, 98.182, kg, 01/09/20 11:25:00 CDT, Weight Dexcom G6 2019-0 Yes 1 ea, Memoria Manager Gallery 01-08 MISC, l Kit 18:42: ONCE, [place] [address] Certified Medically Necessar. Change every 90 days., # 1 kit, Insulin dependent, Does not use insulin pump, Last DM eval date 01/09/20, 0 Refill(s), Pharmacy: [facility] #[id number], 160.02, cm, 01/09/20 11:25:00 CDT, Height, 98.182, kg,... Dexcom G6 2019-0 Yes 1 ea, Lidaoria Sensor Kit 01-08 MISC, l 18:42: ONCE, [place] [address] Certified Medically Necessary- change every 10 days., # 1 ea, Insulin dependent, Does not use insulin pump, Last DM eval date 01/09/20, 11 Refill(s), Pharmacy: [facility] #[id number], 160.02, cm, 01/09/20 11:25:00 CDT, Height, 98.182, kg,... Dexcom G6 2019-0 Yes 1 ea, Memoria Transmitter 01-08 MISC, l Kit 18:42: ONCE, [place] [address] Certified Medically Necessary: Change every 3 months Dx code E10.65, # 1 ea, Insulin dependent, Does not use insulin pump, Last DM eval date 01/09/20, 3 Refill(s), [id number], 160.02, cm, 01/09/20 11:25:00 CDT, Heigh... FreeStyle 2020-0 No , # 1 ea, Mem oria Aileen 6-24 Insulin l [place] 17:20: dependent, Yasmine nn 00 Does not use insulin pump, Last DM eval date 01/09/20, 0 Refill(s), [id number], 160.02, cm,... FreeStyle 2020-0 No See Memoria Aileen 6-24 Instructio l Sensor 17:20: ns, MISC, Aram n 00 change every 14 days, # 6 ea, Insulin dependent, Does not use insulin pump, Last DM eval date 01/09/20, 3 Refill(s), Pharmacy: [facility] #[id number], 160.02, cm, 01/09/20 11:25:00 CDT, Height, 98.182, kg, 01/09/20 11:25:00 CDT, We... FreeStyle 2020-0 No , # 1 ea, Mem oria Aileen 6-24 Insulin l [place] 17:18: dependent, Yasmine nn 00 Does not [...] Source Systolic (mm Hg) 2020-01-09 16:25:00 Vick lizet Tony Diastolic (mm Hg) 2020-01-09 16:25:00 Lida Jimenez Heart Rate 2020-01-09 16:25:00 Chitra Jimenez Respitory Rate 2020-01-09 16:25:00 Jesus Sharp Height 2020-01-09 16:25:00 160.02 cm Chitra Jimenez Weight 2020-01-09 16:25:00 Chitra Jimenez BMI Calculated 2020-01-09 16:25:00 Jesus Sharp Procedures Procedure Date / Time Performed Performing Clinician [facility] murray Bladder cancer 2012-07-18 06:00:00 [facility] Her mtz Hysterectomy 2012-07-18 06:00:00 [facility] Her mtz Tube feeding 2007-07-18 06:00:00 [facility] Her mtz Lipoma of back 1997-07-18 06:00:00 [facility] Her mtz Caesarean section 1989 06:00:00 [facility] Dennis ermann Gallbladder [facility] Tony Shortening of heel cord [facility] Tony Encounters Start End Encounter Admission Attending Care Care Encounter Source Date/Time Date/Time Type Type Clinicians Facility Department ID 2020-10-31 2020-10-31 [facility] [id number] 00:00:00 00:00:00 [facility] [id number] [place] [id number] [place] [id number] Medical [address] 2020-10-22 2020-10-22 Letter Neurology [facility] [id number] 00:00:00 00:00:00 (Out) HEALTH [id number] [facility] [id number] 2020-10-07 2020-10-07 Patient Yasir [facility] [id number] 00:00:00 00:00:00 Outreach Bryce [facility] [id number] Red [facility] [id number] [place] [id number] 2020-08-12 2020-08-12 Office [facility] [id number] 11:54:43 12:25:42 Visit [place] Nikki [id number] [place] [id number] [facility] [id number] nal 059 [facility] 2020-04-11 2020-04-12 Outpatient [facility] [id number] 08:08:44 23:59:59 02 2020-03-26 2020-03-27 Outpatient [facility] [id number] 10:00:16 10:00:16 03 2020-03-26 2020-03-26 Outpatient Nicklas, [facility] [id number] 08:30:00 23:59:59 Edward 64 [place] 2020-03-25 2020-03-25 Outpatient Nicklas, [facility] [id number] 13:35:00 13:35:00 Edward 63 [place] 2020-02-21 2020-02-21 Outpatient Nicklas, [facility] [id number] 09:30:00 23:59:59 Edward 62 [place] 2020-02-20 2020-02-21 Outpatient [facility] [id number] 08:37:17 08:37:17 02 2020-01-31 2020-01-31 Outpatient Irma, [facility] [id number] 11:00:00 23:59:59 Edward 61 [place] 2020-01-11 2020-01-12 Outpatient [facility] [id number] 08:13:43 23:59:59 01 2020-01-09 2020-01-10 Outpatient [facility] [id number] 13:39:57 23:59:59 2020-01-09 2020-01-09 Outpatient Nicklas, [facility] [id number] 11:15:00 23:59:59 Edward 60 [place] 2020-01-09 2020-01-09 Outpatient Nicklas, [facility] [id number] 11:15:00 11:15:00 Edward 59 [place] 2020-01-07 2020-01-07 Outpatient Nicklas, [facility] [id number] 13:50:00 13:50:00 Edflorian 58 Jim Results This patient has no known results.
[2021-01-15 19:37] LABS: Absolute Lymphocytes (CBC) 3.2 K/uL (0.7-4.9); Basophils % 0.4 % (0-1.3); Hematocrit 43.3 % (36.0-45.0); MPV 11.7 fL (7.6-11.3); RBC Red Blood Cell Count 4.76 M/uL (3.86-4.86)
[2021-01-15 19:45] LABS: ALT/SGPT 104 U/L (12-78); AST/SGOT 76 U/L (15-37); Albumin 3.9 g/dL (3.4-5.0); Alkaline Phosphatase 97 U/L (45-117); BUN Blood Urea Nitrogen 11 mg/dL (7-18); Bicarbonate 29 mmol/L (21-32); Bilirubin Direct < 0.1 mg/dL (0-0.2); Bilirubin Total 0.3 mg/dL (0.2-1.0); Glucose Level 331 mg/dL (74-106); Lipase 172 U/L (73-393); Potassium 4.2 mmol/L (3.5-5.1); Protein, Total 8.6 g/dL (6.4-8.2); Sodium Level 138 mmol/L (136-145)
[2021-01-15] MEDS ORDERED: NA CHLORIDE 0.9% 100 ML ONE (19:54)
[2021-01-15] MEDS ORDERED: NA CHLORIDE 0.9% 1,000 ML ONE (19:54)
[2021-01-15] MEDS ORDERED: KETOROLAC 30 MG/ML INJ ONE (19:54)
[2021-01-15] MEDS ORDERED: METHOCARBAMOL 1,000 MG/10 ML VIAL IV ONE (19:54)
[2021-01-15 20:59] LABS: Urine Blood Negative (Negative); Urine Glucose 2+ (Negative); Urine Protein Negative (Negative); Urine Specific Gravity 1.025 (1.005-1.030); Urine pH 6.5 (5.0-7.0)
[2021-01-15 21:04] LABS: Urine Specific Gravity/Preg 1.025 (1.005-1.030)
[2021-01-15] MEDS ORDERED: INSULIN -REGULAR HUMAN 50 UNIT/0.5 ML ML ONE (21:11)
--- NOTE | 2021-01-15 21:38 | EDPHYS ---
Physician Documentation [facility] Name: Laureen Schmidt Age: 30 yrs Sex: Female : 1990 Arrival Date: 01/15/2021 Time: 18:05 Bed 26 Private MD: Quique Gutiérrez E ED Physician Matt Irizarry HPI: 01/15 19:44 This 30 yrs old Female presents to ER via Ambulatory with complaints of High jr8 Blood Pressure, Vomiting, Neck Pain, <24hrs Old. 19:44 Patient stated that for the past several days she has had sharp increase in her blood jr8 sugar levels. Ranging around 400-600. Stated that she normally is under 200mg/dl. Stated that she currently is on Abx for UTI but otherwise no addition or change in medications. Stated that she has had nausea and upper abdominal discomfort. Stated that she has also had neck pain that she cannot get relief with utilizing OTC meds. 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 Severity of symptoms: At their worst the symptoms were moderate in the emergency department the symptoms are unchanged. The patient has not experienced similar symptoms in the past. The patient has not recently seen a physician. 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 - Social history:: Smoking status: Patient denies any tobacco usage or history of. ROS: 19:44 Eyes: Negative for injury, pain, redness, and discharge, ENT: Negative for injury, jr8 pain, and discharge, Cardiovascular: Negative for chest pain, palpitations, and edema, Respiratory: Negative for shortness of breath, cough, wheezing, and pleuritic chest pain, Back: Negative for injury and pain, MS/Extremity: Negative for injury and deformity, Skin: Negative for injury, rash, and discoloration, Neuro: Negative for headache, weakness, numbness, tingling, and seizure. 19:44 Neck: Positive for pain with movement, pain at rest, stiffness, tenderness. 19:44 Abdomen/GI: Positive for abdominal pain, nausea, Negative for vomiting, diarrhea, constipation, abdominal cramps, abdominal distension. Exam: 19:44 Eyes: Pupils equal round and reactive to light, extra-ocular motions intact. Lids and jr8 lashes normal. Conjunctiva and sclera are non-icteric and not injected. Cornea within normal limits. Periorbital areas with no swelling, redness, or edema. ENT: Nares patent. No nasal discharge, no septal abnormalities noted. Tympanic membranes are normal and external auditory canals are clear. Oropharynx with no redness, swelling, or masses, exudates, or evidence of obstruction, uvula midline. Mucous membranes moist. Cardiovascular: Regular rate and rhythm with a normal S1 and S2. No gallops, murmurs, or rubs. Normal PMI, no JVD. No pulse deficits. Respiratory: Lungs have equal breath sounds bilaterally, clear to auscultation and percussion. No rales, rhonchi or wheezes noted. No increased work of breathing, no retractions or nasal flaring. Abdomen/GI: Soft, non-tender, with normal bowel sounds. No distension or tympany. No guarding or rebound. No evidence of tenderness throughout. Back: No spinal tenderness. No costovertebral tenderness. Full range of motion. Skin: Warm, dry with normal turgor. Normal color with no rashes, no lesions, and no evidence of cellulitis. MS/ Extremity: Pulses equal, no cyanosis. Neurovascular intact. Full, normal range of motion. Neuro: Awake and alert, GCS 15, oriented to person, place, time, and situation. Cranial nerves II-XII grossly intact. Motor strength 5/5 in all extremities. Sensory grossly intact. Cerebellar exam normal. Normal gait. 19:44 Neck: External neck: tenderness, that is mild, of the occiput right side, C-spine: appears grossly normal, Thyroid: appears normal, Trachea: is midline with no obvious abnormalities, ROM/movement: pain, that is mild, with rotation to the right, limited range of motion, is not appreciated, Meningeal signs: are not present, Kernig's sign is negative, Brudzinski's sign is negative, nuchal rigidity, is not appreciated, Lymph nodes: no appreciated lymphadenopathy. Vital Signs: 18:11 BP 151 / 67; Pulse 95; Resp 18; Temp 99.4; Pulse Ox 100% on R/A; Weight 97.52 kg; ph Height 5 ft. 3 in. (160.02 cm); 19:13 BP 141 / 73; Pulse 89; Resp 18; Pulse Ox 100% ; ld1 20:15 BP 136 / 72; Pulse 86; Resp 18; Pulse Ox 100% on R/A; ld1 21:04 BP 139 / 76; Pulse 82; Resp 18; Pulse Ox 100% ; ld1 22:00 BP 142 / 70; Pulse 80; Resp 18; Pulse Ox 100% ; ld1 18:11 Body Mass Index 38.09 (97.52 kg, 160.02 cm) ph MDM: 18:33 Patient medically screened. jr8 21:36 Data reviewed: vital signs, nurses notes, lab test result(s), and as a result, I will jr8 discharge patient. Data interpreted: Pulse oximetry: on room air is 100 %. Interpretation: normal. Counseling: I had a detailed discussion with the patient and/or guardian regarding: the historical points, exam findings, and any diagnostic results supporting the discharge/admit diagnosis, lab results, the need for outpatient follow up, a family practitioner, to return to the emergency department if symptoms worsen or persist or if there are any questions or concerns that arise at home. Response to treatment: the patient's symptoms have markedly improved after treatment, patient is well hydrated. ED course: pain decreased. BGL improved. No other acute emergent or concerning findings on labs or exam. 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 To continue her Abx for her UTI and hydrate well. Will continue the robaxin at home. Return precautions given. Patient good with plan . 01/15 18:44 Order name: Basic Metabolic Panel; Complete Time: 19:[address] [facility] 01/15 18:44 Order name: CBC with Diff; Complete Time: 19:43 8 01/15 18:44 Order name: Hepatic Function; Complete Time: 19:52 8 01/15 18:44 Order name: Lipase; Complete Time: 19:[address] [facility] 01/15 19:36 Order name: Glucose, Ancillary Testing; Complete Time: 19:43 EDMS 01/15 20:59 Order name: Urine Dipstick-Ancillary; Complete Time: 21:11 [facility] 01/15 21:02 Order name: Urine --Ancillary (enter results); Complete Time: 21:11 [facility] 01/15 21:56 Order name: Glucose, Ancillary Testing; Complete Time: 22:08 [facility] 01/15 18:44 Order name: IV Saline Lock; Complete Time: 19:[address] [facility] 01/15 18:44 Order name: Labs collected and sent; Complete Time: 19:[address] [facility] 01/15 18:44 Order name: Urine Dipstick-Ancillary (obtain specimen); Complete Time: 21:03 8 01/15 18:44 Order name: Urine Test (obtain specimen); Complete Time: 21:[address] [facility] 01/15 18:45 Order name: Glucose Level; Complete Time: 19:45 jr8 Administered Medications: 19:45 Drug: Ketorolac 15 mg Route: IVP; Site: left antecubital; ld1 20:30 Not Given (Other Intervention Used): Robaxin (methocarbamol) 1 grams IVPB once over 1 jr8 hrs; (mix in NS 100 mL) 20:50 Drug: Insulin Regular Human 10 units {Co-Signature: bs2 (Oksana Jacobson).} Route: Sub-Q; ld1 Site: abdomen; 21:02 Not Given (Physician Discretion): Robaxin (methocarbamol) 750 mg PO once ld1 21:03 Drug: Robaxin (methocarbamol) 1 grams Route: IVPB; Infused Over: 1 hrs; Site: right ld1 wrist; 21:05 Drug: NS 0.9% 1000 ml Route: IV; Rate: 1000 ml; Site: right wrist; ld1 Disposition: 01/16 07:35 Co-signature as Attending Physician, Matt Irizarry MD I agree with the assessment and gill plan of care. Disposition Summary: 01/15/21 21:37 Discharge Ordered Location: Home jr8 Problem: new jr8 Symptoms: have improved jr8 Condition: Stable jr8 Diagnosis - Type 2 diabetes mellitus with hyperglycemia jr8 - Muscle spasm jr8 Followup: jr8 - With: Private Physician - When: 2 - 3 days - Reason: Recheck today's complaints, Continuance of care, Re-evaluation by your physician Discharge Instructions: - Discharge Summary Sheet jr8 - Hyperglycemia jr8 - Muscle Strain jr8 Forms: - Medication Reconciliation Form jr8 - Thank You Letter jr8 - Antibiotic Education jr8 - Prescription Opioid Use jr8 Prescriptions: - methocarbamol 500 mg Oral tablet - take 2 tablet by ORAL route 4 times per day As needed; 40 tablet; Refills: 0, jr8 Product Selection Permitted Signatures: Dispatcher [employer] Matt Mccormack MD MD cha Roszak, Josh, PA PA jr8 Jacquelin Arriola RN RN Judi Mark RN RN ld1 Oksana Jacobson bs2
--- NOTE | 2021-01-15 21:38 | ER ---
Nurse's Notes [facility] Name: Laureen Schmidt Age: 30 yrs Sex: Female : 1990 Arrival Date: 01/15/2021 Time: 18:05 Bed 26 Private MD: Quique Gutiérrez E Diagnosis: Type 2 diabetes mellitus with hyperglycemia;Muscle spasm Presentation: 01/15 18:11 Chief complaint: Patient states: Upper abdominal pain, N/V/D, neck pain, and high blood ph sugars (400-600), started approx 2 weeks ago, currently being treated for UTI. Coronavirus screen: Client denies travel out of the [place] in the last 14 days. At this time, the client does not indicate any symptoms associated with coronavirus-19. Ebola Screen: No symptoms or risks identified at this time. Initial Sepsis Screen: Does the patient meet any 2 criteria? No. Patient's initial sepsis screen is negative. Does the patient have a suspected source of infection? No. Patient's initial sepsis screen is negative. Risk Assessment: Do you want to hurt yourself or someone else? Patient reports no desire to harm self or others. Onset of symptoms was January 15, 2021. 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 - Social history:: Smoking status: Patient denies any tobacco usage or history of. Screenin:13 Abuse screen: Denies threats or abuse. Denies injuries from another. Nutritional ld1 screening: No deficits noted. Tuberculosis screening: No symptoms or risk factors identified. Fall Risk None identified. Assessment: 19:13 General: Appears in no apparent distress. comfortable, Behavior is calm, cooperative, ld1 appropriate for age. Pain: Complains of pain in epigastric area Pain does not radiate. Pain currently is 8 out of 10 on a pain scale. Quality of pain is described as stabbing, throbbing, Pain began 2-3 days ago. Is continuous. Neuro: Level of Consciousness is awake, alert, obeys commands, Oriented to person, place, time, situation. Cardiovascular: Capillary refill < 3 seconds Patient's skin is warm and dry. Respiratory: Airway is patent Respiratory effort is even, unlabored, Respiratory pattern is regular, symmetrical. GI: Abdomen is round non-distended, Reports diarrhea, nausea, vomiting. : No signs and/or symptoms were reported regarding the genitourinary system. EENT: No signs and/or symptoms were reported regarding the EENT system. Derm: No signs and/or symptoms reported regarding the dermatologic system. Musculoskeletal: No signs and/or symptoms reported regarding the musculoskeletal system. 21:03 Reassessment: Patient appears in no apparent distress at this time. Patient is alert, ld1 oriented x 3, equal unlabored respirations, skin warm/dry/pink. Patient denies pain at this time. 22:00 Reassessment: Patient appears in no apparent distress at this time. Patient is alert, ld1 oriented x 3, equal unlabored respirations, skin warm/dry/pink. Patient denies pain at this time. Vital Signs: 18:11 BP 151 / 67; Pulse 95; Resp 18; Temp 99.4; Pulse Ox 100% on R/A; Weight 97.52 kg; ph Height 5 ft. 3 in. (160.02 cm); 19:13 BP 141 / 73; Pulse 89; Resp 18; Pulse Ox 100% ; ld1 20:15 BP 136 / 72; Pulse 86; Resp 18; Pulse Ox 100% on R/A; ld1 21:04 BP 139 / 76; Pulse 82; Resp 18; Pulse Ox 100% ; ld1 22:00 BP 142 / 70; Pulse 80; Resp 18; Pulse Ox 100% ; ld1 18:11 Body Mass Index 38.09 (97.52 kg, 160.02 cm) ph ED Course: 18:05 Patient arrived in ED. am2 18:05 Quique Gutiérrez MD is Private Physician. am2 18:13 Triage completed. ph 18:14 Arm band placed on Patient placed in an exam room. ph 18:33 Prashant Ugalde PA is PHCP. jr8 18:33 Matt Irizarry MD is Attending Physician. jr8 19:12 Judi Mark, OMAR is Primary Nurse. ld1 19:13 Patient has correct armband on for positive identification. Placed in gown. Bed in low ld1 position. Side rails up X2. patient monitor on. Pulse ox on. NIBP on. 19:13 No provider procedures requiring assistance completed. Missed attempt(s): 20 gauge in ld1 right antecubital area. 20:46 Inserted saline lock: 20 gauge in right wrist, using aseptic technique. ld1 22:15 IV discontinued, intact, bleeding controlled, No redness/swelling at site. ld1 Administered Medications: 19:45 Drug: Ketorolac 15 mg Route: IVP; Site: left antecubital; ld1 20:30 Not Given (Other Intervention Used): Robaxin (methocarbamol) 1 grams IVPB once over 1 jr8 hrs; (mix in NS 100 mL) 20:50 Drug: Insulin Regular Human 10 units {Co-Signature: bs2 (Oksana Jacobson).} Route: Sub-Q; ld1 Site: abdomen; 21:02 Not Given (Physician Discretion): Robaxin (methocarbamol) 750 mg PO once ld1 21:03 Drug: Robaxin (methocarbamol) 1 grams Route: IVPB; Infused Over: 1 hrs; Site: right ld1 wrist; 21:05 Drug: NS 0.9% 1000 ml Route: IV; Rate: 1000 ml; Site: right wrist; ld1 Outcome: 21:37 Discharge ordered by . jr8 22:14 Discharged to home ambulatory. ld1 22:14 Condition: stable 22:14 Discharge instructions given to patient, Instructed on discharge instructions, follow up and referral plans. medication usage, Demonstrated understanding of instructions, follow-up care, medications. 22:15 Patient left the ED. ld1 Signatures: Prashant Ugalde PA PA jr8 Jacquelin Arriola RN RN Ella Handy 2 Judi Mark, OMAR RN [email or web address] Oksana Jacobson bs2
[2021-01-15 22:43] VITALS: TEMP 99.4; O2SAT 100
[2021-01-15 22:48] VITALS: BP 142/70
== END 2021-01-15 22:15 | disposition home or self-care (01) ==
LOC: ER 17:59
DX: E11.65 Type 2 diabetes mellitus with hyperglycemia (principal); M62.838 Other muscle spasm; F31.9 Bipolar disorder, unspecified; Z79.4 Long term (current) use of insulin; Z88.5 Allergy status to narcotic agent
CPT/HCPCS: 85025; 80048; 36415; 81025; 82947 ×2; 80076; 81003; 83690; 96372; 99284; J7030; J2800

== ENCOUNTER 2021-04-30 12:02 | Emergency (ER) | payer OTHER ==
[2021-04-30] MEDS ORDERED: KETOROLAC 30 MG/ML INJ ONE (16:05)
[2021-04-30] MEDS ORDERED: ONDANSETRON 4 MG/2 ML VIAL ONE (16:05)
[2021-04-30] MEDS ORDERED: NA CHLORIDE 0.9% 1,000 ML ONE ×2 (16:05→18:03)
[2021-04-30] MEDS ORDERED: METOCLOPRAMIDE 10 MG/2mL INJ ONE (16:05)
[2021-04-30] MEDS ORDERED: DIPHENHYDRAMINE 50 MG/ML VIAL ONE (16:05)
[2021-04-30 16:18] LABS: Absolute Lymphocytes (CBC) 1.5 K/uL (0.7-4.9); Basophils % 0.3 % (0-1.3); Hematocrit 42.4 % (36.0-45.0); Lymphocytes % 15.2 % (15.3-44.8); MPV 11.2 fL (7.6-11.3); RBC Red Blood Cell Count 4.67 M/uL (3.86-4.86)
[2021-04-30 16:29] LABS: ALT/SGPT 80 U/L (12-78); AST/SGOT 45 U/L (15-37); Albumin 3.7 g/dL (3.4-5.0); Alkaline Phosphatase 87 U/L (45-117); BUN Blood Urea Nitrogen 7 mg/dL (7-18); Bicarbonate 27 mmol/L (21-32); Bilirubin Direct 0.2 mg/dL (0-0.2); Bilirubin Total 0.7 mg/dL (0.2-1.0); Glucose Level 283 mg/dL (74-106); Lipase 80 U/L (73-393); Magnesium 1.7 mg/dL (1.8-2.4); Potassium 4.3 mmol/L (3.5-5.1); Sodium Level 137 mmol/L (136-145)
[2021-04-30] MEDS ORDERED: ACETAMINOPHEN 500 MG TAB ONE (16:54)
[2021-04-30 17:20] LABS: Urine Blood Trace-lysed (Negative); Urine Glucose 1+ (Negative); Urine Protein Negative (Negative); Urine pH 6.5 (5.0-7.0)
--- NOTE | 2021-04-30 17:52 | RAD REPORT ---
EXAM DESCRIPTION: CT - Head Brain Wo Cont - 04/30/2021 5:42 pm CLINICAL HISTORY: Headache;Fever COMPARISON: Head Brain Wo Cont dated 06/08/2020; Head Brain Wo Cont dated 03/11/2020 TECHNIQUE: All CT scans are performed using dose optimization technique as appropriate and may inclu de automated exposure control or mA/KV adjustment according to patient size. FINDINGS: No intracranial hemorrhage, hydrocephalus or extra-axial fluid collection.No areas of brai n edema or evidence of midline shift. The paranasal sinuses and mastoids are clear. The calvarium is intact. IMPRESSION: No acute intracranial abnormality. If the patient's symptomology persists or progresses , MRI brain followup would be recommended.
--- NOTE | 2021-04-30 17:55 | RAD REPORT ---
EXAM DESCRIPTION: CT - Stone Protocol - 04/30/2021 5:41 pm CLINICAL HISTORY: Flank pain. FLANK PAIN COMPARISON: Abdomen Pelvis W Contrast dated 06/08/2020 TECHNIQUE: Axial images were obtained without oral or IV contrast. Lack of contrast limits solid org an and vascular assessment. The [id number] spans the entirety of the system partially obscuring uppermost abdomen and lung bases. Coronal reformatted images were obtained and reviewed. All CT scans are performed using dose optimization technique as appropriate and may include automated exposure control or mA/KV adjustment according to patient size. FINDINGS: The lower lung boogie are clear. Cholecystectomy clips. Imaged portions of the liver and spleen show no suspicious findings on non-contrast imaging. The panc reas and adrenal glands are normal. No pathologic lymphadenopathy in the abdomen or pelvis. Punctate stones are seen in the calices of the right kidney. No hydronephrosis. No bowel obstruction, free air, free fluid or abscess. Normal appendix noted. Mild lumbosacral degenerative changes. IMPRESSION: Caliceal right nephrolithiasis without hydronephrosis.
[2021-04-30] MEDS ORDERED: CEFTRIAXONE 1000 MG/VIAL ONE (18:03)
[2021-04-30 18:54] LABS: Urine Bacteria LOADED /HPF (<20); Urine RBC <5 /HPF (NONE SEEN)
--- NOTE | 2021-04-30 19:39 | ER ---
Nurse's Notes [facility] Name: Laureen Schmidt Age: 31 yrs Sex: Female : 1990 Arrival Date: 04/30/2021 Time: 12:03 Bed 19 Private MD: Diagnosis: UTI/ Urinary tract infection, site not specified;Calculus of kidney Presentation: 04/30 12:34 Chief complaint: Patient states: she started having body aches and chills yesterday ap3 evening. She states she just got off of antibiotics from e-coli, and thought the recent diarrhea was from the antibiotics, however she still is having the Diarrhea. Diarrhea began 04/28/2021. Coronavirus screen: Client presents with at least one sign or symptom that may indicate coronavirus-19. Standard/surgical mask placed on the client. Ebola Screen: No symptoms or risks identified at this time. Initial Sepsis Screen: Does the patient meet any 2 criteria? HR > 90 bpm. No. Patient's initial sepsis screen is negative. Does the patient have a suspected source of infection? No. Patient's initial sepsis screen is negative. Risk Assessment: Do you want to hurt yourself or someone else? Patient reports no desire to harm self or others. Onset of symptoms was April 28, 2021. 12:34 Method Of Arrival: Ambulatory ap3 12:34 Acuity: ELKE 4 ap3 Triage Assessment: 12:41 Headache History: The patient has had previous headaches and this one is similar to ap3 previous episodes. General: Appears uncomfortable, Behavior is cooperative, Reports chills for fever for feeling ill for fatigue for. Pain: Complains of pain in head, chest, back of leg Pain currently is 7 out of 10 on a pain scale. Pain began gradually, 2-3 days ago. Alleviated by rest, Also complains of nausea. Neuro: Level of Consciousness is awake, alert, obeys commands, Oriented to person, place, time, situation, Appropriate for age Moves all extremities. Gait is steady, Speech is normal, Reports dizziness, upon rapid movement. Cardiovascular: Patient's skin is warm and dry. Historical: - Allergies: 12:39 Codeine; ap3 - Home Meds: 12:39 metformin 1,000 mg Oral tab 1 tab 2 times per day [Active]; Novolog Sub-Q [Active]; ap3 Lantus Sub-Q [Active]; gabapentin oral [Active]; ibuprofen Oral twice a day [Active]; - PMHx: 12:40 Bipolar disorder; Diabetes - IDDM; fatty liver; Gastroperesis; Heart Murmur; Nonan ap3 Syndrome; Flores Syndrome; - PSHx: 12:40 Exploratory laparotomy; Cholecystectomy; liposuction; screw placement in ryan ankles; ap3 - Immunization history:: Adult Immunizations up to date, Client reports having NOT received the Covid vaccine. - Social history:: Smoking status: Patient denies any tobacco usage or history of. Screenin:52 Abuse screen: Denies threats or abuse. Denies injuries from another. Nutritional tc5 screening: No deficits noted. Tuberculosis screening: No symptoms or risk factors identified. Fall Risk None identified. Assessment: 16:23 GI: Reports lower abdominal pain, upper abdominal pain, cramping, diarrhea, nausea, pt tc5 reports recent ecoli bladder infection, states she has been on ABX and started having MADSEN and diarrhea x 3 days, only once today. Vital Signs: 12:34 BP 125 / 66 RA Sitting (auto/lg); Pulse 127; Resp 19; Temp 98.9(TE); Pulse Ox 100% on ap3 R/A; Weight 99.79 kg; Height 5 ft. 3 in. (160.02 cm); Pain 7/10; 16:24 BP 117 / 59; Pulse 120; Resp 18; Temp 102.5; Pulse Ox 100% ; Pain 7/10; tc5 18:55 BP 110 / 50; Pulse 106; Resp 20; Temp 99.5; Pulse Ox 100% ; Pain 4/10; tc5 19:55 BP 112 / 54; Pulse 118; Resp 18; Pulse Ox 99% ; Pain 2/10; wg 12:34 Body Mass Index 38.97 (99.79 kg, 160.02 cm) ap3 ED Course: 12:03 Patient arrived in ED. rg4 12:07 Glenis Goyal FNP-C is [facility]. kb 12:07 Matt Irizarry MD is Attending Physician. kb 12:39 Triage completed. ap3 12:44 COVID swab sent to lab. Flu and/or RSV swab sent to lab. ap3 15:16 Matt Hamilton PA is PHCP. cp 15:16 Matt Irizarry MD is Attending Physician. cp 15:33 Karyn Geronimo, OMAR is Primary Nurse. tc5 16:25 Inserted saline lock: 20 gauge in left hand, using aseptic technique. Blood collected. tc5 17:41 CT Stone Protocol In Process Unspecified. EDMS 17:42 CT Head Brain wo Cont In Process Unspecified. EDMS 19:38 Arben Del Castillo MD is Referral Physician. cp 20:13 IV discontinued, intact, bleeding controlled, No redness/swelling at site. Pressure wg dressing applied. Administered Medications: 16:21 Drug: Zofran (Ondansetron) 4 mg Route: IVP; Site: left hand; tc5 17:31 Follow up: Response: No adverse reaction tc5 16:22 Drug: NS 0.9% 1000 ml Route: IV; Rate: 1 bolus; Site: left hand; tc5 16:22 Drug: Reglan (metoCLOPramide) 10 mg Route: IVP; Site: left hand; tc5 16:22 Drug: Benadryl (diphenhydrAMINE) 25 mg Route: IVP; Site: left hand; tc5 16:22 Drug: Ketorolac 15 mg Route: IVP; Site: left hand; tc5 18:05 Drug: NS 0.9% 1000 ml Route: IV; Rate: 1 bolus; Site: right hand; tc5 18:05 Drug: Rocephin (cefTRIAXone) 1 grams Route: IV; Rate: calculated rate; Site: right hand;tc5 19:32 Drug: Magnesium 800 mg Route: PO; em Outcome: 19:38 Discharge ordered by MD. cp 20:12 Discharged to home ambulatory. wg 20:12 Condition: stable 20:12 Discharge instructions given to patient, Instructed on discharge instructions, follow up and referral plans. Demonstrated understanding of instructions, follow-up care, medications, Prescriptions given X 3. 20:15 Patient left the ED. wg Signatures: Dispatcher [employer] EDMS Glenis Goyal, MIMI PRECIADO-Rodrigo Santana, RN RN em Matt Hamilton PA PA cp Garcia, Rubi rg4 Ella Talavera RN RN ap3 Joe Curran RN Karyn Geronimo, OMAR RN tc5 Corrections: (The following items were deleted from the chart) 12:41 12:39 Home Meds: Levemir 80 units tid subcutaneous; ap3 ap3
--- NOTE | 2021-04-30 19:39 | EDPHYS ---
Physician Documentation [facility] Name: Laureen Schmidt Age: 31 yrs Sex: Female : 1990 Arrival Date: 04/30/2021 Time: 12:03 Bed 19 Private MD: ED Physician Matt Irizarry HPI: 04/30 15:45 This 31 yrs old Female presents to ER via Ambulatory with complaints of cp Headache, Chills, Body Aches. 15:45 The patient complains of pain to the top of head. The patient describes the headache as cp aching. 15:45 Onset: The symptoms/episode began/occurred yesterday. Associated signs and symptoms: cp Pertinent positives: fever, body aches, chills. Severity of symptoms: in the emergency department the pain is unchanged, despite home interventions. Patient reports recently finishing prescribed antibiotics for E. coli UTI. Historical: - Allergies: 12:39 Codeine; ap3 - Home Meds: 12:39 metformin 1,000 mg Oral tab 1 tab 2 times per day [Active]; Novolog Sub-Q [Active]; ap3 Lantus Sub-Q [Active]; gabapentin oral [Active]; ibuprofen Oral twice a day [Active]; - PMHx: 12:40 Bipolar disorder; Diabetes - IDDM; fatty liver; Gastroperesis; Heart Murmur; Nonan ap3 Syndrome; Flores Syndrome; - PSHx: 12:40 Exploratory laparotomy; Cholecystectomy; liposuction; screw placement in ryan ankles; ap3 - Immunization history:: Adult Immunizations up to date, Client reports having NOT received the Covid vaccine. - Social history:: Smoking status: Patient denies any tobacco usage or history of. ROS: 15:50 Constitutional: Positive for body aches, chills, fever, Negative for poor PO intake. cp 15:50 Eyes: Negative for injury, pain, redness, and discharge. cp 15:50 ENT: Negative for ear pain, sinus pain, difficulty swallowing, difficulty handling secretions. 15:50 Cardiovascular: Negative for chest pain. 15:50 Respiratory: Negative for cough, shortness of breath, wheezing. 15:50 Abdomen/GI: Positive for nausea, diarrhea, Negative for vomiting. 15:50 Neuro: Positive for headache, Negative for altered mental status, weakness. 15:50 All other systems are negative. Exam: 15:55 Constitutional: The patient appears in no acute distress, alert, awake, non-toxic, well cp developed, well nourished, obese, uncomfortable. 15:55 Head/Face: Normocephalic, atraumatic. cp 15:55 Eyes: Periorbital structures: appear normal, Conjunctiva: normal, no exudate, no injection, Sclera: no appreciated abnormality, Lids and lashes: appear normal, bilaterally. 15:55 ENT: External ear(s): are unremarkable, Ear canal(s): are normal, TM's: dullness, bilaterally, Nose: is normal, Mouth: Lips: moist, Oral mucosa: pink and intact, moist, Posterior pharynx: Airway: no evidence of obstruction, patent, Tonsils: are normal in appearance, swelling, is not appreciated, erythema, is not appreciated, exudate, is not appreciated. 15:55 Neck: ROM/movement: is normal, is supple, without pain, no range of motions limitations, no meningismus. 15:55 Chest/axilla: Inspection: normal, Palpation: is normal, no crepitus, no tenderness. 15:55 Cardiovascular: Rate: tachycardic, Rhythm: regular, Edema: is not appreciated, JVD: is not appreciated. 15:55 Respiratory: the patient does not display signs of respiratory distress, Respirations: normal, no use of accessory muscles, no retractions, labored breathing, is not present, Breath sounds: are clear throughout, no decreased breath sounds, no stridor, no wheezing. 15:55 Abdomen/GI: Inspection: abdomen appears normal, Bowel sounds: active, all quadrants, cp Palpation: soft, in all quadrants, mild abdominal tenderness, in all quadrants, rebound tenderness, is not appreciated, involuntary guarding, is not appreciated. 15:55 Back: pain, that is mild, of the mid back area, ROM is normal. cp 15:55 Neuro: Orientation: to person, place \T\ time. Mentation: is normal, Cerebellar function: is grossly normal, Motor: moves all fours, strength is normal, Sensation: is normal. Vital Signs: 12:34 BP 125 / 66 RA Sitting (auto/lg); Pulse 127; Resp 19; Temp 98.9(TE); Pulse Ox 100% on ap3 R/A; Weight 99.79 kg; Height 5 ft. 3 in. (160.02 cm); Pain 7/10; 16:24 BP 117 / 59; Pulse 120; Resp 18; Temp 102.5; Pulse Ox 100% ; Pain 7/10; tc5 18:55 BP 110 / 50; Pulse 106; Resp 20; Temp 99.5; Pulse Ox 100% ; Pain 4/10; tc5 19:55 BP 112 / 54; Pulse 118; Resp 18; Pulse Ox 99% ; Pain 2/10; wg 12:34 Body Mass Index 38.97 (99.79 kg, 160.02 cm) ap3 MDM: 14:48 Patient medically screened. kb 15:20 Patient medically screened. gill 04/30 12:42 Order name: Flu; Complete Time: 13:39 kb 04/30 16:12 Interpretation: Reviewed. cp 04/30 13:09 Order name: SARS-COV-2 RT PCR; Complete Time: 14:10 EDMS 04/30 16:12 Interpretation: Results reviewed. cp 04/30 15:24 Order name: Basic Metabolic Panel cp 04/30 15:24 Order name: CBC with Diff; Complete Time: 16:39 cp 04/30 16:39 Interpretation: Normal except: PLT 146; HANY% 78.9; LYM% 15.2. cp 04/30 15:24 Order name: Hepatic Function; Complete Time: 16:39 cp 04/30 16:39 Interpretation: Normal except: AST 45; ALT 80; GLOB 4.3; A/G 0.9. cp 04/30 15:24 Order name: Lipase; Complete Time: 16:39 cp 04/30 15:24 Order name: Ketone, Serum; Complete Time: 16:39 cp 04/30 15:24 Order name: Magnesium; Complete Time: 16:39 cp 04/30 16:40 Interpretation: Abnormal: MG 1.7. cp 04/30 15:24 Order name: Basic Metabolic Panel; Complete Time: 16:39 EDMS 04/30 16:39 Interpretation: Normal except: GLUC 283; GFR 81. cp 04/30 16:43 Order name: Urine Microscopic Only; Complete Time: 19:18 cp 04/30 19:18 Interpretation: Normal except: UWBC 20-50; UBACT LOADED. cp 04/30 17:19 Order name: Urine Dipstick-Ancillary; Complete Time: 17:25 EDMS 04/30 17:25 Interpretation: Normal except: UGLUC 1+; UBLD Trace-lysed; U NIT Positive; UESTR Trace. 04/30 16:41 Order name: CT Head Brain wo Cont; Complete Time: 18:04 04/30 17:20 Order name: Urine --Ancillary (enter results) bd 04/30 17:20 Order name: Urine --Ancillary; Complete Time: 18:19 EDMS 04/30 18:19 Interpretation: Reviewed. 04/30 17:27 Order name: CT Stone Protocol; Complete Time: 18:04 cp 04/30 18:04 Interpretation: Report reviewed. 04/30 17:27 Order name: Lactate; Complete Time: 18:43 cp 04/30 18:44 Interpretation: LAC 1.5; Reviewed. 04/30 17:27 Order name: Procalcitonin; Complete Time: 19:18 04/30 19:18 Interpretation: Abnormal: Procalcitonin 0.39. 04/30 17:27 Order name: Blood Culture Adult (2) 04/30 18:54 Order name: Urine Culture EDMS 04/30 15:24 Order name: IV Saline Lock 04/30 15:24 Order name: Labs collected and sent 04/30 15:24 Order name: Accucheck Blood Glucose 04/30 16:13 Order name: EKG - Nurse/Tech 04/30 16:43 Order name: Urine Dipstick-Ancillary (obtain specimen) 04/30 16:43 Order name: Urine Test (obtain specimen) 04/30 18:49 Order name: Vital Signs: please update with temp 04/30 19:20 Order name: PO challenge; Complete Time: 19:32 cp Administered Medications: 16:21 Drug: Zofran (Ondansetron) 4 mg Route: IVP; Site: left hand; tc5 17:31 Follow up: Response: No adverse reaction tc5 16:22 Drug: NS 0.9% 1000 ml Route: IV; Rate: 1 bolus; Site: left hand; tc5 16:22 Drug: Reglan (metoCLOPramide) 10 mg Route: IVP; Site: left hand; tc5 16:22 Drug: Benadryl (diphenhydrAMINE) 25 mg Route: IVP; Site: left hand; tc5 16:22 Drug: Ketorolac 15 mg Route: IVP; Site: left hand; tc5 18:05 Drug: NS 0.9% 1000 ml Route: IV; Rate: 1 bolus; Site: right hand; tc5 18:05 Drug: Rocephin (cefTRIAXone) 1 grams Route: IV; Rate: calculated rate; Site: right hand;tc5 19:32 Drug: Magnesium 800 mg Route: PO; em Disposition: 05/01 13:04 Co-signature as Attending Physician, Matt Irizarry MD I agree with the assessment and gill plan of care. Disposition Summary: 04/30/21 19:38 Discharge Ordered Location: Home cp Problem: new cp Symptoms: have improved cp Condition: Stable cp Diagnosis - UTI/ Urinary tract infection, site not specified cp - Calculus of kidney cp Followup: cp - With: Arben Del Castillo MD - When: 1 - 2 days - Reason: Recheck today's complaints Discharge Instructions: - Discharge Summary Sheet cp - Kidney Stones cp - Urinary Tract Infection, Adult cp Forms: - Medication Reconciliation Form cp - Thank You Letter cp - Antibiotic Education cp - Prescription Opioid Use cp Prescriptions: - cefpodoxime 200 mg Oral Tablet - take 1 tablet by ORAL route every 12 hours for 10 days with food; 20 tablet; cp Refills: 0, Product Selection Permitted - Ibuprofen 800 mg Oral Tablet - take 1 tablet by ORAL route every 8 hours As needed take with food; 30 tablet; cp Refills: 0, Product Selection Permitted - Zofran 4 mg Oral Tablet - take 1 tablet by ORAL route every 12 hours As needed; 20 tablet; Refills: 0, cp Product Selection Permitted Signatures: Dispatcher [employer] EDGlenis Luna, BRAILLE TRANSCRIBER-C BRAILLE TRANSCRIBER-Matt Best MD MD cha Munoz, Edgar RN RN em Matt Hamilton PA PA cp Ella Talavera RN RN ap3 Karyn Geronimo RN RN tc5 Corrections: (The following items were deleted from the chart) 04/30 12:41 12:39 Home Meds: Levemir 80 units tid subcutaneous; ap3 ap3 13:09 12:43 CORONAVIRUS+MR.LAB.BRZ ordered. EDMS EDMS 17:29 16:42 Abdomen Pelvis W Con+CT.RAD.BRZ ordered. EDMS EDMS
[2021-04-30] MEDS ORDERED: MAGNESIUM OXIDE 400 MG TAB ONE (19:55)
[2021-04-30 20:45] VITALS: TEMP 99.5
[2021-04-30 20:47] VITALS: BP 112/54; O2SAT 99
== END 2021-04-30 20:15 | disposition home or self-care (01) ==
LOC: ER 12:02
DX: N39.0 Urinary tract infection, site not specified (principal); N20.0 Calculus of kidney; E11.9 Type 2 diabetes mellitus without complications; Z79.4 Long term (current) use of insulin; Z88.5 Allergy status to narcotic agent; Z20.822 Contact with and (suspected) exposure to COVID-19
CPT/HCPCS: 87040 ×2; 87088; 85025; 87086; 80048; 36415; 82010; 83735; 81025; 80076; 83605; 87077; 87186; 83690; 84145; 87804 ×2; 70450; 76377; 74176; 99284; U0003; J2765; J1200; J7030 ×2; J2405; 81003; 81015

== ENCOUNTER 2021-07-21 14:29 | Emergency (ER) | payer OTHER ==
--- OUTSIDE RECORDS SUMMARY | 2021-07-21 14:31 | XMS REPORT | Continuity of Care Document ---
:1990 Author Organization [facility] t Address [address] [place] [address] Dr. Ko[address]. [address] [place] [address] Care Team Providers Name Role Phone ATKINS Primary Care Physician Unavailable SAMANTHA STEVENS Attending Clinician Unavailable LURDES NICKERSON Attending Clinician Unavailable JIM Attending Clinician Unavailable Jim LUZ Attending Clinician Neurology Attending Clinician Unavailable Red Cooley DO Attending Clinician NAYANA K.Dinesh Attending Clinician Unavailable NEAL Attending Clinician Unavailable SHELDON CARRASCO Attending Clinician Unavailable KOLE Attending Clinician Unavailable JESSICA Attending Clinician Unavailable CHARLEE Attending Clinician Unavailable Alexander QURESHI Attending Clinician Unavailable Tomy MARSHALL Attending Clinician Unavailable Darrel CORREA Attending Clinician Unavailable YAZMIN FISCHER Attending Clinician Unavailable SHAKIRA Attending Clinician Unavailable SHAKIRA Admitting Clinician Unavailable Payers Payer Name Policy Type Policy Number Effective Date Expiration Date S ource [facility] STAR [id number] 2013 00:00:00 PLUS [facility] STAR [id number] PLAN Problems Condition Condition Condition Status Onset Resolution [...] shanna due to 22:39:52 l type 2 [place] diabetes Hyperglyce mellitus shanna due to (disorder) [...] ents Source Name Type Date Date Clinician CODEINE DRUG Active Hives [facility] 09-10 ity of 00:00: [place] 00 [facility] CODEINE Allergy Active High Hives [facility] 08[facility]14 [facility] [place] NKA NKA Active Jessica Jimenez codeine codeine Active Jessica Jimenez Social History Social Habit Start Date Stop Date Quantity Comments Source Social History 2020-01-09 2020-01-09 [facility] 16:48:27 16:48:27 Medications Ordered Filled Start Stop Current Ordering Indication Dosage Frequency Signature Comments Components Source Medication Medication Date Date Medication? Clinician (SIG) Name Name MetFORMIN Yes = 2 tab, Vick arik (Eqv-Glucop 9-25 PO, BID, # l arian XR) 13:23: 360 tab, 3 Her mtz 500 mg oral 00 Refill(s), tablet, Pharmacy: [email or web address] release [id number], 160.02, cm, 01/09/20 11:25:00 CDT, Height, 98.182, kg, 01/09/20 11:25:00 CDT, Weight pioglitazon Yes 15 mg = 1 M emoria e 15 mg 8-06 tab, PO, l oral tablet 14:49: Daily, # He rmann 00 90 tab, 0 Refill(s), Pharmacy: [email or web address] #[id number], 160.02, cm, 01/09/20 11:25:00 CDT, Height, 98.182, kg, 01/09/20 11:25:00 CDT, Weight canaglifloz Yes 100 mg = 1 Memoria in 100 mg 7-16 tab, PO, l oral tablet 16:23: Daily, # He rmann 00 90 tab, 1 Refill(s), Pharmacy: [email or web address] #[id number], 160.02, cm, 01/09/20 11:25:00 CDT, Height, 98.182, kg, 01/09/20 11:25:00 CDT, Weight OneTouch Yes , # 1 ea, Vick arik Ultra2 6-26 Insulin l Blood 13:20: dependent, Aram n Glucose 00 Does not Meter use insulin pump, Last DM eval date 01/11/20, 0 Refill(s), Pharmacy: [email or web address] #[id number], 160.02, cm,... OneTouch Yes See Memoria Ultra Blue 6- Instructio l Blood 13:20: ns, 4 Tony Glucose 00 FS/d, # Test Strip 400 ea, Insulin dependent, Does not use insulin pump, Last DM eval date 01/11/20, 3 Refill(s), Pharmacy: [email or web address] #[id number], 160.02, cm, 01/09/20 11:25:00 CDT, Height, 98.182, kg, 01/09/20 11:25:00 CDT, Weight OneTouch Yes See Memoria Delica 6-26 Instructio l Extra Fine 13:20: ns, FS Yasmine nn 33G Lancets 00 4/d, # 400 ea, Insulin dependent, Does not use insulin pump, Last DM eval date 01/11/20, 3 Refill(s), Pharmacy: [email or web address] #[id number], 160.02, cm, 01/09/20 11:25:00 CDT, Height, 98.182, kg, 01/09/20 11:25:00 CDT, Weight Dexcom G6 2019- Yes 1 ea, Memoria Dobby Loom Chain Pegger -24 MISC, l Kit 18:42: ONCE, Tony 00 Certified Medically Necessar. Change every 90 days., # 1 kit, Insulin dependent, Does not use insulin pump, Last DM eval date 01/09/20, 0 Refill(s), Pharmacy: [email or web address] #[id number], 160.02, cm, 01/09/20 11:25:00 CDT, Height, 98.182, kg,... Dexcom G6 2020-0 Yes 1 ea, Memoria Sensor Kit 6-24 MISC, l 18:42: ONCE, [place] 00 Certified Medically Necessary- change every 10 days., # 1 ea, Insulin dependent, Does not use insulin pump, Last DM eval date 01/09/20, 11 Refill(s), Pharmacy: [email or web address] #[id number], 160.02, cm, 01/09/20 11:25:00 CDT, Height, 98.182, kg,... Dexcom G6 2020-0 Yes 1 ea, Memoria Transmitter 6-24 MISC, l Kit 18:42: ONCE, Tony 00 Certified Medically Necessary: Change every 3 months Dx code E10.65, # 1 ea, Insulin dependent, Does not use insulin pump, Last DM eval date 01/09/20, 3 Refill(s), Pharmacy: [id number], 160.02, cm, 01/09/20 11:25:00 CDT, Heigh... FreeStyle 2020-0 No , # 1 ea, Mem oria Aileen 6-24 Insulin l [place] 17:20: dependent, Yasmine nn 00 Does not use insulin pump, Last DM eval date 01/09/20, 0 Refill(s), Pharmacy: [email or web address] #[id number], 160.02, cm,... FreeStyle 2020-0 No See Memoria Aileen 6-24 Instructio l Sensor 17:20: ns, MISC, Aram n 00 change every 14 days, # 6 ea, Insulin dependent, Does not use insulin pump, Last DM eval date 01/09/20, 3 Refill(s), Pharmacy: [id number], 160.02, cm, 01/09/20 11:25:00 CDT, Height, 98.182, kg, 01/09/20 11:25:00 CDT, We... FreeStyle 2020-0 No , # 1 ea, Mem oria Aileen 6-24 Insulin l [place] 17:18: dependent, Yasmine nn 00 Does not use insulin pump, Last DM eval date 01/09/20, 0 Refill(s), other [facility]Style 2020-0 [facility]08 Instructio l Sensor 17:18: ns, MISC, Aram n 00 change every 14 days, # 6 ea, Insulin dependent, Does not use insulin pump, Last DM eval date 01/09/20, 3 Refill(s), other 3 ML 2020-0 [facility], 01-08 Instructio l Aspart, 17:10: ns, 60 [place] Human 100 00 units SQ UNT/ML Pen at meals, Injector # 180 mL, [NovoLog] 0 Refill(s), other 3 ML 2020-0 [facility] 01-08 Instructio l Glargine 17:09: ns, 100 Aram n 100 UNT/ML 00 units SQ Prefilled every 12 Syringe hours, # [Lantus] 180 mL, 0 Refill(s), other Vital Signs Vital Name Observation Time Observation Value Comments Source HEIGHT 2021-03-04 10:50:00 160 cm WEIGHT 2021-03-04 10:50:00 99.156 kg Systolic (mm Hg) 2020-01-09 16:25:00 Vick Jimenez Diastolic (mm Hg) 2020-01-09 16:25:00 [facility] chastity Jimenez Heart Rate 2020-01-09 16:25:[address] [facility] Tony Respitory Rate 2020-01-09 16:25:00 Jesus Sharp Height 2020-01-09 16:25:[address] [facility] Tony Weight 2020-01-09 16:25:[address] [facility] Tony BMI Calculated 2020-01-09 16:25:00 Jesus Sharp Procedures Procedure Date / Time Performed Performing Clinician Stephani gao Bladder cancer 2012-07-18 06:00:[address] [facility] Her mtz Hysterectomy 2012-07-18 06:00:[address] [facility] Her mtz Tube feeding 2007-07-18 06:00:[address] [facility] Her mtz Lipoma of back 1997-07-18 06:00:[address] [facility] Her mtz Caesarean section 1989 06:00:[address] [facility] Dennis ermann Gallbladder [facility] Tony Shortening of heel cord [facility] Tony Encounters Start End Encounter Admission Attending Care Care Encounter Source Date/Time Date/Time Type Type Clinicians Facility Department ID 2021-05-16 Emergency [facility] [id number] Univers 02:16:[address] [facility] 2021-05-14 Emergency [facility] [id number] Univers 23:03:[address] [facility] 2021-07-10 2021-07-10 [id number] 2021-07-08 2021-07-08 [facility] [id number]00 [facility] 2021-03-04 2021-03-[address] [facility] [id number] 00[facility] 00[facility]00:00 [facility] 2020-12-09 2020-12-09 Outpatient Austin NICKERSON [facility] [id number] Univers 11:00:00 11:00:[id number] [facility] 2020-12-09 2020-12-09 Outpatient Austin NICKERSON [facility] [id number] Univers 11:00:00 11:00:[address] [facility] 2020-11-10 2020-11-10 Outpatient R JIM [facility] [id number] Univers 11:00:00 11:00:[address]EL [id number] [facility] 2020-11-10 2020-11-10 [facility] [id number] Univers 11:00:00 11:00:[address] [facility] 2020-10-31 2020-10-31 [facility] [id number] 00:00:00 00:00:00 [facility] [id number] Clear [id number] [place] [id number] Medical 059 Office Building 2020-10-22 2020-10-22 Letter Neurology [facility] [id number] 00:00:00 00:00:00 (Out) Y HEALTH [id number] CLINICS [id number] 2020-10-07 2020-10-07 [id number] 00:00:00 00:00:00 Outreach [facility] [id number] [place] [id number] JACKELYN [id number] 2020-09-18 2020-09-18 [facility] [id number] Univers 13:00:00 13:00:[address] [facility] 2020-09-18 2020-09-18 [facility] [id number] Univers 13:00:00 13:00:[id number] [facility] 2020-09-02 2020-09-02 Outpatient R [facility] [id number] Univers 08:30:00 08:30:[id number] [facility] 2020-09-02 2020-09-02 [facility] [id number] Univers 08:30:00 08:30:00 [facility] 2020-08-26 2020-08-26 Outpatient Austin [facility] [id number] Univers 15:40:00 15:40:[id number] [facility] 2020-08-26 2020-08-26 Outpatient Austin [facility] [id number] Univers 15:40:00 15:40:[address] [facility] 2020-08-20 2020-08-20 Outpatient Austin FERNANDEZ [facility] [id number] Univers 09:30:00 09:30:00 [facility] [id number] [facility] 2020-08-20 2020-08-20 [facility] [id number] Univers 00:00:00 00:00:[address] [facility] 2020-08-19 2020-08-19 Outpatient [place] [facility] [id number] Univers 15:00:00 15:00:[address] [facility] 2020-08-19 2020-08-19 Outpatient [facility] [id number] Univers 11:00:00 11:00:[id number] [facility] 2020-08-12 2020-08-12 Office Jim [facility] [id number] 11:54:43 12:25:42 Visit [facility] Nikki [id number] [place] [id number] alex [id number] nal 059 Building 2020-08-12 2020-08-12 Outpatient R JIM [facility] [id number] Univers 11:40:00 11:40:00 [facility] [id number] [facility] 2020-08-12 2020-08-12 Outpatient R JIM [facility] [id number] Univers 11:40:00 11:40:00 [facility] 2020-08-05 2020-08-05 Outpatient Austin DESHPANDE [facility] [id number] Univers 10:30:00 10:30:[id number] [facility] 2020-08-05 2020-08-05 [facility] [id number] Univers 00:00:00 00:00:[address] [facility] 2020-08-04 2020-08-04 Outpatient CHARLEE [facility] [id number] Univers 10:30:00 10:30:[id number] [facility] 2020-07-29 2020-07-29 Outpatient Austin LOPEZ [facility] [id number] Univers 10:30:00 10:30:[id number] [facility] 2020-07-22 2020-07-22 Outpatient Austin QURESHI [facility] [id number] Univers 13:15:00 13:15:[id number] [facility] 2020-07-22 2020-07-22 Outpatient Austin [facility] [id number] Univers 13:15:00 13:15:[address] [facility] 2020-06-25 2020-06-25 Outpatient PACHECO BERGMAN [id number] Memoria 09:45:00 09:45:00 66 l Tony 2020-06-24 2020-06-24 Outpatient MHIE MHIE [id number] Memoria 08:15:00 08:15:00 65 darrel Jimenez 2020-06-23 2020-06-23 Outpatient Austin MARSHALL [facility] [id number] Univers 13:15:00 13:15:[address] [facility] 2020-06-23 2020-06-23 Outpatient [place] [facility] [id number] Univers 13:15:00 13:15:[address] [facility] 2020-06-19 2020-06-19 Outpatient [facility] [id number] Univers 11:00:00 11:00:00 ity [facility] 2020-06-17 2020-06-17 Outpatient [facility] [id number] Univers 11:00:00 11:00:00 ity [facility] 2020-06-11 2020-06-11 Outpatient R [facility] [id number] Univers 11:00:00 11:00:00 [id number] 2020-06-10 [facility] [id number] Univers 13:30:00 13:30:[address] [facility] 2020-06-10 2020-06-10 [facility] [id number] Univers 13:00:00 13:00:[id number] [facility] 2020-06-09 2020-06-09 Outpatient Austin MARSHALL [facility] [id number] Univers 14:00:00 14:00:00 [facility]ATHANIEL [id number] [facility]-06-03 2020-06-03 Outpatient R [facility] [id number] Univers 09:00:00 09:00:00 [id number] ity [facility] 2020-06-03 2020-06-03 Outpatient R MADELINE [facility] [id number] Univers 09:00:00 09:00:00 [facility] 2020-05-27 2020-05-27 [facility] [id number] Univers 13:30:00 13:30:00 [facility] 2020-05-26 2020-05-26 Outpatient Austin MARSHALL [facility] [id number] Univers 13:00:00 13:00:00 [facility] 2020-05-12 2020-05-12 Outpatient Austin MARSHALL [facility] [id number] Univers 14:00:00 14:00:00 [facility]ATHANIEL [id number] [facility] 2020-05-12 2020-05-12 Outpatient Austin MARSHALL [facility] [id number] Univers 00:00:00 00:00:[address] [facility] 2020-05-06 2020-05-06 Outpatient Austin MARSHALL [facility] [id number] Univers 10:30:00 10:30:[address] [facility] 2020-05-06 2020-05-06 Outpatient Austin MARSHALL [facility] [id number] Univers 00:00:00 00:00:[address] [facility] 2020-04-28 2020-04-28 Outpatient Austin MARSHALL [facility] [id number] Univers 16:00:00 16:00:[id number] [facility] 2020-04-28 2020-04-28 Outpatient Austin MARSHALL [facility] [id number] Univers 16:00:00 16:00:[address] [facility] 2020-04-18 2020-04-18 Outpatient Austin FISCHER [facility] [id number] Univers 10:30:00 10:30:[address] [facility] 2020-04-18 2020-04-18 Outpatient Austin FISCHER [facility] [id number] Univers 10:30:00 10:30:[address] [facility] 2020-04-11 2020-04-13 Phone nullFlavo [facility] [id number] Memoria 13:08:44 04:59:59 [facility] 2020-03-26 2020-03-27 Between nullFlavo [facility] [id number] Memoria 15:00:16 15:00:16 Visit r Primary 03 l Care [place] 2020-03-26 2020-03-27 Outpatient nullFlavo [facility] [id number] Memoria 13:30:00 04:59:59 r Primary 65 l Care [place] [facility] 2020-03-25 2020-03-25 Ambulatory nullFlavo [facility] [id number] Memoria 18:35:00 18:35:00 Pre-Reg r Primary 64 l Care [place] [facility] 2020-02-21 2020-02-22 Outpatient nullFlavo [facility] [id number] Memoria 14:30:00 04:59:59 r Primary 63 l Care [place] [facility] 2020-02-20 2020-02-21 Between nullFlavo [facility] [id number] Memoria 13:37:17 13:37:17 Visit r Primary 02 l Care [place] [facility] 2020-01-31 2020-02-01 Outpatient nullFlavo [facility] [id number] Memoria 16:00:00 04:59:59 r Primary 62 l Care [place] [facility] 2020-01-11 2020-01-13 Phone nullFlavo [facility] [id number] Memoria 13:13:43 04:59:59 Message r Primary 01 l Care [place] [facility] 2020-01-09 2020-01-11 Phone nullFlavo [facility] [id number] Memoria 18:39:57 04:59:59 Message r Primary 00 l Care [place] [facility] 2020-01-09 2020-01-10 Outpatient nullFlavo [facility] [id number] Memoria 16:15:00 04:59:59 r Primary 61 l Care [place] [facility] 2020-01-09 2020-01-09 Ambulatory nullFlavo [facility] [id number] Memoria 16:15:00 16:15:00 Pre-Reg r Primary 60 l Care [place] [facility] 2020-01-07 2020-01-07 Ambulatory nullFlavo [facility] [id number] Memoria 18:50:00 18:50:00 Pre-Reg r Primary 58 l Care [place] [facility] 2019-07-19 2019-07-20 Emergency X SHAKIRA, [facility] ERT [id number] Univers 21:36:54 01:40:00 MEGAN brady [facility] Results This patient has no known results.
[2021-07-21 16:44] LABS: Hematocrit 44.1 % (36.0-45.0); Lymphocytes % 42.3 % (15.3-44.8); MPV 11.2 fL (7.6-11.3); RBC Red Blood Cell Count 4.82 M/uL (3.86-4.86)
[2021-07-21 16:57] LABS: Urine Blood Negative (Negative); Urine Glucose 2+ (Negative); Urine Protein Negative (Negative); Urine pH 5.5 (5.0-7.0)
[2021-07-21 17:00] LABS: Magnesium 2.1 mg/dL (1.8-2.4); Potassium 4.2 mmol/L (3.5-5.1)
[2021-07-21 17:09] LABS: Urine Bacteria NONE SEEN /HPF (<20); Urine RBC <5 /HPF (NONE SEEN)
--- NOTE | 2021-07-21 17:19 | RAD REPORT ---
EXAM DESCRIPTION: MRI - Lumbar Spine Wo Florencio - 07/21/2021 5:09 pm CLINICAL HISTORY: Bilateral leg weakness COMPARISON: None. TECHNIQUE: Sagittal T1-weighted, T2-weighted and T2-STIR weighted sequences were obtained. Axial T1 -weighted and heavily T2-weighted sequenceswere obtained through the lumbar disc levels. FINDINGS: Lumbar bodies are normal in height and alignment. No suspicious marrow signal. No paraspin al masses. Conus is normal with no clumping or thickening of the cauda equina. T12-L1 level: No significant findings. L1-2 level: No significant findings. L2-3 level: No significant findings. L3-4 level: Mild broad-based disc bulge without significant neural foraminal narrowing or central spi nal stenosis. L4-5 level: Broad-based disc bulge results in mild right neural foraminal narrowing. The left neural foramen is adequate. No central spinal stenosis. L5-S1 level: Small right central disc protrusion without central spinal stenosis or neural foraminal narrowing. Slight encroachment on the right traversing at S1 nerve root of doubtful clinical signific ance. IMPRESSION: Mild degenerate disc disease but no acute findings identified. No central spinal stenosi s or clinically significant neural foraminal narrowing is identified.
--- NOTE | 2021-07-21 17:35 | ER ---
Nurse's Notes [facility] Name: Laureen Schmidt Age: 31 yrs Sex: Female : 1990 Arrival Date: 07/21/2021 Time: 14:32 Bed 12 Private MD: Diagnosis: Weakness;Paresthesia of skin;Hyperglycemia, unspecified Presentation: 07/21 15:13 Chief complaint: Patient states: Both legs feel weak and numb, and give out randomly ll1 for 3 days. Hands/feet swollen. L hand 3rd digit "trigger finger" acting up. Sent in by Dr. Ghosh for eval. Coronavirus screen: Vaccine status: Patient reports being unvaccinated. Client denies travel out of the [place] in the last 14 days. At this time, the client does not indicate any symptoms associated with coronavirus-19. Ebola Screen: Patient denies travel to an Ebola-affected area in the 21 days before illness onset. Initial Sepsis Screen: Does the patient meet any 2 criteria? No. Patient's initial sepsis screen is negative. Risk Assessment: Do you want to hurt yourself or someone else? Patient reports no desire to harm self or others. Onset of symptoms was July 18, 2021. 15:13 Method Of Arrival: Ambulatory ll1 15:13 Acuity: ELKE 3 ll1 15:36 Initial Sepsis Screen: Does the patient have a suspected source of infection? No. jd3 Patient's initial sepsis screen is negative. Historical: - Allergies: 15:15 Codeine; ll1 - PMHx: 15:15 Bipolar disorder; Diabetes - IDDM; fatty liver; Gastroperesis; Heart Murmur; Nonan ll1 Syndrome; Flores Syndrome; - PSHx: 15:15 Cholecystectomy; Exploratory laparotomy; liposuction; screw placement in ryan ankles; ll1 - Immunization history:: Client reports having NOT received the Covid vaccine. Flu vaccine status is unknown. - Social history:: Smoking status: Patient denies any tobacco usage or history of. - Family history:: not pertinent. - Hospitalizations: : No recent hospitalization is reported. Screenin:36 Abuse screen: Denies threats or abuse. Nutritional screening: No deficits noted. jd3 Tuberculosis screening: No symptoms or risk factors identified. Fall Risk Ambulatory Aid- None/Bed Rest/Nurse Assist (0 pts). Gait- Normal/Bed Rest/Wheelchair (0 pts) Mental Status- Oriented to own ability (0 pts). Total Austin Fall Scale indicates No Risk (0-24 pts). Assessment: 15:35 General: Appears in no apparent distress. comfortable, Behavior is calm, cooperative, jd3 appropriate for age. Pain: Denies pain. Neuro: Level of Consciousness is awake, alert, obeys commands, Oriented to person, place, time, situation, Reports numbness in right leg and left leg since 3 days weakness in right leg and left leg since 3 days. Cardiovascular: Denies chest pain, Capillary refill < 3 seconds Patient's skin is warm and dry. Respiratory: Airway is patent Respiratory effort is even, unlabored, Respiratory pattern is regular, symmetrical, Denies cough, shortness of breath. GI: No signs and/or symptoms were reported involving the gastrointestinal system. : No signs and/or symptoms were reported regarding the genitourinary system. EENT: No signs and/or symptoms were reported regarding the EENT system. Derm: Skin is intact, Skin is dry, Skin is normal, Skin temperature is warm. 17:46 Reassessment: Patient appears in no apparent distress at this time. No changes from jd3 previously documented assessment. Patient and/or family updated on plan of care and expected duration. Pain level reassessed. Patient is alert, oriented x 3, equal unlabored respirations, skin warm/dry/pink. Vital Signs: 15:13 BP 128 / 82; Pulse 86; Resp 17; Temp 97.5; Pulse Ox 98% ; Weight 97.52 kg; Height 5 ft. ll1 3 in. (160.02 cm); Pain 8/10; 15:13 Body Mass Index 38.09 (97.52 kg, 160.02 cm) ll1 ED Course: 14:32 Patient arrived in ED. ds1 15:15 Triage completed. ll1 15:16 Arm band placed on. ll1 15:28 Lupillo Sanchez MD is Attending Physician. rn 15:34 Carmine Tsai RN is Primary Nurse. jd3 15:36 Patient has correct armband on for positive identification. Bed in low position. Call jd3 light in reach. Side rails up X 1. Pulse ox on. NIBP on. 16:35 Missed attempt(s): 22 gauge in right forearm. Bleeding controlled, band aid applied, jd3 catheter tip intact. 16:40 Inserted saline lock: 22 gauge in right hand, using aseptic technique. Blood collected. jd3 17:09 MRI Lumbar Spine wo Con In Process Unspecified. EDMS 17:47 No provider procedures requiring assistance completed. IV discontinued, intact, jd3 bleeding controlled, No redness/swelling at site. Pressure dressing applied. Administered Medications: No medications were administered Outcome: 17:34 Discharge ordered by . rn 17:47 Discharged to home ambulatory, with family. jd3 17:47 Condition: stable 17:47 Discharge instructions given to patient, Instructed on discharge instructions, follow up and referral plans. Demonstrated understanding of instructions, follow-up care. 17:48 Patient left the ED. jd3 Signatures: Dispatcher [employer] EDNJ NigelLilia ds1 Lupillo Sanchez MD MD rn Davies, Jonathon, RN RN jd3 Jeet Lockhart RN RN ll1
--- NOTE | 2021-07-21 17:35 | EDPHYS ---
Physician Documentation [facility] Name: Laureen Schmidt Age: 31 yrs Sex: Female : 1990 Arrival Date: 07/21/2021 Time: 14:32 Bed 12 Private MD: ED Physician Lupillo Sanchez HPI: 07/21 16:26 This 31 yrs old Female presents to ER via Ambulatory with complaints of Leg Weakness, rn Numbness. 16:26 The patient's problem is reported as paresthesias, in right lower extremity, in left rn lower extremity, weakness, in the right lower extremity, in the left lower extremity. 16:26 Onset: The symptoms/episode began/occurred 3 day(s) ago. Duration: The episodes are rn intermittent. Context: symptoms became apparent at an unknown time. The symptoms are alleviated by nothing. The symptoms are aggravated by standing, walking. Associated signs and symptoms: Pertinent positives: numbness, weakness, Pertinent negatives: abdominal pain, chest pain, headache, seizure. Severity of symptoms: At their worst the symptoms were moderate in the emergency department the symptoms have improved. The patient has not experienced similar symptoms in the past. The patient has not recently seen a physician. Patient reports intermittent numbness and weakness of both legs over the last 3 days. Reports lower back pain that has been chronic and no recent injuries or trauma. No bowel or bladder problems. No fever. Reports symptoms are intermittent. Also reports intermittent tingling of hands.. Historical: - Allergies: 15:15 Codeine; ll1 - PMHx: 15:15 Bipolar disorder; Diabetes - IDDM; fatty liver; Gastroperesis; Heart Murmur; Nonan ll1 Syndrome; Flores Syndrome; - PSHx: 15:15 Cholecystectomy; Exploratory laparotomy; liposuction; screw placement in ryan ankles; ll1 - Immunization history:: Client reports having NOT received the Covid vaccine. Flu vaccine status is unknown. - Social history:: Smoking status: Patient denies any tobacco usage or history of. - Family history:: not pertinent. - Hospitalizations: : No recent hospitalization is reported. ROS: 16:26 Constitutional: Negative for fever, chills, and weight loss, Eyes: Negative for injury, rn pain, redness, and discharge, Neck: Negative for injury, pain, and swelling, Cardiovascular: Negative for chest pain, palpitations, and edema, Respiratory: Negative for shortness of breath, cough, wheezing, and pleuritic chest pain, Abdomen/GI: Negative for abdominal pain, nausea, vomiting, diarrhea, and constipation, Back: Negative for injury and pain, MS/Extremity: Negative for injury and deformity, Skin: Negative for injury, rash, and discoloration, Neuro: Negative for headache, seizure Exam: 16:33 Constitutional: Overweight female, no acute distress sitting upright Head/Face: rn Normocephalic, atraumatic. Eyes: Periorbital areas with no swelling, redness, or edema. Cardiovascular: Regular rate and rhythm. No pulse deficits. Respiratory: No increased work of breathing, no retractions or nasal flaring. Skin: Warm, dry MS/ Extremity: Pulses equal, no cyanosis. Equal circumference. Neuro: Awake and alert, GCS 15, oriented to person, place, time, and situation. Cranial nerves II-XII grossly intact. Motor strength 4/5 bilateral lower extremities. Decreased sensation bilateral lower extremities to soft touch and painful stimuli. Cerebellar exam normal. Able to stand and ambulate without assistance Vital Signs: 15:13 BP 128 / 82; Pulse 86; Resp 17; Temp 97.5; Pulse Ox 98% ; Weight 97.52 kg; Height 5 ft. ll1 3 in. (160.02 cm); Pain 8/10; 15:13 Body Mass Index 38.09 (97.52 kg, 160.02 cm) ll1 MDM: 15:28 Patient medically screened. rn 17:28 Differential diagnosis: metabolic disorder, peripheral neuropathy, spinal stenosis, rn disc herniation, polyneuropathy 2/2 diabetes. Data reviewed: vital signs, nurses notes, lab test result(s), radiologic studies, MRI, and as a result, I will discharge patient. Counseling: I had a detailed discussion with the patient and/or guardian regarding: the historical points, exam findings, and any diagnostic results supporting the discharge/admit diagnosis, lab results, radiology results, the need for outpatient follow up, to return to the emergency department if symptoms worsen or persist or if there are any questions or concerns that arise at home. Response to treatment: the patient's symptoms have mildly improved after treatment, and as a result, I will discharge patient. Special discussion: I discussed with the patient/guardian in detail that at this point there is no indication for admission to the hospital. It is understood, however, that if the symptoms persist or worsen the patient needs to return immediately for re-evaluation. Based on the history and exam findings, there is no indication for further emergent testing or inpatient evaluation. I discussed with the patient/guardian the need to see the neurologist for further evaluation of the symptoms. ED course: No acute findings on MRI lumbar spine, no electrolyte disturbances, hyperglycemic without AG or acidosis, will dc home with neuro f/u. . 07/21 15:40 Order name: CBC with Diff; Complete Time: 17:25 rn 07/21 15:40 Order name: Basic Metabolic Panel; Complete Time: 17:25 rn 07/21 15:40 Order name: Urine Microscopic Only; Complete Time: 17:25 rn 07/21 15:40 Order name: Magnesium; Complete Time: 17:25 07/21 16:57 Order name: Urine Dipstick-Ancillary [facility] 07/21 17:28 Order name: Urine --Ancillary (enter results) 3 07/21 15:39 Order name: MRI Lumbar Spine wo Con; Complete Time: 17:25 rn 07/21 15:40 Order name: IV Start; Complete Time: 16:40 rn 07/21 15:40 Order name: Urine Dipstick-Ancillary (obtain specimen); Complete Time: 17:02 rn 07/21 15:40 Order name: Urine Test (obtain specimen); Complete Time: 17:02 rn Administered Medications: No medications were administered Disposition Summary: 07/21/21 17:34 Discharge Ordered Location: Home rn Problem: new rn Symptoms: have improved rn Condition: Stable rn Diagnosis - Weakness rn - Paresthesia of skin rn - Hyperglycemia, unspecified rn Followup: rn - With: Private Physician - When: As needed - Reason: Recheck today's complaints, Re-evaluation by your physician Discharge Instructions: - Discharge Summary Sheet rn - Hyperglycemia rn - Paresthesia rn - Weakness rn Forms: - Medication Reconciliation Form rn - Thank You Letter rn - Antibiotic rn icu - Prescription Opioid Use rn Signatures: Dispatcher [employer] EDLupillo Franklin MD MD rn Lewis, Lynsay, RN RN ll1
[2021-07-21 18:03] VITALS: BP 128/82; TEMP 97.5; O2SAT 98
== END 2021-07-21 17:48 | disposition home or self-care (01) ==
LOC: ER 14:29
DX: R20.2 Paresthesia of skin (principal); E11.65 Type 2 diabetes mellitus with hyperglycemia; F31.9 Bipolar disorder, unspecified; Z88.5 Allergy status to narcotic agent
CPT/HCPCS: 36415; 72148; 80048; 81003; 81015; 81025; 83735; 85025; 99284

== ENCOUNTER 2022-01-21 23:03 | Emergency (ER) | payer OTHER ==
[2022-01-22 02:15] LABS: Hematocrit 38.5 % (36.0-45.0); Lymphocytes % 15.7 % (15.3-44.8); MCV 89.5 fL (80-100); MPV 11.5 fL (7.6-11.3)
[2022-01-22 02:27] LABS: Bilirubin Total 0.5 mg/dL (0.2-1.0); Potassium 3.7 mmol/L (3.5-5.1); Protein, Total 8.3 g/dL (6.4-8.2)
[2022-01-22] MEDS ORDERED: ONDANSETRON 4 MG/2 ML VIAL ONE (03:13)
[2022-01-22] MEDS ORDERED: ACETAMINOPHEN 500 MG TAB ONE (03:13)
[2022-01-22] MEDS ORDERED: FAMOTIDINE 20 MG/2 ML VIAL IV ONE (03:14)
[2022-01-22] MEDS ORDERED: NA CHLORIDE 0.9% 1,000 ML ONE (03:14)
[2022-01-22] MEDS ORDERED: BEBTELOVIMAB 175 MG/2 ML VIAL IV ONE (03:14)
--- NOTE | 2022-01-22 03:45 | ER ---
Nurse's Notes [facility] Name: Laureen Schmidt Age: 31 yrs Sex: Female : 1990 Arrival Date: 01/21/2022 Time: 23:05 Bed 16 Private MD: Davis Ghosh Diagnosis: SARS-associated coronavirus as the cause of diseases classified elsewhere;Nausea with vomiting, unspecified;UTI/ Urinary tract infection, site not specified Presentation: 01/21 23:12 Chief complaint: Patient states: Nausea, Vomiting, pain behind my eyes, neck pain, body ld1 aches, fever, sore throat X 2 days. Coronavirus screen: Client presents with at least one sign or symptom that may indicate coronavirus-19. Standard/surgical mask placed on the client. Ebola Screen: No symptoms or risks identified at this time. Initial Sepsis Screen: Does the patient meet any 2 criteria? No. Patient's initial sepsis screen is negative. Does the patient have a suspected source of infection? No. Patient's initial sepsis screen is negative. Risk Assessment: Do you want to hurt yourself or someone else? Patient reports no desire to harm self or others. Onset of symptoms was January 21, 2022 at 23:13. 23:12 Method Of Arrival: Ambulatory ld1 23:12 Acuity: ELKE 3 ld1 Triage Assessment: 23:13 General: Appears in no apparent distress. comfortable, Behavior is calm, cooperative, ld1 appropriate for age. Pain: Denies pain. EENT: No signs and/or symptoms were reported regarding the EENT system. Neuro: Level of Consciousness is awake, alert, obeys commands, Oriented to person, place, time, situation. Cardiovascular: Capillary refill < 3 seconds Patient's skin is warm and dry. Respiratory: Airway is patent Respiratory effort is even, unlabored. GI: Abdomen is round non-distended. : No signs and/or symptoms were reported regarding the genitourinary system. Derm: No signs and/or symptoms reported regarding the dermatologic system. Musculoskeletal: No signs and/or symptoms reported regarding the musculoskeletal system. 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 - Social history:: Smoking status: Patient denies any tobacco usage or history of. Patient/guardian denies using alcohol. Screenin:39 Abuse screen: Denies threats or abuse. Nutritional screening: No deficits noted. 1 Tuberculosis screening: No symptoms or risk factors identified. Fall Risk None identified. Assessment: 23:39 Reassessment: No changes from previously documented assessment. General: Appears in no [facility] apparent distress. Behavior is calm, cooperative, appropriate for age. 01/22 04:00 Reassessment: Patient states feeling better. Patient states symptoms have improved. ke1 Vital Signs: 01/21 23:12 Pulse 107; Resp 18; Temp 101.3(TE); Pulse Ox 100% on R/A; Weight 80.74 kg; Height 5 ft. ld1 3 in. (160.02 cm); Pain 0/10; 23:16 BP 120 / 54; ld1 07 04:44 BP 122 / 81; Pulse 86; Resp 18; Temp 99.6; Pulse Ox 100% ; Pain 0/10; ke1 01/21 23:12 Body Mass Index 31.53 (80.74 kg, 160.02 cm) 1 ED Course: 01/21 23:05 Patient arrived in ED. mr 23:06 Davis Ghosh DO is Private Physician. mr 23:13 Triage completed. ld1 23:13 Arm band placed on right wrist. ld1 23:17 COVID-19 SARS RT PCR (Document "Date of Onset" if Symptomatic) Sent. ld1 23:17 Flu Sent. ld1 23:17 Strep Sent. ld1 23:35 Matt Hamilton PA is PHCP. cp 23:35 Matt Irizarry MD is Attending Physician. cp 23:39 Patient has correct armband on for positive identification. Bed in low position. Call [facility] light in reach. Side rails up X 1. Pulse ox on. NIBP on. 23:40 No apparent distress. Awaiting ED provider evaluation. [facility] 01/22 00:29 Maicol Valencia, RN is Primary Nurse. ke1 01:56 Inserted. tw5 01:56 Inserted saline lock: 20 gauge in left antecubital area, using aseptic technique. Blood tw5 collected. Ultrasound guided IV. 03:03 CT Abd/Pelvis - IV Contrast Only In Process Unspecified. EDMS 04:43 No provider procedures requiring assistance completed. IV discontinued. ke1 Administered Medications: 03:20 Drug: Zofran (Ondansetron) 4 mg Route: IVP; Site: left antecubital; tw5 03:45 Follow up: Response: No adverse reaction ke1 03:20 Drug: Tylenol 1000 mg Route: PO; tw5 04:10 Follow up: Response: No adverse reaction ke1 03:20 Drug: bebtelovimab 175 mg Route: IV; Rate: calculated rate; Site: left antecubital; tw5 03:22 Follow up: IV Status: Completed infusion ke1 03:21 Drug: NS 0.9% 1000 ml Route: IV; Rate: 1 bolus; Site: left antecubital; tw5 04:47 Follow up: IV Status: Completed infusion ke1 03:21 Drug: Pepcid (famotidine) 20 mg Route: IVP; Site: left antecubital; tw5 04:00 Follow up: Response: No adverse reaction ke1 04:20 Drug: Rocephin (cefTRIAXone) 1 grams Route: IV; Rate: per protocol; Site: left ke1 antecubital; 04:22 Follow up: IV Status: Completed infusion ke1 04:23 Not Given (Duplicate Order): Cipro (ciprofloxacin) 500 mg PO once [facility] 04:26 CANCELLED (Duplicate Order): Bactrim (trimethoprim-sulfamethoxazole) (160 mg-800 mg gill (DS) 1 tablet PO once 04:34 Drug: Nitrofurantoin 100 mg Route: PO; ke1 04:45 Follow up: Response: No adverse reaction ke1 Medication: 01/21 23:39 VIS not applicable for this client. [facility] Outcome: 01/22 03:44 Discharge ordered by . [facility] 04:43 Discharged to home ambulatory. ke1 04:43 Condition: good 04:43 Discharge instructions given to patient. 04:47 Patient left the ED. ke1 Addendum: 01/25/2022 08:32 Addendum: Culture Results: Positive urine culture. No further action required. Bacteria s s sensitive to prescribed antibiotic. Signatures: Dispatcher [employer] EDMS Matt Irizarry MD MD cha Rivera, Yanelis mr Anna, Zeny, RN RN ss Matt Hamilton PA PA cp Dibbern, Lauren, RN RN 1 Yojana Simental tw5 Maicol Valencia RN RN ke1 Mali Delarosa RN RN 1
--- NOTE | 2022-01-22 03:45 | EDPHYS ---
Physician Documentation [facility] Name: Laureen Schmidt Age: 31 yrs Sex: Female : 1990 Arrival Date: 01/21/2022 Time: 23:05 Bed 16 Private MD: Augie [facility] ED Physician Matt Irizarry HPI: 01/22 00:15 This 31 yrs old Female presents to ER via Ambulatory with complaints of Fever, cp Dizziness. 00:15 The patient reports fever, with an emergency department temperature of 101.3 degrees cp Fahrenheit. Onset: The symptoms/episode began/occurred today. 00:15 The patient presents to the emergency department with nausea, that is moderate, cp vomiting, that is intermittent. Onset: The symptoms/episode began/occurred night of 01/20. Possible causes: unknown. Associated signs and symptoms: Pertinent positives: anorexia, fever, dizziness started yesterday at work, Pertinent negatives: abdominal pain, constipation, diarrhea, GI bleeding. 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 - Social history:: Smoking status: Patient denies any tobacco usage or history of. Patient/guardian denies using alcohol. ROS: 01/22 00:20 Constitutional: Positive for fever, poor PO intake. cp 00:20 Eyes: Negative for injury, pain, redness, and discharge. cp 00:20 ENT: Positive for sore throat, Negative for drainage from ear(s), ear pain, difficulty swallowing, difficulty handling secretions. 00:20 Cardiovascular: Negative for chest pain. 00:20 Respiratory: Positive for cough, Negative for shortness of breath, wheezing. 00:20 Abdomen/GI: Positive for nausea, vomiting, anorexia, Negative for diarrhea, constipation, hematemesis. 00:20 : Negative for urinary symptoms. 00:20 Neuro: Positive for dizziness, headache, Negative for altered mental status. 00:20 All other systems are negative. Exam: 00:25 Constitutional: The patient appears in no acute distress, alert, awake, non-toxic, well cp developed, well nourished. 00:25 Head/Face: Normocephalic, atraumatic. cp 00:25 Eyes: Periorbital structures: appear normal, Conjunctiva: normal, no exudate, no injection, Sclera: no appreciated abnormality, Lids and lashes: appear normal, bilaterally. 00:25 ENT: External ear(s): are unremarkable, Nose: is normal, Mouth: Lips: moist, Oral mucosa: pink and intact, moist, Posterior pharynx: Airway: no evidence of obstruction, patent, Tonsils: no enlargement, no exudate, swelling, is not appreciated, erythema, that is mild, exudate, is not appreciated. 00:25 Neck: ROM/movement: is normal, is supple, without pain, no range of motions limitations, no meningismus. 00:25 Chest/axilla: Inspection: normal. 00:25 Cardiovascular: Rate: tachycardic, Rhythm: regular, Edema: is not appreciated, JVD: is not appreciated. 00:25 Respiratory: the patient does not display signs of respiratory distress, Respirations: normal, no use of accessory muscles, no retractions, labored breathing, is not present, Breath sounds: are clear throughout, no decreased breath sounds, no stridor, no wheezing. 00:25 Abdomen/GI: Inspection: abdomen appears normal, Bowel sounds: active, all quadrants, Palpation: soft, in all quadrants, mild abdominal tenderness, in the epigastric area, rebound tenderness, is not appreciated, voluntary guarding, is not appreciated, involuntary guarding, is not appreciated. 00:25 Back: pain, that is mild, of the left mid back, ROM is normal. 00:25 Skin: cellulitis, is not appreciated, no rash present. 00:25 Neuro: Orientation: to person, place \\T\\ time. Mentation: is normal, Cerebellar function: is grossly normal, Motor: moves all fours, strength is normal, Sensation: is normal. Vital Signs: 01/21 23:12 Pulse 107; Resp 18; Temp 101.3(TE); Pulse Ox 100% on R/A; Weight 80.74 kg; Height 5 ft. ld1 3 in. (160.02 cm); Pain 0/10; 23:16 BP 120 / 54; ld1 01/22 04:44 BP 122 / 81; Pulse 86; Resp 18; Temp 99.6; Pulse Ox 100% ; Pain 0/10; ke1 01/21 23:12 Body Mass Index 31.53 (80.74 kg, 160.02 cm) ld1 MDM: 01/21 23:36 Patient medically screened. 01/22 00:15 Differential diagnosis: gastritis, appendicitis, viral gastroenteritis, cp gastroenteritis, viral Infection, bacterial infection, bronchitis, pneumonia UTI, gastroenteritis, meningitis. 04:24 Data reviewed: vital signs, nurses notes, lab test result(s), radiologic studies, CT gill scan, plain films. Data interpreted: desk monitor: rate is 107 beats/min, Pulse oximetry: on room air is 101.3 %. Test interpretation: by ED physician or midlevel provider: plain radiologic studies. Counseling: I had a detailed discussion with the patient and/or guardian regarding: the historical points, exam findings, and any diagnostic results supporting the discharge/admit diagnosis, lab results, radiology results, the need for outpatient follow up, for definitive care, a family practitioner. 01/21 23:15 Order name: COVID-19 SARS RT PCR (Document "Date of Onset" if Symptomatic); Complete ld1 Time: :01/22 01:41 Interpretation: Reviewed. 01/21 23:15 Order name: Flu; Complete Time: :41 1 01/22 01:41 Interpretation: Reviewed. 01/21 23:15 Order name: Strep; Complete Time: 01:41 ld1 01/22 01:41 Interpretation: Reviewed. 01/22 00:10 Order name: CBC with Diff; Complete Time: 02:21 cp 01/22 02:21 Interpretation: Normal except: PLT 149; MPV 11.5; HANY% 77.4. cp 01/22 00:10 Order name: CMP; Complete Time: 02:53 cp 01/22 02:53 Interpretation: Normal except: GLUC 114; GFR 87; TP 8.3; GLOB 4.3; A/G 0.9. cp 01/22 00:10 Order name: Lipase; Complete Time: 02:53 cp 01/22 02:53 Interpretation: Reviewed. cp 01/22 00:10 Order name: Urine Microscopic Only; Complete Time: 19:03 cp 01/22 00:10 Order name: CT Abd/Pelvis - IV Contrast Only cp 01/22 00:30 Order name: Throat Culture EDNJ 01/22 04:04 Order name: Urine Dipstick-Ancillary; Complete Time: 04:08 EDMS 01/22 04:05 Order name: Urine --Ancillary (enter results); Complete Time: 19:03 mw2 01/22 04:22 Order name: Urine Culture EDNJ 01/22 00:10 Order name: IV Saline Lock; Complete Time: 03:21 cp 01/22 00:10 Order name: Labs collected and sent; Complete Time: 03:21 cp 01/22 03:10 Order name: Urine Dipstick-Ancillary (obtain specimen); Complete Time: 04:05 cp 01/22 03:10 Order name: Urine Test (obtain specimen); Complete Time: 04:05 cp Administered Medications: 03:20 Drug: Zofran (Ondansetron) 4 mg Route: IVP; Site: left antecubital; tw5 03:45 Follow up: Response: No adverse reaction ke1 03:20 Drug: Tylenol 1000 mg Route: PO; tw5 04:10 Follow up: Response: No adverse reaction ke1 03:20 Drug: bebtelovimab 175 mg Route: IV; Rate: calculated rate; Site: left antecubital; tw5 03:22 Follow up: IV Status: Completed infusion ke1 03:21 Drug: NS 0.9% 1000 ml Route: IV; Rate: 1 bolus; Site: left antecubital; tw5 04:47 Follow up: IV Status: Completed infusion ke1 03:21 Drug: Pepcid (famotidine) 20 mg Route: IVP; Site: left antecubital; tw5 04:00 Follow up: Response: No adverse reaction ke1 04:20 Drug: Rocephin (cefTRIAXone) 1 grams Route: IV; Rate: per protocol; Site: left ke antecubital; 04:22 Follow up: IV Status: Completed infusion ke1 04:23 Not Given (Duplicate Order): Cipro (ciprofloxacin) 500 mg PO once gill 04:26 CANCELLED (Duplicate Order): Bactrim (trimethoprim-sulfamethoxazole) (160 mg-800 mg gill (DS) 1 tablet PO once 04:34 Drug: Nitrofurantoin 100 mg Route: PO; ke1 04:45 Follow up: Response: No adverse reaction ke1 Disposition: 04:23 Co-signature as Attending Physician, Matt Irizarry MD I agree with the assessment and [facility] plan of care. Disposition Summary: 01/22/22 03:44 Discharge Ordered Location: Home [facility] Problem: new gill Symptoms: have improved gill Condition: Stable gill Diagnosis - SARS-associated coronavirus as the cause of diseases classified elsewhere gill - Nausea with vomiting, unspecified gill - UTI/ Urinary tract infection, site not specified gill Followup: cp - With: Private Physician - When: 1 - 2 days - Reason: Worsening of condition Discharge Instructions: - Dysuria gill - Urinary Tract Infection, Adult gill - Discharge Summary Sheet cp - Nausea and Vomiting, Adult cp - Aspirin and Your Heart cp - Urinary Tract Infection, Adult, [id number] [facility] - COVID-19 cp - Things to Know about the COVID-19 Pandemic - [facility] cp - 10 Things You Can Do to Manage Your COVID-19 Symptoms at Home - [facility] cp - COVID-19: Quarantine vs. Isolation - [facility] cp - Prevent the Spread of COVID-19 if You Are Sick - [facility] cp Forms: - Medication Reconciliation Form [facility] - Thank You Letter [facility] - Antibiotic Education [facility] - Prescription Opioid Use [facility] - Work release form ke1 Prescriptions: - Macrobid 100 mg Oral Capsule - take 1 capsule by ORAL route every 12 hours for 7 days; 14 capsule; Refills: 0, [facility] Product Selection Permitted - Zofran 4 mg Oral Tablet - take 1 tablet by ORAL route every 12 hours As needed; 20 tablet; Refills: 0, cp Product Selection Permitted Signatures: Dispatcher [employer] Matt Mccormack MD MD cha Page, Corey, PA PA cp Judi Mark RN RN 1 Yojana Simental tw5 Maicol Valencia RN RN ke1 Corrections: (The following items were deleted from the chart) 02:53 02:53 Normal except: GLUC 114; GFR 87. cp cp 04:26 04:23 Bactrim (trimethoprim-sulfamethoxazole) (160 mg-800 mg (DS) 1 tablet PO once [facility] ordered. gill
[2022-01-22 04:04] LABS: Urine Blood Negative (Negative); Urine Glucose Negative (Negative); Urine Protein Negative (Negative); Urine Specific Gravity 1.015 (1.005-1.030)
[2022-01-22 04:11] LABS: Urine Specific Gravity/Preg 1.015 (1.005-1.030)
[2022-01-22 04:20] LABS: Urine Bacteria 20-50 /HPF (<20); Urine Mucus 1+ /HPF (NONE SEEN); Urine RBC <5 /HPF (NONE SEEN)
[2022-01-22] MEDS ORDERED: CEFTRIAXONE 1000 MG/VIAL ONE (04:22)
[2022-01-22] MEDS ORDERED: CIPROFLOXACIN HCL 500 MG TAB ONE (04:22)
[2022-01-22] MEDS ORDERED: NITROFURAN MACRO 100 MG CAP PO ONE (04:35)
[2022-01-22 04:58] VITALS: O2SAT 100
[2022-01-22 05:01] VITALS: BP 122/81; TEMP 99.6
--- NOTE | 2022-01-22 15:06 | RAD REPORT ---
EXAM DESCRIPTION: Abdomen Pelvis W Contrast 01/22/2022 3:32 AM CDT CLINICAL HISTORY: 31 years, Female, Nausea/vomiting COMPARISON: 06/08/2020 TECHNIQUE: Initial noncontrast axial images through the abdomen were generated utilizing 2 mm slice thickness at 2 mm interval reconstruction subsequent contrast images of the abdomen and pelvis were p erformed utilizing 2 mm slice thickness at 2 mm interval reconstruction from the lung bases to the is chial tuberosities after the administration of 100 cc of Omnipaque 350 at the rate of 3.0 cc/sec. In addition multiplanar reformats in the coronal and sagittal plane were obtained and reviewed. This exam was performed according to our departmental dose-optimization protocol, which includes auto mated exposure control, adjustment of the mA and/or kV according to patient size and/or use of iterat michelle reconstruction technique. FINDINGS: The lung bases demonstrate to be clear. The liver, pancreas, spleen and adrenal glands demonstrate to be unremarkable, no focal lesions are n oted. Surgical clips within the gallbladder fossa correspond to previous cholecystectomy. The kidneys demonstrate normal uptake of contrast media. No evidence for nephrolithiasis and/or hydro nephrosis. Grossly the unopacified stomach demonstrated presence of status post gastric bypass jejunostomy with no significant abnormalities. Otherwise the stomach, small bowel and large bowel demonstrate to be wi thin normal limits. There is no evidence for bowel dilatation and/or free air. The appendix was n ot visualized although no significant inflammatory changes are seen within the right lower quadrant. The urinary bladder demonstrate to be unremarkable. The uterus is absent. There are no adnexal mass es. The aorta demonstrate to be normal. There is no retroperitoneal lymphadenopathy. There is no evidence for ascites/or significant abnormal fluid collections. The lumbar spine demonstrate minimal bony osteopenia. No significant skeletal abnormalities. IMPRESSION: Status post gastric bypass jejunostomy with no significant abnormalities. Status post cholecystectomy and hysterectomy. No evidence for acute intra-abdominal process. Electronically signed by: Nimesh Nunes MD 01/22/2022 3:37 AM CDT Due to temporary technical issues with the PACS/Fluency reporting system, reports are being signed by the in house radiologists without review as a courtesy to insure prompt reporting. The interpreting radiologist is fully responsible for the content of the report.
== END 2022-01-22 04:47 | disposition home or self-care (01) ==
LOC: ER 23:03
DX: U07.1 COVID-19 (principal); N39.0 Urinary tract infection, site not specified; R11.2 Nausea with vomiting, unspecified; E11.9 Type 2 diabetes mellitus without complications; Z88.1 Allergy status to other antibiotic agents; Z88.5 Allergy status to narcotic agent
CPT/HCPCS: 87070; 87088; 85025; 87086; 36415; 81025; 87081; 87077; 87186; 83690; 80053; 87804 ×2; 74177; U0003; Q9967; J7030; J2405; J3490; 81003; 81015

== ENCOUNTER 2022-02-14 13:01 | Emergency (ER) | payer OTHER ==
[2022-02-14 13:28] LABS: Urine Blood Negative (Negative); Urine Glucose Negative (Negative); Urine Protein 1+ (Negative); Urine pH 5.5 (5.0-7.0)
[2022-02-14 13:45] LABS: Urine Bacteria 20-50 /HPF (<20); Urine Mucus 1+ /HPF (None Seen); Urine RBC <5 /HPF (None Seen)
[2022-02-14 13:47] LABS: Absolute Lymphocytes (CBC) 2.8 K/uL (0.7-4.9); Hematocrit 36.7 % (36.0-45.0); MCV 91.1 fL (80-100); MPV 11.8 fL (7.6-11.3); RBC Red Blood Cell Count 4.02 M/uL (3.86-4.86)
--- NOTE | 2022-02-14 15:06 | RAD REPORT ---
EXAM DESCRIPTION: CTAbdomen Pelvis W Contrast - 02/14/2022 2:50 pm CLINICAL HISTORY: abd pain COMPARISON: <Comparisons> TECHNIQUE: CT of the abdomen and pelvis was performed. All CT scans are performed using dose optimization technique as appropriate and may include automated exposure control or mA/KV adjustment according to patient size. FINDINGS: Lower chest: No acute abnormality. Liver: No acute abnormality or suspicious lesions. Biliary: Cholecystectomy Stomach: Gastrojejunostomy. Duodenum: No significant focal abnormality. Pancreas: No significant abnormality. Spleen: No significant abnormality. Adrenal: No suspicious lesions. Kidney/ureter: No hydronephrosis. 3 mm stone in the right kidney. Retroperitoneum: No retroperitoneal adenopathy. Vascular: No aneurysm. Bowel: No significant focal abnormality. Moderate stool. Peritoneum: No ascites or free air. Bladder: Grossly unremarkable. Reproductive: No adnexal masses. Hysterectomy Bones: No acute fracture. Other: Nonspecific skin thickening along the ventral abdominal wall. IMPRESSION: No acute intra-abdominal or pelvic finding. Incidental findings as noted above.
[2022-02-14 15:11] LABS: Albumin 3.5 g/dL (3.4-5.0); Bilirubin Total 0.3 mg/dL (0.2-1.0); Potassium 3.7 mmol/L (3.5-5.1)
--- NOTE | 2022-02-14 15:25 | ER ---
Nurse's Notes [facility] Name: Laureen Schmidt Age: 32 yrs Sex: Female : 1990 Arrival Date: 02/14/2022 Time: 13:04 Bed 20 Private MD: Diagnosis: Other specified disorders of teeth and supporting structures;Pain in groin Presentation: 02/14 13:13 Chief complaint: Patient states: R groin pain off/on for 3 days. + fatigue. L lower jaw ll1 toothache for 1 week. Coronavirus screen: Client denies travel out of the [place] in the last 14 days. At this time, the client does not indicate any symptoms associated with coronavirus-19. Ebola Screen: Patient denies travel to an Ebola-affected area in the 21 days before illness onset. Initial Sepsis Screen: Does the patient meet any 2 criteria? No. Patient's initial sepsis screen is negative. Does the patient have a suspected source of infection? Yes: Other: tooth. Risk Assessment: Do you want to hurt yourself or someone else? Patient reports no desire to harm self or others. Onset of symptoms was February 12, 2022. 13:13 Method Of Arrival: Ambulatory ll1 13:13 Acuity: ELKE 3 ll1 Historical: - Allergies: 13:13 Bactrim DS; ll1 13:13 Ciprofloxacin; ll1 13:13 Codeine; ll1 - PMHx: 13:13 Bipolar disorder; Diabetes - IDDM; fatty liver; Gastroperesis; Heart Murmur; Nonan ll1 Syndrome; Flores Syndrome; - PSHx: 13:13 Cholecystectomy; Exploratory laparotomy; liposuction; screw placement in ryan ankles; ll1 gastric bypass; - Immunization history:: Adult Immunizations up to date, Client reports having NOT received the Covid vaccine. - Social history:: Smoking status: Patient denies any tobacco usage or history of. Screenin:35 Abuse screen: Denies threats or abuse. Denies injuries from another. Nutritional hb screening: No deficits noted. Tuberculosis screening: No symptoms or risk factors identified. Fall Risk None identified. Assessment: 14:35 General: Appears in no apparent distress. Behavior is calm, cooperative. Pain: Pain hb currently is 8 out of 10 on a pain scale. Neuro: Level of Consciousness is awake, alert, obeys commands, Oriented to person, place, time, situation. Cardiovascular: Patient's skin is warm and dry. Respiratory: Respiratory effort is even, unlabored, Respiratory pattern is regular, symmetrical. GI: Reports lower abdominal pain. : No signs and/or symptoms were reported regarding the genitourinary system. EENT: No signs and/or symptoms were reported regarding the EENT system. Derm: Skin is pink, warm \T\ dry. Musculoskeletal: No signs and/or symptoms reported regarding the musculoskeletal system. 14:42 Reassessment: Pt to CT via wheelchair. hb 15:48 Reassessment: Patient appears in no apparent distress at this time. Patient and/or hb family updated on plan of care and expected duration. Pain level reassessed. Patient is alert, oriented x 3, equal unlabored respirations, skin warm/dry/pink. Vital Signs: 13:13 BP 106 / 59; Pulse 87; Resp 17; Temp 98.7(TE); Pulse Ox 100% ; Pain 8/10; ll1 15:30 BP 118 / 67; Pulse 80; Resp 16; Pulse Ox 98% ; hb ED Course: 13:04 Patient arrived in ED. rg4 13:13 Arm band placed on. ll1 13:16 [facility] kb 13:16 Viky Mejia MD is Attending Physician. kb 13:16 Triage completed. ll1 13:37 Initial lab(s) drawn, by me, sent to lab. Urine collected: clean catch specimen, tm3 cloudy. Inserted saline lock: 22 gauge in left antecubital area, using aseptic technique. 13:41 Urine Microscopic Only Sent. mb7 13:42 CBC with Diff Sent. mb7 13:42 CMP Sent. mb7 13:42 Lipase Sent. mb7 14:13 Jacqueline Velazquez, RN is Primary Nurse. hb 14:35 Patient has correct armband on for positive identification. Call light in reach. hb 14:41 Inserted saline lock: 22 gauge in right wrist, using aseptic technique. Blood collected.ss 14:52 CT Abd/Pelvis - IV Contrast Only In Process Unspecified. EDMS 15:48 No provider procedures requiring assistance completed. IV discontinued, intact, hb bleeding controlled, No redness/swelling at site. Administered Medications: No medications were administered Medication: 14:35 VIS not applicable for this client. hb Outcome: 15:25 Discharge ordered by MD. little 15:48 Discharged to home ambulatory. hb 15:48 Condition: stable 15:48 Discharge instructions given to patient, Instructed on discharge instructions, follow up and referral plans. medication usage, Demonstrated understanding of instructions, follow-up care, medications, Prescriptions given X 2. 15:49 Patient left the ED. hb Signatures: Dispatcher [employer] EDMS Glenis Goyal, TESTER SOUND-C TESTER SOUND-CkJeovany Smith tm3 Zeny Castillo, OMAR RN Jacqueline Velazquez RN RN Anika Noe rg4 Jeet Lockhart RN RN ll1 Yanelis Leyva mb7 Corrections: (The following items were deleted from the chart) 13:17 13:13 Social history: Smoking status: Patient reports the use of cigarette tobacco ll1 products, smokes one-half pack cigarettes per day, ll1 13:42 13:42 UA MICROSCOPIC+U.LAB.BRZ drawn and sent. mb7 [facility]
--- NOTE | 2022-02-14 15:26 | EDPHYS ---
Physician Documentation [facility] Name: Laureen Schmidt Age: 32 yrs Sex: Female : 1990 Arrival Date: 02/14/2022 Time: 13:04 Bed 20 Private MD: ED Physician Viky Mejia HPI: 02/14 14:49 This 32 yrs old Female presents to ER via Ambulatory with complaints of Toothache, kb Groin Pain. 14:50 The patient presents with abdominal pain. Onset: The symptoms/episode began/occurred 1 kb week(s) ago. The symptoms do not radiate. Associated signs and symptoms: none. The symptoms are described as constant. Modifying factors: The symptoms are alleviated by nothing, the symptoms are aggravated by nothing. Severity of pain: At its worst the pain was moderate in the emergency department the pain is unchanged. The patient has not experienced similar symptoms in the past. The patient has not recently seen a physician. Right groin pain started three days ago and is getting worse. States she has been lifting a lot at work. Reports pain is a pulling and burning sensation when she squats Also reports pain to left lower jaw due to a broken tooth that started a week ago is worse today. Patient has appointment with dentist for this next week but wanted to get antibiotics now.. Historical: - Allergies: 13:13 Bactrim DS; ll1 13:13 Ciprofloxacin; ll1 13:13 Codeine; ll1 - PMHx: 13:13 Bipolar disorder; Diabetes - IDDM; fatty liver; Gastroperesis; Heart Murmur; Nonan ll1 Syndrome; Flores Syndrome; - PSHx: 13:13 Cholecystectomy; Exploratory laparotomy; liposuction; screw placement in ryan ankles; ll1 gastric bypass; - Immunization history:: Adult Immunizations up to date, Client reports having NOT received the Covid vaccine. - Social history:: Smoking status: Patient denies any tobacco usage or history of. ROS: 14:48 Constitutional: Negative for fever, chills, and weight loss. kb 14:48 ENT: Positive for dental pain. 14:48 Abdomen/GI: Positive for abdominal pain. 14:48 All other systems are negative. Exam: 14:48 Constitutional: This is a well developed, well nourished patient who is awake, alert, kb and in no acute distress. Head/Face: Normocephalic, atraumatic. Cardiovascular: Regular rate and rhythm with a normal S1 and S2. No gallops, murmurs, or rubs. No pulse deficits. Respiratory: Respirations even and unlabored. No increased work of breathing. Talking in full sentences Skin: Warm, dry with normal turgor. Normal color. MS/ Extremity: Pulses equal, no cyanosis. Neurovascular intact. Full, normal range of motion. Neuro: Awake and alert, GCS 15, oriented to person, place, time, and situation. Moves all extremities. Normal gait. Psych: Awake, alert, with orientation to person, place and time. Behavior, mood, and affect are within normal limits. 14:48 ENT: Dental exam: fractured teeth are noted, specifically the lower left first molar (#19), pain, that is moderate, specifically in the lower left first molar (#19). 14:48 Abdomen/GI: Inspection: abdomen appears normal, Bowel sounds: normal, Palpation: soft, in all quadrants, moderate abdominal tenderness, in the right lower quadrant. Vital Signs: 13:13 BP 106 / 59; Pulse 87; Resp 17; Temp 98.7(TE); Pulse Ox 100% ; Pain 8/10; ll1 15:30 BP 118 / 67; Pulse 80; Resp 16; Pulse Ox 98% ; hb MDM: 13:16 Patient medically screened. kb 14:49 Data reviewed: vital signs, nurses notes. Data interpreted: Pulse oximetry: on room air kb is 100 %. Interpretation: normal. 15:15 Counseling: I had a detailed discussion with the patient and/or guardian regarding: the kb historical points, exam findings, and any diagnostic results supporting the discharge/admit diagnosis, lab results, radiology results, the need for outpatient follow up, a dentist, a family practitioner, to return to the emergency department if symptoms worsen or persist or if there are any questions or concerns that arise at home. 02/14 13:16 Order name: CBC with Diff; Complete Time: 14:06 kb 02/14 13:16 Order name: CMP; Complete Time: 15:14 kb 02/14 13:16 Order name: Lipase; Complete Time: 15:14 kb 02/14 13:29 Order name: Urine Dipstick-Ancillary; Complete Time: 13:30 EDMS 02/14 13:35 Order name: Urine Microscopic Only; Complete Time: 13:46 [facility] 02/14 13:16 Order name: CT Abd/Pelvis - IV Contrast Only; Complete Time: 15:14 02/14 13:16 Order name: IV Saline Lock; Complete Time: 13:41 02/14 13:16 Order name: Labs collected and sent; Complete Time: 13:42 02/14 13:16 Order name: Urine Dipstick-Ancillary (obtain specimen); Complete Time: 13:28 02/14 13:47 Order name: Urine Culture [facility] 02/14 14:04 Order name: Labs - recollect needed: recollect chemistries / hemolyzed; Complete Time: eb 14:41 Administered Medications: No medications were administered Disposition Summary: 02/14/22 15:25 Discharge Ordered Location: Home kb Condition: Stable kb Diagnosis - Other specified disorders of teeth and supporting structures kb - Pain in groin kb Followup: kb - With: Emergency Department - When: As needed - Reason: Worsening of condition Followup: kb - With: Private Physician - When: 2 - 3 days - Reason: Recheck today's complaints, Continuance of care, Re-evaluation by your physician Discharge Instructions: - Discharge Summary Sheet kb - Musculoskeletal Pain kb - Dental Pain, [id number] kb - Dental Abscess, [id number] kb Forms: - Medication Reconciliation Form kb - Thank You Letter kb - Antibiotic Education kb - Prescription Opioid Use kb Prescriptions: - Augmentin 875-125 mg Oral Tablet - take 1 tablet by ORAL route every 12 hours for 10 days; 20 tablet; Refills: 0, kb Product Selection Permitted - Cyclobenzaprine 10 mg Oral Tablet - take 1 tablet by ORAL route every 8 hours As needed; 15 tablet; Refills: 0, kb Product Selection Permitted - Diclofenac Sodium 75 mg Oral tablet,delayed release (DR/EC) - take 1 tablet by ORAL route 2 times per day As needed; 30 tablet; Refills: 0, kb Product Selection Permitted Signatures: Dispatcher [employer] Glenis Brown, JEANNINEC [employer] OPERATOR-Delia Patricia Lynsay RN RN ll1 Corrections: (The following items were deleted from the chart) 13:17 13:13 Social history: Smoking status: Patient reports the use of cigarette tobacco ll1 products, smokes one-half pack cigarettes per day, ll1 13:42 13:36 UA MICROSCOPIC+U.LAB.BRZ ordered. EDMS EDMS 15:26 14:50 Right groin pain started a week ago and is getting worse. Also reports pain to kb left lower jaw due to a broken tooth that started a week ago is worse today. Patient has appointment with dentist for this next week but wanted to get antibiotics now.. kb
[2022-02-14 16:17] VITALS: TEMP 98.7
[2022-02-14 16:33] VITALS: BP 118/67; O2SAT 98
== END 2022-02-14 15:49 | disposition home or self-care (01) ==
LOC: ER 13:01
DX: K08.89 Other specified disorders of teeth and supporting structures (principal); R10.2 Pelvic and perineal pain; E11.9 Type 2 diabetes mellitus without complications; Z95.1 Presence of aortocoronary bypass graft; Z88.1 Allergy status to other antibiotic agents; Z88.3 Allergy status to other anti-infective agents; Z88.5 Allergy status to narcotic agent
CPT/HCPCS: 36415; 74177; 80053; 81003; 81015; 83690; 85025; 99284; Q9967

== ENCOUNTER 2022-11-11 00:43 | Emergency (ER) | payer OTHER ==
--- OUTSIDE RECORDS SUMMARY | 2022-11-11 00:49 | XMS REPORT | Continuity of Care Document ---
:1990 Author Organization [facility] t Address [address] [facility] [address] [place] [address] Care Team Providers Name Role Phone SENIA GHOSH Primary Care Physician Unavailable Senia Ghosh Attending Clinician Unavailable TWILA STEVENS Attending Clinician Unavailable Twila Stevens MD Attending Clinician [phone] CRISTINA GHOSH Attending Clinician Unavailable CLEVELAND FERNANDEZ Attending Clinician Unavailable Cleveland Fernandez MD Attending Clinician Neurology Attending Clinician Unavailable Bryce Cooley DO Attending Clinician JASSI KRAUS Attending Clinician Unavailable ILAN DE JESUS Attending Clinician Unavailable MONICA CARRASCO Attending Clinician Unavailable NAT SHARIF Attending Clinician Unavailable DENNIS DESHPANDE Attending Clinician Unavailable PAUL QURESHI Attending Clinician Unavailable NATHANIEL MARSHALL Attending Clinician Unavailable DAREK CORREA Attending Clinician Unavailable CARL FISCHER Attending Clinician Unavailable Aubrey Solis II Attending Clinician MEGAN ROSENBERG Attending Clinician Unavailable WTILA STEVENS Admitting Clinician Unavailable MEGAN ROSENBERG Admitting Clinician Unavailable Payers Payer Name Policy Type Policy Number Effective Date Expiration Date Tarun schwartz [facility] [id number] 2013 PLUS 00:00:00 [facility] [id number] 2020 PLAN 00:00:00 [place] [id number] 2021 Common HEALTHCARE 00:00:00 Spirit - [facility] Problems Condition Condition Condition Status Onset Resolution Last Treating Co mments Source Name Details Category Date Date Treatment Clinician Date Morbid Morbid Disease Recurre 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 - [facility] [id number] Type 2 Problem Common diabetes Spirit mellitus - [facility] with [facility] autonomic Medical (poly)neur Center opathy [id number] Type 2 Problem Common diabetes Spirit mellitus - [facility] with [facility] neuropathy Medica l , Center unspecifie d [id number] NORA Problem Common (generaliz [facility] ed anxiety - CHI disorder) [facility] [id number] Obstructiv Problem Com mon e sleep Spirit apnea - [facility] [id number] Mixed Problem Common hyperlipid Spirit emia - [facility] [id number] Adult BMI Problem Com mon 31.0-31.9 Spirit kg/sq m - [facility] [id number] Moderate Problem Commo n major Spirit depression - [facility] , single [facility] [id number] Nonalcohol Problem Co mmon ic fatty Spirit liver - [facility] disease [facility] [id number] Follicular Problem Com mon cystitis Spirit [facility] [id number] Roman Problem Common syndrome [facility] [id number] Gastropare Problem Co mmon sis Spirit - [facility] [id number] ocean transportation intermediary Problem Com mon (current) Spirit use of - [facility] insulin [facility] [id number] History of Problem Co mmon bladder Spirit cancer - [facility] [id number] Decreased Problem Com mon hearing of Spirit left ear - [facility] [id number] History of Problem Co mmon neoplasm Spirit of bladder [facility] [id number] Recurrent Problem Com mon UTI [facility] Dyslipidem Dyslipide Problem Active 2020-04-14 Memoria ia with shanna with 22:39:52 l high high Tony density density lipoprotei lipoprotei n below n below reference reference range and range and triglyceri triglyceri de above de above reference reference range due range due to type 2 to type 2 diabetes diabetes mellitus mellitus (disorder) (disorder) Active Problem 04/14/2020 Medical Group Hyperglyce Hyperglyc Problem Active 2020-04-14 Memoria shanna due to emia due 22:39:52 l type 2 to type 2 Tony diabetes diabetes mellitus mellitus (disorder) (disorder) Active Problem 04/14/2020 Medical Group Obesity Obesity Problem Active 2020-04-14 Me moria (disorder) (disorder) 22:39:52 l Active [place] Problem 04/14/2020 Medical Group Insulin Insulin Problem Active 2020-04-14 Me moria resistance resistance 22:39:52 l Active [place] Problem 04/14/2020 [facility] Allergies, Adverse Reactions, Alerts Allergy Allergy Status Severity Reaction(s) Onset Inactive Treating Comm ents Source Name Type Date Date Clinician CODEINE DRUG Active Hives [facility] INGREDI 2-24 it[facility] of 00[facility]: [place] [facility] CODEINE Allergy Active High Hives SLSL 1-28 00:00: 00 Codeine Drug Active Hives, Blood [facility] Allergy Shortness Of 1-28 pressure L ukes Breath, 00:00: and pulse Medica l Other (See 00 drops, Center Comments) hives NKA NKA Active Memoria l Tony codeine codeine Active Memoria l Tony Social History Social Habit Start Date Stop Date Quantity Comments Source History of Common Spirit - Tobacco Use [facility] History SDOH [facility] Std [facility] Drinks History SDOH [facility] Alcohol Binge Medical Lance ter Tobacco use and 2022-10-06 2022-10-06 Smokeless [address] [facility] exposure 00:00:00 00:00:00 non-user Medical Center Alcohol intake 2022-10-06 2022-10-[address] [facility] 00:00:00 00:00:00 non-drinker Medical Cente r (finding) History SDOH 2021-09-22 2021-09-[address] [facility] Alcohol Frequency 00:00:00 00:00:00 [facility] Alcohol Comment 2021-08-25 2021-08-[address] [facility] 00:00:00 00:00:00 [facility] Social History 2020-01-09 2020-01-09 [facility] Dennis swenson 16:48:27 16:48:27 Sex Ass[birth year] At 1990 [address] [facility] [address] [facility] kes 00:00:00 00:00:00 [facility] Smoking Status Start Date Stop Date Source Never smoked tobacco [facility] s [facility] Medications Ordered Filled Start Stop Current Ordering Indication Dosage Frequency Signature Comments Components Source Medication Medication Date Date Medication? Clinician (SIG) Name Name multivitami 2021-07 Yes 1{capsu QD Take [address] capsule 2-19 le} capsule by Luke s 13:48: mouth Medical 58 daily. Center CALCIUM 2021-07 Yes Take by [facility] CITRATE 2-19 mouth. [facility] ORAL 13:48: Medical 58 Center ergocalcife 2021-07 Yes [id number] Q7D Take [facility] rol 2-19 50,000 [facility] (Vitamin 13:48: Units by Medic al D2) 1,250 58 mouth once Cent er mcg (50,000 a week. unit) capsule cyanocobala 2021-07 Yes 1000ug QD Take 1,[address] min 2-19 mcg by [facility]ukes (VITAMIN 13:48: mouth Medical B-12) 1000 58 daily. Center MCG tablet traMADoL 2021-07 Yes 50mg Q.5D Take [address] (ULTRAM) 50 1-14 by mouth 2 Sheba kes mg tablet 00:00: (two) Medical 00 times Center daily. sucralfate No 1g Q.25D Take [address] (Carafate) - 09-21 mLs (1 g Luke s 100 mg/mL 00:00: 23:59 total) by Me dical suspension 00 :00 mouth 4 Center (four) times daily. pantoprazol 2022- No 40mg QD Take [address] e -21 09-21 tablet (40 [facility] (Protonix) 00:00: 23:59 mg total) M edical 40 MG 00 :00 by mouth Center tablet daily. cyclobenzap Yes 5mg Take [address] rine 9-14 by mouth [facility]ukes (FLEXERIL) 00:00: every Medica l 5 MG tablet 00 night as Cent er needed. Ibuprofen Ibuprofen No Ibuprofen 800 MG 800 MG 01-11- 800 MG 00:00: 00:00 00 :00 Ibuprofen Ibuprofen 2021- No Ibuprofen 800 MG 800 MG 6-27 - 800 MG 00:00: 00:00 00 :00 metFORMIN Yes 500mg Take 0.[address] (GLUCOPHAGE 3-09 tablets [facility]ukes ) 1000 MG 00:00: (500 mg Medic al tablet 00 total) by Center mouth 2 (two) times daily with breakfast and dinner. pantoprazol Yes 40mg QD Take [address] e 3-09 tablet (40 [facility] (PROTONIX) 00:00: mg total) Me dical 40 MG 00 by mouth Center tablet daily. Cephalexin Cephalexin 2020-07- No 1{capsu TID 500 MG 500 MG 09-08 le} 00:00: 00:00 00 :00 Cephalexin Cephalexin 2020-07- No 1{capsu TID Cephalexin 500 MG 500 MG 09-08 le} 500 MG 00:00: 00:00 00 :00 gabapentin 2019-07 Yes Q.5D 2 (two) [facility] (NEURONTIN) 2-04 times [facility]ukes 300 MG 00:00: daily . Medical capsule 00 Center insulin 2019-07 Yes 100U Q.5D Inject [address] glargine 1-02 Units [facility]ukes (LANTUS) 00:00: subcutaneo Med ical 100 unit/mL 00 usly 2 Center injection (two) times daily . MetFORMIN Yes = 2 tab, Vick arik (Eqv-Glucop 9-25 PO, BID, # l arian XR) 13:23: 360 tab, 3 Her mtz 500 mg oral 00 Refill(s), tablet, Pharmacy: [facility] release [id number], 160.02, cm, 01/09/20 11:25:00 CDT, Height, 98.182, kg, 01/09/20 11:25:00 CDT, Weight MetFORMIN 2020-0 Yes = 2 tab, Vick arik (Eqv-Glucop 9-25 PO, BID, # l arian XR) 13:23: 360 tab, 3 Her mtz 500 mg oral 00 Refill(s), tablet, Pharmacy: [facility] release [id number], 160.02, cm, 01/09/20 11:25:00 CDT, Height, 98.182, kg, 01/09/20 11:25:00 CDT, Weight MetFORMIN 2020-0 Yes = 2 tab, Vick arik (Eqv-Glucop 9-25 PO, BID, # l arian XR) 13:23: 360 tab, 3 Her mtz 500 mg oral 00 Refill(s), tablet, Pharmacy: [facility] release [id number], 160.02, cm, 01/09/20 11:25:00 CDT, Height, 98.182, kg, 01/09/20 11:25:00 CDT, Weight MetFORMIN 2020-0 Yes = 2 tab, Vick arik (Eqv-Glucop 9-25 PO, BID, # l arian XR) 13:23: 360 tab, 3 Her mtz 500 mg oral 00 Refill(s), tablet, Pharmacy: [facility] release [id number], 160.02, cm, 01/09/20 11:25:00 CDT, Height, 98.182, kg, 01/09/20 11:25:00 CDT, Weight pioglitazon 2020-0 Yes 15 mg = 1 M emoria e 15 mg 8-06 tab, PO, l oral tablet 14:49: Daily, # He rmann 00 90 tab, 0 Refill(s), Pharmacy: [facility] #[id number], 160.02, cm, 01/09/20 11:25:00 CDT, Height, 98.182, kg, 01/09/20 11:25:00 CDT, Weight pioglitazon 2020-0 Yes 15 mg = 1 M emoria e 15 mg 8-06 tab, PO, l oral tablet 14:49: Daily, # He rmann 00 90 tab, 0 Refill(s), [facility]acy: [id number], 160.02, cm, 01/09/20 11:25:00 CDT, Height, 98.182, kg, 01/09/20 11:25:00 CDT, Weight pioglitazon 2020-0 Yes 15 mg = 1 M emoria e 15 mg 8-06 tab, PO, l oral tablet 14:49: Daily, # He rmann 00 90 tab, 0 Refill(s), Pharmacy: [facility] #[id number], 160.02, cm, 01/09/20 11:25:00 CDT, Height, 98.182, kg, 01/09/20 11:25:00 CDT, Weight pioglitazon 2020-0 Yes 15 mg = 1 M emoria e 15 mg 8-06 tab, PO, l oral tablet 14:49: Daily, # He rmann 00 90 tab, 0 Refill(s), Pharmacy: [id number], 160.02, cm, 01/09/20 11:25:00 CDT, Height, 98.182, kg, 01/09/20 11:25:00 CDT, Weight canaglifloz 2020-0 Yes 100 mg = 1 Memoria in 100 mg 7-16 tab, PO, l oral tablet 16:23: Daily, # He rmann 00 90 tab, 1 Refill(s), Pharmacy: [facility] #[id number], 160.02, cm, 01/09/20 11:25:00 CDT, Height, 98.182, kg, 01/09/20 11:25:00 CDT, Weight canaglifloz 2020-0 Yes 100 mg = 1 Memoria in 100 mg 7-16 tab, PO, l oral tablet 16:23: Daily, # He rmann 00 90 tab, 1 Refill(s), Pharmacy: [facility] #[id number], 160.02, cm, 01/09/20 11:25:00 CDT, Height, 98.182, kg, 01/09/20 11:25:00 CDT, Weight canaglifloz 2020-0 Yes 100 mg = 1 Memoria in 100 mg 7-16 tab, PO, l oral tablet 16:23: Daily, # He rmann 00 90 tab, 1 Refill(s), Pharmacy: [facility] #[id number], 160.02, cm, 01/09/20 11:25:00 CDT, Height, 98.182, kg, 01/09/20 11:25:00 CDT, Weight canaglifloz 2019-0 Yes 100 mg = 1 Memoria in 100 mg 7-16 tab, PO, l oral tablet 16:23: Daily, # He rmann 00 90 tab, 1 Refill(s), Pharmacy: [facility] #[id number], 160.02, cm, 01/09/20 11:25:00 CDT, Height, 98.182, kg, 01/09/20 11:25:00 CDT, Weight OneTouch 2019-0 Yes , # 1 ea, Vick arik Ultra2 6-26 Insulin l Blood 13:20: dependent, Aram n Glucose 00 Does not Meter use insulin pump, Last DM eval date 01/11/20, 0 Refill(s), Pharmacy: [facility] #[id number], 160.02, cm,... OneTouch Yes See Memoria Ultra Blue 6-26 Instructio l Blood 13:20: ns, 4 Tony Glucose 00 FS/d, # Test Strip 400 ea, Insulin dependent, Does not use insulin pump, Last DM eval date 01/11/20, 3 Refill(s), Pharmacy: [facility] #[id number], 160.02, cm, 01/09/20 11:25:00 CDT, Height, 98.182, kg, 01/09/20 11:25:00 CDT, Weight OneTouch 0 Yes See Memoria Delica 6-26 Instructio l Extra Fine 13:20: ns, FS Yasmine nn 33G Lancets 00 4/d, # 400 ea, Insulin dependent, Does not use insulin pump, Last DM eval date 01/11/20, 3 Refill(s), Pharmacy: [facility] #[id number], 160.02, cm, 01/09/20 11:25:00 CDT, Height, 98.182, kg, 01/09/20 11:25:00 CDT, Weight OneTouch 2019-0 Yes , # 1 ea, Vick arik Ultra2 6-26 Insulin l Blood 13:20: dependent, Aram n Glucose 00 Does not Meter use insulin pump, Last DM eval date 01/11/20, 0 Refill(s), Pharmacy: [facility] #[id number], 160.02, cm,... OneTouch 2020-0 Yes See Memoria Ultra Blue 6-26 Instructio l Blood 13:20: ns, 4 [place] Glucose 00 FS/d, # Test Strip 400 ea, Insulin dependent, Does not use insulin pump, Last DM eval date 01/11/20, 3 Refill(s), Pharmacy: [facility] #[id number], 160.02, cm, 01/09/20 11:25:00 CDT, Height, 98.182, kg, 01/09/20 11:25:00 CDT, Weight OneTouch 2019-0 Yes See Memoria Delica 6-26 Instructio l Extra Fine 13:20: ns, FS Yasmine nn 33G Lancets 00 4/d, # 400 ea, Insulin dependent, Does not use insulin pump, Last DM eval date 01/11/20, 3 Refill(s), Pharmacy: [facility] #[id number], 160.02, cm, 01/09/20 11:25:00 CDT, Height, 98.182, kg, 01/09/20 11:25:00 CDT, Weight OneTouch 2019-0 Yes , # 1 ea, Vick arik Ultra2 6-26 Insulin l Blood 13:20: dependent, Aram n Glucose 00 Does not Meter use insulin pump, Last DM eval date 01/11/20, 0 Refill(s), Pharmacy: [facility] #[id number], 160.02, cm,... OneTouch 2020-0 Yes See Memoria Ultra Blue 6-26 Instructio l Blood 13:20: ns, 4 [place] Glucose 00 FS/d, # Test Strip 400 ea, Insulin dependent, Does not use insulin pump, Last DM eval date 01/11/20, 3 Refill(s), Pharmacy: [facility] #[id number], 160.02, cm, 01/09/20 11:25:00 CDT, Height, 98.182, kg, 01/09/20 11:25:00 CDT, Weight OneTouch 2019-0 Yes See Memoria Delica 6-26 Instructio l Extra Fine 13:20: ns, FS Yasmine nn 33G Lancets 00 4/d, # 400 ea, Insulin dependent, Does not use insulin pump, Last DM eval date 01/11/20, 3 Refill(s), Pharmacy: [id number], 160.02, cm, 01/09/20 11:25:00 CDT, Height, 98.182, kg, 01/09/20 11:25:00 CDT, Weight OneTouch 2020-0 Yes , # 1 ea, Vick arik Ultra2 6-26 Insulin l Blood 13:20: dependent, Aram n Glucose 00 Does not Meter use insulin pump, Last DM eval date 01/11/20, 0 Refill(s), Pharmacy: [id number], 160.02, cm,... OneTouch 2019-0 Yes See Memoria Ultra Blue 6-26 Instructio l Blood 13:20: ns, 4 [place] Glucose 00 FS/d, # Test Strip 400 ea, Insulin dependent, Does not use insulin pump, Last DM eval date 01/11/20, 3 Refill(s), Pharmacy: [facility] #[id number], 160.02, cm, 01/09/20 11:25:00 CDT, Height, 98.182, kg, 01/09/20 11:25:00 CDT, Weight OneTouch 2019-0 Yes See Memoria Delica 6-26 Instructio l Extra Fine 13:20: ns, FS Yasmine nn 33G Lancets 00 4/d, # 400 ea, Insulin dependent, Does not use insulin pump, Last DM eval date 01/11/20, 3 Refill(s), Pharmacy: [facility] #[id number], 160.02, cm, 01/09/20 11:25:00 CDT, Height, 98.182, kg, 01/09/20 11:25:00 CDT, Weight Dexcom G6 2019-0 Yes 1 ea, Memoria Carpet Technician 6-24 MISC, l Kit 18:42: ONCE, [place] 00 Certified Medically Necessar. Change every 90 days., # 1 kit, Insulin dependent, Does not use insulin pump, Last DM eval date 01/09/20, 0 Refill(s), Pharmacy: [id number], 160.02, cm, 01/09/20 11:25:00 CDT, Height, 98.182, kg,... Dexcom G6 2020-0 Yes 1 ea, Memoria Sensor Kit 6-24 MISC, l 18:42: ONCE, [place] 00 Certified Medically Necessary- change every 10 days., # 1 ea, Insulin dependent, Does not use insulin pump, Last DM eval date 01/09/20, 11 Refill(s), Pharmacy: [id number], 160.02, cm, 01/09/20 11:25:00 CDT, Height, 98.182, kg,... Dexcom G6 2020-0 Yes 1 ea, Memoria Transmitter 6-24 MISC, l Kit 18:42: ONCE, [place] 00 Certified Medically Necessary: Change every 3 months Dx code E10.65, # 1 ea, Insulin dependent, Does not use insulin pump, Last DM eval date 01/09/20, 3 Refill(s), Pharmacy: [facility] #[id number], 160.02, cm, 01/09/20 11:25:00 CDT, Heigh... Dexcom G6 2020-0 Yes 1 ea, Memoria Carpet Technician 6-24 MISC, l Kit 18:42: ONCE, [place] 00 Certified Medically Necessar. Change every 90 days., # 1 kit, Insulin dependent, Does not use insulin pump, Last DM eval date 01/09/20, 0 Refill(s), Pharmacy: [facility] #[id number], 160.02, cm, 01/09/20 11:25:00 CDT, Height, 98.182, kg,... Dexcom G6 2020-0 Yes 1 ea, Memoria Sensor Kit 6-24 MISC, l 18:42: ONCE, [place] 00 Certified Medically Necessary- change every 10 days., # 1 ea, Insulin dependent, Does not use insulin pump, Last DM eval date 01/09/20, 11 Refill(s), Pharmacy: [id number], 160.02, cm, 01/09/20 11:25:00 CDT, Height, 98.182, kg,... Dexcom G6 2020-0 Yes 1 ea, Memoria Transmitter 6-24 MISC, l Kit 18:42: ONCE, [place] 00 Certified Medically Necessary: Change every 3 months Dx code E10.65, # 1 ea, Insulin dependent, Does not use insulin pump, Last DM eval date 01/09/20, 3 Refill(s), Pharmacy: [id number], 160.02, cm, 01/09/20 11:25:00 CDT, Heigh... Dexcom G6 2020-0 Yes 1 ea, Memoria Carpet Technician 6-24 MISC, l Kit 18:42: ONCE, [place] [address] Certified Medically Necessar. Change every 90 days., # 1 kit, Insulin dependent, Does not use insulin pump, Last DM eval date 01/09/20, 0 Refill(s), Pharmacy: [id number], 160.02, cm, 01/09/20 11:25:00 CDT, Height, 98.182, kg,... Dexcom G6 2019-0 Yes 1 ea, Memoria Sensor Kit 6-24 MISC, l 18:42: ONCE, [place] [address] Certified Medically Necessary- change every 10 days., # 1 ea, Insulin dependent, Does not use insulin pump, Last DM eval date 01/09/20, 11 Refill(s), Pharmacy: [id number], 160.02, cm, 01/09/20 11:25:00 CDT, Height, 98.182, kg,... Dexcom G6 2019-0 Yes 1 ea, Memoria Transmitter 6-24 MISC, l Kit 18:42: ONCE, [place] Certified Medically Necessary: Change every 3 months Dx code E10.65, # 1 ea, Insulin dependent, Does not use insulin pump, Last DM eval date 01/09/20, 3 Refill(s), Pharmacy: [id number], 160.02, cm, 01/09/20 11:25:00 CDT, Heigh... Dexcom G6 2019-0 Yes 1 ea, Memoria Carpet Technician 6-24 MISC, l Kit 18:42: ONCE, [place] [address] Certified Medically Necessar. Change every 90 days., # 1 kit, Insulin dependent, Does not use insulin pump, Last DM eval date 01/09/20, 0 Refill(s), Pharmacy: [id number], 160.02, cm, 01/09/20 11:25:00 CDT, Height, 98.182, kg,... Dexcom G6 2020-0 Yes 1 ea, Lidaoria Sensor Kit 6-24 MISC, l 18:42: ONCE, Tony 00 Certified Medically Necessary- change every 10 days., # 1 ea, Insulin dependent, Does not use insulin pump, Last DM eval date 01/09/20, 11 Refill(s), [id number], 160.02, cm, [...] ea, Mem oria Aileen 6-24 Insulin l [employer] 17:20: dependent, Yasmine nn 00 Does not [...] ea, Mem oria Aileen 6-24 Insulin l [employer] 17:20: dependent, Yasmine nn 00 Does not use insulin pump, Last DM eval date 01/09/20, 0 Refill(s), Pharmacy: [id number], 160.02, cm,... FreeStyle 2020-0 No See Memoria Aileen 6-24 Instructio l Sensor 17:20: ns, MISC, Aram n 00 change every 14 days, # 6 ea, Insulin dependent, Does not use insulin pump, Last DM eval date 01/09/20, 3 Refill(s), Pharmacy: [id number], 160.02, cm, 01/09/20 11:25:00 CDT, Height, 98.182, kg, 01/09/20 11:25:00 CDT, We... FreeStyle 2020-0 No , # 1 ea, Mem oria Aileen 6-24 Insulin l [employer] 17:20: dependent, Yasmine nn 00 Does not use insulin pump, Last DM eval date 01/09/20, 0 Refill(s), Pharmacy: [id number], 160.02, cm,... FreeStyle 2020-0 No See Memoria Aileen 6-24 Instructio l Sensor 17:20: ns, MISC, Aram n 00 change every 14 days, # 6 ea, Insulin dependent, Does not use insulin pump, Last DM eval date 01/09/20, 3 Refill(s), Pharmacy: [id number], 160.02, cm, 01/09/20 11:25:00 CDT, Height, 98.182, kg, 01/09/20 11:25:00 CDT, We... FreeStyle 2020-0 No , # 1 ea, Mem oria Aileen 6-24 Insulin l [employer] 17:20: dependent, Yasmine nn 00 Does not use insulin pump, Last DM eval date 01/09/20, 0 Refill(s), Pharmacy: [id number], 160.02, cm,... FreeStyle 2020-0 No See Memoria Aileen 6-24 Instructio l Sensor 17:20: ns, MISC, Aram n 00 change every 14 days, # 6 ea, Insulin dependent, Does not use insulin pump, Last DM eval date 01/09/20, 3 Refill(s), Pharmacy: [id number], 160.02, cm, 01/09/20 11:25:00 CDT, Height, 98.182, kg, 01/09/20 11:25:00 CDT, We... FreeStyle 2020-0 No , # 1 ea, Mem oria Aileen 6-24 Insulin l [employer] 17:18: dependent, Yasmine nn 00 Does not use insulin pump, Last DM eval date 01/09/20, 0 Refill(s), other FreeStyle 2020-0 No See Memoria Aileen 6-24 Instructio l Sensor 17:18: ns, MISC, Aram n 00 change every 14 days, # 6 ea, Insulin dependent, Does not use insulin pump, Last DM eval date 01/09/20, 3 Refill(s), other FreeStyle 2020-0 No , # 1 ea, Mem oria Aileen 6-24 Insulin l [employer] 17:18: dependent, Yasmine nn 00 Does not use insulin pump, Last DM eval date 01/09/20, 0 Refill(s), other FreeStyle 2020-0 No See Memoria Aileen 6-24 Instructio l Sensor 17:18: ns, MISC, Aram n 00 change every 14 days, # 6 ea, Insulin dependent, Does not use insulin pump, Last DM eval date 01/09/20, 3 Refill(s), other FreeStyle 2020-0 No , # 1 ea, Mem oria Aileen 6-24 Insulin l [employer] 17:18: dependent, Yasmine nn 00 Does not use insulin pump, Last DM eval date 01/09/20, 0 Refill(s), other FreeStyle 2020-0 No See Memoria Aileen 6-24 Instructio l Sensor 17:18: ns, MISC, Aram n 00 change every 14 days, # 6 ea, Insulin dependent, Does not use insulin pump, Last DM eval date 01/09/20, 3 Refill(s), other FreeStyle 2020-0 No , # 1 ea, Mem oria Aileen 6-24 Insulin l [employer] 17:18: dependent, Yasmine nn 00 Does not [...] 6-24 Instructio l Aspart, 17:10: ns, 60 [place] Human 100 00 units SQ UNT/ML Pen at meals, Injector # 180 mL, [NovoLog] 0 Refill(s), other 3 ML 2020-0 Yes See Memoria Insulin, 6-24 Instructio l Aspart, 17:10: ns, 60 [place] Human 100 00 units SQ UNT/ML Pen at meals, Injector # 180 mL, [NovoLog] 0 Refill(s), other 3 ML 2020-0 Yes See Memoria Insulin, 6-24 Instructio l Aspart, 17:10: ns, 60 [place] Human 100 00 units SQ UNT/ML Pen at meals, Injector # 180 mL, [NovoLog] 0 Refill(s), other 3 ML 2020-0 Yes See Memoria Insulin, 6-24 Instructio l Aspart, 17:10: ns, 60 [place] Human 100 00 units SQ UNT/ML Pen at meals, Injector # 180 mL, [NovoLog] 0 Refill(s), other 3 ML 2020-0 Yes See Memoria Insulin 6-24 Instructio l Glargine 17:09: ns, 100 Aram n 100 UNT/ML 00 units SQ Prefilled every 12 Syringe hours, # [Lantus] 180 mL, 0 Refill(s), other 3 ML 2020-0 Yes See Memoria Insulin 6-24 Instructio l Glargine 17:09: ns, 100 Aram n 100 UNT/ML 00 units SQ Prefilled every 12 Syringe hours, # [Lantus] 180 mL, 0 Refill(s), other 3 ML 2020-0 Yes See Memoria Insulin 6-24 Instructio l Glargine 17:09: ns, 100 Aram n 100 UNT/ML 00 units SQ Prefilled every 12 Syringe hours, # [Lantus] 180 mL, 0 Refill(s), other 3 ML 2020-0 Yes See Memoria Insulin 6-24 Instructio l Glargine 17:09: ns, 100 Aram n 100 UNT/ML 00 units SQ Prefilled every 12 Syringe hours, # [Lantus] 180 mL, 0 Refill(s), other Atorvastati Atorvastati No Atorvastat n Calcium n Calcium in Calcium 40 MG 40 MG 40 MG Aspirin Low Aspirin Low No Aspirin Dose 81 MG Dose 81 MG Low Dose 81 MG Lantus 100 Lantus 100 No Lantus 100 UNIT/ML UNIT/ML UNIT/ML metFORMIN metFORMIN No metFORMIN HCl 1000 MG HCl 1000 MG HCl 1000 MG Gabapentin Gabapentin No Gabapentin 300 MG 300 MG 300 MG NovoLOG 100 NovoLOG 100 No NovoLOG UNIT/ML UNIT/ML 100 UNIT/ML Atorvastati Atorvastati No Atorvastat n Calcium n Calcium in Calcium 40 MG 40 MG 40 MG Aspirin Low Aspirin Low No Aspirin Dose 81 MG Dose 81 MG Low Dose 81 MG Lantus 100 Lantus 100 No Lantus 100 UNIT/ML UNIT/ML UNIT/ML metFORMIN metFORMIN No metFORMIN HCl 1000 MG HCl 1000 MG HCl 1000 MG Gabapentin Gabapentin No Gabapentin 300 MG 300 MG 300 MG NovoLOG 100 NovoLOG 100 No NovoLOG UNIT/ML UNIT/ML 100 UNIT/ML metFORMIN metFORMIN No metFORMIN HCl 1000 MG HCl 1000 MG HCl 1000 MG Aspirin Low Aspirin Low No Aspirin Dose 81 MG Dose 81 MG Low Dose 81 MG Gabapentin Gabapentin No Gabapentin 300 MG 300 MG 300 MG NovoLOG 100 NovoLOG 100 No NovoLOG UNIT/ML UNIT/ML 100 UNIT/ML Atorvastati Atorvastati No Atorvastat n Calcium n Calcium in Calcium 40 MG 40 MG 40 MG Lantus 100 Lantus 100 No Lantus 100 UNIT/ML UNIT/ML UNIT/ML Gabapentin Gabapentin No Gabapentin 300 MG 300 MG 300 MG Lantus 100 Lantus 100 No Lantus 100 UNIT/ML UNIT/ML UNIT/ML Aspirin Low Aspirin Low No Aspirin Dose 81 MG Dose 81 MG Low Dose 81 MG metFORMIN metFORMIN No 1{table BID metFORMIN HCl 500 MG HCl 500 MG t_with_ HCl 500 MG a_meal} Gabapentin Gabapentin No Gabapentin 300 MG 300 MG 300 MG Gabapentin Gabapentin No Gabapentin 300 MG 300 MG 300 MG Lantus 100 Lantus 100 No Lantus 100 UNIT/ML UNIT/ML UNIT/ML Aspirin Low Aspirin Low No Aspirin Dose 81 MG Dose 81 MG Low Dose 81 MG metFORMIN metFORMIN No 1{table BID metFORMIN HCl 500 MG HCl 500 MG t_with_ HCl 500 MG a_meal} Gabapentin Gabapentin No Gabapentin 300 MG 300 MG 300 MG Lantus 100 Lantus 100 No Lantus 100 UNIT/ML UNIT/ML UNIT/ML Gabapentin Gabapentin No Gabapentin 300 MG 300 MG 300 MG Gabapentin Gabapentin No Gabapentin 300 MG 300 MG 300 MG metFORMIN metFORMIN No 1{table BID metFORMIN HCl 500 MG HCl 500 MG t_with_ HCl 500 MG a_meal} Aspirin Low Aspirin Low No Aspirin Dose 81 MG Dose 81 MG Low Dose 81 MG Lantus 100 Lantus 100 No Lantus 100 UNIT/ML UNIT/ML UNIT/ML metFORMIN metFORMIN No 1{table BID metFORMIN HCl 500 MG HCl 500 MG t_with_ HCl 500 MG a_meal} Gabapentin Gabapentin No Gabapentin 300 MG 300 MG 300 MG Gabapentin Gabapentin No Gabapentin 300 MG 300 MG 300 MG Aspirin Low Aspirin Low No Aspirin Dose 81 MG Dose 81 MG Low Dose 81 MG Gabapentin Gabapentin No Gabapentin 300 MG 300 MG 300 MG Gabapentin Gabapentin No Gabapentin 300 MG 300 MG 300 MG Ibuprofen Ibuprofen No Ibuprofen 800 MG 800 MG 800 MG Aspirin Low Aspirin Low No Aspirin Dose 81 MG Dose 81 MG Low Dose 81 MG Lantus 100 Lantus 100 No Lantus 100 UNIT/ML UNIT/ML UNIT/ML metFORMIN metFORMIN No 1{table BID metFORMIN HCl 500 MG HCl 500 MG t_with_ HCl 500 MG a_meal} Gabapentin Gabapentin No Gabapentin 300 MG 300 MG 300 MG Gabapentin Gabapentin No Gabapentin 300 MG 300 MG 300 MG Ibuprofen Ibuprofen No Ibuprofen 800 MG 800 MG 800 MG Aspirin Low Aspirin Low No Aspirin Dose 81 MG Dose 81 MG Low Dose 81 MG Lantus 100 Lantus 100 No Lantus 100 UNIT/ML UNIT/ML UNIT/ML metFORMIN metFORMIN No 1{table BID metFORMIN HCl 500 MG HCl 500 MG t_with_ HCl 500 MG a_meal} metFORMIN metFORMIN No 1{table BID metFORMIN HCl 500 MG HCl 500 MG t_with_ HCl 500 MG a_meal} Gabapentin Gabapentin No Gabapentin 300 MG 300 MG 300 MG Aspirin Low Aspirin Low No Aspirin Dose 81 MG Dose 81 MG Low Dose 81 MG Lantus 100 Lantus 100 No Lantus 100 UNIT/ML UNIT/ML UNIT/ML Gabapentin Gabapentin No Gabapentin 300 MG 300 MG 300 MG Ibuprofen Ibuprofen No Ibuprofen 800 MG 800 MG 800 MG metFORMIN metFORMIN No metFORMIN HCl 500 MG HCl 500 MG HCl 500 MG metFORMIN metFORMIN No 1{table BID metFORMIN HCl 500 MG HCl 500 MG t_with_ HCl 500 MG a_meal} Gabapentin Gabapentin No Gabapentin 300 MG 300 MG 300 MG Aspirin Low Aspirin Low No Aspirin Dose 81 MG Dose 81 MG Low Dose 81 MG Lantus 100 Lantus 100 No Lantus 100 UNIT/ML UNIT/ML UNIT/ML Gabapentin Gabapentin No Gabapentin 300 MG 300 MG 300 MG Ibuprofen Ibuprofen No Ibuprofen 800 MG 800 MG 800 MG metFORMIN metFORMIN No metFORMIN HCl 500 MG HCl 500 MG HCl 500 MG Gabapentin Gabapentin No Gabapentin 300 MG 300 MG 300 MG Gabapentin Gabapentin No Gabapentin 300 MG 300 MG 300 MG Ibuprofen Ibuprofen No Ibuprofen 800 MG 800 MG 800 MG Aspirin Low Aspirin Low No Aspirin Dose 81 MG Dose 81 MG Low Dose 81 MG Lantus 100 Lantus 100 No Lantus 100 UNIT/ML UNIT/ML UNIT/ML metFORMIN metFORMIN No 1{table BID metFORMIN HCl 500 MG HCl 500 MG t_with_ HCl 500 MG a_meal} NovoLOG 100 NovoLOG 100 No UNIT/ML UNIT/ML Lantus 100 Lantus 100 No UNIT/ML UNIT/ML Gabapentin Gabapentin No 300 MG 300 MG Atorvastati Atorvastati No n Calcium n Calcium 40 MG 40 MG Aspirin Low Aspirin Low No Dose 81 MG Dose 81 MG metFORMIN metFORMIN No HCl 1000 MG HCl 1000 MG NovoLOG 100 NovoLOG 100 No NovoLOG UNIT/ML UNIT/ML 100 UNIT/ML Lantus 100 Lantus 100 No Lantus 100 UNIT/ML UNIT/ML UNIT/ML Gabapentin Gabapentin No Gabapentin 300 MG 300 MG 300 MG Atorvastati Atorvastati No Atorvastat n Calcium n Calcium in Calcium 40 MG 40 MG 40 MG Aspirin Low Aspirin Low No Aspirin Dose 81 MG Dose 81 MG Low Dose 81 MG metFORMIN metFORMIN No metFORMIN HCl 1000 MG HCl 1000 MG HCl 1000 MG Gabapentin Gabapentin No 300 MG 300 MG metFORMIN metFORMIN No HCl 1000 MG HCl 1000 MG NovoLOG 100 NovoLOG 100 No UNIT/ML UNIT/ML Aspirin Low Aspirin Low No Dose 81 MG Dose 81 MG Atorvastati Atorvastati No n Calcium n Calcium 40 MG 40 MG Lantus 100 Lantus 100 No UNIT/ML UNIT/ML Atorvastati Atorvastati No n Calcium n Calcium 40 MG 40 MG NovoLOG 100 NovoLOG 100 No TID UNIT/ML UNIT/ML Lantus 100 Lantus 100 No BID UNIT/ML UNIT/ML Gabapentin Gabapentin No 300 MG 300 MG metFORMIN metFORMIN No BID HCl 1000 MG HCl 1000 MG Aspirin Low Aspirin Low No Dose 81 MG Dose 81 MG Vital Signs Vital Name Observation Time Observation Value Comments Source HEIGHT 2022-10-06 11:24:00 160 cm WEIGHT 2022-10-06 11:24:00 70.761 kg HEIGHT 2022-10-06 11:24:00 160 cm WEIGHT 2022-10-06 11:24:00 70.761 kg HEIGHT 2022-07-05 13:46:00 160 cm WEIGHT 2022-07-05 13:46:00 71.668 kg HEIGHT 2022-07-05 13:46:00 160 cm WEIGHT 2022-07-05 13:46:00 71.668 kg height 2022-03-15 16:50:00 63 [in_i] [facility] weight 2022-03-15 16:50:00 175 [lb_av] [facility] temperature 2022-03-15 16:50:00 98 [degF] [facility] bmi 2022-03-15 16:50:00 31 kg/m2 [facility] height 2021-11-11 11:50:00 63 [in_i] [facility] weight 2021-11-11 11:50:00 194.5 [lb_av] [facility] temperature 2021-11-11 11:50:00 98.6 [degF] [facility] bmi 2021-11-11 11:50:00 34.45 kg/m2 [facility] oximetry 2021-11-11 11:50:00 96 % [facility] respiratory rate 2021-11-11 11:50:00 17 /min Comm on [facility] blood pressure 2021-11-11 11:50:00 117 mm[Hg] Common [facility] - systolic [facility] blood pressure 2021-11-11 11:50:00 58 mm[Hg] Common [facility] - diastolic [facility] HEIGHT 2021-11-04 09:47:00 160 cm WEIGHT 2021-11-04 09:47:00 88.315 kg HEIGHT 2021-09-22 06:23:00 160 cm WEIGHT 2021-09-22 06:23:00 100.245 kg HEIGHT 2021-09-15 10:12:00 160 cm WEIGHT 2021-09-15 10:12:00 100.245 kg HEIGHT 2021-09-22 06:23:00 160 cm WEIGHT 2021-09-22 06:23:00 100.245 kg HEIGHT 2021-09-15 10:12:00 160 cm WEIGHT 2021-09-15 10:12:00 100.245 kg HEIGHT 2021-09-07 09:34:00 160 cm WEIGHT 2021-09-07 09:34:00 100.336 kg HEIGHT 2021-08-31 10:37:00 160 cm WEIGHT 2021-08-31 10:37:00 100.336 kg HEIGHT 2021-08-25 08:13:00 160 cm WEIGHT 2021-08-25 08:13:00 98.431 kg HEIGHT 2021-08-25 08:13:00 160 cm WEIGHT 2021-08-25 08:13:00 98.431 kg height 2021-08-07 08:00:00 63 [in_i] Common [facility] weight 2021-08-07 08:00:00 217 [lb_av] [facility] temperature 2021-08-07 08:00:00 98 [degF] [facility] bmi 2021-08-07 08:00:00 38.44 kg/m2 Common [facility] blood pressure 2021-08-07 08:00:00 132 mm[Hg] [facility] blood pressure 2021-08-07 08:00:00 60 mm[Hg] [facility] - diastolic [facility] height 2021-07-08 08:45:00 63 [in_i] Common [facility] weight 2021-07-08 08:45:00 217.8 [lb_av] [facility] - [facility] temperature 2021-07-08 08:45:00 97.8 [degF] [facility] bmi 2021-07-08 08:45:00 38.58 kg/m2 Common [facility] oximetry 2021-07-08 08:45:00 98 % Common [facility] respiratory rate 2021-07-08 08:45:00 18 /min Comm on [facility] blood pressure 2021-07-08 08:45:00 146 mm[Hg] Common [facility] - systolic [facility] blood pressure 2021-07-08 08:45:00 65 mm[Hg] Common [facility] - diastolic [facility] HEIGHT 2021-03-04 10:50:00 160 cm WEIGHT 2021-03-04 10:50:00 99.156 kg height 2021-02-23 16:00:00 63 [in_i] [facility] weight 2021-02-23 16:00:00 221.9 [lb_av] [facility] temperature 2021-02-23 16:00:00 98.2 [degF] [facility] bmi 2021-02-23 16:00:00 39.3 kg/m2 [facility] oximetry 2021-02-23 16:00:00 99 % [facility] respiratory rate 2021-02-23 16:00:00 16 /min Comm on [facility] blood pressure 2021-02-23 16:00:00 125 mm[Hg] Common [facility] - systolic [facility] blood pressure 2021-02-23 16:00:00 78 mm[Hg] [facility] - diastolic [facility] Systolic blood 2022-10-06 11:24:00 114 mm[Hg] [facility] Diastolic blood 2022-10-06 11:24:00 68 mm[Hg] [facility] Heart rate 2022-10-06 11:24:00 68 /min [facility] Body height 2022-10-06 11:24:[address] [facility] Body weight 2022-10-06 11:24:[address] [facility] BMI 2022-10-06 11:24:00 27.63 kg/m2 [facility] Body temperature 2022-04-07 10:18:00 36.39 Alisia [facility] Systolic (mm Hg) 2020-01-09 16:25:00 Vickaquilino hinds [place] Diastolic (mm Hg) 2020-01-09 16:25:00 [facility] orial [place] Heart Rate 2020-01-09 16:25:00 [facility] Respitory Rate 2020-01-09 16:25:00 [facility] Height 2020-01-09 16:25:00 160.02 cm [facility] Weight 2020-01-09 16:25:00 [facility] BMI Calculated 2020-01-09 16:25:00 [facility] kathleen [place] Procedures Procedure Date / Time Performed Performing Clinician Formerly [facility] murray Bladder cancer 2012-07-18 06:00:00 [facility] Hysterectomy 2012-07-18 06:00:00 [facility] Tube feeding 2007-07-18 06:00:00 [facility] Her [facility] Lipoma of back 1997-07-18 06:00:00 [facility] Her mtz Caesarean section 1989 06:00:00 [facility] ermann Gallbladder [facility] Shortening of heel cord [facility] Plan of Care Planned Activity Planned Date Details Comments Source Future Scheduled 2023-10-[address] [facility] 00:[facility]00 [facility] (12+) [code = Tobacco Cessation Counseling and Screening (12+)] Future Scheduled 2023-05-[address] [facility] 00:[facility]:00 (procedure) [code = [facility] 58649831] Future Scheduled 2023-03-[address] [facility] Test 00:00:00 (Season Ended) [code = [facility] INFLUENZA VACCINE (Season Ended)] Future Scheduled 2022-07-[address] [facility] Test 00:00:00 (12+) [code = [facility] DEPRESSION SCREENING (12+)] Future Scheduled 2021-12-[address] [facility] Test 00:00:00 measurement [facility] (procedure) [code = 71531018] Future Scheduled [address] [facility] Test 00:00:00 malignant neoplasm of [facility] cervix (procedure) [code = 336009404] Future Scheduled 2008-02-09 DTAP/TDAP/TD VACCINES [facility] 00:00:00 (1 - Tdap) [code = Medical C enter DTAP/TDAP/TD VACCINES (1 - Tdap)] Future Scheduled 2007 HEPATITIS C SCRE[facility]ING [facility] 00:00:00 [code = HEPATITIS C Medical Center SCREENING] Future Scheduled 1999 DIABETIC EYE EXAM [facility] Test 00:00:00 [code = DIABETIC EYE Medical Center EXAM] Future Scheduled [address] [facility] 00:00:00 examination Medical Center (regime/therapy) [code = 230486191] Future Scheduled 1999 Urine screening for [facility] Test 00:00:00 protein (procedure) Medical Center [code = 701652635] Future Scheduled [address] [facility] Test 00:00:00 0-64 YRS (1 - PCV) Medical C enter [code = PNEUMOCOCCAL VACCINE 0-64 YRS (1 - PCV)] Future Scheduled 1989 COVID-19 VACCINE (#1) [facility] 00:00:00 [code = COVID-[address] VACCINE (#1)] Encounters Start End Encounter Admission Attending Care Care Encounter Source Date/Time Date/Time Type Type Clinicians Facility Department ID 2022-01-13 Outpatient Ghosh, [facility] [id number] Common 10:40:03 Sen[facility] 2021-08-12 Outpatient Ghosh, [facility] [id number] Common 14:37:58 [facility] 2021-08-12 Outpatient Ghosh, [facility] [id number] Common 14:17:34 Sen[facility] 2021-08-12 Outpatient Ghosh, [facility] [id number] Common 14:10:31 Senia [facility] 2021-08-12 Outpatient Ghosh, [facility] [id number] Common 13:52:48 Senia [address] [facility] 2021-05-[address] [facility] [id number] Univers 02:16:08 [facility] 2021-05-[address] [facility] [id number] Univers 23:03:31 [facility] 2023-04-06 2023-04-06 Outpatient EL FADNER, [facility] [id number] 00:00:00 00:00:00 [facility] 2022-10-06 2022-10-06 Outpatient EL FADNER, [facility] [id number] 10:55:00 11:53:17 [facility] 2022-10-06 2022-10-06 Office Hilda, [facility] [id number] 10:45:00 11:53:17 Visit [facility] 2022-09-22 2022-09-22 Outpatient EL FADNER, [facility] [id number] 00:00:00 00:00:00 [facility] 2022-07-05 2022-07-05 Outpatient EL FADNER, [facility] [id number] 14:32:52 15:06:48 [facility] 2022-07-05 2022-07-05 Audio - Hilda, [facility] [id number] 13:15:00 15:06:[address] 2022-04-26 2022-04-26 [facility]TEL[facility] [id number] Co mmon 00:00:00 00:00:00 [facility] - [facility] 2022-04-07 2022-04-07 Outpatient EL FADNER, [facility] [id number] 10:04:14 10:48:02 [facility] 2022-04-07 2022-04-[address] [facility] [id number] 10:00:00 10:48:02 Visit [facility] 2022-03-15 2022-03-15 [facility] [id number] Co mmon 00:00:00 00:00:00 VISIT Spirit ESTAB PT - CHI LEVEL 4 [facility] 2022-02-01 2022-02-01 (TEL) STLMLC STLMLC [id number] Co mmon 00:00:00 00:00:00 [facility] 2022-01-11 2022-01-11 (TEL) STLMLC STLMLC [id number] Co mmon 00:00:00 00:00:00 [facility] - [facility] 2022-01-06 2022-01-06 Outpatient EL FADNER, [facility] [id number] 15:47:41 16:18:33 [facility] 2022-01-06 2022-01-06 Office Fadner, [facility] [id number] 15:30:00 16:18:33 Visit [facility] 2021-12-28 2021-12-28 Outpatient EL FADNER, [facility] [id number] 00:00:00 00:00:00 [facility] 2021-12-16 2021-12-16 (TEL) STLMLC STLMLC [id number] Co mmon 00:00:00 00:00:00 Spirit - [facility] 2021-11-18 2021-11-18 Outpatient ROBERTHNER, [facility] [id number] 00:00:00 00:00:00 [facility] 2021-11-11 2021-11-11 OFFICE STLMLC STLC [id number] Co mmon 00:00:00 00:00:00 VISIT [facility] PT - CHI LEVEL 4 [facility] 2021-11-04 2021-11-04 Outpatient EL FADNER, [facility] [id number] 09:25:11 10:20:54 [facility] 2021-10-14 2021-10-14 Outpatient ROBERTHNER, [facility] [id number] 00:00:00 00:00:00 [facility] 2021-10-05 2021-10-05 Outpatient ROBERTHNER, [facility] [id number] 09:36:30 09:55:53 [facility] 2021-09-24 2021-09-24 (TEL) STLMLC STLMLC [id number] Co mmon 00:00:00 00:00:00 [facility] 2021-09-22 2021-09-23 Inpatient EL FADNER, [facility] [id number] [facility] 05:57:00 17:49:00 [facility] 2021-09-17 2021-09-17 Outpatient EL [facility] [id number] [facility] 09:18:38 23:59:00 2021-09-07 2021-09-07 [facility] [id number] 09:43:43 09:44:08 [facility] 2021-08-31 2021-08-31 [facility] [id number] 10:28:41 11:20:59 [facility] 2021-08-28 2021-08-28 Outpatient EL ROBERTHNER, [facility] Surgery [id number] [facility] 08:41:00 11:44:00 [facility] 2021-08-26 2021-08-26 Outpatient EL [facility] [id number] [facility] 09:23:26 23:59:00 2021-08-07 2021-08-07 OFFICE STLMLC STLC [id number] Co mmon 00:00:00 00:00:00 VISIT [facility] 4 [facility] 2021-08-07 2021-08-07 (TEL) STLMLC STLMLC [id number] Co mmon 00:00:00 00:00:00 [facility] 2021-07-21 2021-07-21 (TEL) STLMLC STLMLC [id number] Co mmon 00:00:00 00:00:00 [facility] 2021-07-15 2021-07-15 (TEL) STLMLC STLMLC [id number] Co mmon 00:00:00 00:00:00 [facility] 2021-07-10 2021-07-10 (TEL) STLMLC STLMLC [id number] Co mmon 00:00:00 00:00:00 [facility] - [facility] 2021-07-08 2021-07-08 (PROC) STLMLC STLC [id number] Co mmon 00:00:00 00:00:00 Procedure Spir it - [facility] 2021-03-04 2021-03-04 Outpatient HILDA, [facility] [id number] 00:00:00 00:00:00 [facility] 2021-03-04 2021-03-04 [facility] [id number] Co mmon 00:00:00 00:00:00 [facility] - [facility] 2021-02-23 2021-02-23 [facility] [id number] Co mmon 00:00:00 00:00:00 VISIT NEW Spir it PT LEVEL 4 - [facility] 2020-12-09 2020-12-[address] [facility] [id number] Univers 11:00:00 11:00:00 CRISTINA [facility] 2020-11-10 2020-11-10 [facility] [id number] Univers 11:00:00 11:00:00 [place] [facility] 2020-10-31 2020-10-31 [facility] [id number] 00:00:00 00:00:00 [facility] [id number] Clear [id number] Ludwig [id number] Medical 059 Office Building 2020-10-22 2020-10-22 Letter Neurology [facility] [id number] 00:00:00 00:00:00 (Out) Y HEALTH [id number] CLINICS [id number] 2020-10-07 2020-10-07 Patient Yasir [facility] [id number] 00:00:00 00:00:00 Outreach Bryce PRIMARY [id number] [facility] [id number] PAVILLION [id number] 2020-09-18 2020-09-18 Outpatient R NAYANA, [facility] [id number] Univers 13:00:00 13:00:00 SENDGILDARDO [facility] 2020-09-02 2020-09-02 Outpatient R NEAL, [facility] [id number] Univers 08:30:00 08:30:00 ILAN brady o f [facility] 2020-08-26 2020-08-26 Outpatient R LUNA, [facility] [id number] Univers 15:40:00 15:40:00 MONICA [facility] 2020-08-20 2020-08-20 Outpatient R JIM, [facility] [id number] Univers 00:00:00 00:00:00 [place] [facility] 2020-08-19 2020-08-19 Outpatient R KOLE, [facility] [id number] Univers 15:00:00 15:00:00 NAT [facility] 2020-08-12 2020-08-12 [facility] [id number] 11:54:43 12:25:42 [facility] [id number] [place] [id number] Professio [id number] nal 059 Building 2020-08-12 2020-08-12 [facility] [id number] Univers 11:40:00 11:40:00 [facility] 2020-08-05 2020-08-05 Outpatient R CHARLEE, [facility] [id number] Univers 00:00:00 00:00:00 DENNIS [facility] 2020-07-22 2020-07-22 Outpatient R KIERA, [facility] [id number] Univers 13:15:00 13:15:00 PAUL [facility] 2020-06-25 2020-06-25 Outpatient MHIE MHIE [id number] Memoria 09:45:00 09:45:00 66 darrel Jimenez 2020-06-25 2020-06-25 Outpatient MHIE MHIE [id number] Memoria 09:45:00 09:45:00 66 darrel Jimenez 2020-06-24 2020-06-24 Outpatient MHIE MHIE [id number] Memoria 08:15:00 08:15:00 65 l [place] 2020-06-24 2020-06-24 Outpatient MHIE MHIE [id number] Memoria 08:15:00 08:15:00 65 l Tony 2020-06-23 2020-06-23 Outpatient [place] [facility] [id number] Univers 13:15:00 13:15:00 NATHANIEL [facility] 2020-06-10 2020-06-10 Outpatient [place] [facility] [id number] Univers 13:30:00 13:30:00 SHANNANALFIE [facility] 2020-06-03 2020-06-03 Outpatient [place] [facility] [id number] Univers 09:00:00 09:00:00 DAREK [facility] 2020-05-12 2020-05-12 Outpatient [place] [facility] [id number] Univers 00:00:00 00:00:00 NATHANIEL [facility] 2020-05-06 2020-05-06 Outpatient [place] [facility] [id number] Univers 00:00:00 00:00:00 [facility] 2020-04-28 2020-04-28 Outpatient [place] [facility] [id number] Univers 16:00:00 16:00:00 [facility] 2020-04-18 2020-04-18 Outpatient [place] [facility] [id number] Univers 10:30:00 10:30:00 CARL [facility] 2020-04-11 2020-04-13 Phone nullFlavo [facility] [id number] Memoria 13:08:44 04:59:59 Message r Primary 02 l Care [place] charisse Lozano 2020-04-11 2020-04-13 Phone nullFlavo MG [id number] Memoria 13:08:44 04:59:59 Message r Primary 02 l Care [place] nn Blake 2020-04-11 2020-04-12 Outpatient MH[facility] MG [id number] 08:08:44 23:59:59 02 2020-03-26 2020-03-27 Between nullFlavo [facility] [id number] Memoria 15:00:16 15:00:16 Visit r Primary 03 l Care [place] [facility] 2020-03-26 2020-03-27 Between nullFlavo MG [id number] Memoria 15:00:16 15:00:16 Visit r Primary 03 l Care [place] [facility] 2020-03-26 2020-03-27 Outpatient MG MG [id number] 10:00:16 10:00:16 03 2020-03-26 2020-03-27 [place] [id number] Memoria 13:30:00 04:59:59 r Primary 65 l Care [place] [facility] 2020-03-26 2020-03-27 [place] [id number] Memoria 13:30:00 04:59:59 r Primary 65 l Care [place] [facility] 2020-03-26 2020-03-26 Outpatient Nicklas, MG [facility] [id number] 08:30:00 23:59:59 Edward 64 Jim 2020-03-26 2020-03-26 Outpatient MHIE IE [id number] Memoria 08:30:00 08:30:00 64 l [place] 2020-03-25 2020-03-25 [place] [id number] Memoria 18:35:00 18:35:00 Pre-Reg r Primary 63 l Care [place] [facility] 2020-03-25 2020-03-25 Ambulatory nullFlavo [facility] [id number] Memoria 18:35:00 18:35:00 Pre-Reg r Primary 63 l Care [place] [facility] 2020-03-25 2020-03-25 Outpatient MHIE IE [id number] Memoria 13:35:00 13:35:00 63 l [place] 2020-03-25 2020-03-25 [id number] 13:35:00 13:35:00 Edward 63 [place] 2020-02-21 2020-02-22 [place] [id number] Memoria 14:30:00 04:59:59 r Primary 63 l Care [place] [facility] 2020-02-21 2020-02-22 [place] [id number] Memoria 14:30:00 04:59:59 r Primary 63 l Care [place] [facility] 2020-02-21 2020-02-21 Outpatient Irma, [facility] MG [id number] 09:30:00 23:59:59 Edward 62 Jim 2020-02-20 2020-02-21 Between nullFlavo MG [id number] Memoria 13:37:17 13:37:17 Visit r Primary 02 l Care [place] [facility] 2020-02-20 2020-02-21 Between nullFlavo MG [id number] Memoria 13:37:17 13:37:17 Visit r Primary 02 l Care [place] [facility] 2020-02-21 2020-02-21 Outpatient MHIE MHIE [id number] Memoria 09:30:00 09:30:00 62 l [place] 2020-02-20 2020-02-21 Outpatient MG MG [id number] 08:37:17 08:37:17 02 2020-01-31 2020-02-01 [place] [id number] Memoria 16:00:00 04:59:59 r Primary 62 l Care [place] [facility] 2020-01-31 2020-02-01 [place] [id number] Memoria 16:00:00 04:59:59 r Primary 62 l Care [place] [facility] 2020-01-31 2020-01-31 Outpatient Irma, [facility] [id number] 11:00:00 23:59:59 Edward 61 Jim 2020-01-31 2020-01-31 Outpatient MHIE MHIE [id number] Memoria 11:00:00 11:00:00 61 l [place] 2020-01-11 2020-01-13 Phone nullFlavo MG [id number] Memoria 13:13:43 04:59:59 Message r Primary 01 l Care [place] [facility] 2020-01-11 2020-01-13 Phone nullFlavo MG [id number] Memoria 13:13:43 04:59:59 Message r Primary 01 l Care [place] [facility] 2020-01-11 2020-01-12 Outpatient MHMG MG [id number] 08:13:43 23:59:59 2020-01-09 2020-01-11 Phone nullFlavo MG [id number] Memoria 18:39:57 04:59:59 Message r Primary 00 l Care [place] [facility] 2020-01-09 2020-01-11 Phone nullFlavo MG [id number] Memoria 18:39:57 04:59:59 Message r Primary 00 l Care [place] [facility] 2020-01-09 2020-01-10 Outpatient [facility]MG MG [id number] 13:39:57 23:59:59 00 2020-01-09 2020-01-10 [place] [id number] Memoria 16:15:00 04:59:59 r Primary 61 l Care [place] [facility] 2020-01-09 2020-01-10 [place] [id number] Memoria 16:15:00 04:59:59 r Primary 61 l Care [place] [facility] 2020-01-09 2020-01-09 Outpatient Irma, [facility] [id number] 11:15:00 23:59:59 Edward 60 [place] 2020-01-09 2020-01-09 [place] [id number] Memoria 16:15:00 16:15:00 Pre-Reg r Primary 59 l Care [place] [facility] 2020-01-09 2020-01-09 [place] [id number] Memoria 16:15:00 16:15:00 Pre-Reg r Primary 60 l Care [place] [facility] 2020-01-09 2020-01-09 Outpatient MHIE IE [id number] Memoria 11:15:00 11:15:00 60 l [place] 2020-01-09 2020-01-09 Outpatient Irma, [facility] [id number] 11:15:00 11:15:00 Edward 59 [place] 2020-01-07 2020-01-07 [place] [id number] Memoria 18:50:00 18:50:00 Pre-Reg r Primary 58 l Care [place] [facility] 2020-01-07 2020-01-07 [place] [id number] Memoria 18:50:00 18:50:00 Pre-Reg r Primary 58 l Care [place] [facility] 2020-01-07 2020-01-07 Outpatient Irma, [facility] [id number] 13:50:00 13:50:00 Edward 58 [place] 2019-07-19 2019-07-20 Emergency X SHAKIRA, [facility] ERT [id number] Univers 21:36:54 01:40:00 MEGAN brady [facility] Results Test Description Test Time Test Comments Results Result Comments Source POCT-GLUCOSE METER 2021-09-23 11:52:08 Test Item Value Reference Range Interpretation Comme nts POC-GLUCOSE METER (BEAKER) 303 mg/dL 70-110 H : TESTED AT [facility] [address] (test code = [address], [facility] [id number]: Sales And Marketing Specialist/Techni tom ID = [id number] for Donita Jacobson POCT-GLUCOSE [id number] 08:03:03 Test Item Value Reference Range Interpretation Comments POC-GLUCOSE METER 243 mg/dL 70-110 H : TESTED A T [facility] [address] (BEAKER) (test code [address], = 1538) [facility] [address]: Sales And Marketing Specialist/Techni tom ID = [id number] for Jose ADonita kebede BASIC METABOLIC [id number] 06:35:43 Test Item Value Reference Range Interpretation Comments SODIUM (BEAKER) (test 139 meq/L 135-148 code = 381) POTASSIUM (BEAKER) 4.0 meq/L 3.6-5.5 (test code = 379) CHLORIDE (BEAKER) 108 meq/L 98-106 H (test code = 382) CO2 (BEAKER) (test 21 meq/L 20-29 code = 355) BLOOD UREA NITROGEN 11 mg/dL 10-26 (BEAKER) (test code = 354) CREATININE (BEAKER) 0.76 mg/dL 0.50-1.20 (test code = 358) GLUCOSE RANDOM 250 mg/dL 70-110 H (BEAKER) (test code = 652) CALCIUM (BEAKER) 8.3 mg/dL 8.5-10.5 L (test code = 697) EGFR (BEAKER) (test INSUFFIC IENT CLINICAL code = 1092) DATA TO CALCULA TE ESTIMATED GFR. Sales And Marketing Specialist ID - LITOOperator ID - LITOOperator ID - LITOOperator ID - LITOOperator ID - LITOOperator ID - LITOOperator ID - LITOOperator ID - LITOOperator ID - LITOOperator ID - LITOOperator ID - LITOOperator ID - LITOOperator ID - LITOCBC W/PLT COUNT & AUTO [id number] 05:55:54 Test Item Value Reference Range Interpretation Comments WHITE BLOOD CELL COUNT (BEAKER) 8.8 K/ L 4.0-10.0 (test code = 775) RED BLOOD CELL COUNT (BEAKER) 4.02 M/ L 4.00-5.00 (test code = 761) HEMOGLOBIN (BEAKER) (test code = 12.3 GM/DL 12.0-15.5 410) HEMATOCRIT (BEAKER) (test code = 35.4 % 36.0-46.0 L 411) MEAN CORPUSCULAR VOLUME (BEAKER) 88.1 fL 82.0-99.0 (test code = 753) MEAN CORPUSCULAR HEMOGLOBIN 30.6 pg 27.0-33.0 (BEAKER) (test code = 751) MEAN CORPUSCULAR HEMOGLOBIN CONC 34.7 GM/DL 32.0-36.0 (BEAKER) (test code = 752) RED CELL DISTRIBUTION WIDTH 12.4 % 12.0-15.0 (BEAKER) (test code = 412) PLATELET COUNT (BEAKER) (test 150 K/CU MM 150-430 code = 756) MEAN PLATELET VOLUME (BEAKER) 12.9 fL 6.0-11.5 H (test code = 754) NUCLEATED RED BLOOD CELLS 0 /100 WBC 0-0 (BEAKER) (test code = 413) NEUTROPHILS RELATIVE PERCENT 67 % (BEAKER) (test code = 429) LYMPHOCYTES RELATIVE PERCENT 24 % (BEAKER) (test code = 430) MONOCYTES RELATIVE PERCENT 8 % (BEAKER) (test code = 431) EOSINOPHILS RELATIVE PERCENT 0 % (BEAKER) (test code = 432) BASOPHILS RELATIVE PERCENT 0 % (BEAKER) (test code = 437) NEUTROPHILS ABSOLUTE COUNT 5.93 K/ L 1.80-8.00 (BEAKER) (test code = 670) LYMPHOCYTES ABSOLUTE COUNT 2.14 K/ L 1.48-4.50 (BEAKER) (test code = 414) MONOCYTES ABSOLUTE COUNT (BEAKER) 0.67 K/ L 0.00-1.30 (test code = 415) EOSINOPHILS ABSOLUTE COUNT 0.03 K/ L 0.00-0.50 ([facility]) (test code = 416) BASOPHILS ABSOLUTE COUNT ([facility]) 0.02 K/ L 0.00-0.20 (test code = 417) IMMATURE GRANULOCYTES-RELATIVE 0 % 0-0 PERCENT ([facility]) (test code = 2801) POCT-GLUCOSE [id number] 21:45:21 Test Item Value Reference Range Interpretation Comments POC-GLUCOSE METER 262 mg/dL 70-110 H : Notified RN/MD: TESTED ([facility]) (test code AT [facility] [address] [address] = 1538) [place] [address]: Sales And Marketing Specialist/Techni tom ID = [id number] for Aanu siem, felicity POCT-GLUCOSE [id number] 20:30:52 Test Item Value Reference Range Interpretation Comments POC-GLUCOSE METER 289 mg/dL 70-110 H : Notified RN/MD: TESTED ([facility]) (test code AT [address] = 1538) [place] [address]: Sales And Marketing Specialist/Techni tom ID = [id number] for Aanu siem, felicity POCT-GLUCOSE [id number] 16:02:49 Test Item Value Reference Range Interpretation Comments POC-GLUCOSE METER 313 mg/dL 70-110 H : Notified RN/MD: TESTED ([facility]) (test code AT [facility] [address] POINT = 1538) [place] [address]: Sales And Marketing Specialist/Techni tom ID = [id number] for Danial rochelle Shelly POCT-GLUCOSE [id number] 11:29:42 Test Item Value Reference Range Interpretation Comments POC-GLUCOSE METER 287 mg/dL 70-110 H : [facility] ([facility]) (test code [address] [facility], = 1538) [place] [address]: Sales And Marketing Specialist/Techni tom ID = [id number] for Michela Inman POCT-GLUCOSE [id number] 07:00:41 Test Item Value Reference Range Interpretation Comments POC-GLUCOSE METER 219 mg/dL 70-110 H : [facility] (BEAKER) ([facility], = 1538) [place] [id number]: Sales And Marketing Specialist/Techni tom ID = [id number] for Robb Mitchell VITAMIN D, [id number] 18:52:33 Test Item Value Reference Range Interpretation Comments VITAMIN D 25-OH (BORIS) (test 17.2 ng/mL 6.6-49.9 code = 2764) Effective 04/27/2017: Reference Range ChangeNew: 6.6-49.9 ng/mL Previous: 13.0- 47.8 ng/mLRecommendedVitamin D Target Range: 30.0-40.0 ng/mLOperator ID - DB SARS-COV2/RT-PCR ([facility])2021-09-17 18:14:01 Test Item Value Reference Range Interpretation Comments SARS-COV2/RT-PCR Negative Negative The SARS-Co V-2 target (test code = nucleic acids a re not [id number]) detected in thi s specimen. Negative result s do not preclude SARS-C oV-2 infection and s hould not be used as the sundar e basis for patient managem ent decisions. Nega tive results must be combine d with clinical observ ations, patient history , and epidemiological information. A false negativ e result may occur if a spec imen is improperly camden ected, transported or handled. This SARS CoV-2 test is a rapid, real-time RT-PC R test intended for th e qualitative detection of nu cleic acid from SARS-CoV-2 in a nasopharyngeal swab specimen collected from individuals suspected of CO VID-19 by their healthcar e provider. This test has been authorized by FDA under an EUA for use by authorized laboratories. This test is only authorized for the duration of the declaration that circumstances exist justifying the authorization of emergency use of in vitro diagnostic tests for detection and/or diagnosis of COVID-19 under Section 564(b)(1) of the Federal Food, Drug and Cosmetic Act, 21 U.S.C. 360bbb-3(b)(1), unless the authorization is terminated or revoked sooner. Fact Sheet for Healthcare Providers: https://www.cepheid.co m/Documents/Xpert%20Xpress%20SARS%20CoV-2/Fact%20Sheets/302-8982%10VHIR-UPR-6%20 HEALTHCARE%20PROVIDERS%20FACT%20SHEET.pdf Fact Sheet for Healthcare Patients: https://www.Glooko.Databraid/Documents/Xpert%20Xp ress%20SARS%20CoV-2/Fact%20Sheets/302-3801%39UWYO-GEH-8%20PATIENT%20FACT%20SHEET .pdfVITAMIN [id number] 10:33:00 Test Item Value Reference Range Interpretation Comments VITAMIN B12 (BEAKER) (test code = 549 pg/mL 211911 774) Sales And Marketing Specialist ID - [id number] METABOLIC [id number] 10:05:10 Test Item Value Reference Range Interpretation Comments TOTAL PROTEIN 8.0 gm/dL 6.0-8.5 (BEAKER) (test code = 770) ALBUMIN (BEAKER) 4.2 g/dL 3.5-5.0 (test code = 1145) ALKALINE PHOSPHATASE 82 U/L 30-115 (BEAKER) (test code = 346) BILIRUBIN TOTAL 0.3 mg/dL 0.1-1.2 (BEAKER) (test code = 377) SODIUM (BEAKER) (test 138 meq/L 135-148 code = 381) POTASSIUM (BEAKER) 4.4 meq/L 3.6-5.5 (test code = 379) CHLORIDE (BEAKER) 106 meq/L 98-106 (test code = 382) CO2 (BEAKER) (test 22 meq/L 20-29 code = 355) BLOOD UREA NITROGEN 16 mg/dL 10-26 (BEAKER) (test code = 354) CREATININE (BEAKER) 0.78 mg/dL 0.50-1.20 (test code = 358) GLUCOSE RANDOM 320 mg/dL 70-110 H (BEAKER) (test code = 652) CALCIUM (BEAKER) 9.6 mg/dL 8.5-10.5 (test code = 697) AST (SGOT) (BEAKER) 40 U/L 5-40 (test code = 353) ALT (SGPT) (BEAKER) 80 U/L 5-50 H (test code = 347) EGFR (BEAKER) (test INSUFFIC IENT CLINICAL code = 1092) DATA TO CALCULA TE ESTIMATED GFR. Sales And Marketing Specialist ID - [id number] ID - [id number] ID - [id number] ID - [id number] ID - SSHO30Ckjhuqer ID - [id number] ID - [id number] ID - XOVL39Kgkmjjmz ID - [id number] ID - [id number] ID - [id number] ID - [id number] ID - [id number] ID - [id number] ID - [id number] ID - [id number] ID - [id number] ID - RPSH22Scldwelr ID - [id number] A1C 2021-09-17 09:52:47 Test Item Value Reference Range Interpretation Comments HEMOGLOBIN A1C (BEAKER) (test code = 11.6 % 4.3-6.1 H 368) Sales And Marketing Specialist ID - [id number] W/PLT COUNT & AUTO [id number] 09:40:34 Test Item Value Reference Range Interpretation Comments WHITE BLOOD CELL COUNT (BEAKER) 8.1 K/ L 4.0-10.0 (test code = 775) RED BLOOD CELL COUNT (BEAKER) 4.78 M/ L 4.00-5.00 (test code = 761) HEMOGLOBIN (BEAKER) (test code = 15.3 GM/DL 12.0-15.5 410) HEMATOCRIT (BEAKER) (test code = 41.2 % 36.0-46.0 411) MEAN CORPUSCULAR VOLUME (BEAKER) 86.2 fL 82.0-99.0 (test code = 753) MEAN CORPUSCULAR HEMOGLOBIN 32.0 pg 27.0-33.0 (BEAKER) (test code = 751) MEAN CORPUSCULAR HEMOGLOBIN CONC 37.1 GM/DL 32.0-36.0 H (BEAKER) (test code = 752) RED CELL DISTRIBUTION WIDTH 11.9 % 12.0-15.0 L (BEAKER) (test code = 412) PLATELET COUNT (BEAKER) (test 170 K/CU MM 150-430 code = 756) MEAN PLATELET VOLUME (BEAKER) 12.9 fL 6.0-11.5 H (test code = 754) NUCLEATED RED BLOOD CELLS 0 /100 WBC 0-0 (BEAKER) (test code = 413) NEUTROPHILS RELATIVE PERCENT 45 % (BEAKER) (test code = 429) LYMPHOCYTES RELATIVE PERCENT 46 % (BEAKER) (test code = 430) MONOCYTES RELATIVE PERCENT 6 % (BEAKER) (test code = 431) EOSINOPHILS RELATIVE PERCENT 3 % (BEAKER) (test code = 432) BASOPHILS RELATIVE PERCENT 0 % (BEAKER) (test code = 437) NEUTROPHILS ABSOLUTE COUNT 3.65 K/ L 1.80-8.00 (BEAKER) (test code = 670) LYMPHOCYTES ABSOLUTE COUNT 3.75 K/ L 1.48-4.50 (BEAKER) (test code = 414) MONOCYTES ABSOLUTE COUNT (BEAKER) 0.47 K/ L 0.00-1.30 (test code = 415) EOSINOPHILS ABSOLUTE COUNT 0.20 K/ L 0.00-0.50 (BEAKER) (test code = 416) BASOPHILS ABSOLUTE COUNT (BEAKER) 0.03 K/ L 0.00-0.20 (test code = 417) IMMATURE GRANULOCYTES-RELATIVE 0 % 0-0 PERCENT (BEAKER) (test code = 2801) POCT-GLUCOSE [id number] 11:07:14 Test Item Value Reference Range Interpretation Comments POC-GLUCOSE METER 285 mg/dL 70-110 H : TESTED A T [facility] [address] (BEAKER) (test code [address], = 1538) [place] [address]: Sales And Marketing Specialist/Techni tom ID = [id number] for Polo cai Joseph POCT-GLUCOSE [id number] 09:40:48 Test Item Value Reference Range Interpretation Comments POC-GLUCOSE METER 308 mg/dL 70-110 H : TESTED A T [facility] [address] (BEAKER) (test code [address], = 1538) [place] [address]: Sales And Marketing Specialist/Techni tom ID = [id number] for Jennifer Rodas BASIC METABOLIC [id number] 10:03:36 Test Item Value Reference Range Interpretation Comments SODIUM (BEAKER) (test 135 meq/L 135-148 code = 381) POTASSIUM (BEAKER) 4.4 meq/L 3.6-5.5 (test code = 379) CHLORIDE (BEAKER) 101 meq/L 98-106 (test code = 382) CO2 (BEAKER) (test 22 meq/L 20-29 code = 355) BLOOD UREA NITROGEN 11 mg/dL 10-26 (BEAKER) (test code = 354) CREATININE (BEAKER) 0.94 mg/dL 0.50-1.20 (test code = 358) GLUCOSE RANDOM 393 mg/dL 70-110 H (BEAKER) (test code = 652) CALCIUM (BEAKER) 9.5 mg/dL 8.5-10.5 (test code = 697) EGFR (BEAKER) (test INSUFFIC IENT CLINICAL code = 1092) DATA TO CALCULA TE ESTIMATED GFR. Sales And Marketing Specialist ID - LITOOperator ID - LITOOperator ID - LITOOperator ID - LITOOperator ID - LITOOperator ID - LITOOperator ID - LITOOperator ID - LITOOperator ID - LITOOperator ID - LITOOperator ID - LITOOperator ID - LITOOperator ID - LITOCBC W/PLT COUNT & AUTO [id number] 09:46:06 Test Item Value Reference Range Interpretation Comments WHITE BLOOD CELL COUNT (BEAKER) 8.1 K/ L 4.0-10.0 (test code = 775) RED BLOOD CELL COUNT (BEAKER) 5.07 M/ L 4.00-5.00 H (test code = 761) HEMOGLOBIN (BEAKER) (test code = 15.2 GM/DL 12.0-15.5 410) HEMATOCRIT (BEAKER) (test code = 43.4 % 36.0-46.0 411) MEAN CORPUSCULAR VOLUME (BEAKER) 85.6 fL 82.0-99.0 (test code = 753) MEAN CORPUSCULAR HEMOGLOBIN 30.0 pg 27.0-33.0 (BEAKER) (test code = 751) MEAN CORPUSCULAR HEMOGLOBIN CONC 35.0 GM/DL 32.0-36.0 (BEAKER) (test code = 752) RED CELL DISTRIBUTION WIDTH 11.9 % 12.0-15.0 L (BEAKER) (test code = 412) PLATELET COUNT (BEAKER) (test 197 K/CU MM 150-430 code = 756) MEAN PLATELET VOLUME (BEAKER) 12.6 fL 6.0-11.5 H (test code = 754) NUCLEATED RED BLOOD CELLS 0 /100 WBC 0-0 (BEAKER) (test code = 413) NEUTROPHILS RELATIVE PERCENT 47 % (BEAKER) (test code = 429) LYMPHOCYTES RELATIVE PERCENT 45 % (BEAKER) (test code = 430) MONOCYTES RELATIVE PERCENT 5 % (BEAKER) (test code = 431) EOSINOPHILS RELATIVE PERCENT 3 % (BEAKER) (test code = 432) BASOPHILS RELATIVE PERCENT 0 % (BEAKER) (test code = 437) NEUTROPHILS ABSOLUTE COUNT 3.83 K/ L 1.80-8.00 (BEAKER) (test code = 670) LYMPHOCYTES ABSOLUTE COUNT 3.61 K/ L 1.48-4.50 (BEAKER) (test code = 414) MONOCYTES ABSOLUTE COUNT (BEAKER) 0.40 K/ L 0.00-1.30 (test code = 415) EOSINOPHILS ABSOLUTE COUNT 0.20 K/ L 0.00-0.50 (BEAKER) (test code = 416) BASOPHILS ABSOLUTE COUNT (BEAKER) 0.03 K/ L 0.00-0.20 (test code = 417) IMMATURE GRANULOCYTES-RELATIVE 0 % 0-0 PERCENT (BEAKER) (test code = 7661)
[2022-11-11] MEDS ORDERED: NA CHLORIDE 0.9% 1,000 ML ONE (02:16)
[2022-11-11 02:23] LABS: Specific Gravity 1.006 (1.005-1.030); Urine Bacteria None Seen /HPF (<20); Urine Bilirubin NEGATIVE (Negative); Urine Blood Negative (Negative); Urine Clarity Clear (Clear); Urine Color Colorless (Yellow); Urine Glucose NEGATIVE (Negative); Urine Protein NEGATIVE (Negative); Urine RBC <5 /HPF (None Seen); Urine Urobilinogen Normal (Normal); Urine pH 6.5 (5.0-7.0)
[2022-11-11 02:28] LABS: Specific Gravity 1.006 (1.005-1.030)
--- NOTE | 2022-11-11 02:41 | ER ---
Nurse's Notes [facility] Name: Laureen Schmidt Age: 32 yrs Sex: Female : 1990 Arrival Date: 11/11/2022 Time: 00:43 Bed 9 Private MD: Diagnosis: Pain in right leg Presentation: 11/11 00:58 Chief complaint: Patient states: right leg swelling x 3 days reports pain in calf kl radiating to hip began this pm. Coronavirus screen: Vaccine status: Patient reports being unvaccinated. Ebola Screen: Patient negative for fever greater than or equal to 101.5 degrees Fahrenheit, and additional compatible Ebola Virus Disease symptoms. Initial Sepsis Screen: Does the patient meet any 2 criteria? No. Patient's initial sepsis screen is negative. Does the patient have a suspected source of infection? No. Patient's initial sepsis screen is negative. Risk Assessment: Do you want to hurt yourself or someone else? Patient reports no desire to harm self or others. 00:58 Method Of Arrival: Wheelchair kl 00:58 Acuity: ELKE 3 kl Triage Assessment: 01:02 General: Appears uncomfortable, well groomed, well developed, Behavior is calm, kl cooperative. Pain: Complains of pain in right calf and right quadriceps Pain currently is 8 out of 10 on a pain scale. at worst was 10 out of 10 on a pain scale. Historical: - Allergies: 01:00 Bactrim DS; kl 01:00 Ciprofloxacin; kl 01:00 Codeine; kl - Home Meds: 01:00 gabapentin 300 mg oral capsule 1 cap 2 times per day [Active]; tramadol 50 mg Oral kl tablet once [Active]; Flexeril Oral 10 mg nightly [Active]; ibuprofen 600 mg Oral tablet once [Active]; Lasix 20 mg Oral tablet daily [Active]; - PMHx: 01:00 Bipolar disorder; Gastroperesis; Heart Murmur; Nonan Syndrome; Flores Syndrome; kl - PSHx: 01:00 Cholecystectomy; Exploratory laparotomy; Gastric Bypass; liposuction; screw placement kl in ryan ankles; - Immunization history:: Adult Immunizations not up to date. - Social history:: Smoking status: Patient denies any tobacco usage or history of. - Family history:: not pertinent. Screenin:05 [facility] ED Fall Risk Assessment (Adult) History of falling in the last 3 months, kl including since admission No falls in past 3 months (0 pts) Confusion or Disorientation No (0 pts) Intoxicated or Sedated No (0 pts) Impaired Gait Yes (1 pt) Mobility Assist Device Used Yes (1 pt) Altered Elimination No (0 pt) Score/Fall Risk Level 0 - 2 = Low Risk Oriented to surroundings, Maintained a safe environment. Abuse screen: Denies threats or abuse. Nutritional screening: No deficits noted. Tuberculosis screening: No symptoms or risk factors identified. Assessment: 02:04 General: Appears uncomfortable, well groomed, well developed, Behavior is calm, kl cooperative. Pain: Complains of pain in right calf Pain currently is 7 out of 10 on a pain scale. Neuro: No deficits noted. Cardiovascular: No deficits noted. Respiratory: No deficits noted. GI: No deficits noted. No signs and/or symptoms were reported involving the gastrointestinal system. : No deficits noted. No signs and/or symptoms were reported regarding the genitourinary system. EENT: No deficits noted. No signs and/or symptoms were reported regarding the EENT system. Musculoskeletal: Reports pain in right calf negative homans. 03:00 Reassessment: Patient appears in no apparent distress at this time. Patient denies pain kl at this time. Patient states feeling better. \E\. Vital Signs: 00:58 BP 122 / 76; Pulse 94; Resp 20; Temp 98(O); Pulse Ox 100% on R/A; Weight 70.76 kg (R); kl Height 5 ft. 3 in. ; Pain 8/10; 03:36 BP 111 / 77; Pulse 71; Resp 18; Temp 98(O); Pulse Ox 98% ; Pain 0/10; kl 00:58 Body Mass Index 27.63 (70.76 kg, 160.02 cm) kl 00:58 Pain Scale: Adult kl 03:36 Pain Scale: Adult kl ED Course: 00:48 Patient arrived in ED. ja2 00:48 Matt Irizarry MD is Attending Physician. [facility] 01:00 Triage completed. kl 01:45 US Extremity Venous W Compression Ryan In Process Unspecified. EDMS 02:04 PREGU Sent. kl 02:04 Urinalysis W/Microscopic Sent. kl 02:04 No provider procedures requiring assistance completed. Inserted saline lock: 20 gauge kl in right forearm, using aseptic technique. 02:06 Patient has correct armband on for positive identification. Bed in low position. Call kl light in reach. Side rails up X2. 03:37 IV discontinued, intact, bleeding controlled, No redness/swelling at site. Pressure kl dressing applied. 03:37 Arm band placed on. kl Administered Medications: 02:10 Drug: NS 0.9% IV 1000 ml Route: IV; Rate: 1 bolus; Site: right forearm; kl Medication: 03:37 VIS not applicable for this client. sindhu Outcome: 02:40 Discharge ordered by . gill 03:37 Discharged to home ambulatory, with family. kl 03:37 Condition: stable 03:37 Discharge instructions given to patient, Instructed on discharge instructions, follow up and referral plans. Demonstrated understanding of instructions, follow-up care, medications, Prescriptions given X 1. 03:38 Patient left the ED. kl Signatures: Dispatcher [employer] Alexandra Woodward RN RN kl Anderson, Corey, MD MD cha Alexander, Jessica ja2 Corrections: (The following items were deleted from the chart) 03:37 03:37 PMHx: fatty liver; kl kl 03:37 03:37 PMHx: Diabetes - IDDM; kl kl
--- NOTE | 2022-11-11 02:41 | EDPHYS ---
Physician Documentation [facility] Name: Laureen Schmidt Age: 32 yrs Sex: Female : 1990 Arrival Date: 11/11/2022 Time: 00:43 Bed 9 Private MD: ARIANNA Physician Matt Irizarry HPI: 11/11 02:33 This 32 yrs old Female presents to ER via Wheelchair with complaints of Leg gill Pain, Leg Swelling. 02:33 The patient presents with decreased range of motion, pain, that is acute. The gill complaints affect the lateral aspect of right calf, right calf and medial aspect of right calf. Context: The problem was sustained at home. Onset: The symptoms/episode began/occurred just prior to arrival. Modifying factors: The symptoms are alleviated by remaining still, the symptoms are aggravated by movement. Associated signs and symptoms: The patient has no apparent associated signs or symptoms. Severity of symptoms: At their worst the symptoms were mild, in the emergency department the symptoms are unchanged. The patient has not experienced similar symptoms in the past. Historical: - Allergies: 01:00 Bactrim DS; kl 01:00 Ciprofloxacin; kl 01:00 Codeine; kl - Home Meds: 01:00 gabapentin 300 mg oral capsule 1 cap 2 times per day [Active]; tramadol 50 mg Oral kl tablet once [Active]; Flexeril Oral 10 mg nightly [Active]; ibuprofen 600 mg Oral tablet once [Active]; Lasix 20 mg Oral tablet daily [Active]; - PMHx: 01:00 Bipolar disorder; Gastroperesis; Heart Murmur; Nonan Syndrome; Flores Syndrome; kl - PSHx: 01:00 Cholecystectomy; Exploratory laparotomy; Gastric Bypass; liposuction; screw placement kl in ryan ankles; - Immunization history:: Adult Immunizations not up to date. - Social history:: Smoking status: Patient denies any tobacco usage or history of. - Family history:: not pertinent. ROS: 02:33 Constitutional: Negative for fever, chills, and weight loss, Eyes: Negative for injury, gill pain, redness, and discharge, ENT: Negative for injury, pain, and discharge, Neck: Negative for injury, pain, and swelling, Cardiovascular: Negative for chest pain, palpitations, and edema, Respiratory: Negative for shortness of breath, cough, wheezing, and pleuritic chest pain, Abdomen/GI: Negative for abdominal pain, nausea, vomiting, diarrhea, and constipation, Back: Negative for injury and pain, : Negative for injury, bleeding, discharge, and swelling, Skin: Negative for injury, rash, and discoloration, Neuro: Negative for headache, weakness, numbness, tingling, and seizure, Psych: Negative for depression, anxiety, suicide ideation, homicidal ideation, and hallucinations, Allergy/Immunology: Negative for hives, rash, and allergies, Endocrine: Negative for neck swelling, polydipsia, polyuria, polyphagia, and marked weight changes, Hematologic/Lymphatic: Negative for swollen nodes, abnormal bleeding, and unusual bruising. 02:33 MS/extremity: Positive for decreased range of motion, pain, swelling. Exam: 02:33 Constitutional: This is a well developed, well nourished patient who is awake, alert, gill and in no acute distress. Head/Face: Normocephalic, atraumatic. Eyes: Pupils equal round and reactive to light, extra-ocular motions intact. Lids and lashes normal. Conjunctiva and sclera are non-icteric and not injected. Cornea within normal limits. Periorbital areas with no swelling, redness, or edema. ENT: Nares patent. No nasal discharge, no septal abnormalities noted. Tympanic membranes are normal and external auditory canals are clear. Oropharynx with no redness, swelling, or masses, exudates, or evidence of obstruction, uvula midline. Mucous membranes moist. Neck: Trachea midline, no thyromegaly or masses palpated, and no cervical lymphadenopathy. Supple, full range of motion without nuchal rigidity, or vertebral point tenderness. No Meningismus. Chest/axilla: Normal chest wall appearance and motion. Nontender with no deformity. No lesions are appreciated. Cardiovascular: Regular rate and rhythm with a normal S1 and S2. No gallops, murmurs, or rubs. Normal PMI, no JVD. No pulse deficits. Respiratory: Lungs have equal breath sounds bilaterally, clear to auscultation and percussion. No rales, rhonchi or wheezes noted. No increased work of breathing, no retractions or nasal flaring. Abdomen/GI: Soft, non-tender, with normal bowel sounds. No distension or tympany. No guarding or rebound. No evidence of tenderness throughout. Back: No spinal tenderness. No costovertebral tenderness. Full range of motion. Skin: Warm, dry with normal turgor. Normal color with no rashes, no lesions, and no evidence of cellulitis. MS/ Extremity: Pulses equal, no cyanosis. Neurovascular intact. Full, normal range of motion. Neuro: Awake and alert, GCS 15, oriented to person, place, time, and situation. Cranial nerves II-XII grossly intact. Motor strength 5/5 in all extremities. Sensory grossly intact. Cerebellar exam normal. Normal gait. Psych: Awake, alert, with orientation to person, place and time. Behavior, mood, and affect are within normal limits. 02:33 Musculoskeletal/extremity: ROM: full active range of motion, full passive range of motion, Pulses: noted to be 4+ in the bilateral radial, brachial, femoral, popliteal, posterior tibial and and dorsalis pedis arteries., Sensation intact. Compartment Syndrome exam of affected extremity: is normal. no pain, with active ROM, no numbness, no tingling, no sensation deficit, no palor, no weak pulses, Weight bearing: able to fully bear weight, DVT Exam: no swelling, no tenderness, negative Homans' sign noted on exam, no appreciated bluish discoloration, pain. Vital Signs: 00:58 BP 122 / 76; Pulse 94; Resp 20; Temp 98(O); Pulse Ox 100% on R/A; Weight 70.76 kg (R); kl Height 5 ft. 3 in. ; Pain 8/10; 03:36 BP 111 / 77; Pulse 71; Resp 18; Temp 98(O); Pulse Ox 98% ; Pain 0/10; kl 00:58 Body Mass Index 27.63 (70.76 kg, 160.02 cm) kl 00:58 Pain Scale: Adult kl 03:36 Pain Scale: Adult kl MDM: 00:48 Patient medically screened. [facility] 02:36 Differential diagnosis: closed fracture, contusion, tendonitis. Data reviewed: vital gill signs, nurses notes, lab test result(s), radiologic studies, doppler. Consideration of Admission/Observation Escalation of care including admission/observation considered. Management of patient was discussed with the following:. Test considered but Not performed: Ultrasound no arterial doppler. Care significantly affected by the following chronic conditions: gastroparesis, murmur, nonan, murmur. 11/11 01:04 Order name: Urinalysis W/Microscopic; Complete Time: 02:31 gill 11/11 01:04 Order name: PREGU [facility] 11/11 01:04 Order name: US Extremity Venous W Compression Ryan gill Administered Medications: 02:10 Drug: NS 0.9% IV 1000 ml Route: IV; Rate: 1 bolus; Site: right forearm; kl Disposition Summary: 11/11/22 02:40 Discharge Ordered Location: Home [facility] Problem: new gill Symptoms: have improved gill Condition: Stable gill Diagnosis - Pain in right leg gill Followup: gill - With: Private Physician - When: - Reason: Recheck today's complaints, Re-evaluation by your physician Discharge Instructions: - Discharge Summary Sheet gill - Leg Cramps gill - Musculoskeletal Pain [facility] Forms: - Medication Reconciliation Form gill - Thank You Letter gill - Antibiotic Education gill - Prescription Opioid Use gill Prescriptions: - Tylenol 325 mg Oral Tablet - take 2 tablets by ORAL route every 6 hours as needed; 60 tablet; Refills: 0, gill Product Selection Permitted Signatures: Dispatcher [employer] Alexandra Woodward RN RN Matt Xie MD MD cha Corrections: (The following items were deleted from the chart) 03:37 03:37 PMHx: fatty liver; kl kl 03:37 03:37 PMHx: Diabetes - IDDM; kl kl
[2022-11-11 03:56] VITALS: TEMP 98
[2022-11-11 04:02] VITALS: BP 111/77; O2SAT 98
--- NOTE | 2022-11-11 15:56 | RAD REPORT ---
EXAM DESCRIPTION: US EXTREMITY VEINS BILATERAL CLINICAL HISTORY: Female, 32 years old, Pain;Swelling COMPARISON: None. TECHNIQUE: Grayscale and color/spectral Doppler ultrasound of the bilateral lower extremities. FINDINGS: Normal flow and compressibility in the bilateral common femoral, greater saphenous, femora l, popliteal, peroneal and posterior tibial veins. No intraluminal thrombus is visualized. Visualized waveforms demonstrate normal respiratory variability. Normal augmentation where anatomically accessi ble. IMPRESSION: No sonographic evidence of deep venous thrombosis in the imaged bilateral lower extremit ies. Electronically signed by: Ata Dsouza MD 11/11/2022 1:54 AM CDT Due to temporary technical issues with the PACS/Fluency reporting system, reports are being signed by the in house radiologists without review as a courtesy to insure prompt reporting. The interpreting radiologist is fully responsible for the content of the report.
== END 2022-11-11 03:38 | disposition home or self-care (01) ==
LOC: ER 00:43
DX: M79.604 Pain in right leg (principal); Z88.1 Allergy status to other antibiotic agents; Z88.5 Allergy status to narcotic agent
CPT/HCPCS: 81001; 81025; 93970; J7030

== ENCOUNTER 2025-04-05 08:10 | Emergency (ER) | payer MEDICAID ==
--- OUTSIDE RECORDS SUMMARY | 2025-04-05 08:15 | XMS REPORT | Clinical Summary ---
Author Name Unknown Organization [facility] Address [address] [place] [address] Care Team Providers Care Area Development Manager Name Role Phone Davis Ghosh DO Unavailable [phone] Encounters Date Type Department Care Team Description 03/26/2025 Telephone Cancer Prevention Center - Survivorship, Melanoma [address] [place] [address] Hang Bell RN 03/15/2025 8:25 PM CDT Ancillary Procedure Image Library [address] [place] [id number] Cancer 03/15/2025 8:20 PM CDT Ancillary Procedure Image [facility] [address] [place] [address] Cancer 03/15/2025 8:10 PM CDT Ancillary Procedure Image [facility] [address] [place] [address] 32374 Cancer 03/15/2025 8:05 PM CDT Ancillary Procedure Image [facility] [address] [place] [id number] Cancer 03/15/2025 8:00 PM CDT Ancillary Procedure Image Library [address] [place] [address] [id number] Cancer after 04/05/2024 Social History Tobacco Use Types Packs/Day Years Used Date Smoking Tobacco: Never Assessed Comments Unknown Sex and Gender Information Value Date Recorded Sex Assigned at Not on file Legal Sex Female 2:21 PM CDT Gender Identity Not on file Sexual Orientation Not on file Plan of Treatment Health Maintenance Due Date Last Done Comments COVID-19 Vaccine (2023-2 5 season) 2025 Influenza Vaccine (#1) 2025 Pneumococcal Vaccine Aged Out No long er eligible based on patient's age to complete this topic Procedures Procedure Name Priority Date/Time Associated Diagnosis Comments OSI US BREAST Routine 11/27/2024 8:19 PM CDT Cancer OSI MAMMO BILATERAL Routine 11/27/2024 8 :19 PM CDT Cancer after 04/05/2024 Results * OSI Mammo (11/27/2024 8:19 PM CDT) [facility] - 03/15/2025 8:20 PM CDT Study acquired at another institution. For comparison only. No [facility] originated interpretation requested or available. [facility] Carlos Ghosh DO IMG OUTSIDE IMAGE ORDERAB LES Final Result Performing Organization Address [facility] de Phone Number [facility] * OSI US Breast (11/27/2024 8:19 PM CDT) [facility] - 03/15/2025 8:19 PM CDT Study acquired at another institution. For comparison only. No [facility] originated interpretation requested or available. [facility] Carlos Ghosh DO IMG OUTSIDE IMAGE ORDERAB LES Final Result Performing Organization Address [facility] de Phone Number [facility] after 04/05/2024 Insurance [facility] [employer]SI [facility] [employer] [employer]SI Advance Directives * Full Code (Latest Code Status on File) Date Activated Date Inactivated Comments 03/14/2025 3:27 PM Update based o n Advanced Directive Documentation Care Teams Area Development Manager Relationship Specialty Start Date End Date Davis Ghosh DO [address] [place] [id number] [email or web address] PCP - External Primary Care Provider Family Practice 03/14/25
[2025-04-05] MEDS ORDERED: KETOROLAC 30 MG/ML INJ ONE (08:37)
[2025-04-05] MEDS ORDERED: HYDROCODONE/APAP 5/325 MG TAB ONE (08:37)
[2025-04-05] MEDS ORDERED: ACETAMINOPHEN 500 MG TAB ONE (08:44)
--- NOTE | 2025-04-05 10:04 | RAD REPORT ---
EXAMINATION: XR RIGHT SHOUDLER CLINICAL INDICATION: Female, 35 years old. PAIN RIGHT TECHNIQUE: Two view radiograph of the right shoulder were obtained. COMPARISON: No prior exam. FINDINGS: No acute bone or joint abnormality detected. IMPRESSION: No acute or significant abnormalities.
--- NOTE | 2025-04-05 10:32 | EDPHYS ---
Physician Documentation [facility] Name: Laureen Schmidt Age: 35 yrs Sex: Female : 1990 Arrival Date: 04/05/2025 Time: 08:10 Bed 6 Private MD: ED Physician Nicko Cao HPI: 04/05 08:55 This 35 yrs old Female presents to ER via Ambulatory with complaints of dr5 Shoulder Pain - right. 08:55 The patient or guardian complains of pain. Onset: The symptoms/episode began/occurred dr5 1.5 month(s) ago. 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 Patient reports she had injury when coming down off a ladder and heard a pop in her right shoulder. Patient reports continued pain but has not had x-ray of it yet. Patient's been taking tramadol, Flexeril at home with mild relief.. Historical: - Allergies: 08:29 Bactrim DS; af3 08:29 Ciprofloxacin; af3 08:29 Codeine; af3 - PMHx: 08:29 Bipolar disorder; Gastroperesis; Gastroperesis; Heart Murmur; Nonan Syndrome; Flores af3 Syndrome; - PSHx: 08:29 Cholecystectomy; Exploratory laparotomy; Gastric Bypass; liposuction; screw placement af3 in ryan ankles; - Immunization history:: Adult Immunizations unknown. - Infectious Disease History:: Denies. - Social history:: Smoking status: Patient denies any tobacco usage or history of. ROS: 08:56 Constitutional: as per hpi dr5 Exam: 08:56 Constitutional: This is a well developed, well nourished patient who is awake, alert, dr5 and in no acute distress. Head/Face: Normocephalic, atraumatic. Eyes: Pupils equal round and reactive to light, extra-ocular motions intact. Lids and lashes normal. Conjunctiva and sclera are non-icteric and not injected. Cornea within normal limits. Periorbital areas with no swelling, redness, or edema. Neck: Trachea midline, no thyromegaly or masses palpated, and no cervical lymphadenopathy. Supple, full range of motion without nuchal rigidity, or vertebral point tenderness. No Meningismus. Chest/axilla: Normal chest wall appearance and motion. Nontender with no deformity. No lesions are appreciated. Cardiovascular: Regular rate and rhythm with a normal S1 and S2. Normal PMI, no JVD. No pulse deficits. Respiratory: Lungs have equal breath sounds bilaterally, clear to auscultation. No rales, rhonchi or wheezes noted. No increased work of breathing, no retractions or nasal flaring. Back: No spinal tenderness. No costovertebral tenderness. Full range of motion. Skin: Warm, dry with normal turgor. Normal color with no rashes, no lesions, and no evidence of cellulitis. Neuro: Awake and alert, GCS 15, oriented to person, place, time, and situation. Cranial nerves II-XII grossly intact. Motor strength 5/5 in all extremities. Sensory grossly intact. Cerebellar exam normal. Normal gait. 08:56 Musculoskeletal/extremity: Extremities: grossly normal except: noted in the right shoulder: contusion, tenderness, ROM: limited passive range of motion, in the right shoulder, Patient has pain when extending her arm all the way up and across chest., Circulation is intact in all extremities. Sensation intact. Vital Signs: 08:27 BP 110 / 69; Pulse 65; Resp 18; Temp 97.8; Pulse Ox 100% on R/A; Weight 80.74 kg; af3 Height 5 ft. 3 in. ; Pain 7/10; 10:35 BP 117 / 113; Pulse 70; Resp 18; Pulse Ox 100% on R/A; af3 10:37 BP 107 / 71; Pulse 59; Resp 18; Pulse Ox 98% on R/A; ap3 08:27 Body Mass Index 31.53 (80.74 kg, 160.02 cm) af3 08:27 Pain Scale: Adult af3 MDM: 08:17 Medical Screening Exam initiated dr5 10:35 Differential diagnosis: Anterior dislocation with fracture, DJD, tendonitis. Data dr5 reviewed: vital signs, nurses notes, radiologic studies, plain films. Consideration of Admission/Observation Escalation of care including admission/observation considered. Escalation considered patient found to have dislocation. I considered the following discharge prescriptions or medication management in the emergency department I discussed and recommended Over The Counter medications, Medications were administered in the Emergency Department. See MAR. Independent interpretation of the following test(s) in the Emergency Department X-Ray: My interpretation is Independent interpretation of x-ray does not reveal fracture. Care significantly affected by the following chronic conditions: Gastroparesis, heart murmur, known syndrome, Flores syndrome, bipolar disorder. Care significantly affected by the following Social Determinants of Health: Poor access to healthcare and/or lack of insurance, Poor access to transportation, Problems related to employment. Counseling: I had a detailed discussion with the patient and/or guardian regarding the historical points, exam findings, and any diagnostic results supporting the discharge/admit diagnosis, the presence of at least one elevated blood pressure reading (>120/80) during this emergency department visit, radiology results, the need for outpatient follow up, for definitive care, a family practitioner, to return to the emergency department if symptoms worsen or persist or if there are any questions or concerns that arise at home. Medication response: Toradol markedly relieved the patient's pain. Response to treatment: the patient's symptoms have markedly improved after treatment. Special discussion: I discussed with the patient/guardian in detail that at this point there is no indication for admission to the hospital. It is understood, however, that if the symptoms persist or worsen the patient needs to return immediately for re-evaluation. Based on the history and exam findings, there is no indication for further emergent testing or inpatient evaluation. I discussed with the patient/guardian the need to see the orthopedic surgeon for further evaluation of the symptoms. ED course: Recommended patient follow-up with orthopedics for possible MRI of right shoulder. Report printed and given to patient as well as CD made and given to her with x-ray images. Toradol given in ER which markedly helped her symptoms. Will not put patient in sling as want to improve and maintain range of motion. All questions answered. Strict ER precautions given.. 04/05 08:28 Order name: Shoulder Right (2 View) XRAY; Complete Time: 10:16 dr5 Administered Medications: 08:43 Not Given (Physician Discretion): hydrocodone-acetaminophen5 mg-325 mg 2 tabs PO once dr5 08:47 Drug: Ketorolac IM 30 mg IM once Route: IM; Site: right deltoid; af3 10:34 Follow up: Response: No adverse reaction; Pain is decreased af3 08:47 Drug: Acetaminophen PO 1000 mg PO once Route: PO; af3 10:33 Follow up: Response: No adverse reaction af3 Disposition: 14:33 I was immediately available on-site in the Emergency Department for consultation in the ms3 care of the patient. Disposition Summary: 04/05/25 10:32 Discharge Ordered Notes: Location: Home dr5 Condition: Stable dr5 Diagnosis - Contusion of right shoulder dr5 Followup: dr5 - With: Emergency Department - When: As needed - Reason: Worsening of condition Followup: dr5 - With: Tc Cuevas MD - When: 1 - 2 days - Reason: Recheck today's complaints, Continuance of care, Re-evaluation by your physician Followup: dr5 - With: Ata Romero MD - When: 1 - 2 days - Reason: Recheck today's complaints, Continuance of care, Re-evaluation by your physician Discharge Instructions: - Discharge Summary Sheet dr5 - Shoulder Sprain dr5 Forms: - Work release form dr5 - Medication Reconciliation Form dr5 - Patient Portal Instructions dr5 - Leadership Thank You Letter dr5 Prescriptions: - Medrol ([place]) 4 mg Oral Tablets, Dose Pack - take 1 tablet ORAL route as directed - follow package instructions; 1 packet; dr5 Refills: 0, Product Selection Permitted Signatures: Dispatcher [employer] EDMS Nicko Cao DO DO ms3 An Doll RN RN af3 Jayson Schneider, [employer]-C [employer]-Cdr5 Corrections: (The following items were deleted from the chart) 08:56 08:55 Patient is a 35-year-old female with history of bipolar, gastroparesis, heart dr5 murmur, 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 Patient reports she had injury when coming. dr5
--- NOTE | 2025-04-05 10:32 | ER ---
Nurse's Notes [facility] Name: Laureen Schmidt Age: 35 yrs Sex: Female : 1990 Arrival Date: 04/05/2025 Time: 08:10 Bed 6 Private MD: Diagnosis: Contusion of right shoulder Presentation: 04/05 08:27 Chief complaint: Patient states: right shoulder pain, work injury happened 1 month ago, af3 unable to cross right arm over chest. Coronavirus screen: At this time, the client does not indicate any symptoms associated with coronavirus-19. Ebola Screen: No symptoms or risks identified at this time. Initial Sepsis Screen: Does the patient meet any 2 criteria? No. Patient's initial sepsis screen is negative. Does the patient have a suspected source of infection? No. Patient's initial sepsis screen is negative. Risk Assessment: Do you want to hurt yourself or someone else? Patient reports no desire to harm self or others. Onset of symptoms was March 05, 2025. 08:27 Method Of Arrival: Ambulatory af3 08:27 Acuity: ELKE 4 af3 Triage Assessment: 08:29 General: Appears in no apparent distress. uncomfortable, well groomed, well developed, af3 Behavior is calm, cooperative, appropriate for age. Pain: Complains of pain in anterior aspect of right shoulder Pain currently is 7 out of 10 on a pain scale. Neuro: Level of Consciousness is awake, alert, obeys commands, Oriented to person, place, time, situation, Appropriate for age. Cardiovascular: Patient's skin is warm and dry. Respiratory: Airway is patent Respiratory effort is even, unlabored, Respiratory pattern is regular, symmetrical. Musculoskeletal: Circulation, motion, and sensation intact. Range of motion: limited in right shoulder. Historical: - Allergies: 08:29 Bactrim DS; af3 08:29 Ciprofloxacin; af3 08:29 Codeine; af3 - PMHx: 08:29 Bipolar disorder; Gastroperesis; Gastroperesis; Heart Murmur; Nonan Syndrome; Flores af3 Syndrome; - PSHx: 08:29 Cholecystectomy; Exploratory laparotomy; Gastric Bypass; liposuction; screw placement af3 in ryan ankles; - Immunization history:: Adult Immunizations unknown. - Infectious Disease History:: Denies. - Social history:: Smoking status: Patient denies any tobacco usage or history of. Screenin:32 [facility] ED Fall Risk Assessment (Adult) History of falling in the last 3 months, af3 including since admission No falls in past 3 months (0 pts) Confusion or Disorientation No (0 pts) Intoxicated or Sedated No (0 pts) Impaired Gait No (0 pts) Mobility Assist Device Used No (0 pt) Altered Elimination No (0 pt) Score/Fall Risk Level 0 - 2 = Low Risk Oriented to surroundings, Maintained a safe environment, Educated pt \T\ family on fall prevention, incl call for assistance when getting out of bed. Abuse screen: Denies threats or abuse. Denies injuries from another. Nutritional screening: No deficits noted. Tuberculosis screening: No symptoms or risk factors identified. Assessment: 08:31 General: see triage assessment. af3 09:30 Reassessment: Patient appears in no apparent distress at this time. No changes from af3 previously documented assessment. Patient and/or family updated on plan of care and expected duration. Pain level reassessed. Patient is alert, oriented x 3, equal unlabored respirations, skin warm/dry/pink. 10:30 Reassessment: Patient appears in no apparent distress at this time. No changes from af3 previously documented assessment. Patient and/or family updated on plan of care and expected duration. Pain level reassessed. Patient is alert, oriented x 3, equal unlabored respirations, skin warm/dry/pink. Vital Signs: 08:27 BP 110 / 69; Pulse 65; Resp 18; Temp 97.8; Pulse Ox 100% on R/A; Weight 80.74 kg; af3 Height 5 ft. 3 in. ; Pain 7/10; 10:35 BP 117 / 113; Pulse 70; Resp 18; Pulse Ox 100% on R/A; af3 10:37 BP 107 / 71; Pulse 59; Resp 18; Pulse Ox 98% on R/A; ap3 08:27 Body Mass Index 31.53 (80.74 kg, 160.02 cm) af3 08:27 Pain Scale: Adult af3 ED Course: 08:14 Patient arrived in ED. im 08:17 Jayson Schneider FNP-C [facility]. dr5 08:17 Nicko Cao DO is Attending Physician. dr5 08:27 Doll, An, RN is Primary Nurse. af3 08:29 Triage completed. af3 08:29 Arm band placed on. af3 08:33 Patient has correct armband on for positive identification. Bed in low position. Call af3 light in reach. Provided Education on: meds, call light use . 08:33 No provider procedures requiring assistance completed. af3 09:18 Shoulder Right (2 View) XRAY In Process Unspecified. EDMS 10:32 Tc Cuevas MD is Referral Physician. dr5 10:32 Ata Romero MD is Referral Physician. dr5 10:34 Patient did not have IV access during this emergency room visit. af3 Administered Medications: 08:43 Not Given (Physician Discretion): hydrocodone-acetaminophen5 mg-325 mg 2 tabs PO once dr5 08:47 Drug: Ketorolac IM 30 mg IM once Route: IM; Site: right deltoid; af3 10:34 Follow up: Response: No adverse reaction; Pain is decreased af3 08:47 Drug: Acetaminophen PO 1000 mg PO once Route: PO; af3 10:33 Follow up: Response: No adverse reaction af3 Medication: 08:32 VIS not applicable for this client. af3 Outcome: 10:32 Discharge ordered by . dr5 10:34 Discharged to home ambulatory, af3 10:34 Condition: stable 10:34 Discharge instructions given to patient, Instructed on discharge instructions, follow up and referral plans. Demonstrated understanding of instructions, follow-up care, 10:35 Patient left the ED. af3 Signatures: Dispatcher [employer] EDMS Ella Talavera RN RN ap3 Hoda Turcios Ashley, RN RN af3 Jayson Schneider, ILANA-C [employer]-[id number]
[2025-04-05 10:48] VITALS: TEMP 97.8; O2SAT 100
[2025-04-05 10:50] VITALS: BP 117/113
== END 2025-04-05 10:35 | disposition home or self-care (01) ==
LOC: ER 08:10
DX: S40.011A Contusion of right shoulder, initial encounter (principal)
CPT/HCPCS: 96372; 99284